=== PATIENT | female | born 1965 | race Caucasian/White ===

== ENCOUNTER 2017-11-03 15:29 | Emergency (ER) | payer BC, SELFPAY ==
[2017-11-03 15:31] VITALS: BP 158/87; PULSE 72; RESP 18; TEMP 36.5; O2SAT 98; BMI 43.6
--- NOTE | 2017-11-03 16:10 | CT_ITS ---
STUDY: CT BRAIN WITHOUT CONTRAST REASON FOR EXAM: Female, 52 years old. Headache with nonreactive pupils RADIATION DOSAGE (If Supplied By Facility): CTDIvol = ( 60.81 ) mGy, DLP = ( 1067.08 ) mGycm TECHNIQUE: Transaxial CT imaging of the brain was performed without administration of intravenous contrast material. Individualized dose optimization techniques were used for this CT. COMPARISON: None. FINDINGS: Normal soft tissue structures. Normal calvarium. Normal size ventricles and extra-axial spaces for the patient's age. Normal white matter tracts of the cerebral hemispheres. Normal basal ganglia and thalami. Normal brainstem. Normal cerebellum. There is no intracranial hemorrhage. There are no findings of an acute ischemic infarction. Normal visualized paranasal sinuses. CT/Brain/Head without Contrast IMPRESSION: Normal unenhanced CT scan of the brain. If there are continuing concerns, consider MRI. Electronically Signed: Hilda Mendoza MD at 16:54 EDT Tel , Service support ,
[2017-11-03] MEDS: 0.9% Normal Saline 1,000 ML 999 ML IV (16:23)
[2017-11-03 16:39] LABS: Absolute Lymphocyte Count 2.03 X10^3/ul (0.83-4.51); Absolute Neutrophil Count 3.2 X10^3/uL (2.0-7.7); Basophil# 0.01 X10^3/uL; Basophil% 0.2 % (0-1); Eosinophil# 0.22 X10^3/uL; Eosinophils% 3.7 % (0-5); Hemoglobin 14.2 g/dl (12.0-15.0); Lymphocyte # 2.03 X10^3/ul (4.0); Lymphocyte % 34.2 % (19-41); Mean Corpuscular Volume 87.9 fL (81-99); Mean Platelet Vol. 9.3 fl (6.2-12.0); Monocyte# 0.48 X10^3/uL; Monocyte% 8.1 % (0-10); Neutrophil # 3.17 X10^3/uL (2.7-7.7); Neutrophil % 53.5 % (47-70); Platelet Count 233 K/mm3 (150-450); RBC Distribution Width SD 41.6 fl (35.1-43.9); Red Blood Count 4.89 M/mm3 (4.2-5.4); White Blood Count 5.9 K/mm3 (4.4-11.0)
[2017-11-03 16:41] LABS: POSITIVE COUNT NO; POSITIVE DIFFERENTIAL NO; POSITIVE MORPHOLOGY NO
--- NOTE | 2017-11-03 16:46 | ED.DCSUM_ITS ---
- ER Visit Summary Date of Service: 11/03/17 Chief Complaint: Headache History of Present Illness: The patient is a 52 F presents to the emergency department with headache. Patient states she has been having it intermittently for the past 6 weeks. She states she will get a 2-3 times a week. She states in the last half an hour to a couple hours. She describes it as a dull ache. It comes on gradually. She was actually following up with her primary care today and saw her nurse practitioner. There were concerned that her left eye was not reactive and centering. She has no history of aneurysm. There is no family history of aneurysm or polycystic kidney disease. She has not taken anything for the headache. She denies any visual change, photophobia, or vision loss. She denies any trauma. She denies any other systemic symptoms. Physical Examination: Well-appearing patient is in no acute distress. Head is normocephalic, atraumatic. Pupils equal round reactive, extraocular muscles intact. There is no temporal artery tenderness. There is no vesicular rash. Neck supple. Kernig's and Brudzinski's are negative. Heart regular rate and rhythm. Lungs clear, chest nontender. Abdomen soft, nontender, nondistended. Neuro exam displays no focal or lateralizing deficit. 2+ symmetric lower extremity reflexes. No clonus. No ataxia or gait abnormality. Test Results: [] Emergency Department Course and Treatment: The patient's pupil was reactive on examination. She has no extraocular palsy or change in extraocular motion. She has no temporal artery tenderness or vesicular rash. I did obtain a head CT given her symptoms. This is unremarkable. Her labs are unremarkable. She has had no headache while here. At this time, this does seem more like a tension headache. I did describe to the patient that she may need outpatient follow-up including MRI of she has persistent symptoms but I do feel that she is safe for discharge. She has a benign neurologic examination and normal head CT. She has had headache for 6 weeks. She will be discharged home. Treatment Plan: [] Disposition: Discharge Impression: 1. Headache This note was generated with [employer] dictation software. It may contain incorrect words, spelling, and punctuation that were not noted in review of the chart prior to signing ED Disposition - Plan for ED Patient: Disposition: Home or Assisted Living Chief Complaint: Headache Instructions: ED Cephalgia Unspecified Referrals: Julio Sandoval, DO [Primary Care Provider] - 3-5 Days if not improving
[2017-11-03 16:52] LABS: AST(SGOT) 22 U/L (15-37); Alanine Aminotransfer ALT/SGPT 31 U/L (13-56); Alkaline Phosphatase 119 U/L (45-117); Anion Gap 8 (5-15); BUN 16 mg/dL (7-18); BUN/Creat Ratio 22.3 RATIO (10-20); Calcium,Total 9.1 mg/dL (8.5-10.1); Chloride 104 mmol/L (98-107); Creatinine, Serum 0.72 mg/dL (0.55-1.02); EST Glomerular Filtration Rate 91 mL/min (>60); Est Glom Filt Rate - Afr Amer 111 mL/min (>60); Globulin 3.9 g/dL (2.2-4.2); Glucose 122 mg/dL (74-106); Potassium 3.9 mmol/L (3.5-5.1); Protein, Total 7.9 g/dL (6.4-8.2); Sodium Level 140 mmol/L (136-145)
[2017-11-03 17:20] VITALS: BP 100/87; PULSE 71; RESP 20; O2SAT 100
== END 2017-11-03 17:27 | disposition home or self-care (01) ==
LOC: ED 17:10
PROVIDERS: Emergency Provider Emergency Medicine; Family Provider Family Medicine; PCP Family Medicine
DX: R51 Headache (principal); E11.9 Type 2 diabetes mellitus without complications; I10 Essential (primary) hypertension; Z79.84 Long term (current) use of oral hypoglycemic drugs; Z79.899 Other long term (current) drug therapy
CPT/HCPCS: 70450; 80053; 85025; 96360; 99283; J7030

== ENCOUNTER → 2018-02-15 11:23 | Outpatient (CLI) | payer BC, SELFPAY ==
--- NOTE | 2018-02-15 11:29 | RAD_ITS ---
STUDY: X-RAY - LEFT KNEE REASON FOR EXAM: Female, 53 years old. Chronic pain TECHNIQUE: Three view(s) of the knee were obtained. COMPARISON: None. FINDINGS: The distal femur is unremarkable. The proximal tibia is unremarkable. There is mild narrowing of the medial femorotibial compartment. Normal lateral femorotibial compartment. There is mild degenerative arthrosis of the patellofemoral articulation. There is minimal fullness above the patella. The soft tissue structures are unremarkable. RAD/Knee 3 Views IMPRESSION: There are mild degenerative changes in the left knee. There is a small joint effusion. Electronically Signed: Falguni Goodman MD at 20:40 EDT Tel Direct: [phone], Service support ,
== END ==
PROVIDERS: Family Provider Family Medicine; PCP Family Medicine; Visit Provider Nurse Practitioner Family
DX: M25.562 Pain in left knee (principal); G89.29 Other chronic pain
CPT/HCPCS: 73562

== ENCOUNTER → 2018-05-29 16:31 | Outpatient (CLI) | payer BC, SELFPAY ==
[2018-05-29 17:47] LABS: Hemoglobin A1c 6.2 % (4.2-6.3)
[2018-05-29 17:56] LABS: BUN 9 mg/dL (7-18); Creatinine, Serum 0.81 mg/dL (0.55-1.02); Glucose 117 mg/dL (74-106)
[2018-05-29 17:57] LABS: Anion Gap 4 (5-15); BUN/Creat Ratio 11.1 RATIO (10-20); Calcium,Total 9.3 mg/dL (8.5-10.1); Chloride 103 mmol/L (98-107); EST Glomerular Filtration Rate 79 mL/min (>60); Est Glom Filt Rate - Afr Amer 96 mL/min (>60); Potassium 4.1 mmol/L (3.5-5.1); Sodium Level 138 mmol/L (136-145)
== END ==
PROVIDERS: Family Provider Family Medicine; PCP Family Medicine; Referring Provider Family Medicine; Visit Provider Family Medicine
DX: E11.9 Type 2 diabetes mellitus without complications (principal); R25.2 Cramp and spasm
CPT/HCPCS: 36415; 80048; 83036

== ENCOUNTER 2018-07-02 08:27 | Day surgery (SDC) | payer BC, SELFPAY ==
--- NOTE | 2018-07-02 | COLBX_PTH ---
PATIENT: KODI HARDIN LOC: EN U#:[id number] AGE/SX: 53/F ROOM: RE07/02/[address]: Dr. Geni Sánchez MD : 1965 BED: DIS: 07/02/2018 SPEC #: [id number] RECD: 07/02/18 13:46 STATUS: ABHILASH CHAY #: [id number] RUDY: 07/02/18 00:[address]: Geni Sánchez DEPT: SURGICAL PATHOLOGY RECD BY: Yvon Dillard ENTERED: 07/02/18 13:46 SP TYPE: COLON BX OTHR DR: Dr. Julio Sandoval, DO Tissues: Rectum, NOS Procedures: Surgery Specimen Level IV HEADER OPERATION: Colonoscopy PRE-OP DIAGNOSIS: Screening TISSUE SUBMITTED: Rectal polyp MICROSCOPIC DIAGNOSIS Rectal polyp, biopsy: Consistent with fragments of inflammatory polyp. SJ:jeri 07/03/18 MICROSCOPIC DESCRIPTION Slides are reviewed. GROSS DESCRIPTION Received in fixative is one container labeled with the patient's name and designated rectal polyp. The specimen consists of a piece of ayoub-pink polyp measuring 0.3 x 0.3 x 0.2 cm. Also present in the container are a few minute fragments of ayoub soft tissue measuring 0.1 cm in greatest dimension. The specimen is totally submitted in one cassette. / SJ:rg 07/02/18 TC:5 CPT: 41217
[2018-07-02 08:43] VITALS: BP 141/80; PULSE 100; RESP 16; TEMP 37.3; O2SAT 96; BMI 43.8
[2018-07-02 08:56] LABS: Bedside Glucose 160 mg/dL (70-110)
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
[2018-07-02 10:05] VITALS: BP 121/88; BP 141/80; PULSE 90; RESP 16; TEMP 36.9; O2SAT 100
--- NOTE | 2018-07-02 10:05 | OP.ENDO_ITS ---
Patient Name: Tran Cheema Procedure Date: 07/02/2018 9:03 AM Date of : 1965 Age: 53 Procedure: Colonoscopy Indications: Screening for colorectal malignant neoplasm Providers: Geni Sánchez MD Medicines: Monitored Anesthesia Care Patient Profile: Last Colonoscopy: none. The patient's first colonoscopy is today. Complications: No immediate complications. Procedure: Pre-Anesthesia Assessment: - Prior to the procedure, a History and Physical was performed, and patient medications and allergies were reviewed. The patient's tolerance of previous anesthesia was also reviewed. The risks and benefits of the procedure and the sedation options and risks were discussed with the patient. All questions were answered, and informed consent was obtained. Prior Anticoagulants: The patient has taken no previous anticoagulant or antiplatelet agents. ASA Grade Assessment: II - A patient with mild systemic disease. After reviewing the risks and benefits, the patient was deemed in satisfactory condition to undergo the procedure. After I obtained informed consent, the scope was passed under direct vision. Throughout the procedure, the patient's blood pressure, pulse, and oxygen saturations were monitored continuously. The pediatric colonoscope was introduced through the anus and advanced to the cecum, identified by the appendiceal orifice, ileocecal valve and palpation. The colonoscopy was performed without difficulty. The patient tolerated the procedure well. The quality of the bowel preparation was good. Scope In: 9:37:56 AM Scope Withdrawal Time 0 hours 13 minutes 3 seconds Scope Out: 9:59:49 AM Total Procedure Duration Time 0 hours 21 minutes 53 seconds Findings: A less than 5 mm polyp was found in the rectum. The polyp was semi-pedunculated. The polyp was removed with a hot snare. Resection and retrieval were complete. Multiple small and large-mouthed diverticula were found in the entire colon. The retroflexed view of the distal rectum and anal verge was normal and showed no anal or rectal abnormalities. The perianal and digital rectal examinations were normal. Impression: - One less than 5 mm polyp in the rectum, removed with a hot snare. Resected and retrieved. - Diverticulosis in the entire examined colon. - The distal rectum and anal verge are normal on retroflexion view. Recommendation: - Discharge patient to home. - High fiber diet. - Continue present medications. - Await pathology results. - Repeat colonoscopy in 3 - 5 years for surveillance based on pathology results. Procedure Code(s): --- Professional --- 54922, Colonoscopy, flexible; with removal of tumor(s), polyp(s), or other lesion(s) by snare technique Diagnosis Code(s): --- Professional --- Z12.11, Encounter for screening for malignant neoplasm of colon K62.1, Rectal polyp K57.30, Diverticulosis of large intestine without perforation or abscess without bleeding CPT copyright 2017 [employer]. All rights reserved. The codes documented in this report are preliminary and upon permit review assistant review may be revised to meet current compliance requirements. MD Geni Turner MD 07/02/2018 10:05:21 AM This report has been signed electronically. Number of Addenda: 0 Note Initiated On: 07/02/2018 9:03 AM
[2018-07-02 10:10] VITALS: BP 137/95; BP 141/80; PULSE 84; RESP 16; O2SAT 99
[2018-07-02 10:15] VITALS: BP 131/96; BP 141/80; PULSE 86; RESP 16; O2SAT 100
[2018-07-02 10:20] VITALS: BP 136/100; BP 141/80; PULSE 86; RESP 16; TEMP 37.1; O2SAT 99
[2018-07-02 10:42] VITALS: BP 141/80
== END 2018-07-02 10:58 | disposition home or self-care (01) ==
LOC: EN 08:27 → AC 08:28
PROVIDERS: Family Provider Family Medicine; PCP Family Medicine; Referring Provider Surgery; Visit Provider Surgery
PROC: 0DJD8ZZ Inspection of Lower Intestinal Tract, Via Natural or Artificial Opening Endoscopic (ICD-10-PCS; CPT 45378; principal; 2018-07-02 09:25)
DX: Z12.11 Encounter for screening for malignant neoplasm of colon (principal); K62.1 Rectal polyp; K57.30 Diverticulosis of large intestine without perforation or abscess without bleeding; E11.9 Type 2 diabetes mellitus without complications; I10 Essential (primary) hypertension; K21.9 Gastro-esophageal reflux disease without esophagitis; R51 Headache; Z78.0 Asymptomatic menopausal state; Z79.84 Long term (current) use of oral hypoglycemic drugs; Z79.899 Other long term (current) drug therapy
CPT/HCPCS: 45385; 82962; 88305; J7120

== ENCOUNTER 2018-08-13 10:30 | Outpatient (RCR) | payer BC, SELFPAY ==
[2018-07-20 09:09] VITALS: BMI 43.8
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
--- NOTE | 2018-08-16 08:04 | HP.PTDCNRP_ITS ---
HP - Discharge Summary (1) - Patient Information KODI HARDIN was seen in my office for initial evaluation on 08/01/18. The following Plan of Care was established for this patient: Initial Frequency: 2x /Week Initial Duration: 4 Weeks - Anticipated Interventions Patient/Client Instruction: Educate patient on: Benefits of Fitness Program Therapeutic Exercise to Include: Strength training, Endurance training, Balance training, Coordination, Agility training, Body mechanics, Postural training, Flexibilty training, Dynamic Lumbar Stabilization For the Purpose of:: To improve muscle performance and motor function TENS: Yes Cryotherapy (ice pack, ice massage): Yes Thermo therapy (hot pack): Yes Ultrasound (thermal/non thermal): Yes For the Purpose of:: To decrease pain This patient was last seen in our office . Pertinent comments regarding their Physical therapy will appear below: Patient has decided to do therapy in [place] as it is closer to her home. discharge from [facility] at this time. At this point I will be discontinuing this patient from physical therapy. I would be happy to see this patient again in the future if found appropriate by the physician. Thank you! EBONY SchmitzT
--- OUTSIDE RECORDS SUMMARY | 2018-11-02 14:01 | XMS RPT_ITS ---
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 Musc Musculoskeletal: Positive for back pain and other (rt middle toe pain); no neck pain, abnormal walking, joint pain, limited range of motion, numbness or tingling Skin Skin: No redness, dry skin, itching, lesions, wounds or rash Neuro Neurology: No weakness, frequent falls, headache(s), abnormal hearing, abnormal walking, numbness, tingling, abnormal speech, dizziness or memory loss Psych Psychiatric: No change in appetite, No memory loss, No anxiety, No depression, No Thoughts of harming yourself/Others Endo Endocrine: No fatigue, excessive sweating, cold intolerance, increased thirst/drinking, heat intolerance, flushing or increased hunger Aller/Imm Allergy/Immunologic: No wheezing, itchy eyes, hives or seasonal allergy symptoms Kulwinder/Lymp Hematologic/Lymphatic: No easy bleeding, easy bruising or enlarged lymph nodes Exam Const General: cooperative, comfortable, no acute distress Nutritional Appearance: well nourished, overweight Orientation: alert, oriented x3 Limitations: mental status not altered Eyes General: appearance normal, both eyes and all related structures Visual Xie: normal visual xie by confrontation Eyelids: eyelids normal Conjunctivae: conjunctivae normal Pupils: fixed Resp Effort AND Inspection: normal respiratory effort, able to speak in complete sentences, normal respiratory pattern, symmetric chest movement, no audible wheezes, no cough Auscultation: Bilateral: Clear to Auscultation Cardio Palpation: normal PMI Rate: regular rate Heart Sounds: S1 normal, S2 normal, normal S1 and S2, no click, no gallops, no murmurs, no rubs Musc Sacroiliac joints: on the right tender to palpation Other: negative anterior and posterior drawer, good joint stability, some soft tissue swelling present left knee, crepitus present Skin General: no rashes or lesions noted, elasticity normal, turgor normal Lesions: no lesions Rashes: no rashes Nails: discolored, yellow and thickened, other (small hematoma under the right middle toe nail) Neuro General: alert, awake, oriented x3, CN's II-XI intact bilaterally Speech: speech normal Gait: normal gait Motor: muscle tone normal throughout Extrem General: normal to inspection, normal gait, no edema, no pedal edema Psych Appearance: grossly normal Mental Status: mental status grossly normal Affect: normal affect Attitude: cooperative Thought Process: normal Assessment AND Plan Problems 1. Essential hypertension I10 2. Type 2 diabetes mellitus without complication, without long-term current use of insulin E11.9 3. Stress incontinence in female N39.3 4. Sacro-iliac pain M53.3 Plan This patient presented with 3 distant problems the first was stress and urge incontinence and a prescription medicine to [place] was sent in for her. The other was a sore toenail and she has a small subungual hematoma on the right foot middle nail but also marked hypertrophic nails and really needs to see a cat dog or other pet groomer and this was set up. Third problem was a chronic sacroiliac strain seems like a simple muscle strain was no sign of radiculopathy there was no sign of nerve entrapment so she was just sent for physical therapy, because I feel that with weight loss should be enough to handle this problem. Orders Orders: Referrals: Medications New: Coding Level of Care Code Off vis,est,level 4 Diagnoses Essential hypertension I10 Hypertension type: essential hypertension Type 2 diabetes mellitus without complication, without long- term current use of insulin E11.9 Diabetes mellitus terminal gauger insulin use: without terminal gauger use Diabetes mellitus complication status: without complication Stress incontinence in female N39.3 Sacro-iliac pain M53.3 07/11/18 1615 <Electronically signed by Bobby Sandoval DO> Date Bobby Sandoval DO Cosigner Signature: Date (if applicable) CC: OPERATIVE REPORT - Observed: 07/02/2018 Status: F Source: [facility] END[facility]COPY 10:05 [facility] Medical Records Department [address] [place] [address] Operative Report - Endoscopy MR#: [id number] Acct: [id number] Name: TRAN HARDIN Rep #: [id number] : 1965 53 From: Geni Sánchez MD PCP: Bobby Sandoval, DO Status: REG SDC Patient Name: Tran Hardin Procedure Date: 07/02/2018 9:03 AM Date of : 1965 Age: 53 Procedure: Colonoscopy Indications: Screening for colorectal malignant neoplasm Providers: Geni Sánchez MD Medicines: Monitored Anesthesia Care Patient Profile: Last Colonoscopy: none. The patient's first colonoscopy is today. Complications: No immediate complications. Procedure: Pre-Anesthesia Assessment: - Prior to the procedure, a History and Physical was performed, and patient medications and allergies were reviewed. The patient's tolerance of previous anesthesia was also reviewed. The risks and benefits of the procedure and the sedation options and risks were discussed with the patient. All questions were answered, and informed consent was obtained. Prior Anticoagulants: The patient has taken no previous anticoagulant or antiplatelet agents. ASA Grade Assessment: II - A patient with mild systemic disease. After reviewing the risks and benefits, the patient was deemed in satisfactory condition to undergo the procedure. After I obtained informed consent, the scope was passed under direct vision. Throughout the procedure, the patient's blood pressure, pulse, and oxygen saturations were monitored continuously. The pediatric colonoscope was introduced through the anus and advanced to the cecum, identified by the appendiceal orifice, ileocecal valve and palpation. The colonoscopy was performed without difficulty. The patient tolerated the procedure well. The quality of the bowel preparation was good. Scope In: 9:37:56 AM Scope Withdrawal Time 0 hours 13 minutes 3 seconds Scope Out: 9:59:49 AM Total Procedure Duration Time 0 hours 21 minutes 53 seconds Findings: A less than 5 mm polyp was found in the rectum. The polyp was semi-pedunculated. The polyp was removed with a hot snare. Resection and retrieval were complete. Multiple small and large-mouthed diverticula were found in the entire colon. The retroflexed view of the distal rectum and anal verge was normal and showed no anal or rectal abnormalities. The perianal and digital rectal examinations were normal. Impression: - One less than 5 mm polyp in the rectum, removed with a hot snare. Resected and retrieved. - Diverticulosis in the entire examined colon. - The distal rectum and anal verge are normal on retroflexion view. Recommendation: - Discharge patient to home. - High fiber diet. - Continue present medications. - Await pathology results. - Repeat colonoscopy in 3 - 5 years for surveillance based on pathology results. Procedure Code(s): --- Professional --- 09180, Colonoscopy, flexible; with removal of tumor(s), polyp(s), or other lesion(s) by snare technique Diagnosis Code(s): --- Professional --- Z12.11, Encounter for screening for malignant neoplasm of colon K62.1, Rectal polyp K57.30, Diverticulosis of large intestine without perforation or abscess without bleeding CPT copyright 2017 [employer]. All rights reserved. The codes documented in this report are preliminary and upon water purifier review may be revised to meet current compliance requirements. MD Geni Turner MD 07/02/2018 10:05:21 AM This report has been signed electronically. Number of Addenda: 0 Note Initiated On: 07/02/2018 9:03 AM 07/02/18 1005 Date Geni Sánchez MD Cosigner Signature: Date (if indicated) CC: Bobby Sandoval DO; Geni Sánchez MD Date Dictated: 07/02/18902 Date Transcribed: Eye Surgeon: JUAN Signed HISTORY AND PHYSICAL Observed: 07/02/2018 Status: F Source: [facility] EXAM 9:09 AM [facility] REPOSITORY [facility] Medical Records Department [address] [place] [address] History and Physical 07/02/18 0859 MR#: [id number] Acct: [id number] Name: TRAN HARDIN Rep #: [id number] : 1965 53 From: Geni Sánchez MD PCP: Bobby Sandoval, DO Status: REG SDC Y Location: [place] [address] History of Present Illness Date of Admission: 07/02/18 The patient is a 53 year old F presents for screening colonoscopy. Patient states she has bowel movements daily denies any blood or abdominal pain or nausea or vomiting. Patient states she has never had a previous scope. Denies any family history of colon cancer Past Medical/Surgical History - Planned Operation Planned Operative Procedure/s: COLONOSCOPY Date of Operative Procedure: 07/02/18 Permit Signed: Yes S.O.S: No Is This Patient Having a Total Joint: No - Previous Hospitalizations/Surgeries HX Hospitalizations: No HX of Surgeries: RIGHT KNEE SCOPE X3. D AND C 02/27. L KNEE 06/07/18 FRIEDA Any Problems With Anesthesia: No You/Your Family Experience Fever (Hyperthermia) With Anes: No Cholinesterase deficiency: No - Cardiovascular Hx Chest Pain within Last 2 months: No Hx of Irregular Heartbeat and/or Afib: No Hx Heart Attack: No Hx Congestive Heart Failure: No Hx Rheumatic Fever: No Hx Hypertension: Yes - CONTROLLED WITH MED Hx Internal Defibrillator: No Hx Pacemaker: No Hx Cardiac Catheterization: No Hx Cardiac Surgery/Stents/Etc.: No Hx Stress Test: No HX Edema: No Hx Pain in Legs when Walking/Leg Cramps: No - Respiratory Chronic Cough: No HX of Shortness of Breath: No Hoarseness: No Hx Chronic Obstructive Pulmonary Disease (COPD): No Hx Asthma: No Hx Emphysema: No Hx Sleep Apnea: No Hx Oxygen Use at Home: No Hx Respiratory Tract Infection/Cold (presently): Yes Do You Snore Loudly (louder than talking or can be heard): No Do You Often Feel Tired/ Fatigued/ Sleepy Dring Daytime?: No Has Anyone Observed You Stop Breathing During Sleep?: No Result (for STOP score): Negative Hx Smoking: No Smoking Status: Never smoker - Gastrointestinal Hx Gastroesophageal Reflux: Yes Controlled With Meds: No Hx Gastrointestinal Disorders: No Hx Gastrointestinal Bleed: No Hx Ulcer: No Hx Hiatal Hernia: No Difficulty Chewing/Swallowing: No Recent Onset of Swallowing Problems: No Special diet followed at home: Yes - DIABETIC Hx Unplanned Weight Loss of 20#: No HX Unplanned Weight Gain of 20#: No - Neurological Hx Seizures: No HX Syncope/Blackout Spells/Unconsciousness: Yes - 4 YRS AGO BLACK OUTS D/T NECK ISSUES Hx CVA/Stroke: No Hx Transient Ischemic Attacks (TIA): No Hx Multiple Sclerosis: No Hx Parkinson's Disease: No Hx Head/Neck Injury: No Hx Headaches: No Hx Back Injury/Pain: Yes Recent Onset of Speech Difficulty: No Restless Legs: No Does patient have nerve stimulator: No - Blood Disorder Hx Leukemia: No Bleeding Tendencies: No Hx Deep Vein Thrombosis: No Hx High Cholesterol: No Blood Transmitted Disease: No Hx Hepatitis: No Hx Cirrhosis: No Hx Anemia: No Hx Blood Disorders: No - Reproduction Is Patient Lactating: No Hx Hysterectomy: No Hx Tubal Ligation: No Are You Post Menopause: Yes - Genitourinary Hx Renal Disease: No - Musculoskeletal Hx Arthritis: Yes Hx Rheumatoid Arthritis: No Hx Gout: No Recent Onset of an Orthopedic Problem: No - Endocrine Hx Diabetes: Yes Insulin: No Thyroid Disease: No Hx Steroid Therapy: No - Psycho/Social Hx Substance Use: No Hx Alcohol Use: No Hx Anxiety: No Hx Depression: No Mental Illness: No Hx Dementia: No - Miscellaneous Hx Cancer: No Recent Exposure to Contagious Disease: No Active MRSA: No Hx of C-Diff: No Any Loose Teeth: No Allergies empagliflozin [From Jardiance] Adverse Reaction (Verified 06/29/18 13:41) Other - Discharge Is Pt Admitted From a Half-Way, or a Long-Term: No Who Could Help: After D/C, Where Do you Plan to Go: Return Home - Physical Exam General: Alert, Oriented x3, Cooperative, No apparent distress HEENT: Atraumatic Lungs: Normal air movement Cardiovascular: Regular rate Abdomen: Soft, Non Tender - Peritoneal signs, Non-Distended, Obese Extremities: No clubbing, No cyanosis, No edema Neurological: Cranial nerves II-XII grossly intact Psych/Mental Status: Normal Affect Vital Signs Temp Pulse Resp BP Pulse Ox 99.1 F 100 16 141/80 H 96 07/02/18 08:43 07/02/18 08:43 07/02/18 08:43 07/02/18 08:43 07/02/18 08:43 Oxygen Delivery Method Room Air Weight: 288 lb 5.834 oz Body Mass Index (BMI) 43.8 POC Glucose POC Glucose 160 H Assessment/Plan All Active Problems (Last Reviewed 02/15/18 @ 10:30 by Marisa Shepherd) Frequent headaches (Acute) 53-year-old female for screening for colon cancer Surgery Risks - Colonoscopy I discussed with the patient the risks of the procedure: Yes Risks Include but are not Limited To: Risks include but are not limited to: Bleeding, perforation requiring further surgery, inability to complete colonoscopy requiring barium enema. Patient and her no further questions at this time. 07/02/18 09 <Electronically signed by Geni Sánchez MD> Date Geni Sánchez MD Cosigner Signature: Date (if applicable) CC: Bobby Sandoval DO; Geni Sánchez MD Signed BEDSIDE GLUCOSE Collected: 07/02/2018 Status: F Source: [facility] 8:50 AM [facility] REPOSITORY TYPE CODE TESTS RESULT OUT OF REFERENCE UNITS RANGE LAB L501.080 70-110 mg/dL High BEDSIDE GLU 160 Result Comment: MANAGEMENT OF PATIENT CARE PER NURSING PROTOCOL Performed By: #### L501.080 #### [facility] Point of Care [address] [place] [address] COLON BIOPSY (CHOOSE Observed: 07/02/2018 Status: F Source: [facility]) 12:00 AM [facility] REPOSITORY Patient: TRAN HARDIN : 1965 (53/F) Acct Num: [id number] Phys: Geni Sánchez MD Unit Num: [id number] Loc: EN Specimen: [id number] Received: 07/02/18 - 1346 Spec Type: COLON BX TISSUES 1 TISSUES: Rectum, NOS GROSS DESCRIPTION Received in fixative is one container labeled with the patient's name and designated rectal polyp. The specimen consists of a piece of ayoub-pink polyp measuring 0.3 x 0.3 x 0.2 cm. Also present in the container are a few minute fragments of ayoub soft tissue measuring 0.1 cm in greatest dimension. The specimen is totally submitted in one cassette. / SJ:jeri 07/02/18 TC:5 CPT: 34146 HEADER OPERATION: Colonoscopy PRE-OP DIAGNOSIS: Screening TISSUE SUBMITTED: Rectal polyp MICROSCOPIC DESCRIPTION Slides are reviewed. MICROSCOPIC DIAGNOSIS Rectal polyp, biopsy: Consistent with fragments of inflammatory polyp. SJ:jeri 07/03/18 Signed Samuel Pelletier 07/03/18 <signature on file> Performed By: #### PCOLBX #### [facility] [address] [place], [address] GLUCOSE,BEDSIDE Collected: 06/07/2018 Status: F Source: [facility] 8:37 AM SYSTEM REPOSITORY TYPE CODE TESTS RESULT OUT OF RANGE REFERENCE UNITS LAB BGLU 70-100 mg/dL High 161 Glucose,Beds ceci Result Comment: Test performed by glucose meter. Results may be 10%-15% lower than serum/plasma values. (CLIA ID [id number]) Performed By: #### BGLU #### [facility] [facility] [address] [place] [address] OP NOTE Observed: 06/07/2018 Status: F Source: [facility] 8:27 AM SYSTEM REPOSITORY DICT# [id number] OP NOTE Observed: 06/07/2018 Status: F Source: [facility] 8:24 AM SYSTEM REPOSITORY PATIENT: TRAN HARDIN ADMISSION DATE: 06/07/2018 SURGERY DATE: 06/07/2018 DATE OF : 1965 AGE: 53 ADMITTING PHYSICIAN: Brandon Garcia MD ATTENDING PHYSICIAN: Brandon Garcia MD DICTATING PHYSICIAN: Brandon Garcia MD OPERATIVE RECORD PROCEDURE: ARTHROSCOPY, LEFT KNEE WITH MEDIAL AND LATERAL MENISCECTOMY. PREOPERATIVE DIAGNOSIS: Medial meniscal tear, left knee. POSTOPERATIVE DIAGNOSIS: Medial and lateral meniscal tear with degenerative joint disease, left knee. ANESTHESIA: General. LABEL DRIER: Brie Butzer, ST. ESTIMATED BLOOD LOSS: Less than 10 mL. BLOOD GIVEN: None. FLUIDS: Crystalloids. OPERATIVE INDICATIONS: This is a 53-year-old female with mechanical symptoms in her left knee. She has mild to moderate DJD. MRI scan confirmed a medial meniscal tear. She is admitted for arthroscopy. OPERATIVE FINDINGS: Consists the above history and physical exam. She had grade 2 chondromalacia of all 3 compartments of the knee. No formal chondroplasties were needed. She had a complex tear of the medial meniscus with a vertical split through the posterior horn. She had a flap tear based posteriorly and posterior third. We resected the posterior third of the meniscus back to a stable base and smoothed with a shaver. She had a small lateral meniscal tear that we resected as well. She tolerated the procedure well and was taken to the recovery room in good condition. DESCRIPTION OF PROCEDURE: The patient was taken to the operative suite where a general anesthetic was induced satisfactorily. Exam under anesthesia showed that she had ligamentously stable and good range of motion. We then placed a tourniquet high in her thigh and then prepped and draped the left leg in a sterile fashion in a leg todd. Right leg was padded well. We did a diagnostic arthroscopy using a superolateral outflow and anterolateral and anteromedial working portal. We evaluated the suprapatellar pouch. She had moderate synovitis. Patellofemoral joint showed some grade 2 chondromalacia, but no chondral flaps. Medial and lateral gutters were intact. We looked in the medial compartment. She had again some grade 2 changes of the medial compartment, but no chondral flaps. She had a complex tear of the medial meniscus in the posterior 3rd. It had a vertical split in the posterior root of the meniscus. She had a flap tear based posteriorly in the posterior third. We resected all this back to a stable base and smoothed it with the shaver and ArthroCare. The meniscus was stable to probing when we finished. We lightly touched the medial femoral condyle to remove some of the grade 2 changes, but no formal chondroplasty was done. We looked in the intercondylar notch and found intact ACL. We looked in the lateral compartment and found a small tear of the free edge of lateral meniscus in the middle 3rd. I resected this back to a stable base and smoothed it with a shaver. She had some scuffing of the anterior horn, but no full-thickness tear. This was debrided with a shaver and ArthroCare, but was stable. She had a small chondral lesion with early grade 2 changes on the lateral compartment, but again no loose chondral flaps. We then thoroughly irrigated the knee and removed the fluid. We injected Marcaine and the closed the portal with 4-0 Prolene. Compressive gauze dressing was applied. The patient tolerated the procedure well and was taken to the recovery room in good condition. cc: Brandon Garcia M.D. Brandon Garcia MD DOD:06/07/2018 08:24 A DLF/frandy DOT:06/07/2018 09:35 A Job Number: [id number] Document Number: [id number] cc: Brandon Garcia MD [address] [facility] [address] GLUCOSE,BEDSIDE Collected: 06/07/2018 Status: F Source: [facility] 6:31 AM SYSTEM REPOSITORY TYPE CODE TESTS RESULT OUT OF RANGE REFERENCE UNITS LAB BGLU 70-100 mg/dL High 147 Glucose,Beds ceci Result Comment: Test performed by glucose meter. Results may be 10%-15% lower than serum/plasma values. (CLIA ID [id number]) Performed By: #### BGLU #### [facility] [facility] [address] [place] [address] INTERNAL MEDICINE Observed: 05/29/2018 Status: F Source: [facility] OFFICE VISIT 5:31 PM [facility] REPOSITORY [facility] [address] [place] [address] [place] [address] OFFICE VISIT Date of Service: 05/29/18 MR#: [id number] Acct: [id number] Name: TRAN HARDIN Rep #: [id number] : 1965 Provider: Bobby Sandoval DO Age/Sex: 53/F Location: [facility] Status: Signed Intake Vital Signs05/29/18 Height 5 ft 8 in Intake Visit Reasons: 6 mo fu Chief Complaint: Left knee pain Is patient in pain?: Yes (left knee) Allergies empagliflozin [From Jardiance] Adverse Reaction (Verified 02/15/18 10:30) Other Medications Diclofenac [Voltaren] 75 mg PO PRN PRN 02/21/17 [History Confirmed 02/15/18] blood sugar diagnostic strips See Dose Instructions .ROUTE .MEDSUPPLY #100 ea 01/02/18 [Rx Confirmed 02/15/18] metformin ER 500 mg tablet,extended release 24 hr 500 mg PO QDAY #90 tab 02/28/18 [Rx] lisinopril 10 mg tablet 10 mg PO 1600 #90 tab 04/20/18 [Rx] Post menopausal: Yes PFSH Medical History Hypertension (Chronic) Frequent headaches (Acute) Type 2 diabetes mellitus (Chronic) Surgical History History of D AND C (Acute) History of right knee surgery (Acute) Family History Sister Cancer cervical, ovarian Diabetes Mother Asthma Father Alcoholism Social History Smoking Status: Never smoker alcohol intake: never substance use type: does not use what type of physical activity do you participate in: none HPI HPI Chief Complaint: Left knee pain Details: TRAN HARDIN, is a 53 F who presents to the office today for follow up on her elevated blood glucose. ROS Const Constitutional: No weight change, body ache, chills, fatigue, sleep problems, fever(s), change in appetite, snoring, weakness, frequent falls, headache(s) or excessive sweating Eyes Eyes: No change in vision, eye pain, light sensitivity or blurry vision ENT ENT: No headache(s), abnormal hearing, ear pain, tinnitus, nasal congestion, sore throat or neck pain Resp Respiratory: No snoring, cough, shortness of breath or wheezing Cardio Cardiology: No excessive sweating, chest pain at rest, chest pain with exertion, shortness of breath, dyspnea on exertion, palpitations, orthopnea or lightheadedness Gastro GI: No abdominal pain, change in bowel habits, constipation, diarrhea, vomiting, nausea/dyspepsia or cramping Genitourinary-Female: No burning urination, painful urination, urinary incontinence, urinary frequency, abnormal vaginal bleeding, pelvic pain or other Musc Musculoskeletal: No neck pain, abnormal walking, joint pain, back pain, limited range of motion, numbness, tingling or muscle weakness Skin Skin: No redness, dry skin, itching, lesions, wounds or rash Neuro Neurology: No weakness, frequent falls, headache(s), abnormal hearing, abnormal walking, numbness, tingling, abnormal speech, dizziness or memory loss Psych Psychiatric: No change in appetite, No memory loss, No anxiety, No depression, No Thoughts of harming yourself/Others Endo Endocrine: No fatigue, excessive sweating, cold intolerance, increased thirst/drinking, heat intolerance, flushing or increased hunger Aller/Imm Allergy/Immunologic: No wheezing, itchy eyes, hives or seasonal allergy symptoms Kulwinder/Lymp Hematologic/Lymphatic: No easy bleeding, easy bruising or enlarged lymph nodes Exam Const General: cooperative, comfortable, no acute distress Nutritional Appearance: average body habitus, well nourished Orientation: alert, oriented x3 Limitations: mental status not altered Eyes General: appearance normal, both eyes and all related structures Visual Xie: normal visual xie by confrontation Eyelids: eyelids normal Conjunctivae: conjunctivae normal Pupils: fixed Resp Effort AND Inspection: normal respiratory effort, able to speak in complete sentences, normal respiratory pattern, symmetric chest movement, no audible wheezes, no cough Auscultation: Bilateral: Clear to Auscultation Cardio Palpation: normal PMI Rate: regular rate Heart Sounds: S1 normal, S2 normal, normal S1 and S2, no click, no gallops, no murmurs, no rubs Musc Musculoskeletal: Yes joint tenderness (left knee); no muscle weakness Other: negative anterior and posterior drawer, good joint stability, some soft tissue swelling present left knee, crepitus present Skin General: no rashes or lesions noted, elasticity normal, turgor normal Lesions: no lesions Rashes: no rashes Neuro General: alert, awake, oriented x3, CN's II-XI intact bilaterally Speech: speech normal Gait: normal gait Motor: muscle tone normal throughout Extrem General: normal to inspection, normal gait, no edema, no pedal edema Psych Appearance: grossly normal Mental Status: mental status grossly normal Affect: normal affect Attitude: cooperative Thought Process: normal Assessment AND Plan Problems 1. Hypertension I10 2. Frequent headaches R51 3. Type 2 diabetes mellitus E11.9 4. 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 History of torn meniscus of left knee Z87.828 Plan This patient was seen on a routine 6-month checkup to recheck her blood sugar as it is been minimally elevated in the past. She is to have a left medial meniscectomy next week because of a torn meniscus. Physical examination is unchanged she has not lost significant weight, however she does complain of a lot of muscle cramps. I got a Cam profile and hemoglobin A1c, hopefully we can find a cause for her muscle cramping. I suspect her sugar is moderately well controlled and will probably follow her up in 6 months but will await the results of the blood test before we schedule that. 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, [address] BASIC METABOLIC Collected: 05/29/2018 Status: F Source: REASNOR PROFILE (BMP) 4:35 PM [facility] REPOSITORY TYPE CODE TESTS RESULT OUT OF RANGE REFERENCE UNITS LAB L501.0100 74-106 mg/dL High GLU 117 Result Comment: Fasting Glucose result from 100 to 125 mg/dL suggests IMPAIRED HOMEOSTASIS per A.D.A. criteria. Please note revised GLUCOSE reference range effective 2017. LAB L501.1000 7-18 mg/dL Normal BUN 9 LAB L501.1100 0.55-1.02 mg/dL Normal CREAT,SERUM 0.81 Result Comment: The validity of the calculated GFR AND GFRAA in patients over 70 years has not been determined. Clinical correlation is essential. LAB L501.1110 >60 mL/min Normal EST GFR 79 Result Comment: Non- GFR Calc LAB L501.1115 >60 mL/min Normal EST GFR - AA 96 Result Comment: GFR Calc LAB L501.1300 10-20 RATIO Normal BUN/CRE 11.1 LAB L501.2200 8.5-10.1 mg/dL CA Normal 9.3 LAB L501.5300 136-145 mmol/L NA Normal 138 LAB L501.5600 3.5-5.1 mmol/L K Normal 4.1 LAB L501.5900 98-107 mmol/L CL Normal 103 LAB L501.6100 21.0-32.0 mmol/L Normal CO2 31.0 LAB L501.6200 5-15 Low GAP 4 Performed By: #### L501.9985, L500.2500 #### [facility] [address] [place], [place], [id number] HEMOGRAM Collected: 05/18/2018 Status: F Source: InRadio 10:46 AM SYSTEM REPOSITORY TYPE CODE TESTS RESULT OUT OF RANGE REFERENCE UNITS LAB IWBC 3.6-10.7 10*3/uL WBC Normal 6.7 LAB RBC 3.80-5.20 10*6/uL RBC Normal 4.81 LAB HGB 11.7-16.0 g/dL Normal Hemoglobin 14.3 LAB HCT 35.0-47.0 % Normal Hematocrit 41.5 LAB MCV 79.0-98.0 fL MCV Normal 86.3 LAB MCH 26.0-34.0 pg MCH Normal 29.7 LAB MCHC 32.0-36.0 % MCHC Normal 34.5 LAB RDW 11.5-14.5 % RDW Normal 13.5 LAB PLT 140-440 10*3/uL Platelet Normal 257 LAB MPV 7.4-10.4 fL MPV Normal 7.4 Performed By: #### HEMOG, CMP3 #### [facility] [address] [place] [address] COMP METABOLIC PANEL Collected: 05/18/2018 Status: F Source: InRadio 10:46 AM SYSTEM REPOSITORY TYPE CODE TESTS RESULT OUT OF RANGE REFERENCE UNITS LAB NA3 137-145 mmol/L Sodium Normal 139 LAB K3 3.5-5.1 mmol/L Normal Potassium 4.4 LAB CL3 98-107 mmol/L Chloride Normal 100 LAB CO23 22-30 mmol/L Carbon Normal Dioxide 29 LAB ANIN3 NA Anion Gap 11 LAB GLUC3 70-100 mg/dL High Glucose 134 LAB BUN3 7-20 mg/dL High Urea Nitrogen 21 LAB CRET3 0.52-1.25 mg/dL Normal Creatinine 0.85 LAB GF3BR >60 mL/min eGFR > 60.0 LAB GF3WR >60 mL/min eGFR OTHER > 60.0 Result Comment: Source- MDRD equation with creatinine calibration to IDMS(NKDEP) eGFR not recommended for drug dose adjustment LAB CA3 8.4-10.4 mg/dL Calcium Normal 10.0 LAB ALB3 3.5-5.0 g/dL Albumin, Serum Normal 4.7 LAB TP3 6.3-8.2 g/dL Total Protein Normal 7.5 LAB BILT3 0.2-1.3 mg/dL Normal Bilirubin,Total 0.8 LAB ALKP3 38-126 U/L Alkaline Normal Phosphatase 94 LAB ALT3 13-69 U/L ALT (SGPT) Normal 53 LAB AST3 15-46 U/L AST (SGOT) Normal 28 Performed By: #### HEMOG, CMP3 #### [facility] [address] [place] [address] CR KNEE STANDING Observed: 04/04/2018 Status: F Source: [email or web address] 6:01 PM SYSTEM REPOSITORY Patient Name: TRAN HARDIN Diagnostic Radiology Exam Date/Time 04/04/2018 15:15:15 EDT Exam CR Knee Standing AP Bilateral Ordering Physician MD GARCIA DONALD L. Accession Number [id number] CPT4 Codes 47886 () Reason For Exam pain Report FRONTAL WEIGHT-BEARING VIEW OF BOTH KNEES History: Knee pain Findings: Frontal weight-bearing view of both knees is limited. Other routine views are not available. There is right tibiofemoral joint space narrowing more so laterally with corresponding marginal spurs and probably mild chondrocalcinosis. There is also mild narrowing of the left medial tibiofemoral joint space. To the extent visualized, there is no acute fracture, dislocation, or periosteal reaction. IMPRESSION: Right and lesser left knee joint osteoarthritis. Report Dictated on Final Dictating Physician: MD TRAVIS AHMAD Signed Date and Time: 04/04/2018 6:04 pm Signed by: MD TRAVIS AHMAD Transcribed Date and Time: 04/04/2018 6:05 MRI LOW EXT JOINT W/O Observed: 03/30/2018 Status: F Source: In[employer] CONTRAST LEFT 12:23 PM SYSTEM REPOSITORY Patient Name: TRAN HARDIN MRI Exam Date/Time 03/30/2018 11:59:55 EDT Exam MRI Low Ext Joint w/o Contrast Left Ordering Physician MD YOGESH, BRANDON Parker Accession Number [id number] CPT4 Codes 71488 () Reason For Exam pain Report Exam Type: MRI Low Ext Joint w/o Contrast Left Exam Date and Time: 03/30/2018 11:59 AM EDT Demographics: Gender: Female; Age: 53 years Indication: Left knee pain; Comparison: None available TECHNIQUE: MRI of the left knee was performed on using a standard non-contrast protocol in three planes (axial, sagittal, and coronal). FINDINGS: JOINT SPACE: Moderate joint effusion. No intra-articular bodies. Small, partially ruptured Matos's cyst. MEDIAL COMPARTMENT: Medial meniscus: Complex tear of the posterior horn involving the posterior root attachment. Moderate extrusion. Degenerative signal within the remaining body and posterior horn. Medial compartment cartilage: Intermediate grade partial thickness cartilage loss along the weightbearing aspects of the compartment. Tiny marginal osteophytes. LATERAL COMPARTMENT: Lateral meniscus: Extensive degenerative signal within the body and posterior horn without signal extending to an articular surface to suggest MR evidence of tear. Lateral compartment cartilage: Diffuse low-grade partial-thickness cartilage loss with regions of high-grade partial-thickness cartilage loss and fissuring of the posterior weightbearing lateral femoral condyle. Tiny marginal osteophytes. PATELLOFEMORAL COMPARTMENT: Patellofemoral compartment cartilage: Diffuse low-grade partial-thickness cartilage loss with regions of high-grade to full-thickness fissuring along the lateral and medial patellar facets as well as lateral trochlea. Tiny marginal osteophytes. Patellofemoral tracking: Mild lateral patellar tilt and translation. No patella billie. Normal tibial tubercle-trochlear groove (TT-TG) distance. No edema in superolateral Hoffa's fat pad. EXTENSOR MECHANISM: Distal quadriceps tendon: No tendinosis or tear. Patella tendon: No tendinosis or tear. CRUCIATE LIGAMENTS: Anterior cruciate ligament (ACL): Intact. Posterior cruciate ligament (PCL): Intact. COLLATERAL LIGAMENTS AND POSTEROLATERAL CORNER: Medial collateral ligament (MCL): Intact. Edema about the MCL is in keeping with the medial compartment pathology or ruptured Matos's cyst. Lateral collateral ligament (LCL) complex: Intact. Posterolateral corner structures: Intact. OSSEOUS STRUCTURES: Alignment is anatomic. No acute fracture or bone bruise. No suspicious osseous lesions or marrow signal alteration. SOFT TISSUES: No subcutaneous edema. No soft tissue mass. Normal neurovascular bundle. IMPRESSION: 1. Complex tear of the posterior horn involving the posterior root attachment. Degenerative signal within the remaining body and posterior horn. 2. Extensive degenerative signal within the body and posterior horn of the lateral meniscus without signal extending to an articular surface to suggest MR evidence of tear. 3. Mild tricompartmental osteoarthritis. Report Dictated on Final Dictating Physician: MD HUIZAR NEIL Signed Date and Time: 03/30/2018 12:41 pm Signed by: MD HUIZAR NEIL Transcribed Date and Time: 03/30/2018 12:42 INTERNAL MEDICINE Observed: 02/15/2018 Status: F Source: REASNOR OFFICE VISIT 11:52 AM [facility] [address] [place] [address] [place] [address] OFFICE VISIT Date of Service: 02/15/18 MR#: [id number] Acct: [id number] Name: TRAN HARDIN Rep #: [id number] : 1965 Provider: Faustino Moran NP Age/Sex: 53/F Location: [facility] Status: Signed Intake Vital Signs02/15/18 Height 5 ft 8 in 02/15/18 Weight: 294 lb 02/15/18 Body Mass Index (BMI) 44.6 02/15/18 Blood Pressure 128/82 Intake Visit Reasons: severe knee pain Chief Complaint: Left severe knee pain Is patient in pain?: Yes (Left Knee pain - Has gone up to a 10) Pain scale (1-10): 3 Allergies empagliflozin [From Jardiance] Adverse Reaction (Verified 02/15/18 10:30) Other Medications Diclofenac [Voltaren] 75 mg PO PRN PRN 02/21/17 [History Confirmed 02/15/18] Lisinopril [Prinivil] 10 mg PO 1600 02/21/17 [History Confirmed 02/15/18] Metformin HCl 500 mg PO 0500 02/21/17 [History Confirmed 02/15/18] blood sugar diagnostic strips See Dose Instructions .ROUTE .MEDSUPPLY #100 ea 01/02/18 [Rx Confirmed 02/15/18] PFSH Medical History Hypertension (Chronic) Frequent headaches (Acute) Type 2 diabetes mellitus (Chronic) Surgical History History of D AND C (Acute) History of right knee surgery (Acute) Family History Sister Cancer cervical, ovarian Diabetes Mother Asthma Father Alcoholism Social History Smoking Status: Never smoker alcohol intake: never substance use type: does not use what type of physical activity do you participate in: none HPI HPI Chief Complaint: Left severe knee pain Details: TRAN HARDIN, is a 53 F who presents to the office today for for complaints of left knee pain. The patient has a past medical history of hypertension, diabetes, osteoarthritis and frequent headaches. The patient states that of December this year she began having worsened left knee pain. The pain has been on and off since December and she describes the pain as aching, 3-10/10 pain with grinding sensation and swelling times. The pain is made worse by movement and stairs and is relieved at rest. Ice and NSAIDs provide mild relief of the pain. Patient states that a few years ago she was told she has arthritis in her right knee. Patient denies any giving out or popping of the knee and is requesting an orthopedic evaluation as well. She does have a history of receiving corticosteroid injections in the right knee as well. the patient otherwise denies any fever, chills, nausea, vomiting, shortness of breath, chest pain or pressure, palpitations, orthopnea, lower extremity edema, syncope or presyncopal episodes. ROS Const Constitutional: No chills, fatigue, fever(s), frequent falls, malaise, weakness, sleep problems or change in appetite Eyes Eyes: No blurry vision, change in vision, double vision, discharge or visual disturbances ENT ENT: No abnormal hearing, ear pain, ear pressure, tinnitus or dizziness/vertigo Resp Respiratory: No cough, shortness of breath or wheezing Cardio Cardiology: No chest pain at rest, chest pain with exertion, shortness of breath, dyspnea on exertion, generalized swelling, irregular heart rhythm, lightheadedness, orthopnea, fast heart rate or palpitations Gastro GI: No abdominal pain, change in bowel habits, constipation, diarrhea, nausea/dyspepsia or vomiting Genitourinary-Female: No difficulty urinating, burning urination, painful urination, urinary incontinence, urinary frequency, urinary urgency, urinary hesitancy, urinary retention, Frequent nighttime urination/ nocturia, sexual problems, genital lesions, abnormal vaginal bleeding, pelvic pain, vaginal dryness, vaginal odor or Vaginal Itching Musc Musculoskeletal: Positive for joint pain (Left severe knee pain - since 12/13/17) and joint swelling (Left knee); no back pain, limited range of motion, muscle weakness, numbness or tingling Skin Skin: No change in skin color, itching, rash or wounds Breast Breast: No breast lump or breast pain Neuro Neurology: No frequent falls, weakness, abnormal hearing, numbness, tingling, unsteady gait/balance, dizziness, loss of vision, memory loss or visual disturbances Psych Psychiatric: No memory loss, No anxiety, No change in appetite, No depression, No Thoughts of harming yourself/Others Endo Endocrine: No fatigue, heat intolerance, increased thirst/drinking, increased hunger or increased urination Aller/Imm Allergy/Immunologic: No wheezing, itchy eyes or seasonal allergy symptoms Kulwinder/Lymp Hematologic/Lymphatic: No easy bleeding, easy bruising or enlarged lymph nodes Exam Const General: cooperative, comfortable, no acute distress Nutritional Appearance: average body habitus, well nourished Orientation: alert, oriented x3 Limitations: mental status not altered Eyes General: appearance normal, both eyes and all related structures Visual Xie: normal visual xie by confrontation Eyelids: eyelids normal Conjunctivae: conjunctivae normal Pupils: fixed on the left Resp Effort AND Inspection: normal respiratory effort, able to speak in complete sentences, normal respiratory pattern, symmetric chest movement, no audible wheezes, no cough Auscultation: Bilateral: Clear to Auscultation Cardio Palpation: normal PMI Rate: regular rate Heart Sounds: S1 normal, S2 normal, normal S1 and S2, no click, no gallops, no murmurs, no rubs Musc Musculoskeletal: Yes joint tenderness (left knee); no muscle weakness Other: negative anterior and posterior drawer, good joint stability, some soft tissue swelling present left knee, crepitus present Skin General: no rashes or lesions noted, elasticity normal, turgor normal Lesions: no lesions Rashes: no rashes Neuro General: alert, awake, oriented x3, CN's II-XI intact bilaterally Speech: speech normal Gait: normal gait Motor: muscle tone normal throughout Extrem General: normal to inspection, normal gait, no edema, no pedal edema Psych Appearance: grossly normal Mental Status: mental status grossly normal Affect: normal affect Attitude: cooperative Thought Process: normal Assessment AND Plan Problems 1. Left knee pain M25.562 2. Osteoarthritis M19.90 3. Obesity E66.9 Plan Will order x-ray of the left knee to rule out acute process. Patient referred for physical therapy. Patient also referred to orthopedic of her choice. Patient encouraged to use Osteo Bi-Flex. Patient also encouraged to continue using ice and NSAIDs for the pain. Discussed with patient benefits of weight loss. Discussed red leg symptoms that require urgent medical attention. This note was generated with [employer] dictation software. It may contain incorrect words, spelling, and punctuation that were not noted in checking the note before signing. Orders Orders: Referrals: Coding Level of Care Code Off vis,est,level 3 Diagnoses Left knee pain M25.562 Osteoarthritis M19.90 Obesity E66.9 02/15/18 1152 <Electronically signed by Faustino MCKAY> Date Faustino MCKAY Cosigner Signature: Date (if applicable) CC: KNEE 3 VIEWS Observed: 02/15/2018 Status: F Source: SERGIO 11:29 AM [facility] REPOSITORY [facility] Services [address] [place] [address] Knee 3 Views MR#: [id number] Acct: [id number] Name: TRAN HARDIN Rep #: [id number] : 1965 F 53 From: Falguni Goodman MD PCP: Bobby Sandoval DO Status: REG CLI Study: Knee 3 Views Date of Exam: 02/15/18 Exam# [id number] Ordering Dr: Faustino Moran PRINCIPAL TECHNICAL ARCHITECT-C STUDY: X-RAY - LEFT KNEE REASON FOR EXAM: Female, 53 years old. Chronic pain TECHNIQUE: Three view(s) of the knee were obtained. COMPARISON: None. FINDINGS: The distal femur is unremarkable. The proximal tibia is unremarkable. There is mild narrowing of the medial femorotibial compartment. Normal lateral femorotibial compartment. There is mild degenerative arthrosis of the patellofemoral articulation. There is minimal fullness above the patella. The soft tissue structures are unremarkable. RAD/Knee 3 Views IMPRESSION: There are mild degenerative changes in the left knee. There is a small joint effusion. Electronically Signed: Falguni Goodman MD at 20:40 EDT Tel Direct: [phone], Service support , CC: Bobby Sandoval DO; Faustino Moran NP Eye Surgeon: Signed INTERNAL MEDICINE Observed: 12/07/2017 Status: F Source: SERGIO OFFICE VISIT 9:13 AM [facility] REPOSITORY [facility] [address] [place] [address] [place] [address] OFFICE VISIT Date of Service: 12/06/17 MR#: [id number] Acct: [id number] Name: TRAN HARDIN Rep #: [id number] : 1965 Provider: Bobby Sandoval DO Age/Sex: 52/F Location: [facility] Status: Signed Intake Vital Signs12/06/17 Height 5 ft 8 in 12/06/17 Weight: 289 lb 12/06/17 Body Mass Index (BMI) 43.9 12/06/17 Blood Pressure 121/81 Intake Visit Reasons: 1 MO F/U Chief Complaint: headaches, right eye twitching Is patient in pain?: Yes (low back) Pain scale (1-10): 5 Allergies empagliflozin [From Jardiance] Adverse Reaction (Verified 12/06/17 15:18) Other Medications Diclofenac [Voltaren] 75 mg PO PRN PRN 02/21/17 [History Confirmed 12/06/17] Lisinopril [Prinivil] 10 mg PO 1600 02/21/17 [History Confirmed 12/06/17] Metformin HCl 500 mg PO 0500 02/21/17 [History Confirmed 12/06/17] PFSH Medical History Hypertension (Chronic) Frequent headaches (Acute) Type 2 diabetes mellitus (Chronic) Surgical History History of D AND C (Acute) History of right knee surgery (Acute) Family History Sister Cancer cervical, ovarian Diabetes Mother Asthma Father Alcoholism Social History Smoking Status: Never smoker alcohol intake: never substance use type: does not use what type of physical activity do you participate in: none HPI HPI Chief Complaint: headaches, right eye twitching Details: TRAN HARDIN, is a 52 F who presents to the office today for a recheck on the left fixed pupil, her headaches are much improved. ROS Const Constitutional: Positive for headache(s); no chills, fatigue, fever(s), frequent falls, malaise, weakness, sleep problems or change in appetite Eyes Eyes: No blurry vision, change in vision, double vision, discharge or visual disturbances ENT ENT: Positive for headache(s); no abnormal hearing, ear pain, ear pressure, tinnitus or dizziness/vertigo Resp Respiratory: No cough, shortness of breath or wheezing Cardio Cardiology: Positive for other ([place] heart pressure last for a few seconds. Happened x3); no chest pain at rest, chest pain with exertion, shortness of breath, dyspnea on exertion, generalized swelling, irregular heart rhythm, lightheadedness, orthopnea, fast heart rate or palpitations Gastro GI: No abdominal pain, change in bowel habits, constipation, diarrhea, nausea/dyspepsia or vomiting Genitourinary-Female: No difficulty urinating, burning urination, painful urination, urinary incontinence, urinary frequency, urinary urgency, urinary hesitancy, urinary retention, Frequent nighttime urination/ nocturia, sexual problems, genital lesions, abnormal vaginal bleeding, pelvic pain, vaginal dryness, vaginal odor or Vaginal Itching Musc Musculoskeletal: No joint pain, back pain, joint swelling, limited range of motion, muscle weakness, numbness or tingling Skin Skin: Positive for lesions; no change in skin color, itching, rash or wounds Breast Breast: No breast lump or breast pain Neuro Neurology: Positive for headache(s); no frequent falls, weakness, abnormal hearing, numbness, tingling, unsteady gait/balance, dizziness, loss of vision, memory loss or visual disturbances Psych Psychiatric: No memory loss, No anxiety, No change in appetite, No depression, No Thoughts of harming yourself/Others Endo Endocrine: No fatigue, heat intolerance, increased thirst/drinking, increased hunger or increased urination Aller/Imm Allergy/Immunologic: No wheezing, itchy eyes or seasonal allergy symptoms Kulwinder/Lymp Hematologic/Lymphatic: No easy bleeding, easy bruising or enlarged lymph nodes Exam Const General: healthy appearing Nutritional Appearance: obese morbidly obese Orientation: oriented x3 Eyes Pupils: fixed on the left Direct ophthalmoscopy: decreased light reflex on the left Resp Effort AND Inspection: normal respiratory effort Auscultation: Bilateral: Clear to Auscultation Musc Musculoskeletal: No muscle weakness Thoracic/Lumbar Spine: lumbar spinal tenderness at L5, tilt present Sacroiliac joints: bilaterally tender to palpation Skin Lesions: lesion noted (benign keratosis on the left side.) Neuro General: no focal motor deficits, normal light touch, pain and propioception Cranial Nerves: CN's II-XI intact bilaterally Assessment AND Plan Problems 1. 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 Hypertension I10 3. Frequent headaches R51 4. Type 2 diabetes mellitus E11.9 Plan This patient will be referred to ophthalmology to evaluate her left eye. Her headaches were resolved at this visit. In the back pain that she described was minor and I discussed stretching exercises to alleviate that discomfort. 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 Hypertension I10 Frequent headaches R51 Type 2 diabetes mellitus E11.9 12/07/17 0913 <Electronically signed by Bobby Sandoval DO> Date Bobby Sandoval DO Cosigner Signature: Date (if applicable) CC: EMERGENCY DEPARTMENT Observed: 11/03/2017 Status: F Source: REASNOR SUMMARY 7:15 PM [facility] REPOSITORY [facility] Medical Records Department [address] [place] [address] Emergency Department Summary 11/03/17 1645 MR#: [id number] Acct: [id number] Name: TRAN HARDIN Rep #: [id number] : 1965 52 From: Ibrahima Phillips MD PCP: Bobby Sandoval DO Status: DEP ER - ER Visit Summary Date of Service: 11/03/17 Chief Complaint: Headache History of Present Illness: The patient is a 52 F presents to the emergency department with headache. Patient states she has been having it intermittently for the past 6 weeks. She states she will get a 2-3 times a week. She states in the last half an hour to a couple hours. She describes it as a dull ache. It comes on gradually. She was actually following up with her primary care today and saw her nurse practitioner. There were concerned that her left eye was not reactive and centering. She has no history of aneurysm. There is no family history of aneurysm or polycystic kidney disease. She has not taken anything for the headache. She denies any visual change, photophobia, or vision loss. She denies any trauma. She denies any other systemic symptoms. Physical Examination: Well-appearing patient is in no acute distress. Head is normocephalic, atraumatic. Pupils equal round reactive, extraocular muscles intact. There is no temporal artery tenderness. There is no vesicular rash. Neck supple. Kernig's and Brudzinski's are negative. Heart regular rate and rhythm. Lungs clear, chest nontender. Abdomen soft, nontender, nondistended. Neuro exam displays no focal or lateralizing deficit. 2+ symmetric lower extremity reflexes. No clonus. No ataxia or gait abnormality. Test Results: [] Emergency Department Course and Treatment: The patient's pupil was reactive on examination. She has no extraocular palsy or change in extraocular motion. She has no temporal artery tenderness or vesicular rash. I did obtain a head CT given her symptoms. This is unremarkable. Her labs are unremarkable. She has had no headache while here. At this time, this does seem more like a tension headache. I did describe to the patient that she may need outpatient follow-up including MRI of she has persistent symptoms but I do feel that she is safe for discharge. She has a benign neurologic examination and normal head CT. She has had headache for 6 weeks. She will be discharged home. Treatment Plan: [] Disposition: Discharge Impression: 1. Headache This note was generated with [employer] dictation software. It may contain incorrect words, spelling, and punctuation that were not noted in review of the chart prior to signing ED Disposition - Plan for ED Patient: Disposition: Home or Assisted Living Chief Complaint: Headache Instructions: ED Cephalgia Unspecified Referrals: Bobby Sandoval, DO [Primary Care Provider] - 3-5 Days if not improving What to do if you have Problems For any increased pain, shortness of breath, bleeding, nausea or vomiting, chest pain, or any unexpected problems, contact your Primary Care Provider. Call [facility] ([phone]) or report to the closest Emergency Room. Call 911 if necessary. 11/03/17 1245 <Electronically signed by Ibrahima Phillips MD> Date Ibrahima Phillips MD Cosigner Signature (If Indicated): Date CC: Bobby Sandoval DO CBC W/DIFF, AUTOMATED Collected: 11/03/2017 Status: F Source: SERGIO 4:20 PM [facility] REPOSITORY TYPE CODE TESTS RESULT OUT OF RANGE REFERENCE UNITS LAB L100.1000 4.4-11.0 K/mm3 Normal WBC 5.9 LAB L100.1200 4.2-5.4 M/mm3 Normal RBC 4.89 LAB L100.1300 12.0-15.0 g/dl Normal HGB 14.2 LAB L100.1400 37-47 % Normal HCT 43.0 LAB L100.1500 81-99 fL Normal MCV 87.9 LAB L100.1600 27.0-32.0 pg Normal MCH 29.0 LAB L100.1700 32-36 g/gl Normal MCHC 33.0 LAB L100.1810 11.6-14.6 % Normal RDW CV 13.0 LAB L100.1820 35.1-43.9 fl Normal RDW SD 41.6 LAB L100.1900 150-450 K/mm3 Normal PLT 233 LAB L100.2000 6.2-12.0 fl Normal MPV 9.3 LAB L100.2100 47-70 % Normal NEUT% 53.5 LAB L100.2200 19-41 % Normal LY% 34.2 LAB L100.2300 0-10 % Normal MONO% 8.1 LAB L100.2400 0-5 % Normal EO% 3.7 LAB L100.2500 0-1 % Normal BASO% 0.2 LAB L100.2550 0.0-0.9 % Normal IM GRAN % 0.300 Result Comment: IG% - Immature Granulocytes (promyelocytes, myelocytes and metamyelocytes) > 1% indicates that a LEFT SHIFT is Present. LAB L100.2620 2.0-7.7 X10 3/uL Normal Absolute Neut 3.2 LAB L100.2720 0.83-4.51 X10 3/ul Normal Absolute Lymph 2.03 Performed By: #### L100.0100 #### [facility] [address] [place], [address] COMPREHENSIVE METABOLIC Collected: 11/03/2017 Status: F Source: SERGIO GARCIA 4:20 PM [facility] REPOSITORY TYPE CODE TESTS RESULT OUT OF RANGE REFERENCE UNITS LAB L501.0100 74-106 mg/dL High GLU 122 Result Comment: Fasting Glucose result from 100 to 125 mg/dL suggests IMPAIRED HOMEOSTASIS per A.D.A. criteria. Please note revised GLUCOSE reference range effective 2017. LAB L501.1000 7-18 mg/dL Normal BUN 16 LAB L501.1100 0.55-1.02 mg/dL Normal CREAT,SERUM 0.72 Result Comment: The validity of the calculated GFR AND GFRAA in patients over 70 years has not been determined. Clinical correlation is essential. LAB L501.1110 >60 mL/min Normal EST GFR 91 Result Comment: Non- GFR Calc LAB L501.1115 >60 mL/min Normal EST GFR - AA 111 Result Comment: GFR Calc LAB L501.1255 ml/min Normal Estimated CRCL 94.30 LAB L501.1300 10-20 RATIO High BUN/CRE 22.3 LAB L501.1500 6.4-8. g/dL Normal 2 T PROT 7.9 LAB L501.1800 3.2-5. g/dL Normal 0 ALB 4.0 LAB L501.1950 2.2-4. g/dL Normal 2 GLOB 3.9 LAB L501.2000 0.9-2. RATIO Normal 4 A/G 1.0 LAB L501.2200 8.5-10 mg/dL Normal .1 CA 9.1 LAB L501.4100 15-37 U/L Normal AST 22 LAB L501.4305 45-117 U/L High ALK P 119 LAB L501.4405 13-56 U/L Normal ALT 31 Result Comment: Please note revised ALT reference range effective 2017. LAB L501.4600 0.20-1.00 mg/dL Normal T BILI 0.60 LAB L501.5300 136-145 mmol/L Normal NA 140 LAB L501.5600 3.5-5.1 mmol/L Normal K 3.9 LAB L501.5900 98-107 mmol/L Normal CL 104 LAB L501.6100 21.0-32.0 mmol/L Normal CO2 28.0 LAB L501.6200 5-15 Normal GAP 8 Performed By: #### L500.4050 #### [facility] [address] [place], [address] BRAIN/HEAD WITHOUT Observed: 11/03/2017 Status: F Source: REASNOR CONTRAST 4:11 PM [facility] REPOSITORY [facility] Imaging Services [address] [place] [address] Brain/Head without Contrast MR#: [id number] Acct: [id number] Name: TRAN HARDIN Rep #: [id number] : 1965 F 52 From: Hilda Mendoza MD PCP: Bobby Sandoval DO Status: PRE ER Study: Brain/Head without Contrast Date of Exam: 11/03/17 Exam# [id number] Ordering Dr: Ibrahima Phillips MD STUDY: CT BRAIN WITHOUT CONTRAST REASON FOR EXAM: Female, 52 years old. Headache with nonreactive pupils RADIATION DOSAGE (If Supplied By Facility): CTDIvol = ( 60.81 ) mGy, DLP = ( 1067.08 ) mGycm TECHNIQUE: Transaxial CT imaging of the brain was performed without administration of intravenous contrast material. Individualized dose optimization techniques were used for this CT. COMPARISON: None. FINDINGS: Normal soft tissue structures. Normal calvarium. Normal size ventricles and extra-axial spaces for the patient's age. Normal white matter tracts of the cerebral hemispheres. Normal basal ganglia and thalami. Normal brainstem. Normal cerebellum. There is no intracranial hemorrhage. There are no findings of an acute ischemic infarction. Normal visualized paranasal sinuses. CT/Brain/Head without Contrast IMPRESSION: Normal unenhanced CT scan of the brain. If there are continuing concerns, consider MRI. Electronically Signed: Hilda Mendoza MD at 16:54 EDT Tel , Service support , CC: Bobby Sandoval DO; Ibrahima Phillips MD Eye Surgeon: Signed INTERNAL MEDICINE Observed: 11/03/2017 Status: F Source: SERGIO OFFICE VISIT 3:07 PM [facility] [address] [place] [address] OFFICE VISIT Date of Service: 11/03/17 MR#: [id number] Acct: [id number] Name: TRAN HARDIN Rep #: [id number] : 1965 Provider: Faustino Moran NP Age/Sex: 52/F Location: [facility] Status: Signed Intake Vital Signs11/03/17 Height 5 ft 9 in 11/03/17 Weight: 287 lb 11/03/17 Body Mass Index (BMI) 42.3 11/03/17 Blood Pressure 144/82 11/03/17 Blood Pressure Location Lt radial Intake Visit Reasons: headache, right eye twitching. Chief Complaint: headaches, right eye twitching Is patient in pain?: Yes (headache) Allergies No Known Allergies Allergy (Verified 02/21/17 09:07) Medications Diclofenac [Voltaren] 75 mg PO PRN PRN 02/21/17 [History Confirmed 02/21/17] Lisinopril [Prinivil] 10 mg PO 1600 02/21/17 [History Confirmed 02/21/17] Metformin HCl 500 mg PO 0500 02/21/17 [History Confirmed 02/21/17] PFSH Medical History Hypertension (Chronic) Frequent headaches (Acute) Type 2 diabetes mellitus (Chronic) Surgical History History of D AND C (Acute) History of right knee surgery (Acute) Family History Sister Cancer cervical, ovarian Diabetes Mother Asthma Father Alcoholism Social History Smoking Status: Never smoker alcohol intake: never substance use type: does not use what type of physical activity do you participate in: none HPI HPI Chief Complaint: headaches, right eye twitching Details: TRAN HARDIN, is a 52 F who presents to the office today for an acute visit of new onset headaches 1.5 months. She has a past medical history which is significant for hypertension and type 2 diabetes mellitus. The patient states that her headaches have been going on intermittently for the past month and a half. She denies ever having headaches like this prior in the past. She states that it is throbbing headache that occurs 2-3 times per week and can sometimes last up to half a day. She has tried Tylenol and Aleve which has provided some mild relief. She does also notice that her right eye has been twitching at times and this is concerning her as well. She denies any visual changes or denies this being the worst headache of her life. She denies any other neurologic deficits and states that she had a recent eye exam which was normal. The patient otherwise denies any fever, chills, nausea, vomiting, shortness of breath, chest pain or pressure, palpitations, orthopnea, lower extremity edema, syncope or presyncopal episodes. ROS Const Constitutional: Positive for headache(s); no weight change, body ache, chills, fatigue, sleep problems, fever(s), change in appetite, snoring, weakness, frequent falls or excessive sweating Eyes Eyes: No change in vision, eye pain, light sensitivity or blurry vision ENT ENT: Positive for headache(s); no abnormal hearing, ear pain, tinnitus, nasal congestion, sore throat or neck pain Resp Respiratory: No snoring, cough, shortness of breath or wheezing Cardio Cardiology: No excessive sweating, chest pain at rest, chest pain with exertion, shortness of breath, dyspnea on exertion, palpitations, orthopnea or lightheadedness Gastro GI: No abdominal pain, change in bowel habits, constipation, diarrhea, vomiting, nausea/dyspepsia or cramping Musc Musculoskeletal: Positive for joint pain, back pain and other (knee pain, arthritis); no neck pain, abnormal walking, limited range of motion, numbness or tingling Skin Skin: No redness, dry skin, itching, lesions, wounds or rash Neuro Neurology: Positive for headache(s); no weakness, frequent falls, abnormal hearing, abnormal walking, numbness, tingling, abnormal speech, dizziness or memory loss Psych Psychiatric: No change in appetite, No memory loss, No anxiety, No depression, No Thoughts of harming yourself/Others Endo Endocrine: No fatigue, excessive sweating, cold intolerance, increased thirst/drinking, heat intolerance, flushing or increased hunger Aller/Imm Allergy/Immunologic: No wheezing, itchy eyes, hives or seasonal allergy symptoms Kulwinder/Lymp Hematologic/Lymphatic: No easy bleeding, easy bruising or enlarged lymph nodes Exam Const General: cooperative, comfortable, no acute distress Nutritional Appearance: average body habitus, well nourished Orientation: alert, oriented x3 Limitations: mental status not altered [facility] Head: normal to inspection Ears: hearing grossly normal bilaterally Nose: external nose normal Eyes Alignment and Position: position normal, alignment normal Pupils: fixed (Left pupil fixed and nonreactive to light 4 mm) on the left, not reactive on the left, pupil size on the left 4 and on the right 3 Resp Effort AND Inspection: normal respiratory effort, able to speak in complete sentences, normal respiratory pattern, symmetric chest movement, no audible wheezes, no cough Auscultation: Bilateral: Clear to Auscultation Cardio Palpation: normal PMI Rate: regular rate Heart Sounds: S1 normal, S2 normal, normal S1 and S2, no click, no gallops, no murmurs, no rubs Skin General: no rashes or lesions noted, elasticity normal, turgor normal Lesions: no lesions Rashes: no rashes Neuro General: alert, awake, oriented x3, CN's II-XI intact bilaterally Speech: speech normal Gait: normal gait Motor: muscle tone normal throughout Psych Appearance: grossly normal Mental Status: mental status grossly normal Affect: normal affect Attitude: cooperative Thought Process: normal Assessment AND Plan 1. 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 Discussed with her that her other neurologic findings were normal, however given her fixed nonreactive pupil of the left eye, would like her urgently evaluated. Patient is receptive to this. Did discuss that I had like her to follow-up with our office for an ER follow-up. Did call report over to Dr. Bell at [facility] emergency department. Discussed patient plan of care at Dr. Sandoval as well and he agrees 2. Frequent headaches R51 Plan Plan as above. 3. HTN (hypertension) I10 Plan Her blood pressure stable at today's office visit. No changes to her current medication regimen. Did discuss with her taking a log of her blood pressures to see if they are related to her headaches. Patient will bring this log to her about her routine follow-up appointment. 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 Frequent headaches R51 HTN (hypertension) I10 11/03/17 1507 <Electronically signed by Faustino MCKAY> Date Faustino MCKAY Cosigner Signature: Date (if applicable) CC: ALLERGIES ALLERGIES DATE TYPE / CODE NAME / CODE REACTION SEVERITY SOURCE 06/29/2018 Drug empagliflozin Other Unknown [facility] Allergy/4160 /[id number](R Hospital 45795(SNOMED XNORM) Repository CT) 02/21/2017 Drug No Known Unknown [facility] Allergy/4160 Allergies/F00 Hospital 67812(SNOMED 6059817(RXNOR Repository CT) M) ENCOUNTERS ENCOUNTERS ADMIT/DISCHARGE ACCOUNT NUMBER ADMITTING ENCOUNTER LOCATION SOURCE CLASS 09/03/2018 [id number] Ambulatory [facility] ding:OPBI Repository 08/13/2018/08/13/20 [id number] Ambulatory [address] ding:PT Repository 08/07/2018/08/07/20 [id number] Emergency BBuilding:RICHY Mosher [address] [place] [address] Repository 07/20/2018/07/20/20 [id number] Ambulatory BMSBuilding: Sergio 18 [facility] Repository 07/11/2018/07/11/20 [id number] Ambulatory BMSBuilding: [place] 18 [facility] Repository 07/02/2018 [id number] Ambulatory BMSBuilding: Sergio BMS.CF.[facility] Repository 07/02/2018/07/02/20 [id number] Ambulatory [address] ding:ENRoom: Repository AC12 06/07/2018 [id number] [facility] System [id number]: Repository [id number] 05/30/2018/05/30/20 [id number] Ambulatory BMSBuilding: Sergio 18 BMS.[facility] Repository 05/29/2018 [id number] Ambulatory [facility] ding:MTLAB Repository 05/29/2018/05/29/20 [id number] Ambulatory BMSBuilding: [place] 18 BMS.[facility] Repository 05/18/2018 [id number] Ambulatory [facility] Repository 04/04/2018 [id number] Ambulatory [facility] Repository 03/30/2018 [id number] Ambulatory [facility] Repository 02/15/2018 [id number] Ambulatory [facility] ding:MTRAD Repository 02/15/2018/02/16/20 [id number] Ambulatory BMSBuilding: [place] 18 BMS.[facility] Repository 01/02/2018 [id number] Ambulatory BMSBuilding: [place] BMS.[facility] Repository 01/02/2018 [id number] Ambulatory BMSBuilding: [place] BMS.[facility] Repository 12/11/2017 [id number] Ambulatory BMSBuilding: Sergio BMS.[facility] Repository 12/06/2017/12/07/19 [id number] Ambulatory BMSBuilding: [place] 18 BMS.[facility] Repository 11/03/2017/11/04/19 [id number] Emergency [address] ding:ED Repository 11/03/2017/11/04/19 [id number] Ambulatory BMSBuilding: [place] 18 BMS.[facility] Repository PAYERS PAYERS ENCOUNTER GUARANTOR PAYER SUBSCRIBER SOURCE 09/03/2018 TRAN Lui Primary TRAN [place] [id number] [facility] y Number: [id number] [id number] Repository [address]Roz: (361) isac Date:3400-28-61AC [phone] () [address] [address]XF: 09/03/2018 Secondary NOT GIVENUNK [place] Insurance:SELF PAY [facility] Number: Effective Repository Date:2018-07-13 08/13/2018 TRAN J Primary TRAN J [place] [id number] Insurance:ANTHEMPolic POWERSDOB: Community ROSALIND y Number: [id number], [place] [id number] Repository 6[address]Jyt: (016) isac Date:1311-52-80UU [phone] () [address] [address]QW: 08/13/2018 Secondary NOT GIVENUNK [place] Insurance:SELF PAY [facility] Number: Effective Repository Date:2018-07-25 08/07/2018 TRAN J Primary TRAN J [facility] POWERSDOB: Insurance:ANTHEM BLUE POWERSDOB: [facility] [id number] Repository ORSALIND Number: [address] [place], [place] [id number] [place], [place] [address]Wne: (330) isac Date:2018-08-07 22263Ofk: [id number] [phone] ()Tel: (170) Name:ARON ADORNO () () 207308GqapskdCANDELARIA Guillermo 000-0000 (WP) 787[address]SJ: 07/20/2018 TRAN J Primary TRAN J [place] [id number] Insurance:ANTHEMPolic POWERSDOB: [facility] ROSALIND y Number: [id number], [place] [id number] Repository [address]Tre: (330) isac Date:9704-10-34GE [phone] () [address] [address]SG: 07/20/2018 Secondary NOT GIVENUNK [place] Insurance:SELF PAY [facility] Number: Effective Repository Date:2018-07-20 07/11/2018 TRAN J Primary TRAN J [place] [id number] Insurance:ANTHEMPolic POWERSDOB: Community ROSALIND y Number: [id number], [place] [id number] Repository [address]Aya: (422) isac Date:3802-02-06GW [phone] () [address] [place] [address]LD: 07/11/2018 Secondary NOT GIVENUNK [place] Insurance:SELF PAY [facility] Number: Effective Repository Date:2018-07-11 07/02/2018 TRAN J Primary TRAN J [place] [id number] Insurance:ANTHEMPolic [facility]SDOB[facility] y Number: [id number] [id number] Repository [address]Yzf: (417) isac Date:3192-67-48DJ [phone] () [address], [place] [address]AE: 07/02/2018 Secondary NOT GIVENUNK [place] Insurance:SELF PAY [facility] Number: Effective Repository Date:2018-07-02 07/02/2018 TRAN J Primary TRAN J [place] [id number] Insurance:ANTHEMPolic POWERSDOB: [facility] ROSALIND y Number: [id number], [place] [id number] Repository [address]Rky: (330) isac Date:3310-65-92PR [phone] () [address], [place] [address]SH: 07/02/2018 Secondary NOT GIVENUNK [place] Insurance:SELF PAY [facility] Number: Effective Repository Date:2018-05-30 06/07/2018 Tran Primary [facility] PowersDOB: Insurance:[place] PowersDOB: System [employer] [id number] Repository [facility] Number: [place], [place] Effective Date: [address]Fhm: () 05/30/2018 TRAN J Primary TRAN J [place] [id number] Insurance:ANTHEMPolic POWERSDOB: Community ROSALIND y Number: [id number], [place] [id number] Repository [address]Jas: (896) isac Date:3556-22-91NX [phone] () [address] [place] [address]SX: 05/30/2018 Secondary NOT GIVENUNK [place] Insurance:SELF PAY [facility] Number: Effective Repository Date:2018-05-30 05/29/2018 TRAN J Primary TRAN J [place] [id number] Insurance:ANTHEMPolic POWERSDOB: [facility] y Number: [id number] [place], [place] [id number] Repository 230[address]Bae: (326) isac Date:3638-22-07UZ [phone] () [address] [place] [address] 15801TZ: 05/29/2018 Secondary NOT GIVENUNK [place] Insurance:SELF PAY [facility] Number: Effective Repository Date:2018-05-29 05/29/2018 TRAN J Primary TRAN J [place] [id number] Insurance:ANTHEMPolic POWERSDOB: [facility] y Number: [id number], [place] [id number] Repository [address]Wkt: (330) isac Date:2067-48-31DE [phone] () [address] [place] [address] 123[address]FG: 05/29/2018 Secondary NOT GIVENUNK [place] Insurance:SELF PAY [facility] Number: Effective Repository Date:2018-05-29 05/18/2018 Tran Primary [facility] PowersDOB: Insurance:[place] PowersDOB: System [employer] [id number] Repository Rosalind [facility] Number: [place], [place] Effective Date: [address]99[address]Kvg: () 04/04/2018 [facility] PowersDOB: Insurance:[place] PowersDOB: System Cross [place] [id number] Repository [facility] Number: [facility] [place] Effective Date: [address]Glj: () 03/30/2018 [facility]an [facility] PowersDOB: Insurance:[place] PowersDOB: System Cross [place] [id number] Repository [facility] Number: [place], [place] Effective Date: [address]Dka: () 02/15/2018 TRAN J Primary TRAN J [place] [id number] Insurance:ANTHEMPolic POWERSDOB: [facility] y Number: [id number], [place] [id number] Repository [address]Zjz: (819) isac Date:0327-79-29CB [phone] () [address] [place] [address] 23717XT: 02/15/2018 Secondary NOT GIVENUNK [place] Insurance:SELF PAY [facility] Number: Effective Repository Date:2018-02-15 02/15/2018 TRAN J Primary TRAN J [place] [id number] Insurance:ANTHEMPolic POWERSDOB: [facility] y Number: [id number], [place] [id number] Repository [address]Fwd: (437) isac Date:7171-22-80JC [phone] () [address], [place] [address]JB: 02/15/2018 Secondary NOT GIVENUNK [place] Insurance:SELF PAY [facility] Number: Effective Repository Date:2018-02-15 01/02/2018 TRAN J Primary TRAN J [place] [id number] Insurance:ANTHEMPolic POWERSDOB: [facility] y Number: [id number], [place] [id number] Repository [address]Osq: isac Date:8397-97-04CS [phone]~330 [address]RRGPXSBCAN[address]AR[address] GUILLERMO () [address]SW: 01/02/2018 Secondary NOT GIVENUNK [place] Insurance:SELF PAY [facility] Number: Effective Repository Date:2018-01-02 01/02/2018 TRAN J Primary TRAN J [place] [id number] Insurance:ANTHEMPolic POWERSDOB: Community ROSALIND y Number: [id number], [place] [id number] Repository [address]Gnf: isac Date:1652-32-65LX [phone]~330 [address]QCDEOHCCANDELARIA GUILLERMO () [address]RI: 01/02/2018 Secondary NOT GIVENUNK [place] Insurance:SELF PAY [facility] Number: Effective Repository Date:2018-01-02 12/11/2017 TRAN J Primary TRAN J [place] [id number] Insurance:ANTHEMPolic POWERSDOB: Community ROSALIND y Number: [id number], [place] [id number] Repository [address]Klo: isac Date:0988-43-32EX [phone]~330 [address]CXGMZITCANDELARIA GUILLERMO () [address]LF: 12/11/2017 Secondary NOT GIVENUNK [place] Insurance:SELF PAY [facility] Number: Effective Repository Date:2017-12-11 12/06/2017 TRAN J Primary TRAN J [place] [id number] Insurance:ANTHEMPolic POWERSDOB: Community ROSALIND y Number: [id number], [place] [id number] Repository 16[address]Yle: siac Date:6817-45-82TO [phone]~330 [address]IGTYMXH, [place] -3 () [address]RE: 12/06/2017 Secondary NOT GIVENUNK [place] Insurance:SELF PAY [facility] Number: Effective Repository Date:2017-12-06 11/03/2017 TRAN J Primary TRAN J [place] [id number] Insurance:ANTHEMPolic POWERSDOB: Community ROSALIND y Number: [id number], [place] [id number] Repository [address]Nag: isac Date:7159-55-39NI [phone]~330 [address]ENCIMPI, [place] -3 () 118[address]DX: 11/03/2017 Secondary NOT GIVENUNK [place] Insurance:SELF PAY [facility] Number: Effective Repository Date:2017-11-03 11/03/2017 Serge Primary TRAN J [place] [id number] Insurance:ANTHEMPolic POWERSDOB: Community Rosalind y Number: [id number], [place] [id number] Repository [address]Lqp: 330 isac Date:0532-68-30JW [phone] () [address]WJDTNPB, [place] [address]LO: 11/03/2017 Secondary NOT GIVENUNK [place] Insurance:[employer] [facility] Number: Effective Repository Date:2017-11-03
== END 2018-08-13 19:00 | disposition home or self-care (01) ==
LOC: PT 10:30
PROVIDERS: Family Provider Family Medicine; PCP Family Medicine; Referring Provider Family Medicine; Visit Provider Family Medicine
DX: M53.3 Sacrococcygeal disorders, not elsewhere classified (principal)
CPT/HCPCS: 97110; 97162

== ENCOUNTER → 2018-09-03 06:58 | Outpatient (CLI) | payer BC, SELFPAY ==
[2018-07-11 15:03] VITALS: BMI 43.8
[2018-07-20 09:09] VITALS: BMI 43.8
--- NOTE | 2018-09-03 07:01 | BI_ITS ---
MAMMOGRAPHY - BILATERAL SCREENING REASON FOR EXAM: Female, 53 years old. Routine annual screening examination. PERTINENT HISTORY: Grandmother with breast cancer. Aunt with breast cancer. TECHNIQUE: Digital bilateral breast mago (3D mammographic acquisition) in the CC and MLO projections. 2-D mediolateral oblique (MLO) and craniocaudad (CC) views of both breasts were obtained. CAD: Full Field Digital Mammography with Computer Added Detection was performed. COMPARISON: Comparison is made with prior outside examination of July 14, 2017. FINDINGS: Breast Composition: There are scattered areas of fibroglandular density. There are no dominant masses or suspicious calcifications. No other significant abnormalities are identified. There has been no significant change since the prior study. BI/SCREENING MAMM (CAD), BILAT IMPRESSION: Stable bilateral screening mammogram. Yearly follow-up mammogram recommended. (A) ASSESSMENT CATEGORY: BIRADS Category 1: Negative. A letter regarding these results will be sent to the patient by the facility within 30 days. Approximately 10% of breast cancers are not detected by mammography. A normal mammogram should not delay biopsy of a clinically suspicious abnormality. [id number] Electronically Signed: Cyril Kent MD at 9:33 EST Tel [phone], Service support ,
--- OUTSIDE RECORDS SUMMARY | 2018-11-05 14:32 | XMS RPT_ITS ---
:1965 Author Organization [facility] Support Name Relationship Address Phone [employer] Unavailable [address] + [place] [address] SERGE HARDIN Unavailable [address] + [place] [address] [employer] Unavailable [address] + [place] [address] MARIBETH HARDINONY Unavailable [address] + [place] [address] PLOUGH, TOYIN Unavailable Unavailable + PLOUGH, TOYIN Unavailable Unavailable + PLOUGH, TOYIN Unavailable Unavailable + [employer] Unavailable [address] + [place] [address] MARIBETH HARDINONY Unavailable [address] + [place] [address] [employer] Unavailable [address] + [place] [address] MARIBETH HARDINONY Unavailable [address] + [place] [address] [employer] Unavailable [address] + [place] [address] MARIBETH HARDINONY Unavailable [address] + [place] [address] [employer] Unavailable [address] + [place] [address] MARIBETH HARDINONY Unavailable [address] + [place] [address] Plough, Toyin Unavailable Unavailable + [employer] Unavailable [address] + [place] [address] HARDIN, SERGE Unavailable [address] + [place] [address] [employer] Unavailable [address] + [place] [address] HARDIN, SERGE Unavailable [address] + [place] [address] [employer] Unavailable [address] + [place] [address] HARDIN, SERGE Unavailable [address] + [place] [address] Plough, Toyin Unavailable Unavailable + Plough, Toyin Unavailable Unavailable + Plough, Toyin Unavailable Unavailable + [employer] Unavailable [address] + [place] [address] WILFRED SERGE Unavailable [address] + [place] [address] [employer] Unavailable [address] + [place] [address] HARDIN, SERGE Unavailable [address] + [place] [address] [employer] Unavailable [address] + [place] [address] WILFRED SERGE Unavailable [address] + [place] [address] [employer] Unavailable [address] + [place] [address] HARDIN, SERGE Unavailable [address] + [place] [address] [employer] Unavailable [address] + [place] [address] HARDIN, SERGE Unavailable [address] + [place] [address] [employer] Unavailable [address] + [place] [address] WILFRED SERGE Unavailable [address] + [place] [address] [employer] Unavailable [address] + [place] [address] MARIBETH HARDINONY Unavailable [address] + [place] [address] [employer] Unavailable [address] + [place] [address] SERGE HARDIN Unavailable [address] + [place] [address] Care Team Providers Name Role Phone Brandon [...] Brown, Bobby Primary Care Unavailable Faustino Moran TE[employer] Attending Unavailable Brown, Bobby Referring Unavailable Brown, Bobby Primary Care Unavailable Brown, Bobby Primary Care Unavailable Ibrahima Phillips Attending Unavailable Brown, Bobby Attending Unavailable Brown, Bobby Referring Unavailable Brown, Bobby Primary Care Unavailable Luanne Calderon Attending Unavailable Marisa Shepherd Attending Unavailable Marisa Shepherd Attending Unavailable Faustino Mroan TE[employer] Attending Unavailable Brown, Bobby Referring Unavailable Brown, Bobby Primary Care Unavailable Faustino Moran TE[employer] Attending Unavailable Faustino Moran [employer] Referring Unavailable Brown, Bobby Primary Care Unavailable [...] Unavailable Brown, Bobby Referring Unavailable Faustino Moran [employer] Attending Unavailable Brown, Bobby Referring Unavailable PROBLEMS [...] 07/11/2018 Unknown M53.3 - Bobby Sandoval Active [facility] Community disorders, not Hospital elsewhere classified Repository / M53.3(ICD-10) 06/07/2018 Admitting Derang of post horn Brandon Garcia MOGL Diagnosis of medial mensc d/t System old tear/inj, l knee Repository / M23.222(ICD-10) 06/07/2018 Admitting Unilateral primary Brandon Garcia MOGL Diagnosis osteoarthritis, left System knee / Repository M17.12(ICD-10) 06/07/2018 Admitting Derangement of lat Brandon Garcia MOGL Diagnosis mensc due to old System tear/inj, left knee Repository / M23.262(ICD-10) 06/07/2018 Admitting Chondromalacia, left Brandon Garcia MOGL Diagnosis knee / System M94.262(ICD-10) Repository 06/07/2018 Admitting Other synovitis and Brandon Garcia MOGL Diagnosis tenosynovitis, left System lower leg / Repository M65.862(ICD-10) 06/07/2018 Admitting Morbid (severe) Brandon Garcia MOGL Diagnosis obesity due to System excess calories / Repository E66.01(ICD-10) 06/07/2018 Admitting Body mass index Brandon Garcia MOGL Diagnosis (BMI) 40.0-44.9, System adult / Repository Z68.41(ICD-10) 06/07/2018 Admitting Type 2 diabetes Brandon Garcia MOGL Diagnosis mellitus without System complications / Repository E11.9(ICD-10) 06/07/2018 Admitting Essential (primary) Brandon Garcia MOGL Diagnosis hypertension / System I10(ICD-10) Repository 06/07/2018 Admitting Insomnia, Brandon Garcia MOGL Diagnosis unspecified / System G47.00(ICD-10) Repository 06/07/2018 Admitting Gastro-esophageal Brandon Garcia MOGL Diagnosis reflux disease System without esophagitis Repository / K21.9(ICD-10) 06/07/2018 Admitting oil heaterman (current) Brandon Garcia MOGL Diagnosis use of oral System hypoglycemic drugs / Repository Z79.84(ICD-10) 05/29/2018 Unknown R25.2 - Cramp and Bobby Sandoval Active [facility] spasm / Community R25.2(ICD-10) Hospital Repository 05/29/2018 Unknown Z12.11 - Encounter Bobby Sandoval Active [facility] for screening for [facility] malignant neoplasm [facility] / Repository Z12.11(ICD-10) 05/18/2018 Admitting Encounter for other Brandon Garcia MOGL Diagnosis preprocedural System examination / Repository Z01.818(ICD-10) 05/18/2018 Admitting Oth tear of medial Brandon Garcia MOGL Diagnosis meniscus, current System injury, left knee, Repository init / S83.242A(ICD-10) 05/18/2018 Admitting Sleep apnea, Brandon Garcia MOGL Diagnosis unspecified / System G47.30(ICD-10) Repository 04/04/2018 Admitting Unsp tear of unsp Brandon Garcia MOGL Diagnosis meniscus, current System injury, left knee, Repository subs / S83.207D(ICD-10) 02/16/2018 Unknown M25.562 - Pain in Moran, Faustino Active [facility] left knee / [employer] Community M25.562(ICD-10) Hospital Repository 02/16/2018 Unknown G89.29 - Other Moran, Faustino Active [facility] chronic pain / [employer] Community G89.29(ICD-10) Hospital Repository 02/15/2018 Unknown M19.90 - Unspecified Moran, Faustino Active [facility] osteoarthritis, [employer] Community unspecified site / Hospital M19.90(ICD-10) Repository 11/03/2017 Unknown R29.818 - Other Moran, Faustino Active [facility] symptoms and signs [employer] Community involving the Hospital nervous system / Repository R29.818(ICD-10) 11/03/2017 Unknown R51 - Headache / Moran, Faustino Active [facility] R51(ICD-10) [employer] [employer] Community Hospital Repository PROCEDURES PROCEDURES No Procedure Records FoundRESULTS RESULTS SCREENING MAMM (CAD), Observed: 09/03/2018 Status: F Source: [place] DOSS 7:01 AM [facility] REPOSIT[facility] Imaging Services [address] [place] [address] SCREENING MAMM (CAD), BILAT MR#: [id number] Acct: [id number] Name: TRAN HARDIN Rep #: [id number] : 1965 F 53 From: Cyril Kent MD PCP: Bobby Sandoval, DO Status: REG CLI Study: SCREENING MAMM (CAD), BILAT Date of Exam: 09/03/18 Exam# [id number] Ordering Dr: Bobby Sandoval DO MAMMOGRAPHY - [...] delay biopsy of a clinically suspicious abnormality. [id number] Electronically Signed: Cyril Kent MD at 9:33 EST Tel [phone], Service support , CC: Bobby Sandoval DO Office Mail Clerk: Signed INITAL EVALUATION (1) Observed: 08/01/2018 Status: F Source: [place] - PT 11:25 AM [facility] REPOSITORY [facility] [address] [place] [address] Fax REHABILITATION SERVICES INITIAL EVALUATION MR#: [id number] Acct: [id number] Name: TRAN HARDIN Rep #: [id number] : 1965 53 From: Roxann Callejas DPT Referring Dr.: Bobby Sandoval DO Status: REG RCR Insurance: [employer] SELF PAY INSURANCE Patient's Visit Information TRAN [...] to be FAXED BACK to us at [phone] for Medicare purposes. For Medicare only, by signing this I certify the plan of care. Please let me know if there are questions or concerns regarding this plan of care. Physician Signature: Date: <Electronically signed by Roxann Callejas DPT> 08/01/18 1125 CC: Bobby Sandoval DO ELR Signed INTERNAL MEDICINE Observed: 07/20/2018 Status: F Source: SER[place]IO OFFICE VISIT 3:22 PM [facility] [address] [place] [address] [place] [address] OFFICE VISIT Date of Service: 07/20/18 MR#: [id number] Acct: [id number] Name: TRAN HARDIN Rep #: [id number] : 1965 Provider: Faustino Moran NP Age/Sex: 53/F Location: [facility] [place] Status: Signed Intake Vital Signs07/20/18 Body Mass [...] awake at night. She has been taking uzux-ruh-evsittt cough drops and Mucinex with mild relief. [...] oriented x3 Limitations: mental status not altered [facility] Head: normal to inspection Ears: hearing [...] the medication This note was generated with Resource Guruation software. It may contain incorrect words, spelling, [...] F Source: SER[place]IO OFFICE VISIT 4:15 PM [facility] [place] [address] OFFICE VISIT Date of Service: 07/11/18 MR#: [id number] Acct: [id number] Name: URIAH HARDINKala Lui Rep #: [id number] : 1965 Provider: Bobby Sandoval DO Age/Sex: 53/F Location: [facility] Status: Signed Intake Vital Signs07/11/18 Body [...] urge incontinence and a prescription medicine to Rinku was sent in for her. The other was a sore toenail and she has a small subungual hematoma on the right foot middle nail but also marked hypertrophic nails and really needs to see a um nurse and this was set up. Third problem [...] current use of insulin E11.9 Diabetes mellitus oil heaterman insulin use: without oil heaterman use Diabetes mellitus complication status: without complication Stress incontinence in female N39.3 Sacro-iliac pain M53.3 07/11/18 1615 <Electronically signed by Bobby Sandoval DO> Date Bobby Sandoval DO Cosigner Signature: Date (if applicable) CC: OPERATIVE REPORT - Observed: 07/02/2018 Status: F Source: [facility] ENDOSCOPY 10:05 [facility] Medical Records Department [address] [place] [address] Operative Report - Endoscopy MR#: [id number] Acct: [id number] Name: TRAN HARDIN Rep #: [id number] : 1965 53 From: Geni Sánchez MD PCP: Bobby Sandoval, DO Status: REG SDC Patient Name: Tran Hardin Procedure Date: 07/02/2018 9:03 AM Date of : 1965 Age: 53 Procedure: Colonoscopy Indications: Screening for colorectal malignant neoplasm Providers: Geni áSnchez MD Medicines: Monitored Anesthesia Care Patient Profile: [...] pathology results. Procedure Code(s): --- Professional --- 46875, Colonoscopy, flexible; with removal of tumor(s), polyp(s), or other lesion(s) by snare technique Diagnosis Code(s): --- Professional --- Z12.11, Encounter for screening for malignant neoplasm of colon K62.1, Rectal polyp K57.30, Diverticulosis of large intestine without perforation or abscess without bleeding CPT copyright 2017 [employer]. All rights reserved. The codes documented in this report are preliminary and upon neonatologist review may be revised to meet current compliance requirements. MD Geni Turner MD 07/02/2018 10:05:21 AM This report has been signed electronically. Number of Addenda: 0 Note Initiated On: 07/02/2018 9:03 AM 07/02/18 1005 Date Geni Sánchez MD Cosigner Signature: Date (if indicated) CC: Bobby Sandoval DO; Geni Sánchez MD Date Dictated: 07/02/18902 Date Transcribed: Office Mail Clerk: JUAN Signed HISTORY AND PHYSICAL Observed: 07/02/2018 Status: F Source: [place] EXAM 9:09 AM [facility] RE[facility]ITORY [facility] Medical Records Department [address] [place] [address] History and Physical 07/02/18 0859 MR#: [id number] Acct: [id number] Name: TRAN HARDIN Rep #: [id number] : 1965 53 From: Geni Sánchez MD PCP: Bobby Sandoval, DO Status: REG SDC Y Location: [place] [address] History of Present Illness Date of Admission: [...] - Discharge Is Pt Admitted From a Senior Living, or a Care Home: No Who Could Help: After D/C, Where [...] BEDSIDE GLUCOSE Collected: 07/02/2018 Status: F Source: [place] 8:50 AM [facility] REPOSITORY TYPE CODE TESTS RESULT OUT OF REFERENCE UNITS RANGE LAB L501.080 70-110 mg/dL High BEDSIDE GLU 160 Result Comment: MANAGEMENT OF PATIENT CARE PER NURSING PROTOCOL Performed By: #### L501.080 #### [facility] Point of Care [address] [place] [address] COLON BIOPSY (CHOOSE Observed: 07/02/2018 Status: F Source: [facility]) 12:00 AM [facility] REPOSITORY Patient: TRAN HARDIN : 1965 (53/F) Acct Num: [id number] Phys: Geni Sánchez MD Unit Num: [id number] Loc: EN Specimen: [id number] Received: 07/02/18 - 1346 Spec Type: COLON [...] one cassette. / SJ:jeri 07/02/18 TC:5 CPT: 91782 HEADER OPERATION: Colonoscopy PRE-OP DIAGNOSIS: Screening TISSUE SUBMITTED: Rectal polyp MICROSCOPIC DESCRIPTION Slides are reviewed. MICROSCOPIC DIAGNOSIS Rectal polyp, biopsy: Consistent with fragments of inflammatory polyp. SJ:jeri 07/03/18 Signed Samuel Pelletier 07/03/18 <signature on file> Performed By: #### PCOLBX #### [facility] [address] [facility] [place], [address] GLUCOSE,BEDSIDE Collected: 06/07/2018 Status: F Source: [place] 8:37 AM SYSTEM REPOSITORY TYPE CODE TESTS RESULT OUT OF RANGE REFERENCE UNITS LAB BGLU 70-100 mg/dL High 161 Glucose,Beds ceci Result Comment: Test performed by glucose meter. Results may be 10%-15% lower than serum/plasma values. (CLIA ID [id number]) Performed By: #### BGLU #### [employer] [facility] [address] [place] [address] OP NOTE Observed: 06/07/2018 Status: F Source: [place] 8:27 AM SYSTEM REPOSITORY DICT# [id number] OP NOTE Observed: 06/07/2018 Status: F Source: [place] 8:24 AM SYSTEM REPOSITORY PATIENT: TRAN HARDIN [...] degenerative joint disease, left knee. ANESTHESIA: General. SKETCH MAKER: Brie Butzer, ST. ESTIMATED BLOOD LOSS: Less [...] A DLF/frandy DOT:06/07/2018 09:35 A Job Number: [id number] Document Number: [id number] cc: Brandon Garcia MD [address] [facility] [address] GLUCOSE,BEDSIDE Collected: 06/07/2018 Status: F Source: [place] 6:31 AM SYSTEM REPOSITORY TYPE CODE TESTS RESULT OUT OF RANGE REFERENCE UNITS LAB BGLU 70-100 mg/dL High 147 Glucose,Beds ceci Result Comment: Test performed by glucose meter. Results may be 10%-15% lower than serum/plasma values. (CLIA ID [id number]) Performed By: #### BGLU #### [facility] [address] [place] [address] INTERNAL MEDICINE Observed: 05/29/2018 Status: F Source: [place] OFFICE VISIT 5:31 PM [facility] RE[facility]IT[facility] [address] [place] [address] OFFICE VISIT Date of Service: 05/29/18 MR#: [id number] Acct: [id number] Name: TRAN HARDIN Rep #: [id number] : 1965 Provider: Bobby Sandoval DO Age/Sex: 53/F Location: [facility] [place] Status: Signed Intake Vital Signs05/29/18 Height 5 [...] HEMOGLOBIN A1C Collected: 05/29/2018 Status: F Source: [place] 4:35 PM [facility] REPOS[facility] TYPE CODE TESTS RESULT OUT OF RANGE REFERENCE UNITS LAB L501.9985 4.2-6.3 % Normal HGB A1C 6.2 Performed By: #### L501.9985, L500.2500 #### [facility] [address] [place], [address] BASIC METABOLIC Collected: 05/29/2018 Status: F Source: [place] PROFILE (BMP) 4:35 PM [facility] 4 Performed By: #### L501.9985, L500.2500 #### [facility] [address] [place], [place], [address] HEMOGRAM Collected: 05/18/2018 Status: F Source: [facility] 10:46 AM SYSTEM REPOSITORY TYPE CODE TESTS [...] 7.4 Performed By: #### HEMOG, CMP3 #### [employer] [address] [place] [address] COMP METABOLIC PANEL Collected: 05/18/2018 Status: F Source: [facility] 10:46 AM SYSTEM REPOSITORY TYPE CODE TESTS [...] 28 Performed By: #### HEMOG, CMP3 #### [employer] [address] [place] [address] CR KNEE STANDING Observed: 04/04/2018 Status: F Source: [facility] 6:01 PM SYSTEM REPOSITORY Patient Name: TRAN HARDIN Diagnostic Radiology Exam Date/Time 04/04/2018 15:15:15 EDT Exam CR Knee Standing AP Bilateral Ordering Physician MD GARCIA DONALD L. Accession Number [id number] CPT4 Codes 66079 () Reason For Exam pain Report FRONTAL [...] JOINT W/O Observed: 03/30/2018 Status: F Source: [facility] CONTRAST LEFT 12:23 PM SYSTEM REPOSITORY Patient Name: TRAN HARDIN MRI Exam Date/Time 03/30/2018 11:59:55 EDT Exam MRI Low Ext Joint w/o Contrast Left Ordering Physician MD YOGESH, BRANDON Parker Accession Number [id number] CPT4 Codes 69089 () Reason For Exam pain Report Exam [...] INTERNAL MEDICINE Observed: 02/15/2018 Status: F Source: [place] OFFICE VISIT 11:52 AM [facility] [address] [place] [address] [place] [address] OFFICE VISIT Date of Service: 02/15/18 MR#: [id number] Acct: [id number] Name: TRAN HARDIN Rep #: [id number] : 1965 Provider: Faustino Moran NP Age/Sex: 53/F Location: [facility] [place] Status: Signed Intake Vital Signs02/15/18 Height 5 [...] medical attention. This note was generated with [employer] dictation software. It may contain incorrect words, [...] AM [facility] RE[facility]IT[facility] Imaging Services [address] [place] [address] Knee 3 Views MR#: [id number] Acct: [id number] Name: TRAN HARDIN Rep #: [id number] : 1965 F 53 From: Falguni Goodman MD PCP: Bobby Sandoval DO Status: REG CLI Study: Knee 3 Views Date of Exam: 02/15/18 Exam# [id number] Ordering Dr: Faustino Moran TE[employer]ER [employer] STUDY: X-RAY - LEFT KNEE REASON FOR [...] Goodman MD at 20:40 EDT Tel Direct: [phone], Service support , CC: Bobby Sandoval DO; Faustino Moran NP Office Mail Clerk: Signed INTERNAL MEDICINE Observed: 12/07/2017 Status: F Source: [place] OFFICE VISIT 9:13 AM [facility] RE[facility] [address] [place] [address] OFFICE VISIT Date of Service: 12/06/17 MR#: [id number] Acct: [id number] Name: TRAN HARDIN Rep #: [id number] : 1965 Provider: Bobby Sandoval DO Age/Sex: 52/F Location: [facility] [place] Status: Signed Intake Vital Signs12/06/17 Height 5 [...] or wheezing Cardio Cardiology: Positive for other ([place] heart pressure last for a few seconds. [...] EMERGENCY DEPARTMENT Observed: 11/03/2017 Status: F Source: [place] SUMMARY 7:15 PM [facility] REPOSIT[facility] Medical Records Department [address] [place] [address] Emergency Department Summary 11/03/17 1645 MR#: [id number] Acct: [id number] Name: TRAN HARDIN Rep #: [id number] : 1965 52 From: Ibrahima Phillips MD [...] 1. Headache This note was generated with [employer] dictation software. It may contain incorrect words, [...] your Primary Care Provider. Call [facility] ([phone]) or report to the closest Emergency Room. Call 911 if necessary. 11/03/17 1985 <Electronically signed by Ibrahima Phillips MD> Date [...] Lymph 2.03 Performed By: #### L100.0100 #### [facility] [address] [place], [address] COMPREHENSIVE METABOLIC Collected: 11/03/2017 Status: F Source: [...] GAP 8 Performed By: #### L500.4050 #### [facility] [address] [place], [address] BRAIN/HEAD WITHOUT Observed: 11/03/2017 Status: F Source: [place] CONTRAST 4:11 PM [facility] Imaging Services [address] [place] [address] Brain/Head without Contrast MR#: [id number] Acct: [id number] Name: TRAN HARDIN Rep #: [id number] : 1965 F 52 From: Hilda Mendoza MD PCP: Bobby Sandoval DO Status: PRE ER Study: Brain/Head without Contrast Date of Exam: 11/03/17 Exam# [id number] Ordering Dr: Ibrahima Phillips MD STUDY: CT [...] CC: Bobby Sandoval DO; Ibrahima Phillips MD Office Mail Clerk: Signed INTERNAL MEDICINE Observed: 11/03/2017 Status: F Source: [place] OFFICE VISIT 3:07 PM [facility] [address] [place] [address] OFFICE VISIT Date of Service: 11/03/17 MR#: [id number] Acct: [id number] Name: TRAN HARDIN Rep #: [id number] : 1965 Provider: Faustino Moran NP Age/Sex: 52/F Location: [facility] [place] Status: Signed Intake Vital Signs11/03/17 Height 5 [...] oriented x3 Limitations: mental status not altered [facility] Head: normal to inspection Ears: hearing [...] call report over to Dr. Bell at [facility] emergency department. Discussed patient plan of care [...] SEVERITY SOURCE 06/29/2018 Drug empagliflozin Other Unknown [facility] Allergy/4160 /[id number](R Hospital 16672(SNOMED XNORM) Repository CT) 02/21/2017 Drug No Known Unknown [facility] Allergy/4160 Allergies/F00 Hospital 91385(SNOMED 1802151(RXNOR Repository CT) M) ENCOUNTERS ENCOUNTERS ADMIT/DISCHARGE ACCOUNT NUMBER ADMITTING ENCOUNTER LOCATION SOURCE CLASS 09/03/2018 [id number] Ambulatory General acute hospital ding:OPBI Repository 08/13/2018/08/13/20 [id number] Ambulatory [address] ding:PT Repository 08/07/2018/08/07/20 [id number] Emergency BBuilding:RICHY Mosher [address] [place] [address] Repository 07/20/2018/07/20/20 [id number] Ambulatory BMSBuilding: [place] [facility] Repository 07/11/2018/07/11/20 [id number] Ambulatory BMSBuilding: [facility] Repository 07/02/2018 [id number] Ambulatory BMSBuilding: [place] BMS.[facility] Repository 07/02/2018/07/02/20 [id number] Ambulatory [address] ding:ENRoom: Repository AC12 06/07/2018 [id number] Ambulatory BuildinA [facility] RECRoom: System [id number]: Repository [id number] 05/30/2018/05/30/20 [id number] Ambulatory BMSBuilding: [place] 18 [facility]MS.[facility] Repository 05/29/2018 [id number] Ambulatory General acute hospital ding:MTLAB Repository 05/29/2018/05/29/20 [id number] Ambulatory BMSBuilding: [place] 18 BMS.[facility] Repository 05/18/2018 [id number] Ambulatory [facility] Repository 04/04/2018 [id number] Ambulatory [facility] Repository 03/30/2018 [id number] Ambulatory [facility] Repository 02/15/2018 [id number] Ambulatory General acute hospital ding:MTRAD Repository 02/15/2018/02/16/20 [id number] Ambulatory BMSBuilding: [place] 18 BMS.[facility] Repository 01/02/2018 [id number] Ambulatory BMSBuilding: [place] BMS.[facility] Repository 01/02/2018 [id number] Ambulatory BMSBuilding: [place] BMS.[facility] Repository 12/11/2017 [id number] Ambulatory BMSBuilding: [place] BMS.[facility] Repository 12/06/2017/12/07/19 [id number] Ambulatory BMSBuilding: [place] 18 BMS.[facility] Repository 11/03/2017/11/04/19 [id number] Emergency [address] ding:ED Repository 11/03/2017/11/04/19 [id number] Ambulatory BMSBuilding: [place] 18 BMS.[facility] Repository PAYERS PAYERS ENCOUNTER GUARANTOR PAYER SUBSCRIBER SOURCE 09/03/2018 TRAN Lui Primary TRAN [place] [id number] Insurance:[employer] hospital POWERSDOB: [facility] y Number: [id number], [place] [id number] Repository [address]Gai: (151) isac Date:6330-22-88PX [phone] () [address] [address]TI: 09/03/2018 Secondary NOT GIVENUNK Rudd Insurance:SELF PAY [facility] Number: Effective Repository Date:2018-07-13 08/13/2018 TRAN J Primary TRAN J Rudd [id number] Insurance:ANTHEMPolic POWERSDOB: Community ROSALIND y Number: [id number], [place] [id number] Repository [address]Clj: (426) isac Date:4373-40-34CP [phone] () [address] [address]GM: 08/13/2018 Secondary NOT GIVENUNK Rudd Insurance:SELF PAY [facility] Number: Effective Repository Date:2018-07-25 08/07/2018 TRAN J Primary TRAN J [facility] POWERSDOB: Insurance:ANTHEM BLUE POWERSDOB: [facility] [id number] Repository ROSALIND Number: [address] [place], [place] [id number] [place], [place] [address]Ira: (330) isac Date:2018-08-07 26215Wbi: [id number] [phone] ()Tel: ([phone]) Name:ARON ADORNO () () [id number] Guillermo [phone] (WP) 74899HG: 07/20/2018 TRAN J Primary TRAN J Sergio [id number] Insurance:ANTHEMPolic POWERSDOB: [facility] ROSALIND y Number: [id number], [place] [id number] Repository [address]Qmn: (330) isac Date:2229-41-52QX [phone] () [address] [address]HT: 07/20/2018 Secondary NOT GIVENUNK Rudd Insurance:SELF PAY [facility] Number: Effective Repository Date:2018-07-20 07/11/2018 TRAN J Primary TRAN J Sergio [id number] Insurance:ANTHEMPolic POWERSDOB: Community ROSALIND y Number: [id number], [place] [id number] Repository [address]Dkp: (485) isac Date:7609-40-88QD [phone] () [address] [place] [address]99[address]KV: 07/11/2018 Secondary NOT GIVENUNK Sergio Insurance:SELF PAY [facility] Number: Effective Repository Date:2018-07-11 07/02/2018 TRAN J Primary TRAN J Rudd [id number] Insurance:ANTHEMPolic [facility] Number: [id number], [place] [id number] Repository [address]Rtx: (437) isac Date:3481-57-59JU [phone] () [address]ZZY[address], [place] [address]RE: 07/02/2018 Secondary NOT GIVENUNK Sergio Insurance:SELF PAY [facility] Number: Effective Repository Date:2018-07-02 07/02/2018 TRAN J Primary TRAN J Rudd [id number] Insurance:ANTHEMPolic POWERSDOB: [facility] ROSALIND y Number: [id number], [place] [id number] Repository [address]Wub: (330) isac Date:1030-19-81SR [phone] () [address]VTYKIQV, [place] [address]WQ: 07/02/2018 Secondary NOT GIVENUNK Sergio Insurance:SELF PAY [facility] Number: Effective Repository Date:2018-05-30 06/07/2018 Tran Primary Rtan [facility] PowersDOB: Insurance:Clio Blue PowersDOB: System Cross [employer] [id number] Repository [facility] Number: [place], [place] Effective Date: [address]Kai: () 05/30/2018 TRAN J Primary TRAN J Rudd [id number] Insurance:ANTHEMPolic POWERSDOB: Community ROSALIND y Number: [id number], [place] [id number] Repository [address]Jhy: (207) isac Date:4624-02-57UR [phone] () [address] [place] [address] 916[address]AB: 05/30/2018 Secondary NOT GIVENUNK Sergio Insurance:SELF PAY [facility] Number: Effective Repository Date:2018-05-30 05/29/2018 TRAN J Primary TRAN J Rudd [id number] Insurance:ANTHEMPolic [facility] Number: [id number] [place] [id number] Repository [address]Jwz: (716) isac Date:4642-94-75RF [phone] () [address] [place] [address] 999[address]HI: 05/29/2018 Secondary NOT GIVENUNK Rudd Insurance:SELF PAY [facility] Number: Effective Repository Date:2018-05-29 05/29/2018 TRAN J Primary TRAN J Rudd [id number] Insurance:ANTHEMPolic [facility] Number: [id number], [place] [id number] Repository [address]Olm: (330) isac Date:8214-91-57ZG [phone] () [address] [place] [address] 35894HA: 05/29/2018 Secondary NOT GIVENUNK Sergio Insurance:SELF PAY [facility] Number: Effective Repository Date:2018-05-29 05/18/2018 Tran Primary Tran [facility] PowersDOB: Insurance:Clio Blue PowersDOB: System [employer] [id number] Repository Rosalind [facility] Number: [place], [place] Effective Date: [address]Zjs: () 04/04/2018 [facility] Powers[facility] Insurance:Clio Blue PowersDOB: System [place] [id number] Repository [facility] Number: [facility] [place] Effective Date: [address]Aql: () 03/30/2018 [facility] PowersDOB: Insurance:Clio Blue PowersDOB: System [place] [id number] Repository [facility] Number: [place], [place] Effective Date: [address]Viy: () 02/15/2018 TRAN J Primary TRAN J Rudd [id number] Insurance:ANTHEMPolic [facility]OB[facility] Number: [id number], [place] [id number] Repository [address]Aky: (622) isac Date:6864-57-03RB [phone] () [address] [place] [address] 12754LO: 02/15/2018 Secondary NOT GIVENUNK Rudd Insurance:SELF PAY [facility] Number: Effective Repository Date:2018-02-15 02/15/2018 TRAN J Primary TRAN J Rudd [id number] Insurance:ANTHEMPolic [facility]OB[facility] Number: [id number], [place] [id number] Repository [address]Rbp: (328) isac Date:6279-81-02XW [phone] () [address]THWTQBK, [place] [address]HD: 02/15/2018 Secondary NOT GIVENUNK Rudd Insurance:SELF PAY [facility] Number: Effective Repository Date:2018-02-15 01/02/2018 TRAN J Primary TRAN J Sergio [id number] Insurance:ANTHEMPolic [facility]OB[facility] Number: [id number], [place] [id number] Repository [address]Tcq: isac Date:6173-54-81FG [phone]~330 [address]GAYXFTJCANDELAR[address] GUILLERMO () [address]PO: 01/02/2018 Secondary NOT GIVENUNK Sergio Insurance:SELF PAY [facility] Number: Effective Repository Date:2018-01-02 01/02/2018 TRAN J Primary TRAN J Sergio [id number] Insurance:ANTHEMPolic POWERSDOB: Community ROSALIND y Number: [id number], [place] [id number] Repository [address]Ydk: isac Date:3700-70-04DE [phone]~330 [address]ASRHGEYCANDELAR[address] GUILLERMO () [address]JW: 01/02/2018 Secondary NOT GIVENUNK Rudd Insurance:SELF PAY [facility] Number: Effective Repository Date:2018-01-02 12/11/2017 TRAN J Primary TRAN J Rudd [id number] Insurance:ANTHEMPolic POWERSDOB: Community ROSALIND y Number: [id number], [place] [id number] Repository [address]Bwi: isac Date:4144-10-00QV [phone]~330 [address]TLAGXRACANDELARIA GUILLERMO () [address]SW: 12/11/2017 Secondary NOT GIVENUNK Rudd Insurance:SELF PAY [facility] Number: Effective Repository Date:2017-12-11 12/06/2017 TRAN J Primary TRAN J Rudd [id number] Insurance:ANTHEMPolic POWERSDOB: Community ROSALIND y Number: [id number], [place] [id number] Repository [address]Szj: isac Date:5563-43-46FX [phone]~330 [address]FQXKAXU, [place] -3 () [address]JT: 12/06/2017 Secondary NOT GIVENUNK Rudd Insurance:SELF PAY [facility] Number: Effective Repository Date:2017-12-06 11/03/2017 TRAN J Primary TRAN J Sergio [id number] Insurance:ANTHEMPolic POWERSDOB: Community ROSALIND y Number: [id number], [place] [id number] Repository [address]58[address]Kdx: isac Date:7400-54-21XA [phone]~330 [address]LQEELBS, [place] -3 () [address]GI: 11/03/2017 Secondary NOT GIVENUNK Rudd Insurance:SELF PAY [facility] Number: Effective Repository Date:2017-11-03 11/03/2017 Serge Primary TRAN J Sergio [id number] Insurance:ANTHEMPolic POWERSDOB: Community Rosalind y Number: [id number], [place] [id number] Repository [address]Rnn: 330 isac Date:8223-78-71IF [phone] () [address]DSYZIFZ, [place] [address]FJ: 11/03/2017 Secondary NOT GIVENUNK Rudd Insurance:SELF PAY [facility] Number: Effective Repository Date:2017-11-03
== END ==
PROVIDERS: Family Provider Family Medicine; PCP Family Medicine; Referring Provider Family Medicine; Visit Provider Family Medicine
DX: Z12.31 Encounter for screening mammogram for malignant neoplasm of breast (principal); Z80.3 Family history of malignant neoplasm of breast
CPT/HCPCS: 77063; 77067

== ENCOUNTER → 2019-06-21 09:45 | Outpatient (CLI) | payer BC, SELFPAY ==
[2019-06-20 15:23] VITALS: BMI 43.8
[2019-06-21 13:20] LABS: ALB/GLOB Ratio 1.1 RATIO (0.9-2.4); AST(SGOT) 26 U/L (15-37); Alanine Aminotransfer ALT/SGPT 39 U/L (13-56); Alkaline Phosphatase 104 U/L (45-117); Anion Gap 10 (5-15); BUN 18 mg/dL (7-18); BUN/Creat Ratio 20.1 RATIO (10-20); Calcium,Total 9.6 mg/dL (8.5-10.1); Chloride 101 mmol/L (98-107); EST Glomerular Filtration Rate 70 mL/min (>60); Est Glom Filt Rate - Afr Amer 85 mL/min (>60); Globulin 3.8 g/dL (2.2-4.2); Glucose 135 mg/dL (74-106); Potassium 4.1 mmol/L (3.5-5.1); Protein, Total 7.8 g/dL (6.4-8.2); Sodium Level 140 mmol/L (136-145)
== END ==
PROVIDERS: Family Provider Family Medicine; PCP Family Medicine; Visit Provider Family Medicine
DX: I10 Essential (primary) hypertension (principal)
CPT/HCPCS: 36415; 80053

== ENCOUNTER → 2020-03-13 12:07 | Outpatient (CLI) | payer BC, SELFPAY ==
[2019-06-20 15:23] VITALS: BMI 43.8
--- NOTE | 2020-03-13 12:07 | BI_ITS ---
MAMMOGRAPHY - BILATERAL SCREENING REASON FOR EXAM: Female, 55 years old. Routine annual screening examination. PERTINENT HISTORY: Grandmother with breast cancer. Aunt with breast cancer. TECHNIQUE: Digital bilateral breast [place] (3D mammographic acquisition) in the CC and MLO projections. 2-D mediolateral oblique (MLO) and craniocaudad (CC) views of both breasts were obtained. CAD: Full Field Digital Mammography with Computer Added Detection was performed. COMPARISON: Comparison is made with prior examination dated 09/03/2018. FINDINGS: Breast Composition: The breasts are almost entirely fatty. There are no dominant masses or suspicious calcifications. No other significant abnormalities are identified. There has been no significant change since the prior study. BI/SCREEN MAMM (CAD) W/OR[place] BILAT IMPRESSION: Stable bilateral screening mammogram. Yearly follow-up mammogram recommended. (A) ASSESSMENT CATEGORY: BIRADS Category 1: Negative. A letter regarding these results will be sent to the patient by the facility within 30 days. Approximately 10% of breast cancers are not detected by mammography. A normal mammogram should not delay biopsy of a clinically suspicious abnormality. [id number] Electronically Signed: Cyril Kent, at 13:18 EDT , Service support ,
== END ==
PROVIDERS: PCP Family Medicine; Referring Provider Family Medicine; Visit Provider Family Medicine
DX: Z12.31 Encounter for screening mammogram for malignant neoplasm of breast (principal); Z80.3 Family history of malignant neoplasm of breast
CPT/HCPCS: 77063; 77067

== ENCOUNTER → 2021-04-21 14:36 | Outpatient (CLI) | payer BC, SELFPAY ==
--- NOTE | 2021-04-21 16:10 | RAD_ITS ---
STUDY: X-RAY - LUMBAR SPINE REASON FOR EXAM: Female, 56 years old. LOW BACK PAIN TECHNIQUE: AP, lateral, and coned-down lateral radiographic view(s) of the lumbar spine were obtained. COMPARISON: None FINDINGS: Normal lumbar lordosis. There is no substantial scoliosis. Grade 1 anterolisthesis of L5 on S1. Normal vertebral bodies and endplates. There is multi-level degenerative disc disease with multi-level disc space narrowing. There is no demonstrated spondylolysis of the pars interarticulares. Numerous gallbladder calculi. RAD/Lumbar Spine 2 or 3 Views IMPRESSION: Multilevel degenerative change including grade 1 anterolisthesis at L5-S1. Incidentally noted cholelithiasis. Electronically Signed: James Crabtree MD at 3:35 EDT Tel , Service support ,
[2021-04-21 17:01] LABS: AST(SGOT) 38 U/L (15-37); Alanine Aminotransfer ALT/SGPT 75 U/L (13-56); Albumin, Serum 3.9 g/dL (3.2-5.0); Alkaline Phosphatase 93 U/L (45-117); Anion Gap 7 (5-15); BUN 10 mg/dL (7-18); BUN/Creat Ratio 14.6 RATIO (10-20); Calcium,Total 9.8 mg/dL (8.5-10.1); Chloride 105 mmol/L (98-107); Creatinine, Serum 0.69 mg/dL (0.55-1.02); EST Glomerular Filtration Rate 95 mL/min (>60); Est Glom Filt Rate - Afr Amer 115 mL/min (>60); Glucose 118 mg/dL (74-106); Potassium 4.1 mmol/L (3.5-5.1); Protein, Total 7.9 g/dL (6.4-8.2); Sodium Level 138 mmol/L (136-145); Thyroid Stim Hormone (TSH) 1.27 uIU/mL (0.358-3.74)
== END ==
PROVIDERS: PCP Family Medicine; Referring Provider Family Medicine; Visit Provider Family Medicine
DX: I10 Essential (primary) hypertension (principal); E11.9 Type 2 diabetes mellitus without complications; M54.5 Low back pain; R07.9 Chest pain, unspecified; G89.29 Other chronic pain
CPT/HCPCS: 36415; 72100; 80053; 84443; 93005

== ENCOUNTER → 2021-05-13 14:18 | Outpatient (CLI) | payer BC, SELFPAY ==
[2021-05-13 15:05] LABS: ALB/GLOB Ratio 0.9 RATIO (0.9-2.4); AST(SGOT) 45 U/L (15-37); Alanine Aminotransfer ALT/SGPT 92 U/L (13-56); Albumin, Serum 3.6 g/dL (3.2-5.0); Alkaline Phosphatase 109 U/L (45-117); Anion Gap 9 (5-15); BUN 15 mg/dL (7-18); BUN/Creat Ratio 18.2 RATIO (10-20); Calcium,Total 9.1 mg/dL (8.5-10.1); Chloride 103 mmol/L (98-107); Creatinine, Serum 0.83 mg/dL (0.55-1.02); EST Glomerular Filtration Rate 77 mL/min (>60); Est Glom Filt Rate - Afr Amer 93 mL/min (>60); Glucose 167 mg/dL (74-106); Potassium 4.2 mmol/L (3.5-5.1); Protein, Total 7.6 g/dL (6.4-8.2); Sodium Level 138 mmol/L (136-145)
== END ==
PROVIDERS: PCP Family Medicine; Referring Provider Surgery; Visit Provider Surgery
DX: K80.20 Calculus of gallbladder without cholecystitis without obstruction (principal); R74.8 Abnormal levels of other serum enzymes
CPT/HCPCS: 36415; 80053

== ENCOUNTER → 2021-05-20 06:50 | Outpatient (CLI) | payer BC, SELFPAY ==
--- NOTE | 2021-05-20 08:58 | US_ITS ---
STUDY: ABDOMINAL ULTRASOUND - RIGHT UPPER QUADRANT REASON FOR VISIT: Female, 56 years old right upper quadrant pain, elevated LFTs TECHNIQUE: Ultrasound evaluation of the right upper quadrant was performed with real-time and static chan-scale imaging. TECHNICAL QUALITY: Limited. Examination limited due to obesity. COMPARISON: None. FINDINGS: Liver: The liver measures 21.6 cm. There is increased echogenicity consistent with fatty infiltration. The bile ducts are within normal limits. There is hepatic color flow. The direction of portal flow is hepatopetal. There is no demonstrated solid mass lesion, there are 2 simple cysts. Larger measures 1.9 cm.. Gallbladder: Normal distended gallbladder. The gallbladder wall measures 2 mm. There is a negative sonographic Wattesr''s sign. There is no pericholecystic fluid. There are multiple echogenic structures within the gallbladder, consistent with multiple gallstones. Common Bile Duct (C.B.D.): The common bile duct measures 5 mm. Pancreas: Visualized pancreas is sonographically normal Right Kidney: Normal size of the right kidney. The right kidney measures 11.3 x 5.1 x 4.9 cm. Normal renal cortex. The right cortex measures 1.6 cm. There is no demonstrated renal mass or cyst. There is no right hydronephrosis. US/Gallbladder IMPRESSION: Hepatomegaly with diffuse fatty infiltration, no discrete lesion. There are 2 simple cysts, no follow-up needed. Cholelithiasis, no sonographic evidence of acute cholecystitis Electronically Signed: Mitchell Dyer MD at 11:35 EDT , Service support ,
--- NOTE | 2021-05-21 15:14 | STRESSREP_ITS ---
Stress Test Report Date: 05/20/2021 Procedure: Pharmacologic stress nuclear imaging study Indications: Abnormal EKG Consent: Per the patient Procedure: The patient underwent pharmacologic (Regadenoson) evaluation with a peak heart rate of 108 beats per minute (65%predicted maximal heart rate) and a peak blood pressure of 130/74 mmHg. The baseline ECG demonstrated normal sinus rhythm, poor R wave progression in the anterior leads. EKG during lexiscan infusion revealed no significant ischemic changes. EKG post infusion revealed no significant ischemic changes. [There were no cardiac dysrhythmias pretest, during pharmacologic infusion, or recovery]. [There was no complaint of chest discomfort during pharmacologic infusion or recovery]. The examination was discontinued secondary to completion of protocol. Impression: 1. Lexiscan stress test test is negative for Lexiscan infusion induced EKG changes of ischemia. 2. Lexiscan stress test test is negative for Lexiscan infusion induced chest pain. 3. Results of the nuclear portion of the test is as below Myocardial perfusion imaging study: Technique: The patient was injected with 14.9 millicuries of technetium 99m Cardiolite and subsequently rest SPECT Cardiolite nuclear imaging was obtained in the horizontal long, vertical long, and short axis views. The patient underwent pharmacologic [Regadenoson 0.4mg] evaluation. Please see above for details. The patient was injected with 44.4 millicuries of technetium 99m Cardiolite and subsequently stress SPECT Cardiolite nuclear imaging was obtained in the horizontal long, vertical long, and short axis views. A gated Cardiolite study at peak stress was obtained. Interpretation: Rest and stress SPECT Cardiolite nuclear imaging status post realignment, normalization, and attenuation correction demonstrate no evidence of significant ischemia or infarction. Gated images reveal no significant regional wall motion abnormalities. The reported LVEF is greater than 70%. Impression: 1. There is no evidence of significant ischemia or infarction. 2. Estimated ejection fraction is greater than 70%. This note was generated with [employer] software. It may contain incorrect words, spelling, and punctuation that were not noted in checking the note before signing.
== END ==
PROVIDERS: PCP Family Medicine; Referring Provider Surgery; Visit Provider Surgery
DX: K80.20 Calculus of gallbladder without cholecystitis without obstruction (principal); R10.11 Right upper quadrant pain; R94.31 Abnormal electrocardiogram [ECG] [EKG]
CPT/HCPCS: 76705; 78452; 93017; A9500; A4216; J2785

== ENCOUNTER 2021-10-11 07:47 | Outpatient (CLI) | payer BC, SELFPAY ==
--- NOTE | 2021-10-11 07:58 | ECHOD_ITS ---
Reason For Study: CHEST PAIN Procedure This was a 2D Doppler, Color Flow transthoracic echocardiogram. Exam performed in department. Left Ventricle Normal LV size. Left ventricular systolic function is normal. The estimated ejection fraction is 60 %. Normal diastology for age. No regional wall motion abnormalities noted. Right Ventricle Normal RV size. Normal systolic function. Atria Normal left atrium. Normal right atrium. Mitral Valve Normal mitral valve. Mild (1+) mitral valve insufficiency. Tricuspid Valve Normal tricuspid valve. Mild (1+) tricuspid valve insufficiency. Pulmonary artery systolic pressure is 34 mmHg. Aortic Valve Trisinus/trileaflet aortic valve. Pulmonic Valve Normal pulmonic valve. Great Vessels Normal aortic root. The pulmonary artery is normal size. Normal inferior vena cava. Pericardium/Pleural No pericardial effusion. MMode/2D Measurements & Calculations LVIDd: 4.3 cm IVSd: 0.97 cm Ao root diam: 2.9 cm LVIDs: 2.9 cm LVPWd: 1.00 cm RVDd: 3.1 cm FS: 33.1 % LAV(MOD-bp): 61.9 ml LVAd ap4: 32.3 cm2 SV(MOD-sp4): 74.1 ml LAV(MOD-bp) Indexed: 26.4 ml/m2 LVLd ap4: 7.9 cm LAV(MOD-sp2): 60.9 ml EDV(MOD-sp4): 109.0 ml LAV(MOD-sp4): 56.9 ml EDV(sp4-el): 112.5 ml LVAs ap4: 16.7 cm2 LVLs ap4: 6.6 cm ESV(MOD-sp4): 35.0 ml ESV(sp4-el): 36.0 ml EF(MOD-sp4): 67.9 % EF(sp4-el): 68.0 % SV(sp4-el): 76.5 ml LA A4 area: 20.1 cm2 LA dimension(2D): 3.6 cm RA A4 area: 15.4 cm2 Time Measurements MV dec time: 0.20 sec Doppler Measurements & Calculations MV E max noel: 95.3 cm/sec Lat Peak E' Noel: 10.9 cm/sec Med Peak E' Noel: 12.4 cm/sec MV A max noel: 83.4 cm/sec E/E' lat: 8.8 E/E' med: 7.7 MV E/A: 1.1 Ao V2 max: 181.7 cm/sec LV V1 max: 127.3 cm/sec PA V2 max: 105.9 cm/sec Ao max P.2 mmHg LV V1 max P.5 mmHg TR max noel: 273.9 cm/sec TR max P.0 mmHg ECHO/Echo Complete Interpretation Summary Normal LV size. Left ventricular systolic function is normal. The estimated ejection fraction is 60 %. Normal diastology for age. Mild (1+) mitral valve insufficiency. Pulmonary artery systolic pressure is 34 mmHg. Ordering Physician: Gamal Song Referring Physician: BOBBY STINSON Performed By: Kim Randhawa RDCS
== END 2021-10-11 23:59 | disposition home or self-care (01) ==
PROVIDERS: PCP Family Medicine; Referring Provider Internal Medicine Cardiovascular Disease; Visit Provider Internal Medicine Cardiovascular Disease
DX: R07.2 Precordial pain (principal); I10 Essential (primary) hypertension
CPT/HCPCS: 93306

== ENCOUNTER 2021-11-25 14:22 | Outpatient (CLI) | payer BC, SELFPAY ==
[2021-11-25 14:24] LABS: Mucous, Urine 0 SEEN /hpf (<or=2+); Red Blood Cells-Urine 0 SEEN /hpf (0-5); White Blood Cells 0 SEEN /hpf (0-5)
[2021-11-25 15:03] LABS: Color, Urine Yellow (Yellow); Glucose, Dipstick Normal (Normal); Ketone-Dipstick Negative (Negative); Leukocyte Esterase-Dipstick Negative /ul (Negative); Nitrite-Dipstick Negative (Negative); Occult Blood-Urine 10 /ul (Negative); Protein-Dipstick 15 mg/dl (Negative); Urine Bilirubin Dipstick Negative (Negative); Urine Clarity Sl. Cloudy (Clear); Urine Urobilinogen Normal (Normal)
[2021-11-25 15:13] LABS: Bacteria RARE /hpf (None Seen); Squamous Epithelial Cells - UA 0-5 SEEN /hpf (5-10)
== END 2021-11-25 23:59 | disposition home or self-care (01) ==
LOC: LABSPEC 14:23
PROVIDERS: PCP Family Medicine; Referring Provider Family Medicine; Visit Provider Family Medicine
DX: M54.50 Low back pain, unspecified (principal); G89.29 Other chronic pain
CPT/HCPCS: 81001

== ENCOUNTER → 2022-02-04 | Outpatient (CLI) | payer BC, SELFPAY ==
[2022-02-04 09:26] LABS: Erythrocyte Sedimentation Rate 13 mm/hr (0-30)
[2022-02-04 09:28] LABS: Absolute Lymphocyte Count 2.02 X10^3/uL (0.83-4.51); Absolute Neutrophil Count 4.4 X10^3/uL (2.0-7.7); Basophil# 0.03 X10^3/uL; Basophil% 0.4 % (0-1); Eosinophil# 0.17 X10^3/uL; Eosinophils% 2.4 % (0-5); Lymphocyte # 2.02 X10^3/ul (0.83-4.51); Lymphocyte % 28.3 % (19-41); Mean Corp Hgb Conc 34.1 g/dL (32-36); Mean Corpuscular Hgb 30.1 pg (27.0-32.0); Mean Corpuscular Volume 88.2 fL (81-99); Mean Platelet Vol. 8.9 fl (6.2-12.0); Monocyte# 0.53 X10^3/uL; Monocyte% 7.4 % (0-10); NRBC Flagged by Analyzer 0 % (0-5); Neutrophil # 4.35 X10^3/uL (2.7-7.7); Neutrophil % 60.8 % (47-70); Platelet Count 258 K/mm3 (150-450); RBC Distribution Width CV 12.7 % (11.6-14.6); RBC Distribution Width SD 40.9 fl (35.1-43.9); Red Blood Count 4.65 M/mm3 (4.2-5.4); White Blood Count 7.2 K/mm3 (4.4-11.0)
[2022-02-04 09:32] LABS: International Normalized Ratio 1.1; Prothrombin Time (Protime)PT. 13.7 SECONDS (11.7-14.9)
[2022-02-04 09:54] LABS: ALB/GLOB Ratio 1.1 RATIO (0.9-2.4); AST(SGOT) 39 U/L (15-37); Alanine Aminotransfer ALT/SGPT 72 U/L (13-56); Alkaline Phosphatase 96 U/L (45-117); Anion Gap 6 (5-15); BUN 18 mg/dL (7-18); BUN/Creat Ratio 22.6 RATIO (10-20); CRP 7.21 mg/L (0.0-3.0); Calcium,Total 9.8 mg/dL (8.5-10.1); Chloride 101 mmol/L (98-107); EST Glomerular Filtration Rate 80 mL/min (>60); Est Glom Filt Rate - Afr Amer 97 mL/min (>60); Globulin 3.8 g/dL (2.2-4.2); Glucose 162 mg/dL (74-106); LDH 214 U/L (84-246); Potassium 3.7 mmol/L (3.5-5.1); Protein, Total 7.8 g/dL (6.4-8.2); Sodium Level 136 mmol/L (136-145)
[2022-02-07 16:08] LABS: Endomysial Antibody IgA Negative (Negative)
[2022-02-07 17:24] LABS: Immunoglobulin A 223 mg/dL (87-352); t-Transglutaminase IgA <2 U/mL (0-3)
[2022-02-10 22:06] LABS: Cytoplasmic Ab (C-ANCA) <1:20 titer (Neg:<1:20); HEPATITIS B SURFACE AG Negative (Negative); Hep C Antibodies <0.1 s/co ratio (0.0-0.9); Hepatitis A IgM Antibody Negative (Negative); Hepatitis B Core AB IgM Negative (Negative); Immunoglobulin A 223 mg/dL (87-352); Immunoglobulin E 355 IU/mL (6-495); Immunoglobulin G 1113 mg/dL (586-1602)
[2022-02-11 10:08] LABS: Immunoglobulin M 46 mg/dL (26-217); Perinuclear Ab (P-ANCA) <1:20 titer (Neg:<1:20)
== END | disposition home or self-care (01) ==
LOC: LAB 08:55
PROVIDERS: PCP Family Medicine; Referring Provider Internal Medicine Gastroenterology; Visit Provider Internal Medicine Gastroenterology
DX: K76.0 Fatty (change of) liver, not elsewhere classified (principal); K21.9 Gastro-esophageal reflux disease without esophagitis
CPT/HCPCS: 36415; 80053; 80074; 82784; 82785; 83516; 83615; 85025; 85610; 85652; 86140; 86255; 86256

== ENCOUNTER → 2022-03-02 | Outpatient (CLI) | payer BC, SELFPAY ==
--- NOTE | 2022-03-02 07:25 | US_ITS ---
STUDY: ABDOMINAL ULTRASOUND - ELASTOGRAPHY REASON FOR VISIT: Female, 57 years old. Hepatomegaly and fatty infiltration of the liver. TECHNIQUE: Liver stiffness measurements were obtained on a [employer] RS 85 ultrasound machine using a CA 1-7 probe following the SRU guidelines. 3 measurements were obtained using a 2-D-SWE method. TheIQR/M was 14% suggesting a quality data set. TECHNICAL QUALITY: Adequate. COMPARISON: Comparison is made with prior study done earlier today. FINDINGS: Liver: Fatty infiltration of the liver. Median liver stiffness measured 13.5 kPa. US/Elastography Parenchyma/Organ IMPRESSION: Liver stiffness measures 13.5 kPa compatible with F3-F4 (Moderate to severe liver fibrosis) Metavir score. Electronically Signed: Cyril Kent MD at 10:11 EDT ,
--- NOTE | 2022-03-02 07:32 | US_ITS ---
STUDY: ABDOMINAL ULTRASOUND - RIGHT UPPER QUADRANT REASON FOR VISIT: Female, 57 years old FATTY LIVER TECHNIQUE: Ultrasound evaluation of the right upper quadrant was performed with real-time and static chan-scale imaging. TECHNICAL QUALITY: Adequate. COMPARISON: Comparison is made with prior sonogram dated 05/20/2021. FINDINGS: Liver: The liver is enlarged and measures 18.9 cm. There is increased echogenicity consistent with fatty infiltration. The bile ducts are within normal limits. There is hepatic color flow. The direction of portal flow is hepatopetal. 2 cysts are seen in the left lobe of the liver. One cyst is seen in the right lobe. The cyst in the right lobe measures 3 cm x 3.1 cm by 2.8 cm. Gallbladder: Normal distended gallbladder. The gallbladder wall measures 3 mm. There is a negative sonographic Watters''s sign. There is no pericholecystic fluid. There are multiple echogenic structures within the gallbladder, consistent with multiple gallstones. Common Bile Duct (C.B.D.): The common bile duct measures 5 mm. Pancreas: Normal size of the head, body and tail of the pancreas. There is normal echogenicity of the pancreas. There is no demonstrated pancreatic mass or cyst. Right Kidney: Normal size of the right kidney. The right kidney measures 11 cm x 5 cm x 4 cm. Normal renal cortex. The right cortex measures 1.7 cm. There is no demonstrated renal mass or cyst. There is no right hydronephrosis. US/Abdomen Limited IMPRESSION: Hepatomegaly and diffuse fatty infiltration of the liver. Stable hepatic cysts. Multiple gallstones. Electronically Signed: Cyril Kent MD at 9:54 EDT ,
== END | disposition home or self-care (01) ==
LOC: US 07:22
PROVIDERS: PCP Family Medicine; Visit Provider Internal Medicine Gastroenterology
DX: K76.0 Fatty (change of) liver, not elsewhere classified (principal); K21.9 Gastro-esophageal reflux disease without esophagitis
CPT/HCPCS: 76705; 76981

== ENCOUNTER 2022-04-26 10:54 | Day surgery (SDC) | payer BC, SELFPAY ==
[2022-04-26] VITALS (7 sets, daily range): BP systolic 86–116; BP diastolic 56–78; PULSE 84–100; RESP 16–18; TEMP 36.6–36.9; O2SAT 96–100; BMI 45.6
[2022-04-26] MEDS: Lactated Ringers 1,000 ML 15 ML IV (11:34)
--- NOTE | 2022-04-26 12:00 | EGD_PTH ---
[id number] LOC: [facility] U#:[id number] AGE/SX: 57/F ROOM: RE04/26/[address]: Dr. Mian Hooper DO : 1965 BED: DIS: 04/26/2022 SPEC #: [id number] RECD: 04/26/22 15:24 STATUS: ABHILASH CHAY #: [id number] RUDY: 04/26/22 12:[address]: Mian Hooper DEPT: SURGICAL PATHOLOGY RECD BY: Adali Emery ENTERED: 04/27/22 08:19 SP TYPE: EGD BIOPSY TAD DR: Dr. Julio Sandoval DO Tissues: A - Gastric mucous membrane B - Esophagus, NOS Procedures: Surgery Specimen Level IV HEADER OPERATION: EGD ([facility]), biopsy PRE-OP DIAGNOSIS: GERD, fatty liver TISSUE SUBMITTED: A ? Gastric body biopsy, B ? Distal esophagus biopsy MICROSCOPIC DIAGNOSIS A. Gastric body, biopsy: Mild gastritis. See microscopic description and comment. B. 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 Chronic inflammation. See comment. SJ:jeri 04/28/2022 COMMENT A. The results of immunohistochemistry for Helicobacter pylori will be reported separately ([id number]). B. Alcian blue/PAS stain with matched control is used in the evaluation of the specimen. MICROSCOPIC DESCRIPTION Slides are reviewed. A. The specimen shows fragments of gastric mucosa with chronic inflammatory cell infiltrates in the lamina propria consisting of lymphocytes and plasma cells, consistent with mild chronic gastritis. GROSS DESCRIPTION A - Received in fixative is one container labeled with the patient's name and designated gastric body biopsy. The specimen consists of two irregular fragments of light ayoub soft tissue that in aggregate measure 0.8 x 0.4 x 0.1 cm. The specimen is totally submitted in one cassette. B - Received in fixative is one container labeled with the patient's name and designated distal esophagus biopsy. The specimen consists of multiple irregular fragments of light ayoub soft tissue that in aggregate measure 0.8 x 0.8 x 0.1 cm. The specimen is totally submitted in one cassette. / MIRA:jeri 04/27/2022 TC:3 CPT: 26614 x2, 51792
--- NOTE | 2022-04-26 12:00 | IMM_PTH ---
PATIENT: KODI HARDIN LOC: EN U#:[id number] AGE/SX: 57/F ROOM: RE04/26/[address]: Dr. Mian Hooper DO : 1965 BED: DIS: 04/26/2022 SPEC #: [id number] RECD: 04/27/22 09:36 STATUS: ABHILASH RELoraine #: [id number] RUDY: 04/26/22 12:[address]: Mian Hooper DEPT: IMMUNOHISTOCHEMISTRY RECD BY: Rupal Lamb ENTERED: 04/27/22 09:36 SP TYPE: IMMUNO OTHR DR: Dr. Julio Sandoval, Tissues: A - Stomach, NOS Procedures: H Pylori (initial) PHYSICIAN & INSTITUTION [place] [address] SPECIMEN INFORMATION: Tissue Source: A ? Gastric body biopsy Clinical Info: GERD, fatty liver Specimen Number: [id number] CPT code: 81744 METHODOLOGY: Deparaffinized sections of prefer/formalin-fixed tissue or PAP/DQ stained slides are incubated with monoclonal/polyclonal antibodies/oligonucleotide probes. Localization is made via biotin free immunoperoxidase method. Appropriate controls are performed and reacted as expected. Results on target cell population are indicated in the following table: RESULTS: ANTIBODY / CLONE RESULT Block A H Pylori (polyclonal) negative These tests were developed and their performance characteristics determined by [facility]. They may not have been cleared or approved by the U.S. Food and Drug Administration. The FDA has determined that such clearance or approval is not necessary. The above immunohistochemical/dualISH markers are ordered and reviewed by the Pathologist. INTERPRETATION: A. Gastric body, biopsy: Negative for Helicobacter pylori organisms. SJ:jeri 04/28/2022
[2022-04-26 12:30] LABS: Bedside Glucose 174 mg/dL (74-106)
--- NOTE | 2022-04-26 12:37 | PCM.HP.BLA ---
History and Physical Date of Admission: 04/26/22 TRAN HARDIN, is a 57 F who presents to the office today for?Initial consult. Tran established with this clinic 02.04.22 with referral from PCP for evaluation of GERD. She is using heartburn relief QD and this is effective in managing daily symptoms. About once a month she will have chest pain, burning without nausea or dysphagia; relief with belching and deep breathing. Triggers include salmon. PCP did cardiac workup to include echocardiogram, EKG and stress test with all normal results. Surgery consulted previously for gallstones as seen on Xray which was prompted by back pain. US performed with no signs of acute cholecystitis; with this and her being asymptomatic, surgery was not pursued. Fatty liver is a new diagnosis for her. She is diabetic with A1c 4.14.22 7.3; when she saw her PCP at this time it was noted she was not being compliant with her diet. Weight was 287 with BMI 46.3. AST 45/ALT 92/Alk phos WNL. PMH DMII; HTN. FH mother H.Pylori, gastric ulcer, Hilliard?s esophagus, CKD stage 4. Colonoscopy 07.02.[address] Jose Sánchez finding one inflammatory polyp. US RUQ 10.7.21 liver measurement 21.6cm with fatty infiltration and two simple cysts; normal distended gallbladder without Watters?s sign with gallstones. Remaining exam without acute/chronic comment. Exam Const General: cooperative and healthy appearing Nutritional Appearance: overweight Orientation: oriented x3 HENMT Head: normal to inspection Ears: hearing grossly normal bilaterally Eyes General: appearance normal, both eyes and all related structures Neck Neck: normal visual inspection and no lymphadenopathy Neck mass: No Thyroid: thyroid normal Resp Effort & Inspection: normal respiratory effort Auscultation: Bilateral: Clear to Auscultation Cardio Rate: regular rate Rhythm: regular rhythm Musc Thoracic/Lumbar Spine: straight leg raise negative bilaterally and lumbar spinal tenderness at L5 Skin General: no rashes or lesions noted Neuro Cranial Nerves: CN's II-XI intact bilaterally Cognition: normal cognition Speech: speech normal Extrem General: normal to inspection Psych Appearance: grossly normal Affect: normal affect Speech and Movement: speech and movement normal Thought Process: normal Judgment: judgment good Quality Reporting Tobacco Screening ([facility] 138) Smoking Status: Never smoker Assessment and Plan Assessment and Plan (1) GERD (gastroesophageal reflux disease): ?Status:?Acute ?Qualifiers: ?Esophagitis presence:?esophagitis presence not specified? Qualified Code(s):?K21.9 - Gastro-esophageal reflux disease without esophagitis ?Plan: She does take a local antiacid on a intermittent basis.? She is taking PPI or an H2 receptor dayana.? It sounds as if her chest pain is secondary to Erosive esophagitis, hiatal hernia, esophageal spasm, less likely achalasia.? She will undergo an upper endoscopy to evaluate upper GI tract.? At this time she does not want to start any empiric acid suppression until she undergoes was going on endoscopically. (2) Fatty liver: ?Status:?Acute ?Plan: I calculated her FIB-4 score she was a depth F0 to F1.? However this was a calculation losing her previous platelet count.? We will get an official FibroScan along with labs to see if she has any chronic liver disease that would contribute to her liver being centimeters.? We also discussed weight loss recommendations and she does not want to do anything formally at this time as she is done with a very sick relative. ? ? ? Orders: Orders Comprehensive Metabolic Profil Today K21.9 - Gastro-esophageal reflux disease without esophagitis, K76.0 - Fatty (change of) liver, not elsewhere classified ? CRP Today K21.9 - Gastro-esophageal reflux disease without esophagitis, K76.0 - Fatty (change of) liver, not elsewhere classified ? LDH Today K21.9 - Gastro-esophageal reflux disease without esophagitis, K76.0 - Fatty (change of) liver, not elsewhere classified ? Prothrombin Time w/INR Today K21.9 - Gastro-esophageal reflux disease without esophagitis, K76.0 - Fatty (change of) liver, not elsewhere classified ? CBC W/Diff, Automated Today K21.9 - Gastro-esophageal reflux disease without esophagitis, K76.0 - Fatty (change of) liver, not elsewhere classified ? Erythrocyte Sed Rate Today K21.9 - Gastro-esophageal reflux disease without esophagitis, K76.0 - Fatty (change of) liver, not elsewhere classified ? Hepatitis Panel Acute Today K21.9 - Gastro-esophageal reflux disease without esophagitis, K76.0 - Fatty (change of) liver, not elsewhere classified ? ANCA Today K21.9 - Gastro-esophageal reflux disease without esophagitis, K76.0 - Fatty (change of) liver, not elsewhere classified ? Celiac Disease Profile Today K21.9 - Gastro-esophageal reflux disease without esophagitis, K76.0 - Fatty (change of) liver, not elsewhere classified ? Immunoglobulin A Today K21.9 - Gastro-esophageal reflux disease without esophagitis, K76.0 - Fatty (change of) liver, not elsewhere classified ? Immunoglobulin E Today K21.9 - Gastro-esophageal reflux disease without esophagitis, K76.0 - Fatty (change of) liver, not elsewhere classified ? Immunoglobulin G Today K21.9 - Gastro-esophageal reflux disease without esophagitis, K76.0 - Fatty (change of) liver, not elsewhere classified ? Immunoglobulin M Today K21.9 - Gastro-esophageal reflux disease without esophagitis, K76.0 - Fatty (change of) liver, not elsewhere classified ? Elastography Parenchyma/Organ Today K21.9 - Gastro-esophageal reflux disease without esophagitis, K76.0 - Fatty (change of) liver, not elsewhere classified ? I have re-examined the patient. There are no clinical changes since date of exam.
--- NOTE | 2022-04-26 12:43 | OP.EGD_ITS ---
Patient Name: Tran Cheema Procedure Date: 04/26/2022 12:05 PM Date of : 1965 Age: 57 Procedure: Upper GI endoscopy Indications: Heartburn, Suspected esophageal reflux, Failure to respond to medical treatment Providers: Mian Hooper DO Medicines: Monitored Anesthesia Care Patient Profile: This is a 57 year old female. Refer to note in patient chart for documentation of history and physical. Patient has symptoms of chronic dyspepsia and chronic nausea. Complications: No immediate complications. Procedure: Pre-Anesthesia Assessment: - Prior to the procedure, a History and Physical was performed, and patient medications and allergies were reviewed. The risks and benefits of the procedure and the sedation options and risks were discussed with the patient. All questions were answered and informed consent was obtained. Patient identification and proposed procedure were verified by the physician in the pre-procedure area. Mental Status Examination: alert and oriented. Airway Examination: normal oropharyngeal airway and neck mobility. Respiratory Examination: clear to auscultation. CV Examination: normal. Prophylactic Antibiotics: The patient does not require prophylactic antibiotics. Prior Anticoagulants: The patient has taken no previous anticoagulant or antiplatelet agents. ASA Grade Assessment: II - A patient with mild systemic disease. After reviewing the risks and benefits, the patient was deemed in satisfactory condition to undergo the procedure. The anesthesia plan was to use monitored anesthesia care (MAC). Immediately prior to administration of medications, the patient was re-assessed for adequacy to receive sedatives. The heart rate, respiratory rate, oxygen saturations, blood pressure, adequacy of pulmonary ventilation, and response to care were monitored throughout the procedure. The physical status of the patient was re-assessed after the procedure. After obtaining informed consent, the endoscope was passed under direct vision. Throughout the procedure, the patient's blood pressure, pulse, and oxygen saturations were monitored continuously. The gastroscope was introduced through the mouth, and advanced to the second part of duodenum. The upper GI endoscopy was accomplished without difficulty. The patient tolerated the procedure well. Scope In: 12:22:45 PM Scope Out: 12:29:08 PM Total Procedure Duration Time 0 hours 6 minutes 23 seconds Findings: LA Grade C (one or more mucosal breaks continuous between tops of 2 or more mucosal folds, less than 75% circumference) esophagitis with bleeding was found 40 cm from the incisors. Biopsies were taken with a cold forceps for histology. Verification of patient identification for the specimen was done. Estimated blood loss was minimal. A medium-sized hiatal hernia was present. Localized moderate inflammation characterized by erosions and erythema was found in the gastric body. Biopsies were taken with a cold forceps for histology. Verification of patient identification for the specimen was done. Estimated blood loss was minimal. No gross lesions were noted in the first portion of the duodenum. Impression: - LA Grade C reflux esophagitis. Biopsied. - Medium-sized hiatal hernia. - Chronic gastritis. Biopsied. - No gross lesions in the first portion of the duodenum. Recommendation: - Written discharge instructions were provided to the patient. - The signs and symptoms of potential delayed complications were discussed with the patient. - Patient has a contact number available for emergencies. - Return to normal activities tomorrow. - Resume previous diet. - Continue present medications. - Await pathology results. - Repeat upper endoscopy in 1 year for surveillance based on pathology results. - Use Protonix (pantoprazole) 40 mg PO BID for 4 weeks. Procedure Code(s): --- Professional --- 07028, Esophagogastroduodenoscopy, flexible, transoral; with biopsy, single or multiple CPT copyright 2017 [employer]. All rights reserved. The codes documented in this report are preliminary and upon remote inpatient coder review may be revised to meet current compliance requirements. Mian Hooper DO 04/26/2022 12:43:07 PM This report has been signed electronically. Number of Addenda: 0 Note Initiated On: 04/26/2022 12:05 PM
--- NOTE | 2022-04-26 12:44 | OP.CCLET_ITS ---
04/26/2022 Julio Sandoval Re : Upper GI endoscopy procedure for Tran Cheema Dear Dr. Sandoval This procedure was performed on Tuesday, April 26, 2022. My impressions and recommendations are as follows: Impressions : - LA Grade C reflux esophagitis. Biopsied. - Medium-sized hiatal hernia. - Chronic gastritis. Biopsied. - No gross lesions in the first portion of the duodenum. Recommendations : - Written discharge instructions were provided to the patient. - The signs and symptoms of potential delayed complications were discussed with the patient. - Patient has a contact number available for emergencies. - Return to normal activities tomorrow. - Resume previous diet. - Continue present medications. - Await pathology results. - Repeat upper endoscopy in 1 year for surveillance based on pathology results. - Use Protonix (pantoprazole) 40 mg PO BID for 4 weeks. My findings are described in the full procedure note, which is enclosed. If I can be of further assistance, please feel free to contact me at . Sincerely, Mian Hooper, 04/26/2022 12:43:07 PM This report has been signed electronically.
== END 2022-04-26 13:58 | disposition home or self-care (01) ==
LOC: EN 10:59 → AC 13:32
PROVIDERS: PCP Family Medicine; Referring Provider Family Medicine; Visit Provider Internal Medicine Gastroenterology
PROC: 0DJ08ZZ Inspection of Upper Intestinal Tract, Via Natural or Artificial Opening Endoscopic (ICD-10-PCS; CPT 43235; principal; 2022-04-26 11:55)
DX: K21.01 Gastro-esophageal reflux disease with esophagitis, with bleeding (principal); Z68.42 Body mass index [BMI] 45.0-49.9, adult; E11.9 Type 2 diabetes mellitus without complications; I10 Essential (primary) hypertension; K22.70 Barrett's esophagus without dysplasia; K44.9 Diaphragmatic hernia without obstruction or gangrene; K76.0 Fatty (change of) liver, not elsewhere classified; K29.50 Unspecified chronic gastritis without bleeding; E66.9 Obesity, unspecified; Z79.899 Other long term (current) drug therapy
CPT/HCPCS: 43239; 82962; 88305; 88342; J7120; J2405

== ENCOUNTER → 2022-07-05 | Outpatient (CLI) | payer BC, SELFPAY ==
[2022-07-05 17:00] LABS: ALB/GLOB Ratio 1.1 RATIO (0.9-2.4); AST(SGOT) 31 U/L (15-37); Alanine Aminotransfer ALT/SGPT 55 U/L (13-56); Albumin, Serum 4.1 g/dL (3.2-5.0); Alkaline Phosphatase 104 U/L (45-117); Anion Gap 9 (5-15); BUN 11 mg/dL (7-18); BUN/Creat Ratio 14.6 RATIO (10-20); Calcium,Total 9.9 mg/dL (8.5-10.1); Chloride 102 mmol/L (98-107); Creatinine, Serum 0.75 mg/dL (0.55-1.02); EST Glomerular Filtration Rate 85 mL/min (>60); Est Glom Filt Rate - Afr Amer 103 mL/min (>60); Globulin 3.8 g/dL (2.2-4.2); Glucose 132 mg/dL (74-106); Potassium 4.3 mmol/L (3.5-5.1); Protein, Total 7.9 g/dL (6.4-8.2); Sodium Level 140 mmol/L (136-145)
== END | disposition home or self-care (01) ==
LOC: BIMLAB 14:46
PROVIDERS: PCP Family Medicine; Referring Provider Family Medicine; Visit Provider Family Medicine
DX: I10 Essential (primary) hypertension (principal)
CPT/HCPCS: 36415; 80053

== ENCOUNTER → 2022-07-19 | Outpatient (CLI) | payer BC, SELFPAY | END | disposition home or self-care (01) | LOC: LABSPEC 14:37 | PROVIDERS: PCP Family Medicine; Referring Provider Physician Assistant; Visit Provider Physician Assistant | DX: R05.9 Cough, unspecified (principal) | CPT/HCPCS: 87635; U0003; U0005 ==

== ENCOUNTER → 2022-07-28 | Outpatient (CLI) | payer BC, SELFPAY ==
[2022-07-28 18:18] LABS: ALB/GLOB Ratio 0.9 RATIO (0.9-2.4); AST(SGOT) 33 U/L (15-37); Alanine Aminotransfer ALT/SGPT 55 U/L (13-56); Albumin, Serum 3.6 g/dL (3.2-5.0); Alkaline Phosphatase 90 U/L (45-117); Anion Gap 5 (5-15); BUN 10 mg/dL (7-18); BUN/Creat Ratio 13.8 RATIO (10-20); Calcium,Total 9.2 mg/dL (8.5-10.1); Chloride 103 mmol/L (98-107); Cholesterol 145 mg/dL (200); Creatinine, Serum 0.73 mg/dL (0.55-1.02); EST Glomerular Filtration Rate 88 mL/min (>60); Est Glom Filt Rate - Afr Amer 107 mL/min (>60); Globulin 3.8 g/dL (2.2-4.2); Glucose 188 mg/dL (74-106); High Density Lipoprotein 40 mg/dL; Potassium 3.9 mmol/L (3.5-5.1); Protein, Total 7.4 g/dL (6.4-8.2); Sodium Level 136 mmol/L (136-145); Triglycerides 131 mg/dL; Very Low Density Lipoprotein 26 mg/dL (5-40)
== END | disposition home or self-care (01) ==
LOC: LAB 16:35
PROVIDERS: PCP Family Medicine; Visit Provider Internal Medicine Gastroenterology
DX: K76.0 Fatty (change of) liver, not elsewhere classified (principal)
CPT/HCPCS: 36415; 80053; 80061

== ENCOUNTER → 2022-08-11 | Outpatient (CLI) | payer BC, SELFPAY ==
--- NOTE | 2022-08-11 14:09 | VDLE_ITS ---
Reason For Study: pain RIGHT GSV is normal. CFV is compressible, spontaneous, phasic, competent and demonstrates normal augmentation. FV is compressible, spontaneous, phasic, competent and demonstrates normal augmentation. POP V is compressible, spontaneous, phasic, competent and demonstrates normal augmentation. T/P Trunk is compressible. PTV is compressible. RT PerV is compressible. Procedure This is a venous duplex using B-mode, color flow and spectral Doppler. Exam performed in department. The exam was abbreviated due to the COVID 19 protocol. The exam was diagnostic. A preliminary report was called and/or faxed to Faustino Zaldivar nurse. VL/Venous Duplex US, Unilateral Interpretation Summary Deep veins of the right lower extremity are patent and compressible segmentally . There is no evidence of right lower extremity deep vein thrombosis. The right great sapheno us vein appears patent and compressible segmentally. Ordering Physician: Faustino Moran Performed By: Jose Concepcion RVT
--- NOTE | 2022-08-11 14:20 | RAD_ITS ---
STUDY: X-RAY - RIGHT KNEE REASON FOR EXAM: Female, 57 years old. Pain and swelling beginning yesterday. History of 2 prior knee surgeries. No known injury. TECHNIQUE: 3 view(s) of the knee. COMPARISON: None. FINDINGS: Normal visualized distal femur. Normal visualized proximal tibia and fibula. Normal proximal tibiofibular articulation. There is no acute fracture, dislocation or destructive osseous pathology. There is mild degenerative arthrosis of the medial femorotibial compartment. There is moderate degenerative arthrosis of the lateral femorotibial compartment with moderate joint space narrowing. There is severe degenerative arthrosis of the patellofemoral articulation. There is no demonstrated joint effusion. The soft tissue structures are unremarkable. RAD/Knee 3 Views IMPRESSION: Arthrosis of the right knee without fracture or dislocation. Electronically Signed: Surinder Gallardo DO at 22:36 EST ,
== END | disposition home or self-care (01) ==
LOC: CVS 14:07
PROVIDERS: PCP Family Medicine; Referring Provider Nurse Practitioner Family; Visit Provider Nurse Practitioner Family
DX: M17.11 Unilateral primary osteoarthritis, right knee (principal); M25.561 Pain in right knee; M79.89 Other specified soft tissue disorders
CPT/HCPCS: 73562; 93971

== ENCOUNTER → 2022-09-05 | Outpatient (CLI) | payer BC, SELFPAY ==
--- NOTE | 2022-09-05 14:25 | US_ITS ---
STUDY: ABDOMINAL ULTRASOUND - ELASTOGRAPHY REASON FOR VISIT: Female, 57 years old. Nonalcoholic steatohepatitis. TECHNIQUE: Liver stiffness measurements were obtained on a uGift RS 85 ultrasound machine using a CA 1-7 probe following the SRU guidelines. 3 measurements were obtained using a 2-D-SWE method. TheIQR/M was 23% suggesting a quality data set. TECHNICAL QUALITY: Adequate. COMPARISON: Comparison is made with prior study done earlier in the day. Comparison is also made with prior study dated 03/02/2022. FINDINGS: Liver: Hepatomegaly and fatty infiltration of the liver. Median liver stiffness measured 10 kPa. US/Elastography Parenchyma/Organ IMPRESSION: Liver stiffness measures 10 kPa compatible with F2-F3 (Mild to moderate liver fibrosis) Metavir score. Electronically Signed: Cyril Kent MD at 12:10 EST ,
--- NOTE | 2022-09-05 14:38 | US_ITS ---
STUDY: ABDOMINAL ULTRASOUND - RIGHT UPPER QUADRANT REASON FOR VISIT: Female, 57 years old HESS TECHNIQUE: Ultrasound evaluation of the right upper quadrant was performed with real-time and static chan-scale imaging. TECHNICAL QUALITY: Adequate. COMPARISON: Comparison is made with prior examination of 03/02/2022. FINDINGS: Liver: The liver is enlarged and measures 23.8 cm. There is increased echogenicity consistent with fatty infiltration. The bile ducts are within normal limits. There is hepatic color flow. The direction of portal flow is hepatopetal. Stable appearance of the hepatic cysts in the right and left lobe of the liver. Gallbladder: Normal distended gallbladder. The gallbladder wall measures 1.6 mm. There is a negative sonographic Watters''s sign. There is no pericholecystic fluid. There are no gallstones. Common Bile Duct (C.B.D.): The common bile duct measures 2.9 mm. Pancreas: Normal size of the head, body and tail of the pancreas. There is increased echogenicity of the pancreas. There is no demonstrated pancreatic mass or cyst. Right Kidney: Normal size of the right kidney. The right kidney measures 10.8 cm x 6.1 cm x 4.5 cm. Normal renal cortex. The right cortex measures 1.3 cm. There is no demonstrated renal mass or cyst. There is no right hydronephrosis. US/Abdomen Limited IMPRESSION: Hepatomegaly and diffuse fatty infiltration of the liver Stable hepatic cysts. Electronically Signed: Cyril Kent MD at 12:08 EST ,
== END | disposition home or self-care (01) ==
PROVIDERS: PCP Family Medicine; Referring Provider Internal Medicine Gastroenterology; Visit Provider Internal Medicine Gastroenterology
DX: K75.81 Nonalcoholic steatohepatitis (NASH) (principal)
CPT/HCPCS: 76705; 76981

== ENCOUNTER → 2023-06-05 | Outpatient (CLI) | payer OTHER, SELFPAY ==
--- NOTE | 2023-06-05 10:00 | US_ITS ---
STUDY: ABDOMINAL ULTRASOUND - RIGHT UPPER QUADRANT; ELASTOGRAPHY REASON FOR VISIT: Female, 58 years old. Fenestration of the liver. TECHNIQUE: Ultrasound evaluation of the right upper quadrant was performed with real-time and static chan-scale imaging. Point quantification shear wave elastography was performed ([employer]). TECHNICAL QUALITY: Adequate. COMPARISON: Comparison is made with prior study dated September 05, 2022. FINDINGS: Liver: The liver is enlarged and measures 21.1 cm. There is increased echogenicity consistent with fatty infiltration. The bile ducts are within normal limits. There is hepatic color flow. The direction of portal flow is hepatopetal. Stable appearance of hepatic cysts within the right and left lobe of the liver. Median liver stiffness measured 8.5 kPa. Gallbladder: Normal distended gallbladder. The gallbladder wall measures 1.6 mm. There is a negative sonographic Watters''s sign. There is no pericholecystic fluid. There are multiple echogenic structures within the gallbladder, consistent with multiple gallstones. Common Bile Duct (C.B.D.): The common bile duct measures 3.1 mm. Pancreas: There is increased echogenicity of the pancreas. There is no demonstrated pancreatic mass or cyst. Right Kidney: Normal size of the right kidney. The right kidney measures 10.1 cm x 5.7 cm x 4.7 cm. Normal renal cortex. The right cortex measures 1 cm. There is no demonstrated renal mass or cyst. There is no right hydronephrosis. US/ABD Limited w/ Elastography IMPRESSION: 1. Liver stiffness measures 8.5 kPa compatible with F2-F3 (Mild to moderate liver fibrosis) Metavir score. Electronically Signed: Cyril Kent MD at 14:30 EDT ,
[2023-06-05 12:27] LABS: Absolute Lymphocyte Count 1.97 X10^3/uL (0.83-4.51); Absolute Neutrophil Count 3.9 X10^3/uL (2.0-7.7); Basophil# 0.04 X10^3/uL; Basophil% 0.6 % (0-1); Hematocrit 44.4 % (37-47); Hemoglobin 14.3 g/dL (12.0-15.0); Lymphocyte # 1.97 X10^3/ul (0.83-4.51); Lymphocyte % 29.4 % (19-41); Mean Corp Hgb Conc 32.2 g/dL (32-36); Mean Corpuscular Hgb 28.7 pg (27.0-32.0); Mean Platelet Vol. 9.1 fl (6.2-12.0); Monocyte# 0.53 X10^3/uL; Monocyte% 7.9 % (0-10); NRBC Flagged by Analyzer 0 % (0-5); Neutrophil # 3.91 X10^3/uL (2.7-7.7); Neutrophil % 58.5 % (47-70); Platelet Count 265 K/mm3 (150-450); RBC Distribution Width CV 12.7 % (11.6-14.6); RBC Distribution Width SD 41.3 fl (35.1-43.9); Red Blood Count 4.99 M/mm3 (4.2-5.4); White Blood Count 6.7 K/mm3 (4.4-11.0)
[2023-06-05 13:04] LABS: AST(SGOT) 21 U/L (15-37); Alanine Aminotransfer ALT/SGPT 37 U/L (13-56); Albumin, Serum 3.8 g/dL (3.2-5.0); Alkaline Phosphatase 102 U/L (45-117); Anion Gap 6 (5-15); BUN 11 mg/dL (7-18); BUN/Creat Ratio 13.8 RATIO (10-20); Calcium,Total 9.5 mg/dL (8.5-10.1); Chloride 105 mmol/L (98-107); EST Glomerular Filtration Rate 79 mL/min (>60); Est Glom Filt Rate - Afr Amer 96 mL/min (>60); Glucose 131 mg/dL (74-106); Protein, Total 7.8 g/dL (6.4-8.2); Sodium Level 140 mmol/L (136-145)
== END | disposition home or self-care (01) ==
PROVIDERS: PCP Family Medicine; Referring Provider Internal Medicine Gastroenterology; Visit Provider Internal Medicine Gastroenterology
DX: K76.0 Fatty (change of) liver, not elsewhere classified (principal)
CPT/HCPCS: 36415; 76705; 76981; 80053; 85025

== ENCOUNTER 2023-06-08 05:56 | Day surgery (SDC) | payer OTHER, SELFPAY ==
[2023-05-31 13:25] LABS: ALB/GLOB Ratio 0.9 RATIO (0.9-2.4); AST(SGOT) 15 U/L (15-37); Alanine Aminotransfer ALT/SGPT 37 U/L (13-56); Albumin, Serum 3.6 g/dL (3.2-5.0); Alkaline Phosphatase 94 U/L (45-117); Anion Gap 6 (5-15); BUN 12 mg/dL (7-18); BUN/Creat Ratio 16.2 RATIO (10-20); Calcium,Total 9.2 mg/dL (8.5-10.1); Chloride 107 mmol/L (98-107); Creatinine, Serum 0.74 mg/dL (0.55-1.02); EST Glomerular Filtration Rate 86 mL/min (>60); Est Glom Filt Rate - Afr Amer 104 mL/min (>60); Globulin 3.8 g/dL (2.2-4.2); Glucose 147 mg/dL (74-106); Protein, Total 7.4 g/dL (6.4-8.2); Sodium Level 140 mmol/L (136-145)
[2023-06-06 12:17] LABS: Hemoglobin A1c 7.4 % (3.8-5.6)
[2023-06-08] VITALS (8 sets, daily range): BP systolic 106–137; BP diastolic 49–85; PULSE 81–93; RESP 12–18; TEMP 36.1–36.5; O2SAT 97–100; BMI 47.3
--- NOTE | 2023-06-08 | BLA_PTH ---
PATIENT: KODI HARDIN LOC: [facility] [place] U#:[id number] AGE/SX: 58/F ROOM: RE06/08/[address]: Dr. America Gilmore MD : 1965 BED: DIS: 06/08/2023 SPEC #: [id number] RECD: 06/08/23 12:44 STATUS: ABHILASH CHAY #: [id number] RUDY: 06/08/23 00:[address]: America Gilmore DEPT: SURGICAL PATHOLOGY RECD BY: Yvon Dillard ENTERED: 06/08/23 12:45 SP TYPE: BLADDER BX OTHR DR: Dr. Julio Sandoval DO Tissues: Urinary bladder, NOS Procedures: Surgery Specimen Level IV HEADER OPERATION: Cysto, bladder biopsy, fulguration PRE-OP DIAGNOSIS: Erythematous bladder mucosa, urge incontinence, nocturia TISSUE SUBMITTED: Bladder biopsy MICROSCOPIC DIAGNOSIS Bladder, biopsy: Fragments of urothelial mucosa with mild urothelial hyperplasia and mild chronic inflammation. Negative for malignancy. See comment. MIRA:jeri 06/09/2023 COMMENT Detrusor muscle is not present in the specimen. Clinical correlation and appropriate follow up are necessary. MICROSCOPIC DESCRIPTION Slides are reviewed. GROSS DESCRIPTION Received in fixative is one container labeled with the patient's name and designated bladder biopsy. The specimen consists of two irregular fragments of ayoub soft tissue that in aggregate measure 0.4 x 0.2 x 0.1 cm. The specimen is totally submitted in one cassette. / MIRA:jeri 06/08/2023 TC:3 CPT: 11442
[2023-06-08] MEDS: Lactated Ringers 1,000 ML 15 ML IV (06:57)
[2023-06-08 07:20] LABS: Bedside Glucose 144 mg/dL (74-106)
[2023-06-08] MEDS: Cefazolin 3 GM in 0.9% Normal Saline (100mL Bag) 100 ML IV (07:41)
--- NOTE | 2023-06-08 07:43 | DCINST_ITS ---
Discharge Instructions Diet Discharge Diet: No restrictions Activity Discharge Activity: Return to Normal Activity Dressing / Incision Call your doctor if you observe: Fever of 101 or Higher, Inability to urinate and Inability to have a bowel movement Follow Up Care Please Follow Up With: America Gilmore MD When: the office will call for follow up appt. Test Results: Test results from this visit will be discussed in further detail at your follow- up appointment, if applicable. Discharge Plan Admission Attending Provider: America Gilmore Primary Care Provider: Julio Sandoval Discharge Orders/Prescriptions Prescriptions: New oxycodone-acetaminophen [Percocet] 5-325 mg tablet 1 tab PO Q8H PRN (Reason: pain) 2 Days Qty: 6 0RF cephalexin [cephalexin] 500 mg capsule 500 mg PO Q12 3 Days Qty: 6 0RF Continued glucosamine HCl 750 mg tablet 750 mg tablet 750 mg PO BID omega-3 fatty acids 1,250 mg capsule 1,250 mg capsule 1,250 mg PO DAILY multivitamin capsule 1 cap PO DAILY fesoterodine 4 mg tablet extended release 24 hr 4 mg PO DAILY Patient Comments: TAKE 1 TABLET BY MOUTH EVERY DAY thiamine HCl (vitamin B1) 500 mg Tablet 1,000 mg PO DAILY nystatin 100,000 unit/gram cream 1 applic topical DAILY PRN (Reason: SKIN) pantoprazole 40 mg tablet,delayed release (DR/EC) 40 mg PO DAILY lisinopril 10 mg tablet 10 mg PO DAILY (DME) blood sugar diagnostic Strip See Dose Instructions .ROUTE .MEDSUPPLY Qty: 100 1RF Dose Instruction: As directed Rx Instructions: one touch ultra check glucose daily for type 2 DM ursodiol 250 mg tablet 250 mg PO BID Qty: 90 11RF (DME) OneTouch Ultra Test Strip See Rx Instructions .Route Qty: 100 3RF Rx Instructions: As directed to check glucose daily for type 2 DM simvastatin 10 mg tablet 10 mg PO QHS Qty: 30 11RF semaglutide 0.25 mg or 0.5 mg (2 mg/3 mL) pen injector 0.5 mg subcut QWEEK Qty: 3 2RF Referrals / Follow Up: Julio Sandoval, [Primary Care Provider] - Disposition Disposition (needs filled in before D/C Order can be placed): Home, Self Care
--- NOTE | 2023-06-08 08:06 | OP.PCM_ITS ---
Report of Operation Date of Procedure: 06/08/23 Pre-Operative Diagnosis: Bladder lesion Post-Operative Diagnosis: Same Surgery/Procedure Performed:: Cystoscopy, bladder biopsy with fulguration Surgeon: America Gilmore Type of Anesthesia: MAC Specimen's removed: Bladder biopsy x2 Description of Procedure: The patient is a 58-year-old female who had a cystoscopy in the office and a small lesion on the area of the trigone was identified consistent with a possible squamous metaplasia. The decision was made to take the patient to the operating room for biopsy and fulguration. Informed consent was obtained. The patient was taken to the operating room and placed on the operating room table. Anesthesia monitored the head, neck, airway, IV access and vital signs thro ughout the case. Once anesthesia was appropriate ministered, the patient was placed into dorsolithotomy position and was prepped and draped in usual sterile fashion. The cystoscope was inserted through the urethra under direct visualization into the urinary bladder which was visualized in its entirety revealing just the lesion seen in the office and nothing else. There were no tumors, ulcerations or areas of erythema or concern. The inflamed tissue was removed in its entirety with 2 biopsy bites and the area was fulgurated for hemostatic control. The patient's bladder was then emptied and the case was terminated. She was awakened and taken to the recovery room in good condition. There were no complications during this procedure. Complications None Admit VTE Documentation VTE Present on Admission: Yes VTE Mechan Device Prophylaxis: SCD's VTE Pharm Prophylaxis ordered?: No Reason prophylaxis not ordered:: Treatment Not Indicated
== END 2023-06-08 09:15 | disposition home or self-care (01) ==
LOC: SDC 05:56 → AC 05:57
PROVIDERS: Anesthesiology; PCP Family Medicine; Referring Provider Urology; Visit Provider Urology
PROC: 0TBB8ZX Excision of Bladder, Via Natural or Artificial Opening Endoscopic, Diagnostic (ICD-10-PCS; CPT 52204; principal; 2023-06-08 07:20)
DX: N30.20 Other chronic cystitis without hematuria (principal); Z68.42 Body mass index [BMI] 45.0-49.9, adult; E11.9 Type 2 diabetes mellitus without complications; I10 Essential (primary) hypertension; N39.41 Urge incontinence; R35.1 Nocturia; Z79.899 Other long term (current) drug therapy; Z79.85 Long-term (current) use of injectable non-insulin antidiabetic drugs; N32.89 Other specified disorders of bladder; E66.9 Obesity, unspecified
CPT/HCPCS: 52204; 00910; 36415; 80053; 82962; 83036; 88305; 93005; J7120; J2405

== ENCOUNTER 2023-08-03 08:13 | Day surgery (SDC) | payer OTHER, SELFPAY ==
[2023-08-03] MEDS: Lactated Ringers 1,000 ML 15 ML IV (08:50)
[2023-08-03 08:51] VITALS: BP 137/73; PULSE 87; RESP 18; TEMP 37.2; O2SAT 99; BMI 45.1
[2023-08-03 09:13] LABS: Bedside Glucose 151 mg/dL (74-106)
--- NOTE | 2023-08-03 09:13 | HP.PCM_ITS ---
History and Physical Date of Admission: 08/03/23 hip pain, poorly controlled diabetes Details: KODI HARDIN, is a 58 F who presents to the office today for follow up. PMH DMII; HTN.? FH mother H.Pylori, gastric ulcer, Hilliard?s esophagus, CKD stage 4.? Prior workup:?Colonoscopy 07.02.[address] Jose Sánchez?finding one inflammatory polyp.?US RUQ 05.20.21?liver measurement 21.6cm with fatty infiltration and two simple cysts; normal distended gallbladder without Watters?s sign with gallstones. Remaining exam without acute/chronic comment.? ? WSA consult 05.21.21 for gallstones seen on Xray which was performed for back pain. Notes US with cholelithiasis without acute cholecystitis. Asymptomatic; no intervention at this time. ? ? PCP OV for CP and burning. Cardiac workup to include echocardiogram, EKG and stress test with all normal results. Refer to GI for GERD evaluation.? ? *BGI established 02.04.22. She is using heartburn relief QD with effectiveness. Once a month she will have CP/burning without nausea or dysphagia; relief with belching and deep breathing. Triggers include salmon. ? Fatty liver is a new diagnosis for her. She is diabetic with A1c 4.14.22 7.3; when she saw her PCP at this time it was noted she was not being compliant with her diet. Weight was 287 with BMI 46.3. AST 45/ALT 92/Alk phos WNL.? Biochemical?CMP, LDH, coagulation, CBC, ESR, hepatitis, ANCA, celiac profile, GAME without additional pertinent abnormalities.? CRP H7.21; AST H39/ ALT H72/ alk phos WNL?US RUQ and elastography 03.02.22?liver measurement 18.9cm with fatty infiltration and two cysts each lobe with kPa 13.5 F4.?EGD 04.26.22?LA Grade C reflux esophagitis; medium hiatal hernia; chronic gastritis.? OV 05.10.22 with start of PPI BID she had one episode of reflux. Start?Ursodiol and vitamin E? Biochemical ?CMP, lipids without pertinent abnormality. A1c 6.9? OV 08.09.22 feels she is doing well in regard to reflux;?PPI 40mg QD continues.? Ursodiol/vit E/simvastatin?continue without adverse effect. Did lose some weight with diet/portion control but holiday season was difficult. A1c dropped from 7.2 to 6.9.?US and elastography 09.06.22?hepatic measurement 23.8cm with fatty infiltration, stiffness measures 10kPa F2; increased echogenicity of pancreas.? OV 12.06.22 feels she is doing well at this time. Continues with?ursodiol/Vit E/simvastatin/protonix. She has a weight goal of 215lbs by 05.28.23; to achieve this she plans on starting weightwatchers which was helpful to her previously. ? OV 06.07.23 Pt stable since last visit. Has started Ozempic end of March and reports increase in heartburn. Stable on Ursodiol and Vitamin E. ROS Const Constitutional: Positive for headache(s); No fatigue ENT ENT: Positive for headache(s); No difficulty swallowing Gastro GI: Positive for heartburn; No abdominal pain, belching, bloating, change in bowel habits, change in stool character, coffee ground emesis, constipation, cramping, diarrhea, difficulty swallowing, feeling full early, excessive flatus, incontinent of stools, Vomiting blood/hematemesis, Blood in stool, loose stools, Black,tarry stools, nausea/dyspepsia, pain with swallowing, vomiting or other Musc Musculoskeletal: Positive for joint pain, back pain and Arthritis Skin Skin: No yellowing of the eye or itchy eyes Neuro Neurology: Positive for headache(s) Psych Psychiatric: No anxiety and No depression Endo Endocrine: No fatigue Aller/Imm Allergy/Immunologic: No itchy eyes Kulwinder/Lymp Hematologic/Lymphatic: No easy bleeding or easy bruising Exam Const General: cooperative, no acute distress and ill appearing acutely Nutritional Appearance: average body habitus and obese morbidly obese Orientation: alert, awake and oriented x3 HENMT Head: normocephalic Ears: hearing grossly normal bilaterally Nose: external nose normal Face and sinus: normal facial exam Mouth: oral mucosae normal Throat: posterior oropharynx normal Eyes General: appearance normal, both eyes and all related structures Neck Neck: normal visual inspection Resp Effort & Inspection: normal respiratory effort and able to speak in complete sentences Auscultation: Bilateral: Clear to Auscultation Cardio Palpation: normal PMI Rate: regular rate Rhythm: regular rhythm GI Inspection: normal to inspection Musc Musculoskeletal: Yes joint tenderness (Mild right hip pain.) Skin General: no rashes or lesions noted Rashes: rashes noted (intertriginous yeast rash under her breasts.) Neuro General: patient alert, patient awake and patient oriented x3 Extrem General: full ROM Psych Appearance: grossly normal Affect: normal affect Quality Reporting Tobacco Screening ([facility] 138) Smoking Status: Never smoker Assessment and Plan Assessment and Plan (1) Fatty liver: Status: Chronic Plan: Her ultrasound of the liver showed that she has a 19 cm liver with an Metavir score of 13.5 which is F3 to F4.? I will put her on ursodiol 250 or 300 mg twice a day.? We will check her LFTs, liver enzymes and cholesterol profile to see if we need to add a statin.? I think it would be a good idea for her to be on a statin at baseline if she can tolerate the side effects of due to diabetes and her elevated CRP.? We also discussed weight loss and better eating habits.? She says that she cannot exercise at this time secondary to her back issues that she is experiencing at this time.? We provided specific caloric intake and other ways in order to help her reduce inflammation and scarring in the liver along with her type 2 diabetes.? I gave her documentation and which showed specific examples of what we recommend. She has not lost any weight but her liver size is decreased to 17 cm and her Medicare score has decreased from 13.5-10-8.4 which is F2. She has been instituting coffee, taking a statin that we put her on along with lactulose and vitamin E. His symptoms this is having a very good therapeutic effect on the inflammation in her liver. She said that she would start back on weight watchers as she did very well with that previously. We will continue current management in a.m. and her weight loss journey to decrease the amount of inflammation and scarring that she has in her liver. (2) Obesity: Status: Chronic Qualifiers: Obesity type: unspecified obesity type Obesity classification: unspecified obesity classification Serious obesity comorbidity presence: without serious comorbidity Qualified Code(s): E66.9 - Obesity, unspecified Plan: She will continue to follow a card controlled diet. She is also on Ozempic. Her hemoglobin A1c has gone down from 8.1-7.2. She is having a very good therapeutic effect from it without much side effect of nausea, vomiting or constipation. (3) GERD (gastroesophageal reflux disease): Status: Chronic Qualifiers: Esophagitis presence: esophagitis presence not specified Qualified Code(s): K21.9 - Gastro-esophageal reflux disease without esophagitis Comment: CONTROLLED WITH MED Plan: She is only having 1 episode reflux esophagitis symptoms.? On pantoprazole..? She is making lifestyle changes and regarding eating at night and not laying down within an hour after eating.? I think a lot of her symptoms come from a hiatal hernia.? I am not recommending surgery at this time as she is just going on medicines for reflux disease and it seems like it is working at this time.? The goal for her would be to be on pantoprazole 40 mg twice a day for 8 weeks and then transition to 40 mg once a day.? The risk and benefits of chronic PPI therapy were discussed with her and I think that the benefits far outweigh the risks because she does have short segment Hilliard's esophagus. (4) she will need to have repeat colonoscopy because of her history of polyps. She was explained alternatives, risk, benefits including understanding bleeding, infection, sepsis, perforation, need for emergent urgent . She will have an ASA of 3.
--- NOTE | 2023-08-03 09:15 | COLBX_PTH ---
PATIENT: KODI HARDIN LOC: EN U#:[id number] AGE/SX: 58/F ROOM: RE08/03/[address]: Dr. Mian Hooper DO : 1965 BED: DIS: 08/03/2023 SPEC #: [id number] RECD: 08/03/23 11:03 STATUS: ABHILASH CHAY #: [id number] RUDY: 08/03/23 09:[address]: Mian Hooper DEPT: SURGICAL PATHOLOGY RECD BY: Elizabeth Dinh ENTERED: 08/03/23 12:03 SP TYPE: COLON BX OTHR DR: Dr. Julio Sandoval, Tissues: Rectum, NOS Procedures: Surgery Specimen Level IV HEADER OPERATION: Colonoscopy - open access with polypectomy and clip PRE-OP DIAGNOSIS: History of polyps TISSUE SUBMITTED: Rectal polyp MICROSCOPIC DIAGNOSIS Rectal polyp, polypectomy: A fragment of mucoid tissue mixed with neutrophils and rare macrophages. See comment. SJ:jeri 08/04/2023 COMMENT Colonic tissue is not identified in the specimen. Correlation with clinical, endoscopic findings and appropriate follow up are necessary. Case has been reviewed in consultation with Dr. Dunn who concurs with the above diagnosis. IDC:AM MICROSCOPIC DESCRIPTION Slides are reviewed. GROSS DESCRIPTION Received in fixative is one container labeled with the patient's name and designated rectal polyp. The specimen consists of a ayoub soft tissue measuring 0.5 x 0.5 x 0.1 cm. The specimen is totally submitted in one cassette. / MIRA:jeri 08/03/2023 TC:5 CPT: 32187
[2023-08-03 09:56] VITALS: BP 137/73; BP 87/73; PULSE 81; RESP 16; TEMP 36.4; O2SAT 64
--- NOTE | 2023-08-03 09:59 | OP.CCLET_ITS ---
08/03/2023 Julio Sandoval Re : Colonoscopy procedure for Tran Cheema Dear Dr. Sandoval This procedure was performed on July. My impressions and recommendations are as follows: Impressions : - Diverticulosis in the recto-sigmoid colon, in the sigmoid colon, in the descending colon and in the proximal descending colon. - One 9 mm polyp in the cecum, removed using injection-lift and a hot snare. Resected and retrieved. Clips were placed. 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 Recommendations : - Repeat colonoscopy in 5 years for surveillance. - Continue present medications. My findings are described in the full procedure note, which is enclosed. If I can be of further assistance, please feel free to contact me at . Sincerely, Mian Friend, 08/03/2023 9:59:15 AM This report has been signed electronically.
--- NOTE | 2023-08-03 09:59 | OP.COLON_ITS ---
Patient Name: Tran Cheema Procedure Date: 08/03/2023 9:26 AM Date of : 1965 Age: 58 Procedure: Colonoscopy Indications: High risk colon cancer surveillance: Personal history of colonic polyps Providers: Mian Hooper DO Referring MD: Julio Sandoval Medicines: Monitored Anesthesia Care Patient Profile: This is a 58 year old female. Refer to note in patient chart for documentation of history and physical. Last Colonoscopy: several years ago. Complications: No immediate complications. Procedure: Pre-Anesthesia Assessment: - Prior to the procedure, a History and Physical was performed, and patient medications and allergies were reviewed. The patient is competent. The risks and benefits of the procedure and the sedation options and risks were discussed with the patient. All questions were answered and informed consent was obtained. Patient identification and proposed procedure were verified by the physician in the pre-procedure area. Mental Status Examination: alert and oriented. Respiratory Examination: clear to auscultation. CV Examination: normal. Prophylactic Antibiotics: The patient does not require prophylactic antibiotics. Prior Anticoagulants: The patient has taken no anticoagulant or antiplatelet agents. ASA Grade Assessment: III - A patient with severe systemic disease. After reviewing the risks and benefits, the patient was deemed in satisfactory condition to undergo the procedure. The anesthesia plan was to use monitored anesthesia care (MAC). Immediately prior to administration of medications, the patient was re-assessed for adequacy to receive sedatives. The heart rate, respiratory rate, oxygen saturations, blood pressure, adequacy of pulmonary ventilation, and response to care were monitored throughout the procedure. The physical status of the patient was re-assessed after the procedure. After I obtained informed consent, the scope was passed under direct vision. Throughout the procedure, the patient's blood pressure, pulse, and oxygen saturations were monitored continuously. The Colonoscope was introduced through the anus and advanced to the cecum, identified by appendiceal orifice and ileocecal valve. The colonoscopy was performed without difficulty. The patient tolerated the procedure well. The quality of the bowel preparation was adequate. The ileocecal valve, appendiceal orifice, and rectum were photographed. Scope In: 9:26:58 AM Scope Withdrawal Time 0 hours 19 minutes 22 seconds Scope Out: 9:51:47 AM Total Procedure Duration Time 0 hours 24 minutes 49 seconds Findings: The perianal and digital rectal examinations were normal. Multiple small and large-mouthed diverticula were found in the recto-sigmoid colon, sigmoid colon, descending colon and proximal descending colon. A 9 mm polyp was found in the cecum. The polyp was sessile. The polyp was removed with a saline injection-lift technique using a hot snare. Resection and retrieval were complete. Verification of patient identification for the specimen was done. Estimated blood loss was minimal. To prevent bleeding post-intervention, two hemostatic clips were successfully placed. Clip ultrasound technol: [employer]. There was no bleeding at the end of the procedure. Impression: - Diverticulosis in the recto-sigmoid colon, in the sigmoid colon, in the descending colon and in the proximal descending colon. - One 9 mm polyp in the cecum, removed using injection-lift and a hot snare. Resected and retrieved. Clips were placed. Clip ultrasound technol: [employer]. Recommendation: - Repeat colonoscopy in 5 years for surveillance. - Continue present medications. Procedure Code(s): --- Professional --- 00933, Colonoscopy, flexible; with removal of tumor(s), polyp(s), or other lesion(s) by snare technique [id number], Colonoscopy, flexible; with directed submucosal injection(s), any substance CPT copyright 2021 [employer]. All rights reserved. The codes documented in this report are preliminary and upon rougher helper review may be revised to meet current compliance requirements. Mian Hooper DO 08/03/2023 9:59:15 AM This report has been signed electronically. Number of Addenda: 0 Note Initiated On: 08/03/2023 9:26 AM
[2023-08-03 10:00] VITALS: BP 110/62; BP 137/73; PULSE 86; RESP 16; O2SAT 96
[2023-08-03 10:05] VITALS: BP 106/60; BP 137/73; PULSE 84; RESP 16; O2SAT 96
[2023-08-03 10:10] VITALS: BP 121/62; BP 137/73; PULSE 79; RESP 16; TEMP 36.4; O2SAT 98
[2023-08-03 10:30] VITALS: BP 137/73
== END 2023-08-03 10:43 | disposition home or self-care (01) ==
LOC: EN 08:14 → AC 08:15
PROVIDERS: PCP Family Medicine; Referring Provider Family Medicine; Visit Provider Internal Medicine Gastroenterology
PROC: 0DJD8ZZ Inspection of Lower Intestinal Tract, Via Natural or Artificial Opening Endoscopic (ICD-10-PCS; CPT 45378; principal; 2023-08-03 09:10)
DX: Z12.11 Encounter for screening for malignant neoplasm of colon (principal); E11.9 Type 2 diabetes mellitus without complications; K57.30 Diverticulosis of large intestine without perforation or abscess without bleeding; Z86.010 Personal history of colon polyps; K76.0 Fatty (change of) liver, not elsewhere classified; K63.5 Polyp of colon; E66.9 Obesity, unspecified; Z79.899 Other long term (current) drug therapy
CPT/HCPCS: 45385; 45381; 82962; 88305; J7120; J2405

== ENCOUNTER 2024-01-25 12:52 | Emergency (ER) | payer OTHER, SELFPAY ==
[2024-01-25 12:53] VITALS: BP 139/84; PULSE 93; RESP 22; TEMP 36; O2SAT 96; BMI 44.5
[2024-01-25 14:53] VITALS: BP 122/71; PULSE 72; RESP 13; TEMP 36.6; O2SAT 97
--- NOTE | 2024-01-25 14:54 | EKG12_ITS ---
Test Reason : Blood Pressure : / mmHG Vent. Rate : 081 BPM Atrial Rate : 081 BPM P-R Int : 148 ms QRS Dur : 088 ms QT Int : 380 ms P-R-T Axes : 055 -43 029 degrees QTc Int : 441 ms Normal sinus rhythm Left axis deviation Abnormal ECG Confirmed by XIMENA LUNDBERG, CAROL ([id number]), film and video editor JOHANA MEJÍA ([id number]) on 01/29/2024 11:29:11 AM Referred By: Confirmed By:CAROL BUENO MD
--- NOTE | 2024-01-25 15:03 | EX.ED.DYSGE1 ---
HPI <WOODY Lincoln - Last Filed: 01/25/24 17:12> History of Present Illness Chief Complaint: Chest Other Narrative Narrative: Patient is a 58-year-old female with history of obesity, hypertension, hyperlipidemia, GERD who presents to the emergency department with left sided rib pain. Patient states that she had a mechanical fall 4 days ago, where she tripped over a tent spike, landing on her frontal part of her body. Denies any head or neck injury. Patient did have some left-sided rib pain. Last evening while at work the pain is getting worse, she felt nauseous, and lightheaded, she is here for evaluation. She denies any other injury. Denies any shortness of breath. PFSH <WOODY Lincoln - Last Filed: 01/25/24 17:12> [facility] Medical History Hx of colonic polyp Lesion of bladder Wears glasses Diabetes Back pain Frequent headaches Blackout History of hiatal hernia Fatty liver Shortness of breath on exertion History of pain when walking Swelling of right lower extremity Right knee pain Post-menopausal Arthritis Non-smoker Leg cramps History of stress test History of echocardiogram Cardiology follow-up encounter Obesity Essential hypertension GERD (gastroesophageal reflux disease) Cholelithiasis Frequent headaches Type 2 diabetes mellitus Home Medications ?Medication ?Instructions ?Recorded ?Last Taken ?Type omega-3 fatty acids 1,250 mg 1,250 mg PO DAILY 06/20/19 Unknown History capsule multivitamin 1 cap PO DAILY 03/17/20 Unknown History blood sugar diagnostic #100 ea 10/27/21 Unknown Rx thiamine HCl (vitamin B1) 500 mg 1,000 mg PO DAILY 04/21/22 Unknown History tablet fesoterodine 4 mg tablet,extended 4 mg PO DAILY 04/12/23 Unknown History release 24 hr blood sugar diagnostic (OneTouch #100 ea 04/19/23 Unknown Rx Ultra Test strips) nystatin 100,000 unit/gram topical 1 applic topical DAILY PRN SKIN 06/06/23 Unknown History cream simvastatin 10 mg tablet 10 mg PO QHS #30 tabs 06/06/23 Unknown Rx lisinopril 10 mg tablet 10 mg PO DAILY #90 tabs 06/27/23 Unknown Rx ursodiol 250 mg tablet 250 mg PO BID #90 tabs 09/12/23 Unknown Rx metformin 500 mg tablet 500 mg PO BID 90 days #180 tabs 11/27/23 Unknown Rx pantoprazole 40 mg tablet,delayed 40 mg PO DAILY #90 TABLETS 12/08/23 Unknown Rx release fluconazole 200 mg tablet 200 mg PO DAILY #2 tabs 12/26/23 Unknown Rx (Diflucan) semaglutide 1 mg/dose (4 mg/3 mL) 1 mg (0.75 mL) subcut QWEEK #3 mL 12/26/23 Unknown Rx subcutaneous pen injector naproxen 500 mg tablet (Naprosyn) 500 mg PO BID PRN pain #20 tabs 01/25/24 Unknown Rx Allergy/AdvReac Type Severity Reaction Status Date / Time empagliflozin (From Allergy Mild rash Verified 12/26/23 14:30 Jardiance) Family History Sister Cancer cervical, ovarian Diabetes Mother Asthma Diabetes Kidney disease Father Alcoholism Surgical History Hx of colonoscopy History of esophagogastroduodenoscopy (EGD) History of wisdom tooth extraction History of arthroscopy of left knee History of right knee surgery History of D&C Social History Smoking Status: Never smoker alcohol intake: never substance use type: does not use what type of physical activity do you participate in: none ROS <WOODY Lincoln - Last Filed: 01/25/24 17:12> ROS ED ROS Narrative Constitutional: Negative for fever, chills, weight loss, weakness Eyes: Negative for vision loss, vision change, double vision ENT: Negative for any sore throat, ear pain, congestion Cardiovascular: Negative for any chest pain, tightness, palpitations Respiratory: Negative for any cough, sputum production, hemoptysis, dyspnea, dyspnea on exertion, orthopnea Gastrointestinal: Negative for any abdominal pain, nausea, vomiting, diarrhea, constipation, blood in stool, blood in vomit : Negative for any urinary frequency, dysuria, retention, blood in urine Muscle skeletal: Negative for any neck pain, back pain. Positive for left-sided rib pain Neurological: Negative for any headache, syncope, dizziness Skin: Negative for any rashes, itching, abrasions, lacerations Psychiatric: Negative for any depression, anxiety, stress, suicidal ideation, homicidal ideation Hematologic: Negative for any excessive bruising, easy bleeding EXAM <WOODY Lincoln - Last Filed: 01/25/24 17:12> Physical Exam Narrative Exam Narrative: Vital signs reviewed. HEET: Head normocephalic atraumatic, TMs clear bilaterally. Posterior pharynx is clear, moist mucous membranes. Nares clear bilaterally. Neck: Supple with no lymphadenopathy or tenderness. No signs of meningismus. Cardiac: Regular rate and rhythm no murmurs gallops or rubs, equal peripheral pulses bilaterally. Respiratory: Lungs clear to auscultation bilaterally. Positive for left-sided lateral and anterior chest wall tenderness. Mostly along the rib. Abdomen: Soft, nontender, nondistended. No abdominal bruit or pulsatile masses. No hepatosplenomegaly Extremities: No peripheral edema, no signs of gross trauma or deformity. Active full range of motion of all extremities. Neuro: Cranial nerves II through XII intact, no focal neurological deficits. Skin: Clean dry and intact with no rash, purpura, petechiae, vesicles or pustules. Backs/flank: No CVA tenderness, no midline spinal tenderness, no deformity. Psych: Normal mood and affect. No SI, HI or acute psychosis. Const Vital Signs: 01/25/24 12:53 01/25/24 14:40 01/25/24 14:53 Temperature 96.8 F L 97.8 F Temperature Source Temporal Temporal Pulse Rate 93 72 Respiratory Rate 22 H 13 Respiratory Effort Normal Blood Pressure 139/84 H 122/71 H Blood Pressure Mean 102 88 Pulse Ox 96 97 Oxygen Delivery Method Room Air 01/25/24 16:00 Temperature Temperature Source Pulse Rate 71 Respiratory Rate 13 Respiratory Effort Blood Pressure 121/76 H Blood Pressure Mean 91 Pulse Ox 98 Oxygen Delivery Method Room Air Positive well nourished and well developed General Appearance ED: well developed <Dr. Miles Hannah MD - Last Filed: 01/25/24 15:25> Physical Exam Const Vital Signs: 01/25/24 12:53 01/25/24 14:40 01/25/24 14:53 Temperature 96.8 F L 97.8 F Temperature Source Temporal Temporal Pulse Rate 93 72 Respiratory Rate 22 H 13 Respiratory Effort Normal Blood Pressure 139/84 H 122/71 H Blood Pressure Mean 102 88 Pulse Ox 96 97 Oxygen Delivery Method Room Air 01/25/24 16:00 Temperature Temperature Source Pulse Rate 71 Respiratory Rate 13 Respiratory Effort Blood Pressure 121/76 H Blood Pressure Mean 91 Pulse Ox 98 Oxygen Delivery Method Room Air [facility] <James SegoviaWOODY - Last Filed: 01/25/24 17:12> [facility] Lab Data Labs: Laboratory Results - last 24 hr 01/25/24 15:45 WBC 6.6 RBC 4.85 Hgb 14.2 Hct 43.3 MCV 89.3 MCH 29.3 MCHC 32.8 RDW Std Deviation 41.2 RDW Coeff of Reece 12.6 Plt Count 241 MPV 8.9 Immature Gran % (Auto) 0.300 Neut % (Auto) 61.2 Lymph % (Auto) 28.4 [place] % (Auto) 7.4 Eos % (Auto) 2.4 Baso % (Auto) 0.3 Absolute Neuts (auto) 4.0 Absolute Lymphs (auto) 1.88 Nucleated RBC % 0 Sodium 138 Potassium 3.8 Chloride 102 Carbon Dioxide 32.0 Anion Gap 4 L BUN 13 Creatinine 0.70 Estim Creat Clear Calc 125.49 Est GFR (MDRD) Af Amer 111 Est GFR (MDRD) Non-Af 92 BUN/Creatinine Ratio 18.6 Glucose 102 Calcium 9.8 Troponin I High Sens 4 Radiography Diagnostic Testing: Clinical Impression(s) from Imaging Studies Ribs w/Chest X-Ray 01/25/24 16:18 IMPRESSION: RIBS: Normal x-ray examination of the ribs. CHEST: No acute cardiopulmonary pathology.. Electronically Signed: Gee Hamilton MD at 17:02 EDT Reading Location ID and State: [facility] / [place] Tel , Service support , EKG Normal sinus rhythm, rate of 81 bpm: Attestation: I personally reviewed and interpreted this EKG as follows: Comments: 81 bpm, [place] 148 ms, QRS duration [address] elevation, no acute infarct noted. Treatment and Re-Evaluation :: Differential diagnosis includes however is not limited to: Rib fracture, community-acquired pneumonia, ACS, NM Patient appears to be in no distress, patient's vital signs are stable. Patient presents to the emergency department with left-sided chest wall pain, left rib pain. Patient's physical examination assisted with more of a muscle skeletal chest wall pain patient's pain is much worse with palpation, movement, rotation. Patient will receive an EKG, as well as a left-sided rib series and PA chest. All radiologic examinations were read, reviewed by the emergency department attending. From these reads, a plan of care will be put in place. Patient's CBC was unremarkable, BMP was unremarkable, troponin was negative. Chest x-ray left rib series was negative for any acute fracture, EKG was unremarkable. At this time, I do believe the patient is suffering from more of a chest wall contusion. She will continue to ice, perform gentle stretching. She was [id number] ibuprofen, Tylenol. She is agreeable to the plan. All questions were answered, she was given return precautions. Stable for discharge <Dr. Miles Hannah MD - Last Filed: 01/25/24 15:25> [facility] Narrative Medical decision making narrative: I have personally performed a face to face assessment of the patient and have reviewed the LEANNE Note. I performed a substantive portion of the visit including all aspects of the following. My baxter findings include: History is 58-year-old female history of diabetes tripped and [place] Said she fell flat forward. Since that time she has had left lower chest wall rib cage pain. Worse with movement. No prior cardiac history. No exertional chest pain. No history of DVT or PE risk factors. Exam is [well-appearing 58-year-old female. Vital signs are stable afebrile. Pulse ox 97% on room air no hypoxia. H EENT exam unremarkable atraumatic. Neck nontender. Lungs clear to auscultation bilaterally. Heart regular rhythm rate about 70 no murmur. Chest wall reproducible pain along the left lower rib cage. There is no ecchymosis or bruising. No subcu air or crepitance. Is isolated to 1 area linearly on the left lower side. Right chest wall and sternum are nontender. Back nontender. Abdomen is soft and nontender. There is no abdominal pain. No bruising to the abdomen. Pelvic girdle intact. Moving all 4 extremities. 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 Equal symmetrical radial pulses. Dorsi plantarflexion intact. Neurologically she is awake and alert no focal motor deficits. She has reproducible left lower rib cage pain and pain with movement of her torso. I do think this is musculoskeletal in etiology.] Medical Decision Making [58-year-old status post fall left lower rib cage contusion versus fracture. Patient is concerned this could be some other etiology or doing some screening labs and an EKG that was unremarkable.] Other additions or changes: [None] History & Record Review Discussion w/independent historian: Patient Additional record(s) reviewed:: Prior inpatient record, Prior outpatient record, Prior ED visit and Prior labs Lab Data Attestation: I reviewed the patient's lab results. Labs: Laboratory Results - last 24 hr 01/25/24 15:45 WBC 6.6 RBC 4.85 Hgb 14.2 Hct 43.3 MCV 89.3 MCH 29.3 MCHC 32.8 RDW Std Deviation 41.2 RDW Coeff of Reece 12.6 Plt Count 241 MPV 8.9 Immature Gran % (Auto) 0.300 Neut % (Auto) 61.2 Lymph % (Auto) 28.4 [place] % (Auto) 7.4 Eos % (Auto) 2.4 Baso % (Auto) 0.3 Absolute Neuts (auto) 4.0 Absolute Lymphs (auto) 1.88 Nucleated RBC % 0 Sodium 138 Potassium 3.8 Chloride 102 Carbon Dioxide 32.0 Anion Gap 4 L BUN 13 Creatinine 0.70 Estim Creat Clear Calc 125.49 Est GFR (MDRD) Af Amer 111 Est GFR (MDRD) Non-Af 92 BUN/Creatinine Ratio 18.6 Glucose 102 Calcium 9.8 Troponin I High Sens 4 Radiography Chest X-Ray - ED: 2 View and Read by ED Physician Diagnostic Testing: Clinical Impression(s) from Imaging Studies Ribs w/Chest X-Ray 01/25/24 16:18 IMPRESSION: RIBS: Normal x-ray examination of the ribs. CHEST: No acute cardiopulmonary pathology.. Electronically Signed: Gee Hamilton MD at 17:02 EDT , Rhythm Strip Rhythm Strip: Sinus Rhythm Rate: 81 Ectopy: None EKG Initial EKG: Attestation: I personally reviewed and interpreted this EKG as follows: Interpretation: Sinus Rhythm and No Acute Injury Pattern Comments: Normal sinus rhythm rate 81 no acute signs of NM or ischemia. Discharge Plan Triage Chief Complaint: Chest Other ED Midlevel Provider: James Segovia ED Provider: Miles Hannah Dx/Rx/DC Orders Clinical Impression: Fall, Contusion of left chest wall, History of diabetes mellitus Instructions: ED Chest Wall Contusion, ED Bruise, Rib Prescriptions: New naproxen [Naprosyn] 500 mg tablet 500 mg PO BID PRN (Reason: pain) Qty: 20 0RF No Action omega-3 fatty acids 1,250 mg capsule 1,250 mg PO DAILY multivitamin Capsule 1 cap PO DAILY fesoterodine 4 mg tablet extended release 24 hr 4 mg PO DAILY Patient Comments: TAKE 1 TABLET BY MOUTH EVERY DAY metformin 500 mg tablet 500 mg PO BID 90 Days Qty: 180 1RF semaglutide 1 mg/dose (4 mg/3 mL) pen injector 1 mg subcut QWEEK Qty: 3 1RF fluconazole [Diflucan] 200 mg tablet 200 mg PO DAILY Qty: 2 2RF Rx Instructions: Take and repeat in three days thiamine HCl (vitamin B1) 500 mg Tablet 1,000 mg PO DAILY nystatin 100,000 unit/gram cream 1 applic topical DAILY PRN (Reason: SKIN) (DME) blood sugar diagnostic Strip See Dose Instructions .ROUTE .MEDSUPPLY Qty: 100 1RF Dose Instruction: As directed Rx Instructions: one touch ultra check glucose daily for type 2 DM (DME) OneTouch Ultra Test Strip See Rx Instructions .Route Qty: 100 3RF Rx Instructions: As directed to check glucose daily for type 2 DM simvastatin 10 mg tablet 10 mg PO QHS Qty: 30 11RF lisinopril 10 mg tablet 10 mg PO DAILY Qty: 90 2RF ursodiol 250 mg tablet 250 mg PO BID Qty: 90 11RF pantoprazole 40 mg tablet,delayed release (DR/EC) 40 mg PO DAILY Qty: 90 1RF Primary Care Provider: Julio Sandoval Referrals: NOT,DEFINED [Non-Staff] - Activity Restrictions/Additional Instructions: Please perform gentle stretching, ice and heat. Return for any worsening symptoms. Print Language: Faroese Disposition Disposition: Home, Self Care
[2024-01-25 16:00] VITALS: BP 121/76; PULSE 71; RESP 13; O2SAT 98
[2024-01-25 16:12] LABS: Absolute Lymphocyte Count 1.88 X10^3/uL (0.83-4.51); Basophil# 0.02 X10^3/uL; Basophil% 0.3 % (0-1); Eosinophil# 0.16 X10^3/uL; Eosinophils% 2.4 % (0-5); Hematocrit 43.3 % (37-47); Hemoglobin 14.2 g/dL (12.0-15.0); Lymphocyte # 1.88 X10^3/ul (0.83-4.51); Lymphocyte % 28.4 % (19-41); Mean Corp Hgb Conc 32.8 g/dL (32-36); Mean Corpuscular Hgb 29.3 pg (27.0-32.0); Mean Corpuscular Volume 89.3 fL (81-99); Mean Platelet Vol. 8.9 fl (6.2-12.0); Monocyte# 0.49 X10^3/uL; Monocyte% 7.4 % (0-10); NRBC Flagged by Analyzer 0 % (0-5); Neutrophil # 4.04 X10^3/uL (2.7-7.7); Neutrophil % 61.2 % (47-70); Platelet Count 241 K/mm3 (150-450); RBC Distribution Width CV 12.6 % (11.6-14.6); RBC Distribution Width SD 41.2 fl (35.1-43.9); Red Blood Count 4.85 M/mm3 (4.2-5.4); White Blood Count 6.6 K/mm3 (4.4-11.0)
--- NOTE | 2024-01-25 16:18 | RAD_ITS ---
STUDY: X-RAY - UNILATERAL RIBS ( LEFT ) WITH CHEST REASON FOR EXAM: Female, 58 years old. rib pain TECHNIQUE - RIBS: 4 view(s) of the ribs. TECHNIQUE - CHEST: AP portable COMPARISON: None. FINDINGS - RIBS: Normal visualized ribs without a demonstrated fracture. FINDINGS - CHEST: The lungs are clear and expanded. There is no demonstrated pleural abnormality. Normal size heart. Normal mediastinum and fabiola. Normal visualized pulmonary arteries. Normal visualized aortic arch and descending thoracic aorta. Dorsal spine demonstrates mild degenerative change. Normal visualized ribs, clavicles, and shoulders. There is no demonstrated abnormality of the visualized soft tissue structures of the upper abdomen. RAD/Ribs Uni Min 3V w/PA Chest IMPRESSION: RIBS: Normal x-ray examination of the ribs. CHEST: No acute cardiopulmonary pathology.. Electronically Signed: Gee Hamilton MD at 17:02 EDT ,
[2024-01-25 16:27] LABS: Anion Gap 4 (5-15); BUN 13 mg/dL (7-18); BUN/Creat Ratio 18.6 RATIO (10-20); Calcium,Total 9.8 mg/dL (8.5-10.1); Chloride 102 mmol/L (98-107); EST Glomerular Filtration Rate 92 mL/min (>60); Est Glom Filt Rate - Afr Amer 111 mL/min (>60); Estimated Creatinine Clearance 125.49 ml/min; Glucose 102 mg/dL (74-106); Potassium 3.8 mmol/L (3.5-5.1); Sodium Level 138 mmol/L (136-145); Troponin-I HS 4 pg/mL (3.0-54.0)
[2024-01-25 17:15] VITALS: BP 121/76; PULSE 77; RESP 15; TEMP 35.7; O2SAT 97
== END 2024-01-25 17:20 | disposition home or self-care (01) ==
PROVIDERS: Nurse Practitioner; Emergency Provider Emergency Medicine; PCP Family Medicine; Visit Provider Emergency Medicine
DX: S20.212A Contusion of left front wall of thorax, initial encounter (principal); E11.9 Type 2 diabetes mellitus without complications; E78.5 Hyperlipidemia, unspecified; I10 Essential (primary) hypertension; W18.09XA Striking against other object with subsequent fall, initial encounter; E66.9 Obesity, unspecified; K21.9 Gastro-esophageal reflux disease without esophagitis; Z79.84 Long term (current) use of oral hypoglycemic drugs; Z79.85 Long-term (current) use of injectable non-insulin antidiabetic drugs; Z79.1 Long term (current) use of non-steroidal anti-inflammatories (NSAID); Z79.899 Other long term (current) drug therapy
CPT/HCPCS: 71101; 80048; 84484; 85025; 93005; 99283; A4216

== ENCOUNTER → 2024-04-05 | Outpatient (CLI) | payer OTHER, SELFPAY ==
--- NOTE | 2024-04-05 09:30 | US_ITS ---
STUDY: ABDOMINAL ULTRASOUND - RIGHT UPPER QUADRANT; ELASTOGRAPHY REASON FOR VISIT: Female, 59 years old. TECHNIQUE: Ultrasound evaluation of the right upper quadrant was performed with real-time and static chan-scale imaging. Point quantification shear wave elastography was performed ([employer]). TECHNICAL QUALITY: Adequate. COMPARISON: Comparison is made with prior study June 05, 2023. FINDINGS: Liver: The liver is enlarged and measures 20.8 cm. There is increased echogenicity consistent with fatty infiltration. The bile ducts are within normal limits. There is hepatic color flow. The direction of portal flow is hepatopetal. Stable appearance of the hepatic cysts in the right and left lobes of the liver. The largest cyst measures 3.4 cm x 2.5 cm x 3 cm in the right lobe. Median liver stiffness measured 9.9 kPa. Gallbladder: Normal distended gallbladder. The gallbladder wall measures 2.2 mm. There is a negative sonographic Watters''s sign. There is no pericholecystic fluid. There are multiple echogenic structures within the gallbladder, consistent with multiple gallstones. Common Bile Duct (C.B.D.): The common bile duct measures 5.3 mm. Pancreas: There is normal echogenicity of the visualized pancreas. There is no demonstrated pancreatic mass or cyst. Right Kidney: Normal size of the right kidney. The right kidney measures 11.2 cm x 4.7 cm x 4.8 cm. Normal renal cortex. The right cortex measures 1.0 cm. There is no demonstrated renal mass or cyst. There is no right hydronephrosis. US/ABD Limited w/ Elastography IMPRESSION: 1. Liver stiffness measures 9.9 kPa compatible with F2-F3 (Mild to moderate liver fibrosis) Metavir score. 2. Hepatomegaly. Multiple gallstones. Electronically Signed: Cyril Kent MD at 10:31 EDT ,
== END | disposition home or self-care (01) ==
LOC: US 09:27
PROVIDERS: PCP Family Medicine; Referring Provider Internal Medicine; Visit Provider Internal Medicine
DX: K76.0 Fatty (change of) liver, not elsewhere classified (principal)
CPT/HCPCS: 76705; 76981

== ENCOUNTER → 2024-04-26 | Outpatient (CLI) | payer OTHER, SELFPAY ==
[2024-04-26 14:03] LABS: Absolute Neutrophil Count 3.8 X10^3/uL (2.0-7.7); Basophil# 0.04 X10^3/uL; Basophil% 0.6 % (0-1); Eosinophil# 0.18 X10^3/uL; Eosinophils% 2.8 % (0-5); Hematocrit 40.9 % (37-47); Hemoglobin 13.2 g/dL (12.0-15.0); Lymphocyte % 29.5 % (19-41); Mean Corp Hgb Conc 32.3 g/dL (32-36); Mean Corpuscular Hgb 28.7 pg (27.0-32.0); Mean Corpuscular Volume 88.9 fL (81-99); Mean Platelet Vol. 9.1 fl (6.2-12.0); Monocyte# 0.52 X10^3/uL; Monocyte% 8.1 % (0-10); NRBC Flagged by Analyzer 0 % (0-5); Neutrophil # 3.76 X10^3/uL (2.7-7.7); Neutrophil % 58.5 % (47-70); Platelet Count 274 K/mm3 (150-450); RBC Distribution Width CV 12.6 % (11.6-14.6); RBC Distribution Width SD 41.3 fl (35.1-43.9); White Blood Count 6.4 K/mm3 (4.4-11.0)
[2024-04-26 14:15] LABS: International Normalized Ratio 1.1; Prothrombin Time (Protime)PT. 14.6 SECONDS (11.7-14.9)
[2024-04-26 14:44] LABS: ALB/GLOB Ratio 1.2 RATIO (0.9-2.4); AST(SGOT) 22 U/L (15-37); Alanine Aminotransfer ALT/SGPT 28 U/L (13-56); Albumin, Serum 3.8 g/dL (3.2-5.0); Alkaline Phosphatase 80 U/L (45-117); Anion Gap 6 (5-15); BUN 12 mg/dL (7-18); BUN/Creat Ratio 15.9 RATIO (10-20); CRP 3.55 mg/L (0.0-3.0); Calcium,Total 9.6 mg/dL (8.5-10.1); Chloride 105 mmol/L (98-107); Cholesterol 103 mg/dL (200); Creatinine, Serum 0.75 mg/dL (0.55-1.02); EST Glomerular Filtration Rate 84 mL/min (>60); Est Glom Filt Rate - Afr Amer 102 mL/min (>60); Globulin 3.3 g/dL (2.2-4.2); Glucose 116 mg/dL (74-106); Hemoglobin A1c 5.9 % (3.8-5.6); High Density Lipoprotein 44 mg/dL; Protein, Total 7.1 g/dL (6.4-8.2); Sodium Level 137 mmol/L (136-145); T4 Free Direct 1.13 ng/dL (0.76-1.46); Triglycerides 110 mg/dL; Very Low Density Lipoprotein 22 mg/dL (5-40)
[2024-04-26 15:10] LABS: Vitamin D,25 Hydroxy 33.6 ng/mL
[2024-04-28 09:07] LABS: AFP, Tumor Marker < 1.8 ng/mL (0.0-9.2)
== END | disposition home or self-care (01) ==
LOC: LAB 11:14
PROVIDERS: PCP Family Medicine; Referring Provider Internal Medicine; Visit Provider Internal Medicine
DX: K76.0 Fatty (change of) liver, not elsewhere classified (principal); E11.9 Type 2 diabetes mellitus without complications; K21.9 Gastro-esophageal reflux disease without esophagitis; E66.9 Obesity, unspecified
CPT/HCPCS: 36415; 80053; 80061; 82105; 82306; 83036; 84439; 84443; 85025; 85610; 86140

== ENCOUNTER → 2024-11-29 | Outpatient (CLI) | payer BC, SELFPAY ==
--- NOTE | 2024-11-29 15:30 | RAD_ITS ---
PROCEDURE: FINGER(S) MIN 2 VIEWS 11/29/2024 REASON FOR EXAM: MUCOUS CYST OF LEFT LONG FINGER TECHNIQUE: 3 view(s) of the left 3rd digit COMPARISON: None FINDINGS: Bones: No acute fracture. Joints: Normal alignment. Soft tissues: Soft tissues are unremarkable. Other: RAD/Finger(s) Min 2 Views IMPRESSION: NO ACUTE FRACTURE OR DISLOCATION. Reading Location: [facility]
== END | disposition home or self-care (01) ==
LOC: LAB 15:15 → RAD 15:18
PROVIDERS: PCP Family Medicine; Referring Provider Surgery Plastic and Reconstructive Surgery; Visit Provider Surgery Plastic and Reconstructive Surgery
DX: M67.442 Ganglion, left hand (principal)
CPT/HCPCS: 73140

== ENCOUNTER 2024-12-18 12:25 | Day surgery (SDC) | payer BC, SELFPAY ==
--- NOTE | 2024-12-18 | CYST_PTH ---
PATIENT: KODI HARDIN [place] [facility] [id number] AGE/SX: 59/F ROOM: RE12/18/[address]: Dr. Caleb Corley MD : 1965 BED: DIS: 12/18/2024 SPEC #: [id number] RECD: 12/18/24 18:19 STATUS: ABHILASH CARTWRIGHT #: [id number] RUDY: 12/18/24 00:[address]: Caleb Corley DEPT: SURGICAL PATHOLOGY RECD BY: Adali Emery ENTERED: 12/19/24 08:11 SP TYPE: Cyst OTHR DR: Dr. Julio Sandoval, DO Tissues: A - CYST Procedures: Surgery Specimen Level IV HEADER OPERATION: Excision mucous cyst left long finger possible adjacent tissue PRE-OP DIAGNOSIS: Mucous cyst of digit of left hand TISSUE SUBMITTED: A- Mucous cyst of left long finger MICROSCOPIC DIAGNOSIS A. Skin, left long finger, mucous cyst, excision: * Focal myxoid change in the dermis consistent with digital myxoid cyst. MICROSCOPIC DESCRIPTION Slides are reviewed. GROSS DESCRIPTION A. Received in formalin in a container labeled with the patient's name, date of , and mucous cyst left long finger is an unoriented and irregular white-chan skin excision measuring 0.8 x 0.4 cm with a depth up to 0.4 cm. The epidermis is notable for a 0.2 x 0.2 cm chan discolored focus situated 0.1 cm from the peripheral margin. The deep margin is inked green, and it is bisected to reveal a 0.3 x 0.2 x 0.2 cm small possible cyst filled with clear gelatinous material. The cystic area abuts the deep margin. Submitted entirely in A1. [facility] 12-19-2024 CPT:78857
[2024-12-18 12:55] VITALS: BP 129/78; PULSE 90; RESP 16; TEMP 36.1; O2SAT 96; BMI 42.3
[2024-12-18] MEDS: Cephalexin 500 MG Capsule PO (13:01)
--- NOTE | 2024-12-18 15:45 | PCM.HP.STD ---
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 She was referred here by her primary care physician. Patient reports has been there for 3 months and it hurts when it hits things. It is not draining. She has never had any interventions on it. Patient is a non-smoker. She is a type II diabetic with an A1c most recently of 5.9 in November 2024 (earlier this month). Current Encounter (DATE OF SURGERY H&P UPDATE): I saw and examined the patient this morning in pre-operative holding. We discussed risks and benefits of today's surgery and they would like to proceed. NO CHANGE in health history since last seen and evaluated EXCEPT the cyst is larger and skin is thinner, and it is starting to become more tender. Ready to proceed with surgery. [facility] Medical History Hx of colonic polyp Lesion of bladder Wears glasses Diabetes Back pain Frequent headaches Blackout History of hiatal hernia Fatty liver Shortness of breath on exertion History of pain when walking Swelling of right lower extremity Right knee pain Post-menopausal Arthritis Non-smoker Leg cramps History of stress test History of echocardiogram Cardiology follow-up encounter Obesity Essential hypertension GERD (gastroesophageal reflux disease) Cholelithiasis Frequent headaches Type 2 diabetes mellitus Home Medications ?Medication ?Instructions ?Recorded ?Last Taken ?Type multivitamin 1 cap PO DAILY 03/17/20 Unknown History blood sugar diagnostic #100 ea 10/27/21 Unknown Rx fesoterodine 4 mg tablet,extended 4 mg PO DAILY 04/12/23 Unknown History release 24 hr naproxen 500 mg tablet (Naprosyn) 500 mg PO BID PRN pain #20 tabs 01/25/24 Unknown Rx lisinopril 10 mg tablet 10 mg PO DAILY #90 tabs 04/29/24 Unknown Rx blood sugar diagnostic (OneTouch #100 strips 06/27/24 Unknown Rx Ultra Test strips) pantoprazole 40 mg tablet,delayed 40 mg PO DAILY #90 TABLETS 07/09/24 Unknown Rx release cholecalciferol (vitamin D3) 25 25 mcg PO QDAY 10/23/24 Unknown History mcg (1,000 unit) capsule cyanocobalamin (vitamin B-12) 1,000 mcg PO QDAY 10/23/24 Unknown History 1,000 mcg tablet simvastatin 10 mg tablet 10 mg PO QHS 3 months #90 TABLETS 11/05/24 Unknown Rx metformin 500 mg tablet 500 mg PO BID 90 days #180 tabs 11/12/24 Unknown Rx semaglutide 2 mg/dose (8 mg/3 mL) 2 mg (0.75 mL) subcut QWEEK #3 mL 11/12/24 12/10/24 Rx subcutaneous pen injector Allergy/AdvReac Type Severity Reaction Status Date / Time empagliflozin (From Allergy Mild rash Verified 12/18/24 12:54 Jardiance) Family History Sister Cancer cervical, ovarian Diabetes Mother Asthma Diabetes Kidney disease Father Alcoholism Surgical History Hx of colonoscopy History of esophagogastroduodenoscopy (EGD) History of wisdom tooth extraction History of arthroscopy of left knee History of right knee surgery History of D&C Social History Smoking Status: Never smoker alcohol intake: never substance use type: does not use what type of physical activity do you participate in: none Vital Signs Vital Signs Vital Signs: 12/18/24 12:55 12/18/24 12:55 Temperature 97 F L Temperature Source Temporal Pulse Rate 90 Respiratory Rate 16 Respiratory Pattern Normal Blood Pressure 129/78 H Blood Pressure Mean 95 Blood Pressure Source Monitor Blood Pressure Position Semi-Fowlers Blood Pressure Location Left Arm Pulse Ox 96 Oxygen Delivery Method Room Air Weight Weight: 270 lb Body Mass Index (BMI) 42.3 Physical Exam Narrative Cyst has gotten bigger and skin is thinner. I marked it in preoperative holding. Left upper Extremity Inspection: Left long finger with ulnar-sided dorsal DIP joint mucous cyst. Good skin integrity around the cyst but very thin skin overlying the cyst. No collateral ligament instability and no mallet. Palpation: Slight tenderness to palpation Motor: Able to bend and extend all MP, PIP, and DIP joints. Sensory: Intact to light touch on the radial and ulnar borders. Vascular: Finger tips are warm and well perfused with <2 second capillary refill. Assessment & Plan Assessment/Plan (1) Mucous cyst of digit of left hand: PLAN: Plan I talked to the patient extensively about the risks of surgery, including bleeding, infection, joint infection, damage to surrounding structures including mallet finger or collateral ligament instability, poor scaring, surgical site dehiscence and wound formation, need for wound care, need for repeat operations, failure to obtain the desired result (cyst recurrence). The benefits and alternatives of this surgery were also discussed. We talked about inability to close the wound after resection and potential need for local soft tissue rearrangement/adjacent tissue transfer in order to take tension off the wound. We talked about the potential for this flap to have wound healing problems/require debridement and reconstruction. She is excepting the risks. I talked her about an alternative potential option of excision of the cyst with primary closure if possible versus excision of the cyst from a more proximal incision via undermining of the cyst with a curette removing the stalk and the osteophytes and letting the cyst involute on its own, and how this carries the risks of infection as this may leave an opening. All of their questions were answered, and they agreed to proceed with surgery. INTERVAL H&P PLAN, DATE OF SURGERY: Cyst has gotten bigger and skin is thinner. Discussed above noted risks and risks of flap/tissue necrosis/wound healing problems. We will proceed with surgery today.
--- NOTE | 2024-12-18 16:17 | OP.PCM_ITS ---
Problems Associated Problem List Diagnoses (1) Mucous cyst of digit of left hand: Operative Report (Standard) Operative Information Date of Procedure: 12/18/24 Pre-Operative Diagnosis: Left long finger mucous cyst, dorsal DIP joint on the ulnar side Surgery/Procedure Performed: 1) RN Documented Start/Stop Times: Operation Date: 12/18/24 14:00 Case Time Into Pre-Op 12/18/24 12:41 Out of Pre-Op 12/18/24 16:09 Description of surgery: Surgery/Procedure Date: [ ] Incision/Procedure Start Time: [ ] Incision Close/Procedure End Time: [ ] PATIENT: [ ] SURGEON: Caleb Corley MD PRE-OPERATIVE DIAGNOSIS: [ ] POST-OPERATIVE DIAGNOSIS: [ ] PROCEDURE PERFORMED: 1) [ ] OPERATIVE FINDINGS: [ ] INDICATIONS: [] Is a [ ] with history of a mucous cyst on the [] finger. Presents today for excision of the cyst. I talked the patient extensively about the risks of surgery, including bleeding, infection (especially of the DIP joint), damage to surrounding structures (including mallet deformity), surgical site dehiscence and wound formation, need for wound care, need for repeat operations, failure to obtain the desired result (return of the cyst), and the risks of anesthesia. All of their questions were answered, and they agreed to proceed with surgery. OPERATIVE DETAILS: Patient was correctly identified in preoperative holding and the correct mucous cyst and digit were marked with the patient in agreement. They were taken back to the operating room where they are administered [ ] for anesthesia. They were prepped and draped in sterile fashion. All proper timeouts were performed. We began the procedure by excising the cyst circumferentially with a small triangular wedge created adjacent to the cyst so as to give more exposure to the potential underlying osteophyte. The cyst was excised and the joint was examined for osteophytes/spurs. [ ]. The wound was then washed out with copious amounts of normal saline and the specimen sent to pathology. Then turned our attention to designing a curvilinear flap over the dorsum of the middle phalanx. Care was taken to raise the flap using a 15 blade scalpel beneath the subcutaneous plane for full-thickness adipocutanoues advancement flap which was rotated and advanced into position for a total local soft tissue rearrangement of [ ] x [ ] centimeters for closure of the cyst defect. Hemostasis was obtained with bipolar electrocautery. The flap was then sutured into position with 4-0 Monocryl deep dermal sutures followed by 4-0 Monocryl running subcuticular sutures. A Xeroform, Kerlix, and AlumaFoam splint with Coban (DIP joint immobilized in extension, PIP joint free) were then placed for dressing. The [ ] . The patient was awakened and taken to the PACU in stable condition. EBL: Minimal Anesthesia: [ ] ASA: [ ] IVF: [ ] UOP: [ ] Transfusions: [ ] POST-OPERATIVE PLAN: Follow-up in 1 week for exam of the wound. The patient can take the dressing off and 48 hours and change it (Xeroform daily, Kerlix daily, and AlumaFoam and Coban). They were encouraged to move the PIP joint and immobilize DIP joint in extension for 1 week. They are not to use this finger, and they are not to use the hand for lifting.
--- NOTE | 2024-12-18 16:17 | PCM.OPRPT ---
Problems Associated Problem List Diagnoses (1) Mucous cyst of digit of left hand: Operative Report (Standard) Operative Information Date of Procedure: 12/18/24 Pre-Operative Diagnosis: Left long finger mucous cyst, dorsal DIP joint on the ulnar side Post-Operative Diagnosis: Same Surgery/Procedure Performed: 1) Excision left long finger mucous cyst (CPT: 83947) 2) Adjacent tissue transfer, left long finger, 1.5 x 2.5 cm (CPT: 74983) substation electrician: No Type of Anesthesia: Local (10 cc of 50-50 mixture of 1% lidocaine and 0.25% Marcaine plain) RN Documented Start/Stop Times: Operation Date: 12/18/24 14:00 Case Time Into Pre-Op 12/18/24 12:41 Out of Pre-Op 12/18/24 16:09 Procedure Start Time: 16:20 Procedure Stop Time: 17:00 Select all DRAINS/GRAFTS/IMPLANTS that apply: None Estimated Blood Loss: minimal Specimen collected: Yes Description of specimen(s) removed: Left long finger mucous cyst Description of surgery: INDICATIONS: Tran Cheema is a delightful 59-year-old female with history of a mucous cyst on the left long finger. Presents today for excision of the cyst. I talked the patient extensively about the risks of surgery, including bleeding, infection (especially of the DIP joint), damage to surrounding structures (including mallet deformity), surgical site dehiscence and wound formation, need for wound care (rotation flap failure/need for debridement), need for repeat operations, failure to obtain the desired result (return of the cyst), and the risks of anesthesia. All of their questions were answered, and they agreed to proceed with surgery. OPERATIVE DETAILS: Patient was correctly identified in preoperative holding and the correct mucous cyst and digit were marked with the patient in agreement. They were taken back to the operating room where they are administered [=local for anesthesia. They were prepped and draped in sterile fashion. All proper timeouts were performed. A turnicot was applied and care was taken to remove it at the end of the case. We began the procedure by excising the cyst circumferentially with a small triangular wedge created adjacent to the cyst so as to give more exposure to the potential underlying osteophyte. The cyst was excised and the joint was examined for osteophytes/spurs on the radial and ulnar borders of the terminal slip. There were osteophytes, especially in the location of the cyst, which were debrided with a curette. The wound was then washed out with copious amounts of normal saline and the specimen sent to pathology. We then turned our attention to designing an ulnar-sided curvilinear rotation flap over the dorsum of the middle phalanx. Care was taken to raise the flap using a 15 blade scalpel beneath the subcutaneous plane for full-thickness adipocutanoues advancement flap which was rotated and advanced into position for a total local soft tissue rearrangement of 1.5 x 2.5 centimeters for closure of the cyst defect (so as to take tension off of the closure). The turnicot was removed. Hemostasis was obtained with bipolar electrocautery. The flap was then sutured into position with 4-0 Nylon interuppted sutures. There was no tension following advancement and inset of the flap. A Xeroform, Kerlix, and AlumaFoam splint with Coban (DIP joint immobilized in extension, PIP joint free) were then placed for dressing. Patient tolerated the procedure well. The patient was awakened and taken to the PACU in stable condition. POST-OPERATIVE PLAN: Follow-up in 2 days for exam of the wound. 1 week of doxycycline 100 mg twice daily. The patient can take the dressing off and 48 hours and change it (Xeroform daily, Kerlix daily, and AlumaFoam and Coban). They were encouraged to move the PIP joint and immobilize DIP joint in extension for 1 month. They are not to use this finger, and they are not to use the hand for lifting. Surgical Findings: Cyst was consistent with a mucous cyst with joint fluid. There were osteophytes at the base that were excised with a curette Unable to close defect from mucous cyst excision, therefore requiring an advancement flap. Complications Complications: No Admit VTE Documentation VTE Mechan Device Prophylaxis: SCD's
[2024-12-18 16:21] VITALS: BP 153/100; O2SAT 100; O2SAT 99
[2024-12-18] MEDS: Lidocaine 1% (20 ml mdv) 20 ML Vial (16:36)
[2024-12-18] MEDS: Bupivacaine 0.25% 30 ML Vial (16:36)
[2024-12-18 16:57] VITALS: BP 155/87; O2SAT 100
[2024-12-18 17:24] VITALS: BP 129/75; BP 144/68; PULSE 78; RESP 16; TEMP 37; O2SAT 100
== END 2024-12-18 17:34 | disposition home or self-care (01) ==
LOC: SDC 12:26 → AC 12:27
PROVIDERS: PCP Family Medicine; Referring Provider Surgery Plastic and Reconstructive Surgery; Visit Provider Surgery Plastic and Reconstructive Surgery
PROC: (CPT 26055; principal; 2024-12-18 13:50)
DX: M71.342 Other bursal cyst, left hand (principal); E11.9 Type 2 diabetes mellitus without complications; M25.742 Osteophyte, left hand; I10 Essential (primary) hypertension; Z79.84 Long term (current) use of oral hypoglycemic drugs; Z79.85 Long-term (current) use of injectable non-insulin antidiabetic drugs; Z79.899 Other long term (current) drug therapy
CPT/HCPCS: 26160; 14040; 88304; 88305

== ENCOUNTER → 2025-07-21 | Outpatient (CLI) | payer BC, SELFPAY ==
--- NOTE | 2025-07-21 08:03 | US_ITS ---
PROCEDURE: ABD LIMITED W/ ELASTOGRAPHY REASON FOR EXAM: NAFLD COMPARISON: None. TECHNIQUE: Procedure Code: [id number] Modality: US Procedure: ABD LIMITED W/ ELASTOGRAPHY Right upper quadrant abdominal ultrasound. [facility] ElastQ Imaging shear wave elastography for non-invasive assessment of liver tissue stiffness. [employer] EPIQ Elite. FINDINGS: LIVER: Size: Enlarged (hepatomegaly) Length: 20.9 cm Echotexture: Diffusely echogenic suggesting fatty infiltration Contour: Normal Lesions: There is a 1.1 cm x 1.4 cm 1.3 cm cyst in the left lobe. 2 cysts are seen in the right lobe of the liver. The larger 1 measures 3.5 cm 3.3 cm x 3 cm. Elastography: EQI Med: 5.1 kPa EQI Med Noel: 1.3 m/s IQR/Med: 7.4 %* GALLBLADDER: Multiple echogenic gallstones are identified. COMMON BILE DUCT: Normal measuring 5.1 mm . PANCREAS: Normal Visualized portions of the right kidney are unremarkable. No right upper quadrant ascites. US/ABD Limited w/ Elastography IMPRESSION: Hepatomegaly and diffuse fatty infiltration of the liver. NORMAL RIGHT UPPER QUADRANT ULTRASOUND. Multiple gallstones. Reference Values: SRU <1.37 m/s (5.7kPa): No to mild fibrosis 1.37 m/s - 2.2 m/s: Moderate to severe fibrosis >2.2 m/s (15kPa): Significant fibrosis / cirrhosis METAVIR Score F2 or higher: 1.34 m/s (5.7kPa) F3 or higher: 1.55 m/s (7.3kPa) F4: 1.80 m/s (10kPa) * If the IQR/Med is >30%, the variance in the measurements is a large and the a ccuracy of the measurement may be in question. Reading Location: [place] [id number]
--- OUTSIDE RECORDS SUMMARY | 2025-07-21 08:17 | XMS RPT_ITS | CCD ---
Author Organization [facility] Care Team Providers Care Cytogenetics Laboratory Manager Name Role Phone Brandon Garcia Unavailable Unavailable PROVIDER, UNKNOWN Unavailable Unavailable GarciaBrandon Unavailable Unavailable Brandon Garcia Unavailable Unavailable PROVIDER, UNKNOWN Unavailable Unavailable Bobby Stinson Unavailable Unavailable Brandon Garcia Unavailable Unavailable PROVIDER, UNKNOWN Unavailable Unavailable Bobby Stinson Unavailable Unavailable Brandon Garcia Unavailable Unavailable PROVIDER, UNKNOWN Unavailable Unavailable Bobby Stinson Unavailable Unavailable DIMA PEREZ Unavailable Unavailable BOBBY STINSON Unavailable Unavailable Dr. Bobby Stinson Primary Care Provider [phone] Dr. Bobby Stinson Referring Provider [phone] Dr. Gamal Song Attending Provider [phone] Dr. Bobby Stinson Attending Provider Dr. Bobby Stinson Primary Care Provider [phone] Dr. Bobby Stinson Referring Provider [phone] Dr. Mian Hooper Attending Provider [phone] Dr. Bobby Stinson Primary Care Provider Dr. Bobby Stinson Referring Provider [phone] Dr. Mian Hooper Other Provider [phone] Bobby Stinson DO Primary Care Provider Dr. Bobby Stinson Primary Care Provider Dr. Bobby Stinson Referring Provider Dr. Mian Hooper Attending Provider [phone] Dr. Mian Hooper Other Provider [phone] Dr. Bobby Stinson Attending Provider [phone] JESIKA De Guzman Attending Provider Unavailab le Dr. Bobby Stinson Primary Care Provider [phone] Dr. Bobby Stinson Referring Provider [phone] Dr. Mian Hooper Attending Provider Dean FOUNDRY HAND, FOUNDRY HAND-C Osmar Attending Provider [phone] Dr. Bradley Helm Attending Provider Dean FOUNDRY HAND, FOUNDRY HAND-C Osmar Referring Provider [phone] Bobby Stinson DO Primary Care Provider Dr. Bobby Stinson Primary Care Provider [phone] Dr. Bobby Stinson Attending Provider Dr. Bobby Stinson Referring Provider [phone] Dr. Mian Hooper Attending Provider [phone] Dr. Bobby Stinson Primary Care Provider [phone] Dr. Bobby Stinson Attending Provider [phone] Dr. Bobby Stinson Referring Provider Dr. Mian Hooper Attending Provider [phone] Bobbi White Attending Provider Unavailable Dr. Mian Hooper Other Provider Bobby Stinson DO Primary Care Provider ANABELL, NOREEN Referring Unavailable BOBBY STINSON Primary Care Unavailable ANABELL, NOREEN Attending Unavailable ANABELL, NOREEN Referring Unavailable BOBBY STINSON Primary Care Unavailable Dr. Bobby Stinson DO Primary Care Provider Dr. Bobby Stinson DO Referring Provider [phone] Vinay LUNDBERG, Dr. Martinez Attending Provider Dr. Bobby Stinson DO Attending Provider [phone] Dr. Caleb Corley MD Attending Provider Dr. Caleb Corley MD Referring Provider Dr. Caleb Corley MD Other Provider Caleb Corley Referring Unavailable Brown, Bobby R Primary Care Unavailable Siska, Caleb Attending Unavailable Brown, Bobby R Primary Care Unavailable Siska, Caleb Referring Unavailable Siska, Caleb Attending Unavailable Brown, Bobby R Primary Care Unavailable Vinay, Juan Referring Unavailable Vinay, Juan Attending Unavailable Brown, Bobby R Primary Care Unavailable Vinay, Juan Referring Unavailable Vinay, Juan Attending Unavailable Siska, Caleb Consulting Unavailable Brown, Bobby R Primary Care Unavailable Siska, Caleb Referring Unavailable Siska, Caleb Attending Unavailable Brown, Bobby R Primary Care Unavailable Brown, Bobby R Referring Unavailable Siska, Caleb Attending Unavailable Brown, Bobby R Primary Care Unavailable Brown, Bobby R Referring Unavailable Siska, Caleb Attending Unavailable Brown, Bobby R Primary Care Unavailable Brown, Bobby R Referring Unavailable Siska, Caleb Attending Unavailable Brown, Bobby R Primary Care Unavailable Brown, Bobby R Referring Unavailable Siska, Caleb Attending Unavailable Brown, Bobby R Primary Care Unavailable Brown, Bobby R Referring Unavailable Vinay, Juan Attending Unavailable Brown, Bobby R Primary Care Unavailable Brown, Bobby R Referring Unavailable Brown, Bobby R Attending Unavailable Brown, Bobby R Primary Care Unavailable Brown, Bobby R Referring Unavailable Siska, Caleb Attending Unavailable Brown, Bobby R Referring Unavailable Brown, Bobby R Primary Care Unavailable Vinay, Juan Attending Unavailable Brown, Bobby R Referring Unavailable Brown, Bobby R Primary Care Unavailable Brown, Bobby R Attending Unavailable Brown, Bobby R Primary Care Unavailable Brown, Bobby R Referring Unavailable Siska, Caleb Attending Unavailable Allergies Allergy Classification Reported Allergen(s) Allergy Type Date of Onset Reaction(s) Facility (17 sources) empagliflozin; Translations: [EMPAGLIFLOZIN] Drug Allergy 2 Other: See Comments [facility] (1 source) empagliflozin Drug Allergy 5 [facility] Repository Medications Current Medications Medication Drug Class(es) Dates Sig (Normalized) Sig (Original) acetaminophen 325 mg / oxyCODONE hydrochloride 5 mg oral tablet (1 source) Opioid Agonist Start: 06-08-2023 take 1 tablet by mouth every eight hours Oxycodone-Acetami nophen (Percocet) 5-325 mg tablet Active 1 TABLET PO Q8H 6 2 June 08, 2023 Start: 06-08-2023 take 1 tablet by nabila th every eight hours Oxycodone-Acetaminophen (Percocet) 5-325 mg tablet Active 1 TABLET PO Q8H 6 2 June 08, 2023 ascorbic acid 500 mg oral capsule (3 sources) Vitamin C Start: 09-30-2020 Ascorbic Acid (Vitamin C) Active MG PO September 30, 2020 1:00am Blood Sugar Diagnostic (20 sources) Start: 10-27-2021 Blood Sugar Di agnostic Active 0 .ROUTE .MEDSUPPLY 100 October 27, 2021 1:24pm one touch ultra check glucose daily for type 2 DM Start: 10-27-2021 Blood Sugar Di agnostic Active 0 .ROUTE .MEDSUPPLY 100 October 27, 2021 2:24pm one touch ultra check glucose daily for type 2 DM Start: 07-06-2021 End: 10-27-2021 Blood Sugar Diagnostic Disco ntinued 0 .ROUTE .MEDSUPPLY 100 July 06, 2021 4:47pm October 27, 2021 1:24pm one touch ultra check glucose daily for type 2 DM Start: 07-06-2021 End: 10-27-2021 Blood Sugar Diagnostic Disco ntinued 0 .ROUTE .MEDSUPPLY 100 July 06, 2021 5:47pm October 27, 2021 2:24pm one touch ultra check glucose daily for type 2 DM Start: 12-17-2019 End: 07-06-2021 Blood Sugar Diagnostic Disco ntinued 0 .ROUTE .MEDSUPPLY 100 December 17, 2019 2:24pm July 06, 2021 4:48pm one touch ultra check glucose daily for type 2 DM Start: 12-17-2019 End: 07-06-2021 Blood Sugar Diagnostic Disco ntinued 0 .ROUTE .MEDSUPPLY 100 December 17, 2019 3:24pm July 06, 2021 5:48pm one touch ultra check glucose daily for type 2 DM Start: 01-02-2018 End: 12-17-2019 Blood Sugar Diagnostic Disco ntinued 0 .ROUTE .MEDSUPPLY 100 January 02, 2018 2:42pm December 17, 2019 2:24pm one touch ultra check glucose daily for type 2 DM Start: 01-02-2018 End: 12-17-2019 Blood Sugar Diagnostic Disco ntinued 0 .ROUTE .MEDSUPPLY 100 January 02, 2018 3:42pm December 17, 2019 3:24pm one touch ultra check glucose daily for type 2 DM Start: 01-02-2018 End: 01-02-2018 Blood Sugar Diagnostic Disco ntinued 0 .ROUTE .MEDSUPPLY January 02, 2018 1:50pm January 02, 2018 3:43pm As directed Start: 01-02-2018 End: 01-02-2018 Blood Sugar Diagnostic Disco ntinued 0 .ROUTE .MEDSUPPLY January 01, 2018 11:00pm January 02, 2018 2:43pm As directed Start: 01-02-2018 End: 01-02-2018 Blood Sugar Diagnostic Disco ntinued 0 .ROUTE .MEDSUPPLY January 02, 2018 12:00am January 02, 2018 3:43pm As directed cephalexin 500 mg oral capsule (1 source) Cephalosporin Antibacterial Start: 06-08-2023 take 500 mg by mouth every twelve hours Cephalexin Active 500 MG PO EVERY 12 HOURS 6 3 June 08, 2023 12:00am cholecalciferol 0.025 mg oral capsule (8 sources) Vitamin D Start: 10-23-2024 take 1 capsule by mouth once daily Cholecalciferol (Vitamin D3) 25 mcg (1,000 unit) capsule Active 25 ug PO daily October 23, 2024 12:00am Start: 05-14-2024 End: 10-23-2024 take 1 capsule by mouth once daily Cholecalciferol (Vitamin D3) 50 mcg (2,000 unit) capsule Discontinued 50 ug PO daily May 14, 2024 12:00am October 23, 2024 7:40am 24 hr fesoterodine fumarate 4 mg extended release oral tablet (20 sources) Start: 04-12-2023 take 1 tablet by mouth once daily Fesoterodine 4 mg tablet extended release 24 hr Active 4 mg PO DAILY April 12, 2023 12:00am Start: 07-11-2018 End: 11-20-2018 take 1 tablet by mouth once daily Fesoterodine (Toviaz) 8 mg tablet extended release 24 hr Discontinued 8 mg PO DAILY July 11, 2018 1:00am November 20, 2018 3:16pm glucosamine hydrochloride 750 mg oral tablet (17 sources) Start: 06-20-2019 take 1 tablet by mouth twice daily glucosamine HCl 750 mg tablet Active 750 MG PO TWICE A DAY June 20, 2019 1:00am take 1 tablet by mouth twice priscilla ly Glucosamine Sulfate 500 mg tab Take 1 tablet by mouth twice daily. Active Comment on above: Take 1 tablet by nabila twice daily. metFORMIN hydrochloride 500 mg oral tablet (20 sources) Biguanide Start: 11-27-2023 End: 11-12-2024 take 1 tablet by mouth twice daily Metformin 500 mg tablet Active 500 mg PO TWICE A DAY 180 November 12, 2024 2:52pm Start: 02-28-2018 End: 06-20-2019 take 1 tablet by mouth once daily at dinner Metformin 500 mg tablet extended release 24 hr Discontinued 500 mg PO daily March 16, 2019 12:00pm June 20, 2019 4:30pm administer with evening meal Start: 02-20-2018 End: 05-29-2018 take 1 tablet by mouth once Metformin 500 mg tablet Discontinued 500 mg PO ONCE 90 February 20, 2018 1:46pm May 29, 2018 3:29pm Start: 02-21-2017 End: 02-20-2018 Metformin 500 MG tablet Discontinued 500 mg PO 0500 February 21, 2017 12:00am February 20, 2018 1:47pm End: 06-23-2022 take 1 tablet by mouth once daily at breakfast metFORMIN ER (GLUMETZA) 500 mg 24 hr tablet Take 500 mg by mouth daily with breakfast. 0 06/23/2022 Discontinued Comment on above: Take 500 mg by mouth daily with breakfast. multivit-min/iron/folic/lut ein (CENTRUM SILVER WOMEN ORAL) (8 sources) multivit-min/iro n/folic/l utein (CENTRUM SILVER WOMEN ORAL) Take by mouth once daily. Active multivit-min/iro n/folic/lutein (CENTRUM SILVER WOMEN ORAL) Take by mouth once daily. 0 Active Comment on above: Take by mouth once d aily. Multivitamin capsule (4 sources) Start: 03-17-2020 Multivitamin capsule Active 1 NMA PO DAILY March 17, 2020 12:00am Multivitamin preparation (10 sources) Start: 03-17-2020 take 1 capsule by mouth once daily multivitamin Active 1 CAP PO DAILY March 17, 2020 2:00pm Start: 03-17-2020 take 1 capsule by mo [facility] once daily multivitamin Active 1 CAP PO DAILY March 16, 2020 11:00pm Start: 03-17-2020 take 1 capsule by mo uth once daily multivitamin Active 1 CAP PO DAILY March 17, 2020 12:00am naproxen 500 mg oral tablet (4 sources) Nonsteroidal Anti-inflammatory Drug Start: 01-25-2024 take 1 tablet by mouth twice daily as needed for pain Naproxen (Naprosyn) 500 mg tablet Active 500 mg PO TWICE A DAY as needed for pain January 25, 2024 12:00am omega-3 fatty acids 1,250 mg capsule (14 sources) Start: 06-20-2019 take 1 capsule by mouth once daily omega-3 fatty acids 1,250 mg capsule Active 1250 MG PO DAILY June 20, 2019 4:22pm Start: 06-20-2019 End: 05-08-2024 take 1 capsule by mouth once daily [place]-3 Fatty Acids 1,250 mg capsule Discontinued 1250 mg PO DAILY June 20, 2019 1:00am May 08, 2024 8:12am Start: 06-20-2019 take 1 capsule by mo uth once daily omega-3 fatty acids 1,250 mg capsule Active 1250 MG PO DAILY June 20, 2019 12:00am Start: 06-20-2019 take 1 capsule by mo uth once daily omega-3 fatty acids 1,250 mg capsule Active 1250 MG PO DAILY June 20, 2019 1:00am Hanhv-7-AVG-EPA-Fish Oil 1,0 00 mg (120 mg-180 mg) cap (8 sources) take 1 capsule by mouth once daily Prmyw-0-FEH-EPA-Fish Oil 1,000 mg (120 mg-180 mg) cap Take 2 g by mouth once daily. Active take 1 capsule by mouth once priscilla ly [place]buau-3-WRS-EPA-Fish Oil 1,000 mg (120 mg- 180 mg) cap Take 2 g by mouth once daily. 0 Active Comment on above: Take 2 g by mouth on ce daily. oxyCODONE hydrochloride 5 mg oral tablet (4 sources) Opioid Agonist Start: 12-18-2024 take 1 tablet by mouth twice daily as needed for pain Oxycodone 5 mg tablet Active 5 mg PO TWICE A DAY as needed for pain 05 18December 18, 2024 Semaglutide (2 sources) Start: 06-07-2023 Semaglutide Active 0.5 MG SC EVERY WEEK June 07, 2023 8:32am Start: 06-07-2023 Semaglutide Ac tive 0.5 MG SC EVERY WEEK 3 June 07, 2023 9:32am 0.25 mg, 0.5 mg dose 1.5 ml semaglutide 1.34 mg/ml pen injector (2 sources) semaglutide ([facility]) 0.25 mg or 0.5 mg(2 mg/1.5 mL) pen Inject 0.25 mg subcutaneously one time a week. Active Semaglutide 2 mg/dose (8 mg/3 mL) pen injector (4 sources) Start: 5 Semaglutide 2 mg/dose (8 mg/3 mL) pen injector Active 2 mg SC EVERY WEEK 3 November 12, 2024 2:43pm traMADol hydrochloride 50 mg oral tablet (1 source) Opioid Agonist Start: 2 take 50 mg by mouth every twelve hours Tramadol Active 50 MG PO Q12H August 11, 2022 12:00am vitamin b12 1 mg oral tablet (4 sources) Vitamin B12 Start: 5 take 1 tablet by mouth once daily Cyanocobalamin (Vitamin B-12) 1,000 mcg tablet Active 1000 ug PO daily October 23, 2024 12:00am Zinc (3 sources) Start: 1 take 50 mg by mouth once daily Zinc Active 50 MG PO DAILY September 30, 2020 2:58pm Start: 09-30-2020 take 50 mg by mouth once daily Zinc Active 50 MG PO DAILY September 30, 2020 1:00am Completed/Discontinued Medications Medication Drug Class(es) Dates Sig (Normalized) Sig (Original) amoxicillin 875 mg / clavulanate 125 mg oral tablet (6 sources) Penicillin-class Antibacterial Start: 11-11-2022 End: 11-18-2022 Amoxicillin-Pot Clavulanate 875-125 mg tablet Discontinued 1 {tbl} PO TWICE A DAY 14 November 11, 2022 12:00am November 17, 2022 12:00am November 18, 2022 12:04am Start: 11-11-2022 End: 11-18-2022 take 1 tablet by mouth twice daily Amoxicillin-Pot Clavulanate Discontinued 1 TABLET PO TWICE A DAY 14 November 10, 2022 11:00pm November 17, 2022 11:04pm benzonatate 100 mg oral capsule (20 sources) Non-narcotic Antitussive Start: 11-11-2022 End: 11-18-2022 take 1 capsule by mouth three times daily as needed for cough Benzonatate 100 mg capsule Discontinued 100 mg PO THREE TIMES A DAY as needed for cough 20 November 11, 2022 12:00am November 17, 2022 12:00am November 18, 2022 12:04am Start: 07-20-2018 End: 11-20-2018 take 1 capsule by mouth three times daily as needed for cough Benzonatate (Tessalon Perles) 100 mg capsule Discontinued 100 mg PO THREE TIMES A DAY as needed for cough 30 July 20, 2018 1:00am November 20, 2018 3:15pm calcium carbonate 1500 mg oral tablet (4 sources) Start: 05-14-2024 End: 10-23-2024 take 1 tablet by mouth once daily Calcium Carbonate (Calcium 600) 600 mg calcium (1,500 mg) tablet Discontinued 600 mg PO daily May 14, 2024 12:00am October 23, 2024 7:40am codeine phosphate 2 mg/ml / guaiFENesin 20 mg/ml oral solution (14 sources) Opioid Agonist Start: 07-20-2018 End: 06-20-2019 take 5-10 mL by mouth every six hours as needed for cough Codeine-Guaifenesin (Cheratussin Ac) 10-100 mg/5 mL liquid Discontinued 0 PO EVERY 6 HOURS as needed for cough 120 July 20, 2018 1:00am June 20, 2019 4:21pm 5-10 mL PO Q6H PRN Start: 07-20-2018 End: 06-20-2019 take 5-10 mL by mouth every six hours as needed Codeine-Guaifenesin (Cheratussin Ac) 10-100 mg/5 mL liquid Discontinued 0 PO EVERY 6 HOURS 120 July 20, 2018 12:00am June 20, 2019 3:21pm 5-10 mL PO Q6H PRN diclofenac sodium 75 mg delayed release oral tablet (20 sources) Nonsteroidal Anti-inflammatory Drug Start: 02-21-2017 End: 06-23-2022 take 1 tablet by mouth twice daily as needed for pain Diclofenac Sodium 75 mg tablet,delayed release (DR/EC) Discontinued 75 mg PO TWICE A DAY as needed for pain 60 December 06, 2019 1:26pm April 21, 2021 2:16pm Comment on above: Take 75 mg by mouth twice daily. doxycycline hyclate 100 mg oral capsule (4 sources) Tetracycline-class Drug Start: 12-18-2024 End: 12-27-2024 take 1 capsule by mouth twice daily Doxycycline Hyclate 100 mg capsule Discontinued 100 mg PO TWICE A DAY 14 December 18, 2024 12:00am December 27, 2024 9:19am fluconazole 200 mg oral tablet (18 sources) Azole Antifungal Start: 12-26-2023 End: 05-08-2024 take 1 tablet by mouth three times daily Fluconazole (Diflucan) 200 mg tablet Discontinued 200 mg PO DAILY December 26, 2023 12:00am May 08, 2024 8:14am Take and repeat in three days Start: 02-21-2017 End: 11-03-2017 Fluconazole 150 MG tablet Di scontinued 150 mg PO NEEDED as needed for YEAST INFECTION February 21, 2017 12:00am November 03, 2017 2:25pm lisinopril 10 mg oral tablet (20 sources) Angiotensin Converting Enzyme Inhibitor Start: 11-20-2018 End: 01-07-2025 take 1 tablet by mouth once daily Lisinopril 10 mg tablet Discontinued 10 mg PO DAILY April 29, 2024 12:17pm January 07, 2025 8:56am Start: 02-21-2017 End: 08-03-2018 Lisinopril 10 mg tablet Disc ontinued 10 mg PO 1600 April 20, 2018 1:10pm August 03, 2018 4:58pm Comment on above: Take 10 mg by mouth once daily. losartan potassium 50 mg oral tablet (14 sources) Angiotensin 2 Receptor Jamie Start: 8 End: 9 take 1 tablet by mouth once daily Losartan 50 mg tablet Discontinued 50 mg PO DAILY August 03, 2018 1:00am November 20, 2018 3:16pm 24 hr mirabegron 50 mg extended release oral tablet (20 sources) beta3-Adrenergic Agonist Start: 0 End: 3 take 1 tablet by mouth twice daily Mirabegron (Myrbetriq) 50 mg tablet extended release 24 hr Discontinued 50 mg PO TWICE A DAY March 17, 2020 12:00am April 12, 2023 2:12pm Start: 07-17-2018 End: 11-20-2018 take 1 tablet by mouth once daily Mirabegron (Myrbetriq) 50 mg tablet extended release 24 hr Discontinued 50 mg PO DAILY July 17, 2018 1:00am November 20, 2018 3:16pm Comment on above: Take 50 mg by mouth twice daily. nystatin [id number] unt/ml topical cream (16 sources) Polyene Antifungal Start: 04-12-2023 End: 05-08-2024 Nystatin 100,000 unit/gram cream Discontinued 1 NMA TOPICAL DAILY April 30, 2024 8:17am May 08, 2024 7:48am Start: 04-12-2023 End: 06-06-2023 Nystatin Active 1 APPLIC TOP ICAL DAILY June 05, 2023 11:00pm pantoprazole 40 mg delayed release oral tablet (20 sources) Proton Pump Inhibitor Start: 04-26-2022 End: 07-09-2024 take 1 tablet by mouth once daily Pantoprazole 40 mg tablet,delayed release (DR/EC) Discontinued 40 mg PO DAILY December 08, 2023 7:07am July 09, 2024 4:08pm Comment on above: Take 40 mg by mouth once daily. Semaglutide (20 sources) Start: 07-02-2024 End: 11-12-2024 Semaglutide (Ozempic) 1 mg/dose (4 mg/3 mL) pen injector Discontinued 2 mg SC EVERY WEEK 6 July 02, 2024 2:16pm November 12, 2024 2:44pm Start: 07-02-2024 End: 07-02-2024 Semaglutide (Ozempic) 1 mg/d ose (4 mg/3 mL) pen injector Discontinued 2 mg SC EVERY WEEK 3 July 02, 2024 2:15pm July 02, 2024 2:17pm Start: 05-21-2024 End: 07-02-2024 Semaglutide 1 mg/dose (4 mg/ 3 mL) pen injector Discontinued 2 mg SC EVERY WEEK 3 May 21, 2024 8:31am July 02, 2024 2:15pm Start: 04-29-2024 End: 05-21-2024 Semaglutide 1 mg/dose (4 mg/ 3 mL) pen injector Discontinued 1 mg SC EVERY WEEK 3 April 29, 2024 12:18pm May 21, 2024 8:31am Start: 03-04-2024 End: 04-29-2024 Semaglutide 1 mg/dose (4 mg/ 3 mL) pen injector Discontinued 1 mg SC EVERY WEEK 3 March 04, 2024 10:38am April 29, 2024 12:18pm Start: 12-26-2023 End: 03-04-2024 Semaglutide 1 mg/dose (4 mg/ 3 mL) pen injector Discontinued 1 mg SC EVERY WEEK 3 December 26, 2023 2:43pm March 04, 2024 10:38am Start: 04-12-2023 End: 06-07-2023 Semaglutide (Ozempic) 1 mg/d ose (4 mg/3 mL) pen injector Discontinued 1 mg SC EVERY WEEK 3 April 12, 2023 12:00am June 07, 2023 9:33am Start: 04-12-2023 End: 06-07-2023 Semaglutide (Ozempic) 1 mg/d ose (4 mg/3 mL) pen injector Discontinued 1 MG SC EVERY WEEK 3 April 11, 2023 11:00pm June 07, 2023 8:33am Start: 04-12-2023 End: 06-07-2023 Semaglutide (Ozempic) 1 mg/d ose (4 mg/3 mL) pen injector Discontinued 1 MG SC EVERY WEEK 3 April 12, 2023 12:00am June 07, 2023 9:33am Semaglutide (8 sources) Start: 11-29-2023 End: 12-26-2023 Semaglutide 0.25 mg or 0.5 m g (2 mg/3 mL) pen injector Discontinued 0.5 mg SC EVERY WEEK 3 November 29, 2023 4:27pm December 26, 2023 2:48pm Start: 10-26-2023 End: 11-29-2023 Semaglutide 0.25 mg or 0.5 m g (2 mg/3 mL) pen injector Discontinued 0.5 mg SC EVERY WEEK 3 October 26, 2023 4:20pm November 29, 2023 4:28pm Semaglutide 0.25 mg or 0.5 mg (2 mg/3 mL) pen injector (4 sources) Start: 06-07-2023 End: 10-26-2023 Semaglutide 0.25 mg or 0.5 mg (2 mg/3 mL) pen injector Discontinued 0.5 mg SC EVERY WEEK 3 June 07, 2023 9:32am October 26, 2023 4:21pm simvastatin 10 mg oral tablet (20 sources) HMG-CoA Reductase Inhibitor Start: 05-11-2022 End: 01-03-2025 take 1 tablet by mouth at bedtime Simvastatin 10 mg tablet Discontinued 10 mg PO AT BEDTIME January 03, 2025 12:57pm January 03, 2025 1:42pm thiamine 500 mg oral tablet (11 sources) Start: 04-21-2022 End: 10-23-2024 Thiamine Hcl (Vitamin B1) 500 mg Tablet Discontinued 1000 mg PO DAILY April 21, 2022 12:00am October 23, 2024 7:41am ursodiol 250 mg oral tablet (20 sources) Bile Acid Start: 05-11-2022 End: 05-08-2024 take 1 tablet by mouth twice daily Ursodiol 250 mg tablet Discontinued 250 mg PO TWICE A DAY September 12, 2023 7:48am May 08, 2024 8:13am Comment on above: Take 250 mg by mouth twice daily. Problems Problem Classification Problem Date Documented Da te Episodic/Chronic Abdominal pain (14 sources) Right upper quadrant pain; Translations: [Right upper quadrant pain] 09-06-2021 Episodic Biliary tract disease (20 sources) Biliary calculus; Translations: [Calculus of gallbladder without cholecystitis without obstruction] Episodic Diabetes mellitus without complication (20 sources) Type 2 diabetes mellitus without complications; Translations: [Type 2 diabetes mellitus] Onset: 12-26-2016 Chronic E Codes: Fall (4 sources) Fall; Translations: [Unspecified fall, initial encounter] 02-02-2024 Episodic Esophageal disorders (20 sources) Gastro-esophageal reflux disease without esophagitis; Translations: [Gastro-esophageal reflux disease with esophagitis] Onset: 06-07-2018 Chronic Comment on above: CONTROLLED WITH MED Essential hypertension (20 sources) Essential (primary) hypertension; Translations: [Essential hypertension] Onset: 12-26-2016 Chronic Comment on above: Controlled on medica tion Genitourinary symptoms and ill-defined conditions (20 sources) Female stress incontinence; Translations: [Stress incontinence (female) (male)] Onset: 04-09-2021 04-09-2021 Chronic Headache; including migraine (14 sources) Tension-type headache; Translations: [Tension-type headache, unspecified, not intractable] Chronic Headache; including migraine (14 sources) Frequent headache; Translations: [Frequent headaches] 06-17-2021 Episodic Joint disorders and dislocations; trauma-related (4 sources) 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, left knee; Translations: [Derangement of other lateral meniscus due to old tear or injury, left knee] Onset: 06-07-2018 Chronic Joint disorders and dislocations; trauma-related (4 sources) Other tear of medial meniscus, current injury, left knee, initial encounter; Translations: [Unspecified tear of unspecified meniscus, current injury, left knee, subsequent encounter] Onset: 04-04-2018 Episodic Mycoses (4 sources) Candidiasis of skin; Translations: [Candidiasis of skin and nail] 12-26-2023 Episodic Nonspecific chest pain (15 sources) Chest pain; Translations: [Chest pain, unspecified] Episodic Osteoarthritis (2 sources) Unilateral primary osteoarthritis, left knee; Translations: [Unilateral primary osteoarthritis, left knee] Onset: 06-07-2018 Chronic Other aftercare (2 sources) 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; Translations: [[facility] (current) use of oral hypoglycemic drugs] Onset: 06-07-2018 Other bone disease and musculoskeletal deformities (2 sources) Chondromalacia, left knee; Translations: [Chondromalacia, left knee] Onset: 06-07-2018 Episodic Other connective tissue disease (2 sources) Other synovitis and tenosynovitis, left lower leg; Translations: [Other synovitis and tenosynovitis, left lower leg] Onset: 06-07-2018 Episodic Other connective tissue disease (14 sources) Cramp; Translations: [Cramp and spasm] 09-06-2021 Episodic Other connective tissue disease (7 sources) Swelling of right lower limb; Translations: [Other specified soft tissue disorders] 08-11-2022 Episodic Other connective tissue disease (1 source) Other specified soft tissue disorders; Translations: [Swelling of limb] 08-11-2022 Episodic Other connective tissue disease (20 sources) Digital mucous cyst of left hand; Translations: [Ganglion, left hand] 11-29-2024 Episodic Comment on above: Long finger dorsal D IP joint ulnar side Other connective tissue disease (2 sources) Ganglion, left hand; Translations: [Ganglion, left hand] Onset: 12-03-2024 Episodic Other connective tissue disease (1 source) Other bursal cyst, left hand; Translations: [Other bursal cyst, left hand] Onset: 01-21-2025 Episodic Other diseases of bladder and urethra (6 sources) Lesion of bladder; Translations: [Bladder disorder, unspecified] 06-08-2023 Chronic Other eye disorders (14 sources) Finding of size of pupil; Translations: [Unspecified disorder of eye and adnexa] 06-17-2021 Episodic Other liver diseases (17 sources) Steatosis of liver; Translations: [Fatty (change of) liver, not elsewhere classified] Onset: 05-17-2022 06-23-2022 Chronic Other liver diseases (20 sources) Fatty (change of) liver, not elsewhere classified; Translations: [Other chronic nonalcoholic liver disease] Onset: 05-18-2024 Chronic Other lower respiratory disease (6 sources) Cough; Translations: [Cough] 11-11-2022 Episodic Other non-traumatic joint disorders (8 sources) Pain in right knee; Translations: [Right knee pain] 08-11-2022 Episodic Other nutritional; endocrine; and metabolic disorders (2 sources) Body mass index (BMI) 40.0-44.9, adult; Translations: [Body mass index (BMI) 40.0-44.9, adult] Onset: 06-07-2018 Chronic Other nutritional; endocrine; and metabolic disorders (2 sources) Morbid (severe) obesity due to excess calories; Translations: [Morbid (severe) obesity due to excess calories] Onset: 06-07-2018 Chronic Other nutritional; endocrine; and metabolic disorders (16 sources) Obesity; Translations: [Obesity, unspecified] Onset: 06-08-2023 09-06-2021 Chronic Other nutritional; endocrine; and metabolic disorders (7 sources) Obesity, unspecified; Translations: [Obesity, unspecified] Chronic Other nutritional; endocrine; and metabolic disorders (4 sources) H/O: diabetes mellitus; Translations: [Personal history of other endocrine, nutritional and metabolic disease] 02-02-2024 Episodic Other screening for suspected conditions (not mental disorders or infectious disease) (12 sources) Patient encounter status; Translations: [Encounter for screening mammogram for malignant neoplasm of breast] Onset: 08-29-2024 Episodic Other upper respiratory infections (9 sources) Acute upper respiratory infection, unspecified; Translations: [Acute upper respiratory infections of unspecified site] Episodic Otitis media and related conditions (6 sources) Acute right otitis media; Translations: [Otitis media, unspecified, right ear] 11-11-2022 Episodic Prolapse of female genital organs (20 sources) Uterine prolapse; Translations: [Uterovaginal prolapse, unspecified] Onset: 04-09-2021 04-09-2021 Chronic Residual codes; unclassified (2 sources) Insomnia, unspecified; Translations: [Insomnia, unspecified] Onset: 06-07-2018 Episodic Residual codes; unclassified (2 sources) Sleep apnea, unspecified; Translations: [Sleep apnea, unspecified] Onset: 05-18-2018 Spondylosis; intervertebral disc disorders; other back problems (20 sources) Chronic low back pain; Translations: [Chronic low back pain] Episodic Superficial injury; contusion (4 sources) Contusion of left chest wall; Translations: [Contusion of left front wall of thorax, initial encounter] 02-02-2024 Episodic Unclassified (16 sources) Mucous cyst of digit of left hand; Translations: [M67.442 - Ganglion, left hand] Results Test Name Value Interpretation Reference Range Facility Plastic Surgery Visit Report on 01-24-2025 Plastic Surgery Visit Report [facility] Plastic Reconstructive Surgery [address], [address] [place] [address] OFFICE VISIT Date of Service: 01/24/25 MR#: [id number] Acct: [id number] Name: HARDINTRAN J Rep #: [id number] : 1965 Provider: Dr. Caleb Corley MD Age/Sex: 59/F Location: [facility] Status: Signed Intake Vital Signs 3 01/03/25 10:11 01/24/25 08:02 Height 5 ft 7 in 5 ft 7 in BP 135/82 H 109/71 Blood Pressure Location Rt brachial Lt brachial Position Sitting Sitting Respiration 18 18 Pulse 80 87 Temp 99.3 F H 98.2 F Temp Source Temporal Temporal Pulse Oximetry (%) 96 95 Oxygen Delivery Method room air room air Intake Visit Reasons: 2 W FU Chief Complaint: post op mucus cyst left index finger- Is patient in pain?: Yes (08/23-intermittent shooting pain in finger) Allergies empagliflozin (From [employer]) Allergy (Mild, Verified 01/24/25 08:03) rash Medications 3 ???Medication ???Instructions ???Recorded ???Confirmed ???Type multivitamin 1 cap PO DAILY 03/17/20 01/24/25 H istory blood sugar diagnostic #100 ea 10/27/21 01/24/25 Rx fesoterodine 4 mg tablet,extended 4 mg PO DAILY 04/12/23 01/24/25 H istory release 24 hr naproxen 500 mg tablet (Naprosyn) 500 mg PO BID PRN pain #20 tabs 0 01/25/24 01/24/25 Rx blood sugar diagnostic (OneTouch #100 strips 06/27/24 01/24/25 Rx Ultra Test strips) pantoprazole 40 mg tablet,delayed 40 mg PO DAILY #90 TABLETS 01/24/25 Rx release cholecalciferol (vitamin D3) 25 25 mcg PO QDAY 10/23/24 01/24/25 H istory mcg (1,000 unit) capsule cyanocobalamin (vitamin B-12) 1,000 mcg PO QDAY 10/23/24 5 History 1,000 mcg tablet metformin 500 mg tablet 500 mg PO BID 90 days #180 tabs 01/24/25 Rx semaglutide 2 mg/dose (8 mg/3 mL) 2 mg (0.75 mL) subcut QWEEK #3 mL 11/12/24 01/24/25 Rx subcutaneous pen injector oxycodone 5 mg tablet 5 mg PO BID PRN pain 5 days #10 01/24/25 Rx tabs simvastatin 10 mg tablet 10 mg PO QHS 3 months #90 TABLETS 01/03/25 01/24/25 Rx lisinopril 10 mg tablet 10 mg PO DAILY #90 tabs 01/07/25 0 01/24/25 Rx Nurse's Note: pt here post op mucus cyst removal left finger. pt reports pain 1/10 intermittently Subjective Details: The patient is a 59-year-old female presenting with concerns regarding the healing status of a surgical incision on her left long finger. This site, previously incised to remove a cyst, shows no signs of recurrence. The patient reports residual numbness along the incision line, though this does not affect the fingertip. Range of motion remains good, with the distal interphalangeal joint of the left long finger capable of bending to about 60 degrees. A potential referral to an occupational therapist was discussed to further enhance range of motion, but the patient is inclined to manage flexion through normal use amid current personal engagements. Pain is negligible, and the site is healing without complications. Attestation: Documentation on this patient encounter was supported using ambient scribe technology/ voice AI technology. The patient consented to recording for the purpose of documenting the encounter. Provider reviewed content of the generated note prior to signature. Objective Details: - Musculoskeletal: Reports numbness along the incision line on the left long finger. Denies pain. - Neurological: Denies numbness at the fingertip. PHYSICAL EXAM - Musculoskeletal- Left long finger incision line intact, no cystic recurrence; range of motion in the DIP joint approximately 60 degrees. Coding Level of Care Code Global Post Op Diagnoses Mucous cyst of digit of left hand M67.442 [facility] Medical History Hx of colonic polyp Lesion of bladder Wears glasses Diabetes Back pain Frequent headaches Blackout History of hiatal hernia Fatty liver Shortness of breath on exertion History of pain when walking Swelling of right lower extremity Right knee pain Post-menopausal Arthritis Non-smoker Leg cramps History of stress test History of echocardiogram Cardiology follow-up encounter Obesity Essential hypertension GERD (gastroesophageal reflux disease) Cholelithiasis Frequent headaches Type 2 diabetes mellitus Surgical History Hx of colonoscopy History of esophagogastroduodenoscopy (EGD) History of wisdom tooth extraction History of arthroscopy of left knee History of right knee surgery History of D C Family History Sister Cancer cervical, ovarian Diabetes Mother Asthma Diabetes Kidney disease Father Alcoholism Social History (Reviewed 01/10/25 (more content not included)... Normal [facility] Plastic Surgery Visit Report on 01-10-2025 Plastic Surgery Visit Report [facility] Plastic Reconstructive Surgery [address], [address] [place], [place] [address] OFFICE VISIT Date of Service: 01/10/25 MR#: [id number] Acct: [id number] Name: TRAN HARDIN Rep #: [id number] : 1965 Provider: Dr. Caleb Corley MD Age/Sex: 59/F Location: [facility] Status: Signed Intake Vital Signs 3 01/03/25 10:11 01/10/25 08:42 Height 5 ft 7 in BP 135/82 H 131/79 H Blood Pressure Location Rt brachial Lt brachial Position Sitting Sitting Respiration 18 18 Pulse 80 89 Pulse Source Monitor Temp 99.3 F H Temp Source Temporal Pulse Oximetry (%) 96 98 Oxygen Delivery Method room air room air Intake Visit Reasons: 1 W FU Chief Complaint: post op mucus cyst left index finger-suture removal Allergies empagliflozin (From [employer]) Allergy (Mild, Verified 12/27/24 09:19) rash Subjective Details: Doing well overall. No fevers chills or drainage Objective Details: Incision clean dry and intact with sutures in place. Curvilinear rotation flap in place and is healed. Normal range of motion of the PIP and DIP joints. Coding Level of Care Code Global Post Op Diagnoses Mucous cyst of digit of left hand M67.442 [facility] Medical History Hx of colonic polyp Lesion of bladder Wears glasses Diabetes Back pain Frequent headaches Blackout History of hiatal hernia Fatty liver Shortness of breath on exertion History of pain when walking Swelling of right lower extremity Right knee pain Post-menopausal Arthritis Non-smoker Leg cramps History of stress test History of echocardiogram Cardiology follow-up encounter Obesity Essential hypertension GERD (gastroesophageal reflux disease) Cholelithiasis Frequent headaches Type 2 diabetes mellitus Surgical History Hx of colonoscopy History of esophagogastroduodenoscopy (EGD) History of wisdom tooth extraction History of arthroscopy of left knee History of right knee surgery History of D C Family History Sister Cancer cervical, ovarian Diabetes Mother Asthma Diabetes Kidney disease Father Alcoholism Social History Smoking Status: Never smoker alcohol intake: never substance use type: does not use what type of physical activity do you participate in: none Assessment and Plan (No Qualifiers) Assessment and Plan (1) Mucous cyst of digit of left hand: Status: Acute Comment: Long finger dorsal DIP joint ulnar side Plan: Pathology reviewed and consistent with a mucous cyst Her rotation flap has healed Discontinued DIP joint extension splinting (completed 1 mo) Discussed range of motion of PIP joint so as to prevent stiffness. Follow-up in 2 weeks to check on things Patient happy with the plan 01/10/25903 Date Caleb Corley MD [facility] Signature: Date (if applicable) CC: Normal [facility] Plastic Surgery Visit Report on 01-03-2025 Plastic Surgery Visit Report [facility] Plastic Reconstructive Surgery [address], [address] [place] [address] OFFICE VISIT Date of Service: 01/03/25 MR#: [id number] Acct: [id number] Name: TRAN HARDIN Rep #: [id number] : 1965 Provider: Dr. Caleb Corley MD Age/Sex: 59/F Location: [facility] Status: Signed Intake Vital Signs 12/18/24 12:55 12/27/24 09:17 01/03/25 10:11 Height 5 ft 7 in 5 ft 7 in 5 ft 7 in BP 132/81 H 135/82 H Blood Pressure Location Rt brachial Rt brachial Position Sitting Sitting Respiration 18 18 Pulse 98 80 Temp 98.9 F 99.3 F H Temp Source Temporal Temporal Pulse Oximetry (%) 95 96 Oxygen Delivery Method room air room air Intake Visit Reasons: SUTURE REMOVAL Chief Complaint: post op mucus cyst left index finger-suture removal Is patient in pain?: No Allergies empagliflozin (From [employer]) Allergy (Mild, Verified 12/27/24 09:19) rash Medications ???Medication ???Instructions ???Recorded ???Confirmed ???Type multivitamin 1 cap PO DAILY 03/17/20 01/03/25 H istory blood sugar diagnostic #100 ea 10/27/21 01/03/25 Rx fesoterodine 4 mg tablet,extended 4 mg PO DAILY 04/12/23 01/03/25 H istory release 24 hr naproxen 500 mg tablet (Naprosyn) 500 mg PO BID PRN pain #20 tabs 0 01/25/24 01/03/25 Rx lisinopril 10 mg tablet 10 mg PO DAILY #90 tabs 04/29/24 0 01/03/25 Rx blood sugar diagnostic (OneTouch #100 strips 06/27/24 01/03/25 Rx Ultra Test strips) pantoprazole 40 mg tablet,delayed 40 mg PO DAILY #90 TABLETS 01/03/25 Rx release cholecalciferol (vitamin D3) 25 25 mcg PO QDAY 10/23/24 01/03/25 H istory mcg (1,000 unit) capsule cyanocobalamin (vitamin B-12) 1,000 mcg PO QDAY 10/23/24 5 History 1,000 mcg tablet metformin 500 mg tablet 500 mg PO BID 90 days #180 tabs 01/03/25 Rx semaglutide 2 mg/dose (8 mg/3 mL) 2 mg (0.75 mL) subcut QWEEK #3 mL 11/12/24 01/03/25 Rx subcutaneous pen injector oxycodone 5 mg tablet 5 mg PO BID PRN pain 5 days #10 01/03/25 Rx tabs simvastatin 10 mg tablet 10 mg PO QHS 3 months #90 TABLETS 01/03/25 Rx Nurse's Note: pt here post mucous cyst left hand, suture removal Subjective Details: Doing well overall. No fevers chills or drainage Objective Details: Incision clean dry and intact with sutures in place. Sutures removed today. no drainage. Curvilinear rotation flap in place and no signs of necrosis. Flap is nice and healthy Coding Level of Care Code Global Post Op Diagnoses Mucous cyst of digit of left hand M67.442 [facility] Medical History Hx of colonic polyp Lesion of bladder Wears glasses Diabetes Back pain Frequent headaches Blackout History of hiatal hernia Fatty liver Shortness of breath on exertion History of pain when walking Swelling of right lower extremity Right knee pain Post-menopausal Arthritis Non-smoker Leg cramps History of stress test History of echocardiogram Cardiology follow-up encounter Obesity Essential hypertension GERD (gastroesophageal reflux disease) Cholelithiasis Frequent headaches Type 2 diabetes mellitus Surgical History Hx of colonoscopy History of esophagogastroduodenoscopy (EGD) History of wisdom tooth extraction History of arthroscopy of left knee History of right knee surgery History of D C Family History Sister Cancer cervical, ovarian Diabetes Mother Asthma Diabetes Kidney disease Father Alcoholism Social History Smoking Status: Never smoker alcohol intake: never substance use type: does not use what type of physical activity do you participate in: none Assessment and Plan (No Qualifiers) Assessment and Plan (1) Mucous cyst of digit of left hand: Status: Acute Comment: Long finger dorsal DIP joint ulnar side Plan: Pathology reviewed and consistent with a mucous cyst Her rotation flap is warm and viable. Continue DIP joint extension splinting for 1 month (1 more week) Discussed range of motion of PIP joint so as to prevent stiffness. Sutures removed today Follow-up in 1 week for wound check Patient happy with the plan 01/03/251826 Date Caleb Whitten Signature: Date (if applicable) CC: Normal [facility] Plastic Surgery Visit Report on 12-27-2024 Plastic Surgery Visit Report [facility] Plastic Reconstructive Surgery [address], [address] [place] [address] OFFICE VISIT Date of Service: 12/27/24 MR#: [id number] Acct: [id number] Name: TRAN HARDIN Rep #: [id number] : 1965 Provider: Dr. Caleb Corley MD Age/Sex: 59/F Location: [facility] Status: Signed Intake Vital Signs 12/18/24 12:55 12/27/24 09:17 Height 5 ft 7 in 5 ft 7 in BP 132/81 H Blood Pressure Location Rt brachial Position Sitting Respiration 18 Pulse 98 Temp 98.9 F Temp Source Temporal Pulse Oximetry (%) 95 Oxygen Delivery Method room air Intake Visit Reasons: POST OP Chief Complaint: post op mucus cyst left index finger Is patient in pain?: No Allergies empagliflozin (From [employer]) Allergy (Mild, Verified 12/27/24 09:19) rash Medications ???Medication ???Instructions ???Recorded ???Confirmed ???Type multivitamin 1 cap PO DAILY 03/17/20 12/27/24 H istory blood sugar diagnostic #100 ea 10/27/21 12/20/24 Rx fesoterodine 4 mg tablet,extended 4 mg PO DAILY 04/12/23 12/20/24 H istory release 24 hr naproxen 500 mg tablet (Naprosyn) 500 mg PO BID PRN pain #20 tabs 0 01/25/24 12/20/24 Rx lisinopril 10 mg tablet 10 mg PO DAILY #90 tabs 04/29/24 0 12/27/24 Rx blood sugar diagnostic (OneTouch #100 strips 06/27/24 12/20/24 Rx Ultra Test strips) pantoprazole 40 mg tablet,delayed 40 mg PO DAILY #90 TABLETS 12/20/24 Rx release cholecalciferol (vitamin D3) 25 25 mcg PO QDAY 10/23/24 12/27/24 H istory mcg (1,000 unit) capsule cyanocobalamin (vitamin B-12) 1,000 mcg PO QDAY 10/23/24 5 History 1,000 mcg tablet simvastatin 10 mg tablet 10 mg PO QHS 3 months #90 TABLETS 03/25/25 05/09/25 Rx metformin 500 mg tablet 500 mg PO BID 90 days #180 tabs 12/27/24 Rx semaglutide 2 mg/dose (8 mg/3 mL) 2 mg (0.75 mL) subcut QWEEK #3 mL 11/12/24 12/20/24 Rx subcutaneous pen injector oxycodone 5 mg tablet 5 mg PO BID PRN pain 5 days #10 12/20/24 Rx tabs Nurse's Note: pt comes in for post op mucous cyst on left index finger, no issues/ concerns Subjective Details: Doing well 9 days postop. Has been compliant with her splint. No fevers or chills. Minimal drainage Objective Details: Incision clean dry and intact with sutures in place. No drainage. Curvilinear rotation flap in place and no signs of necrosis. Flap is becoming slightly macerated with Xeroform Coding Level of Care Code Global Post Op Diagnoses Mucous cyst of digit of left hand M67.442 [facility] Medical History Hx of colonic polyp Lesion of bladder Wears glasses Diabetes Back pain Frequent headaches Blackout History of hiatal hernia Fatty liver Shortness of breath on exertion History of pain when walking Swelling of right lower extremity Right knee pain Post-menopausal Arthritis Non-smoker Leg cramps History of stress test History of echocardiogram Cardiology follow-up encounter Obesity Essential hypertension GERD (gastroesophageal reflux disease) Cholelithiasis Frequent headaches Type 2 diabetes mellitus Surgical History Hx of colonoscopy History of esophagogastroduodenoscopy (EGD) History of wisdom tooth extraction History of arthroscopy of left knee History of right knee surgery History of D C Family History Sister Cancer cervical, ovarian Diabetes Mother Asthma Diabetes Kidney disease Father Alcoholism Social History Smoking Status: Never smoker alcohol intake: never substance use type: does not use what type of physical activity do you participate in: none Assessment and Plan (No Qualifiers) Assessment and Plan (1) Mucous cyst of digit of left hand: Status: Acute Comment: Long finger dorsal DIP joint ulnar side Plan: Pathology reviewed and consistent with a mucous cyst Her rotation flap is warm and viable. Continue DIP joint extension splinting for 1 month (2 more weeks) Discussed range of motion of PIP joint so as to prevent stiffness. Follow-up in 1 week for suture removal Patient happy with the plan 12/27/24 0959 Date Calbe Corley MD [employer] Signature: Date (if applicable) CC: Normal [facility] Plastic Surgery Visit Report on 12-20-2024 Plastic Surgery Visit Report [facility] Plastic Reconstructive Surgery [address], [address] [place] [address] OFFICE VISIT Date of Service: 12/20/24 MR#: [id number] Acct: [id number] Name: TRAN HARDIN Rep #: [id number] : 1965 Provider: Dr. Caleb Corley MD Age/Sex: 59/F Location: [facility] Status: Signed Intake Vital Signs 12/18/24 12:55 Height 5 ft 7 in Intake Visit Reasons: POST OP Chief Complaint: post op Is patient in pain?: No Allergies empagliflozin (From [employer]ardiance) Allergy (Mild, Verified 12/20/24 10:37) rash Medications ???Medication ???Instructions ???Recorded ???Confirmed ???Type multivitamin 1 cap PO DAILY 03/17/20 12/20/24 H istory blood sugar diagnostic #100 ea 10/27/21 12/20/24 Rx fesoterodine 4 mg tablet,extended 4 mg PO DAILY 04/12/23 12/20/24 H istory release 24 hr naproxen 500 mg tablet (Naprosyn) 500 mg PO BID PRN pain #20 tabs 0 01/25/24 12/20/24 Rx lisinopril 10 mg tablet 10 mg PO DAILY #90 tabs 04/29/24 0 12/20/24 Rx blood sugar diagnostic (OneTouch #100 strips 06/27/24 12/20/24 Rx Ultra Test strips) pantoprazole 40 mg tablet,delayed 40 mg PO DAILY #90 TABLETS 12/20/24 Rx release cholecalciferol (vitamin D3) 25 25 mcg PO QDAY 10/23/24 12/20/24 H istory mcg (1,000 unit) capsule cyanocobalamin (vitamin B-12) 1,000 mcg PO QDAY 10/23/24 5 History 1,000 mcg tablet simvastatin 10 mg tablet 10 mg PO QHS 3 months #90 TABLETS 11/05/24 12/20/24 Rx metformin 500 mg tablet 500 mg PO BID 90 days #180 tabs 12/20/24 Rx semaglutide 2 mg/dose (8 mg/3 mL) 2 mg (0.75 mL) subcut QWEEK #3 mL 11/12/24 12/20/24 Rx subcutaneous pen injector doxycycline hyclate 100 mg capsule 100 mg PO BID 7 days #14 caps 12/20/24 Rx oxycodone 5 mg tablet 5 mg PO BID PRN pain 5 days #10 12/20/24 Rx tabs Subjective Details: Doing well 2 days postop. Has been compliant with her splint. No fevers or chills Objective Details: Incision clean dry and intact with sutures in place. No drainage. Curvilinear rotation flap in place and no signs of necrosis Coding Level of Care Code Global Post Op Diagnoses Mucous cyst of digit of left hand M67.442 [facility] Medical History Hx of colonic polyp Lesion of bladder Wears glasses Diabetes Back pain Frequent headaches Blackout History of hiatal hernia Fatty liver Shortness of breath on exertion History of pain when walking Swelling of right lower extremity Right knee pain Post-menopausal Arthritis Non-smoker Leg cramps History of stress test History of echocardiogram Cardiology follow-up encounter Obesity Essential hypertension GERD (gastroesophageal reflux disease) Cholelithiasis Frequent headaches Type 2 diabetes mellitus Surgical History Hx of colonoscopy History of esophagogastroduodenoscopy (EGD) History of wisdom tooth extraction History of arthroscopy of left knee History of right knee surgery History of D C Family History Sister Cancer cervical, ovarian Diabetes Mother Asthma Diabetes Kidney disease Father Alcoholism Social History Smoking Status: Never smoker alcohol intake: never substance use type: does not use what type of physical activity do you participate in: none Assessment and Plan (No Qualifiers) Assessment and Plan (1) Mucous cyst of digit of left hand: Status: Acute Comment: Long finger dorsal DIP joint ulnar side Plan: No pathology report yet Her rotation flap is warm and viable. Continue DIP joint extension splinting for 1 month. Discussed range of motion of PIP joint so as to prevent stiffness. Follow-up in 1 week for another wound check followed by 2 weeks for suture removal 12/20/241815 Date [facility]: Date (if applicable) CC: Normal [facility] H AND P Exam - Surgicalon H&P Exam - Surgical [facility] Medical Records Department [address] [place] [address] H P Exam - Surgical 12/18/24 1545 MR#: [id number] Acct: [id number] Name: TRAN HARDIN Rep #: [id number] : 1965 59 From: Caleb Corley MD PCP: Dr. 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 She was referred here by her primary care physician. Patient reports has been there for 3 months and it hurts when it hits things. It is not draining. She has never had any interventions on it. Patient is a non-smoker. She is a type II diabetic with an A1c most recently of 5.9 in November 2024 (earlier this month). Current Encounter (DATE OF SURGERY H P UPDATE): I saw and examined the patient this morning in pre- operative holding. We discussed risks and benefits of today's surgery and they would like to proceed. NO CHANGE in health history since last seen and evaluated EXCEPT the cyst is larger and skin is thinner, and it is starting to become more tender. Ready to proceed with surgery. [facility] Medical History Hx of colonic polyp Lesion of bladder Wears glasses Diabetes Back pain Frequent headaches Blackout History of hiatal hernia Fatty liver Shortness of breath on exertion History of pain when walking Swelling of right lower extremity Right knee pain Post-menopausal Arthritis Non-smoker Leg cramps History of stress test History of echocardiogram Cardiology follow-up encounter Obesity Essential hypertension GERD (gastroesophageal reflux disease) Cholelithiasis Frequent headaches Type 2 diabetes mellitus Home Medications ???Medication ???Instructions ???Recorded ???Last Taken ???Type multivitamin 1 cap PO DAILY 03/17/20 Unknown Hi story blood sugar diagnostic #100 ea 10/27/21 Unknown Rx fesoterodine 4 mg tablet,extended 4 mg PO DAILY 04/12/23 Unknown Hi story release 24 hr naproxen 500 mg tablet (Naprosyn) 500 mg PO BID PRN pain #20 tabs 0 01/25/24 Unknown Rx lisinopril 10 mg tablet 10 mg PO DAILY #90 tabs 04/29/24 U nknown Rx blood sugar diagnostic (OneTouch #100 strips 06/27/24 Unknown Rx Ultra Test strips) pantoprazole 40 mg tablet,delayed 40 mg PO DAILY #90 TABLETS Unknown Rx release cholecalciferol (vitamin D3) 25 25 mcg PO QDAY 10/23/24 Unknown Hi story mcg (1,000 unit) capsule cyanocobalamin (vitamin B-12) 1,000 mcg PO QDAY 10/23/24 Unknown History 1,000 mcg tablet simvastatin 10 mg tablet 10 mg PO QHS 3 months #90 TABLETS 11/05/24 Unknown Rx metformin 500 mg tablet 500 mg PO BID 90 days #180 tabs Unknown Rx semaglutide 2 mg/dose (8 mg/3 mL) 2 mg (0.75 mL) subcut QWEEK #3 mL 11/12/24 12/10/24 Rx subcutaneous pen injector Allergy/AdvReac Type Severity Reaction Status Date / Time empagliflozin (From Allergy Mild rash Verified 12/18/24 12:54 Jardiance) Family History Sister Cancer cervical, ovarian Diabetes Mother Asthma Diabetes Kidney disease Father Alcoholism Surgical History Hx of colonoscopy History of esophagogastroduodenoscopy (EGD) History of wisdom tooth extraction History of arthroscopy of left knee History of right knee surgery History of D C Social History Smoking Status: Never smoker alcohol intake: never substance use type: does not use what type of physical activity do you participate in: none Vital Signs Vital Signs Vital Signs: 12/18/24 12:55 12/18/24 12:55 Temperature 97 F L Temperature Source Temporal Pulse Rate 90 Respiratory Rate 16 Respiratory Pattern Normal Blood Pressure 129/78 H Blood Pressure Mean 95 Blood Pressure Source Monitor Blood Pressure Position Semi-Fowlers Blood Pressure Location Left Arm Pulse Ox 96 Oxygen Delivery Method Room Air Weight Weight: 270 lb Body Mass Index (BMI) 42.3 Physical Exam Narrative Cyst has gotten bigger and skin is thinner. I marked it in preoperative holding. Left upper Extremity Inspection: Left long finger with ulnar-sided dorsal DIP joint mucous cyst. Good skin integrity around the cyst but very thin skin overlying the cyst. No collateral ligament instability and no mallet. Palpation: Slight tenderness to palpation Motor: Able to bend and extend all MP, PIP, and DIP joints. Sensory: Intact to light touch on the radial and ulnar borders. Vascular: Finger tips are warm and well perfused (more content not included)... Normal [facility] Operative Reporton 5 Operative Report [facility] Medical Records Department [address] [place] [address] Operative Report 12/18/24 1617 MR#: [id number] Acct: [id number] Name: TRAN HARDIN Rep #: [id number] : 1965 59 From: Caleb Corley MD PCP: Dr. Bobby Stinson, DO Status:REG [facility] [place] Location: [place] [address] Problems Associated Problem List Diagnoses (1) Mucous cyst of digit of left hand: Operative Report (Standard) Operative Information Date of Procedure: 12/18/24 Pre-Operative Diagnosis: Left long finger mucous cyst, dorsal DIP joint on the ulnar side Post-Operative Diagnosis: Same Surgery/Procedure Performed: 1) Excision left long finger mucous cyst (CPT: 23637) 2) Adjacent tissue transfer, left long finger, 1.5 x 2.5 cm (CPT: 80391) tenderizer tender: No Type of Anesthesia: Local (10 cc of 50-50 mixture of 1% lidocaine and 0.25% Marcaine plain) RN Documented Start/Stop Times: Operation Date: 12/18/24 14:00 Case Time Into Pre-Op 12/18/24 12:41 Out of Pre-Op 12/18/24 16:09 Procedure Start Time: 16:20 Procedure Stop Time: 17:00 Select all DRAINS/GRAFTS/IMPLANTS that apply: None Estimated Blood Loss: minimal Specimen collected: Yes Description of specimen(s) removed: Left long finger mucous cyst Description of surgery: INDICATIONS: Tran Hardin is a delightful 59-year-old female with history of a mucous cyst on the left long finger. Presents today for excision of the cyst. I talked the patient extensively about the risks of surgery, including bleeding, infection (especially of the DIP joint), damage to surrounding structures (including mallet deformity), surgical site dehiscence and wound formation, need for wound care (rotation flap failure/need for debridement), need for repeat operations, failure to obtain the desired result (return of the cyst), and the risks of anesthesia. All of their questions were answered, and they agreed to proceed with surgery. OPERATIVE DETAILS: Patient was correctly identified in preoperative holding and the correct mucous cyst and digit were marked with the patient in agreement. They were taken back to the operating room where they are administered [=local for anesthesia. They were prepped and draped in sterile fashion. All proper timeouts were performed. A turnicot was applied and care was taken to remove it at the end of the case. We began the procedure by excising the cyst circumferentially with a small triangular wedge created adjacent to the cyst so as to give more exposure to the potential underlying osteophyte. The cyst was excised and the joint was examined for osteophytes/spurs on the radial and ulnar borders of the terminal slip. There were osteophytes, especially in the location of the cyst, which were debrided with a curette. The wound was then washed out with copious amounts of normal saline and the specimen sent to pathology. We then turned our attention to designing an ulnar-sided curvilinear rotation flap over the dorsum of the middle phalanx. Care was taken to raise the flap using a 15 blade scalpel beneath the subcutaneous plane for full-thickness adipocutanoues advancement flap which was rotated and advanced into position for a total local soft tissue rearrangement of 1.5 x 2.5 centimeters for closure of the cyst defect (so as to take tension off of the closure). The turnicot was removed. Hemostasis was obtained with bipolar electrocautery. The flap was then sutured into position with 4-0 Nylon interuppted sutures. There was no tension following advancement and inset of the flap. A Xeroform, Kerlix, and AlumaFoam splint with Coban (DIP joint immobilized in extension, PIP joint free) were then placed for dressing. Patient tolerated the procedure well. The patient was awakened and taken to the PACU in stable condition. POST-OPERATIVE PLAN: Follow-up in 2 days for exam of the wound. 1 week of doxycycline 100 mg twice daily. The patient can take the dressing off and 48 hours and change it (Xeroform daily, Kerlix daily, and AlumaFoam and Coban). They were encouraged to move the PIP joint and immobilize DIP joint in extension for 1 month. They are not to use this finger, and they are not to use the hand for lifting. Surgical Findings: * Cyst was consistent with a mucous cyst with joint fluid. * There were osteophytes at the base that were excised with a curette * Unable to close defect from mucous cyst excision, therefore requiring an advancement flap. Complications Complications: No Admit VTE Documentation VTE Mechan Device Prophylaxis: SCD's 12/18/24 3531 Cosigner Signature (if applicable): CC: Dr. Bobby Stinson, DO; Dr. Caleb Corley MD Signed [facility] Surgery Specimen Level IIIon 12-18-2024 Surgery Specimen Level III Patient Age/Sex Location Account Attending Physician TRAN HARDIN 59/F [facility] [id number] Dr. Caleb Corley MD Specimen: [id number] Received: 12/18/24 Status: ABHILASH Islas Num: [id number] Spec Type: Cyst Subm Dr: Dr. Caleb Corley MD HEADER OPERATION: Excision mucous cyst left long finger possible adjacent tissue PRE-OP DIAGNOSIS: Mucous cyst of digit of left hand TISSUE SUBMITTED: A- Mucous cyst of left long finger MICROSCOPIC DIAGNOSIS A. Skin, left long finger, mucous cyst, excision: * Focal myxoid change in the dermis consistent with digital myxoid cyst. MICROSCOPIC DESCRIPTION Slides are reviewed. GROSS DESCRIPTION A. Received in formalin in a container labeled with the patient's name, date of , and mucous cyst left long finger is an unoriented and irregular white-chan skin excision measuring 0.8 x 0.4 cm with a depth up to 0.4 cm. The epidermis is notable for a 0.2 x 0.2 cm chan discolored focus situated 0.1 cm from the peripheral margin. The deep margin is inked green, and it is bisected to reveal a 0.3 x 0.2 x 0.2 cm small possible cyst filled with clear gelatinous material. The cystic area abuts the deep margin. Submitted entirely in A1. [facility] 12-19-2024 CPT:73433 Patient Age/Sex Location Account Attending Physician TRAN HARDIN 59/F [facility] [place] [id number] Dr. Caleb Corley MD Signed (signature on file) Dr. Shahana Richards MD 12/25/24 1719 Normal [facility] Comment on above: Performed By: #### L 506.0400, L506.1000, L3300.0700, L100.0100, L300.3900, L501.9985, L500.4050, L500.4100, L501.6710, L501.9520 #### [facility] [address] [place], [address] Finger(s) Min 2 Viewson 11-12 Finger(s) Min 2 Views [facility] Imaging Services [address] [place] [address] Finger(s) Min 2 Views MR#: [id number] Acct: [id number] Name: TRAN HARDIN Rep #: [id number] : 1965 F 59 From: Iraida Ragsdale DO PCP: Dr. Bobby Stinson DO Status: REG CLI Study: Finger(s) Min 2 Views Date of Exam: 11/29/24 Exam# [id number] Ordering Dr: Caleb Corley MD PROCEDURE: FINGER(S) MIN 2 VIEWS 11/29/2024 REASON FOR EXAM: MUCOUS CYST OF LEFT LONG FINGER TECHNIQUE: 3 view(s) of the left 3rd digit COMPARISON: None FINDINGS: Bones: No acute fracture. Joints: Normal alignment. Soft tissues: Soft tissues are unremarkable. Other: RAD/Finger(s) Min 2 Views IMPRESSION: NO ACUTE FRACTURE OR DISLOCATION. Reading Location: [facility] CC: Dr. Bobby Stinson DO; Dr. Caleb Corley MD Special Investigation Unit Investigator: Signed [facility] Plastic Surgery Visit Report on 11-29-2024 Plastic Surgery Visit Report [facility] Plastic Reconstructive Surgery [address], [address] [place] [address] OFFICE VISIT Date of Service: 11/29/24 MR#: [id number] Acct: [id number] Name: TRAN HARDIN Rep #: [id number] : 1965 Provider: Dr. Caleb Corley MD Age/Sex: 59/F Location: [facility] Status: Signed with Addenda ADDENDUM by Dr. Caleb Corley MD on 11/29/24 at 165 Assessment and Plan (No Qualifiers) Assessment and Plan (1) Mucous cyst of digit of left hand: Status: Acute Comment: Long finger dorsal DIP joint ulnar side Plan: We also talked about postoperative protocol with splinting and extension of the DIP joint for 1 month postoperatively as wound heals 11/29/24 1659 Date Caleb Corley MD cc: * Signed Intake Vital Signs 3 11/12/24 14:33 Height 5 ft 6 in Weight: 265 lb 4 oz BMI 42.7 BP 118/58 L Blood Pressure Location Rt brachial Position Sitting Respiration 16 Pulse 81 Pulse Source Monitor Temp 97.3 F L Temp Source Temporal Pulse Oximetry (%) 96 Oxygen Delivery Method room air Intake Visit Reasons: GANGLION CYST L HAND Chief Complaint: lesion on L hand Allergies empagliflozin (From Jardiance) Allergy (Mild, Verified 11/29/24 14:36) rash PFSH Medical History Hx of colonic polyp Lesion of bladder Wears glasses Diabetes Back pain Frequent headaches Blackout History of hiatal hernia Fatty liver Shortness of breath on exertion History of pain when walking Swelling of right lower extremity Right knee pain Post-menopausal Arthritis Non-smoker Leg cramps History of stress test History of echocardiogram Cardiology follow-up encounter Obesity Essential hypertension GERD (gastroesophageal reflux disease) Cholelithiasis Frequent headaches Type 2 diabetes mellitus Surgical History Hx of colonoscopy History of esophagogastroduodenoscopy (EGD) History of wisdom tooth extraction History of arthroscopy of left knee History of right knee surgery History of D C Family History Sister Cancer cervical, ovarian Diabetes Mother Asthma Diabetes Kidney disease Father Alcoholism Social History Smoking Status: Never smoker alcohol intake: never substance use type: does not use what type of physical activity do you participate in: none HPI GANGLION CYST L HAND Details: Tran Hardin is a delightful 59-year-old [id number] 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 She was referred here by her primary care physician. Patient reports has been there for 3 months and it hurts when it hits things. It is not draining. She has never had any interventions on it. Patient is a non-smoker. She is a type II diabetic with an A1c most recently of 5.9 in November 2024 (earlier this month). ROS General General: Yes good health; No fatigue, fever(s) or weight loss HENMT HENMT: No rhinitis, sore throat/mouth sore, nasal congestion, contacts or glaucoma Endo Endocrine: No thyroid disease, polydipsia, heat intolerance, cold intolerance, hepatitis or excessive urine Skin Skin: No Bleeding, bruising, changing moles or suspicious lesion Musc Musculoskeletal: Yes joint pain and back pain; No joint stiffness, muscle weakness, osteoarthritis or Muscle aches/ myalgia Neuro Neurological: No headache(s), No lightheadedness and No numbness Cardio Cardiovascular: No chest pain, pacemaker, fatigue or shortness of breat with exertion Psych Psychiatric: No depression, claustrophobia or anxiety Resp Respiratory: No spitting up, shortness of breath, sleep apnea, asthma, emphysema, TB, Cough or Smoker Gastro Gastrointestinal: No diarrhea, constipation, blood in stool, nausea, vomiting or abdominal bloating Kulwinder Hematologic: No anemia, No bleeding and No abnormal bleeding Genitourinary: No urinary frequency, blood in urine or incontinence Exam Details Left upper Extremity Inspection: Left long finger with ulnar-sided dorsal DIP joint mucous cyst. Good skin integrity around the cyst but very thin skin overlying the cyst. No collateral ligament instability and no mallet. Palpation: Slight tenderness to palpation Motor: Able to bend and extend all MP, PIP, and DIP joints. Sensory: Intact to light touch on the radial and ulnar borders. Vascular: Finger tips are warm and well perfused with <2 second capillary refill. Coding Level of Care Code Off vis,new,level 3 Diagnoses Mucous cyst of digit of l (more content not included)... Normal [facility] Internal Medicine Office Vis iton 11-12-2024 Internal Medicine Office Visit [facility] [address] [place], [place] [address] OFFICE VISIT Date of Service: 11/12/24 MR#: [id number] Acct: [id number] Name: TRAN HARDIN Rep #: [id number] : 1965 Provider: Dr. Bobby Huntley own, DO Age/Sex: 59/F Location: [facility] Status: Signed Intake Vital Signs 05/14/24 14:30 10/23/24 07:36 11/12/24 14:33 Height 5 ft 6 in 5 ft 6 in 5 ft 6 in Weight: 272 lb 2 oz 273 lb 265 lb 4 oz BMI 43.9 44.0 42.7 BP 126/72 H 116/78 118/58 L Blood Pressure Location Lt brachial Lt brachial Rt brachial Position Sitting Sitting Sitting Respiration 16 16 16 Pulse 72 92 81 Pulse Source Monitor Monitor Monitor Temp 98.5 F 97.9 F 97.3 F L Temp Source Temporal Oral Temporal Pulse Oximetry (%) 98 96 96 Oxygen Delivery Method room air room air room air Intake Visit Reasons: 6 M FU Chief Complaint: fu 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 Accompanied by: Self Is patient in pain?: No Allergies empagliflozin (From Jardiance) Allergy (Mild, Verified 11/12/24 14:30) rash Medications ???Medication ???Instructions ???Recorded ???Confirmed ???Type multivitamin 1 cap PO DAILY 03/17/20 11/12/24 H istory blood sugar diagnostic #100 ea 10/27/21 11/12/24 Rx fesoterodine 4 mg tablet,extended 4 mg PO DAILY 04/12/23 11/12/24 H istory release 24 hr naproxen 500 mg tablet (Naprosyn) 500 mg PO BID PRN pain #20 tabs 0 01/25/24 11/12/24 Rx lisinopril 10 mg tablet 10 mg PO DAILY #90 tabs 04/29/24 0 11/12/24 Rx blood sugar diagnostic (OneTouch #100 strips 06/27/24 11/12/24 Rx Ultra Test strips) pantoprazole 40 mg tablet,delayed 40 mg PO DAILY #90 TABLETS 11/12/24 Rx release cholecalciferol (vitamin D3) 25 25 mcg PO QDAY 10/23/24 11/12/24 H istory mcg (1,000 unit) capsule cyanocobalamin (vitamin B-12) 1,000 mcg PO QDAY 10/23/24 5 History 1,000 mcg tablet simvastatin 10 mg tablet 10 mg PO QHS 3 months #90 TABLETS 11/05/24 11/12/24 Rx metformin 500 mg tablet 500 mg PO BID 90 days #180 tabs 11/12/24 Rx semaglutide 2 mg/dose (8 mg/3 mL) 2 mg (0.75 mL) subcut QWEEK #3 mL 11/12/24 11/12/24 Rx subcutaneous pen injector Have you fallen in the past year?: No Nurse's Note: ozempic and metformin need refilled [facility] Medical History Hx of colonic polyp Lesion of bladder Wears glasses Diabetes Back pain Frequent headaches Blackout History of hiatal hernia Fatty liver Shortness of breath on exertion History of pain when walking Swelling of right lower extremity Right knee pain Post-menopausal Arthritis Non-smoker Leg cramps History of stress test History of echocardiogram Cardiology follow-up encounter Obesity Essential hypertension GERD (gastroesophageal reflux disease) Cholelithiasis Frequent headaches Type 2 diabetes mellitus Surgical History Hx of colonoscopy History of esophagogastroduodenoscopy (EGD) History of wisdom tooth extraction History of arthroscopy of left knee History of right knee surgery History of D C Family History Sister Cancer cervical, ovarian Diabetes Mother Asthma Diabetes Kidney disease Father Alcoholism Social History Smoking Status: Never smoker alcohol intake: never substance use type: does not use what type of physical activity do you participate in: none HPI HPI Chief Complaint: fu Details: TRAN HARDIN, is a 59 F who presents to the office today for a follow-up on her diabetes. She is recently seen the english composition instructor who wants her Ozempic moved up to the maximum 2 mg dose. She also has developed a painful bump on her left pointing finger. ROS Const Constitutional: No body ache, excessive sweating, fatigue, fever(s), frequent falls, headache(s), snoring, weakness, weight change, sleep problems or change in appetite Eyes Eyes: No blurry vision, change in vision, eye pain or Light sensitivity ENT ENT: No abnormal hearing, ear or mastoid pain, tinnitus, nasal congestion, headache(s), neck pain or sore throat Resp Respiratory: No cough, shortness of breath, snoring or wheezing Cardio Cardiology: No chest pain at rest, chest pain with exertion, excessive sweating, shortness of breath, dyspnea on exertion, lightheadedness, orthopnea or palpitations Gastro GI: No abdominal pain, change in bowel habits, constipation, cramping, diarrhea, nausea/dyspepsia or vomiting Genitourinary-Female: No burning urination, painful urination, urinary incontinence, urinary frequency, blood in urine, abnormal periods or pelvic pain Musc Musculoskeletal: No abnormal gait, joint (more content not included)... Normal [facility] - Hematology and Cell countsOrdered By: Bobby Stinson on 11-12-2024 HbA1c (Bld) [Mass fraction] 5.9 % 4.2-6.3 [facility] Gastroenterology Visit Repor ton 10-23-2024 Gastroenterology Visit Report [facility] [address] [place] [address] OFFICE VISIT Date of Service: 10/23/24 MR#: [id number] Acct: [id number] Name: TRAN HARDIN Rep #: [id number] : 1965 Provider: Dr. Juan murillo MD Age/Sex: 59/F Location: 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 Accompanied by: Self Is patient in pain?: Yes (low back) Pain scale (1-10): 3 Allergies empagliflozin (From Jardiance) Allergy (Mild, Verified 10/23/24 07:39) rash Medications ???Medication ???Instructions ???Recorded ???Confirmed ???Type multivitamin 1 cap PO DAILY 03/17/20 10/23/24 H istory blood sugar diagnostic #100 ea 10/27/21 05/14/24 Rx fesoterodine 4 mg tablet,extended 4 mg PO DAILY 04/12/23 10/23/24 H istory release 24 hr metformin 500 mg tablet 500 mg PO BID 90 days #180 tabs 10/23/24 Rx naproxen 500 mg tablet (Naprosyn) 500 mg PO BID PRN pain #20 tabs 0 01/25/24 10/23/24 Rx lisinopril 10 mg tablet 10 mg PO DAILY #90 tabs 04/29/24 0 10/23/24 Rx blood sugar diagnostic (OneTouch #100 strips 06/27/24 Rx Ultra Test strips) semaglutide 1 mg/dose (4 mg/3 mL) 2 mg (1.5 mL) subcut QWEEK #6 mL 07/02/24 10/23/24 Rx subcutaneous pen injector (Ozempic) pantoprazole 40 mg tablet,delayed 40 mg PO DAILY #90 TABLETS 10/23/24 Rx release simvastatin 10 mg tablet 10 mg PO QHS #30 tabs 07/25/2408/07 Rx cholecalciferol (vitamin D3) 25 25 mcg PO QDAY 10/23/24 10/23/24 H istory mcg (1,000 unit) capsule cyanocobalamin (vitamin B-12) 1,000 mcg PO QDAY 10/23/24 5 History 1,000 mcg tablet PFSH Medical History Hx of colonic polyp Lesion of bladder Wears glasses Diabetes Back pain Frequent headaches Blackout History of hiatal hernia Fatty liver Shortness of breath on exertion History of pain when walking Swelling of right lower extremity Right knee pain Post-menopausal Arthritis Non-smoker Leg cramps History of stress test History of echocardiogram Cardiology follow-up encounter Obesity Essential hypertension GERD (gastroesophageal reflux disease) Cholelithiasis Frequent headaches Type 2 diabetes mellitus Surgical History Hx of colonoscopy History of esophagogastroduodenoscopy (EGD) History of wisdom tooth extraction History of arthroscopy of left knee History of right knee surgery History of D C Family History Sister Cancer cervical, ovarian Diabetes Mother Asthma Diabetes Kidney disease Father Alcoholism Social History Smoking Status: Never smoker alcohol intake: never substance use type: does not use what type of physical activity do you participate in: none HPI HPI Chief Complaint: 3m f/u Details: TRAN HARDIN, is a 59 F who presents to the office today for 6 month follow-up. Prior workup:?Colonos[place] py 07.02.[address] Jose Sánchez???finding one inflammatory polyp.?US RUQ 10.7.21???liver measurement 21.6cm with fatty infiltration and two simple cysts; normal distended gallbladder without Watters???s sign with gallstones. Remaining exam without acute/chronic comment.? WSA consult 05.21.21 for gallstones seen on Xray which was performed for back pain. Notes US with cholelithiasis without acute cholecystitis. Asymptomatic; no intervention at this time. ? PCP OV for CP and burning. Cardiac workup to include echocardiogram, EKG and stress test with all normal results. Refer to GI for GERD evaluation.? *BGI established 6. She is using heartburn relief QD with effectiveness. Once a month she will have CP/burning without nausea or dysphagia; relief with belching and deep breathing. Triggers include salmon. ??? Fatty liver is a new diagnosis for her. She is diabetic with A1c 4.14.22 7.3; when she saw her PCP at this time it was noted she was not being compliant with her diet. Weight was 287 with BMI 46.3. AST 45/ (more content not included)... Normal [facility] CNOVon 08-29-2024 CNOV Office Visit (OBGYWM ) TRAN HARDIN ([id number]) 1965 F Date Time Provider Department 08/29/24 11:30 AM NOREEN HUNG OBGYWM During your visit today, we recorded the following information about you: Blood pressure Weight Height 124/70 125.5 kg 1.657 m Noreen Hung APRN.YARN HANDLER 08/29/2024 11:39 AM Signed Patient declined spring coilerLashanda Mayfield is a 59 year old who presents for an annual gynecologic exam without complaints. Postmenopausal: Yes since 2014 HRT use: No. Age at Menarche: 12-13 Still get period: No Bleeding between periods: No Sexually active: Yes Contraception: None Contraception frequency: Never HPV vaccine: No Last pap smear: 04/09/2021, negative, HPV-negative History of abnormal pap: No Pt reported none Colposcopy: No. Leep: No. Cone biopsy: No. 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 LMP: 10/25/2016 (Approximate), Postmenopausal Age at Menarche: Age at First : Age at Menopause: Personal Insurance Advisor History Comments: Sexual Activity: Yes; Male Contraception: None PAST MEDICAL HISTORY Diagnosis Date DM type 2 (diabetes mellitus, type 2) (HCC) Fatty liver Gallstones Heartburn HTN (hypertension) Stress incontinence PAST SURGICAL HISTORY Procedure Laterality Date DANDC DIAG AND/OR THERAP, NOT OB N/A 03/2017 [facility] KNEE RIGHT OP SURGERY Right 3 surgeries FAMILY HISTORY Problem Relation Age of Onset Diabetes Mother Kidney Disease Mother other (congestive heart) Mother Cancer Sister uterine Cancer Sister ovarian No Known Problems Brother SOCIAL HISTORY Social History Tobacco Use Smoking status: Never Smokeless tobacco: Never Vaping Use Vaping status: Never Used Substance Use Topics Alcohol use: No Drug use: Never REVIEW OF SYSTEMS Abdomen: No abdominal pain, nausea, vomiting, diarrhea, or constipation. No bloating, early satiety, indigestion, or increased flatulence. Bladder: No dysuria, gross hematuria, urinary frequency, urinary urgency, +incontinence Breast: No breast lumps, nipple d/c, overlying skin changes, redness or skin retraction Allergies and current medication updated:Yes SENSITIVE EXAM: The sensitive examination was discussed with the Patient or Patient's Authorized Studio Artist. As applicable, any other physician, advance practice provider, medical student, or other health professional student that will be observing or involved in the sensitive examination for educational or training purposes was discussed with the Patient or Authorized Studio Artist. 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 (Sensitive examination includes inspection and/or palpation of the breasts, pelvis, prostate and anorectal regions). EXAM: BP 124/70 Ht 5' 5.236 (1.66m) Wt 276 lb 9.6 oz (125.5kg) LMP 10/25/2016 BMI 45.70 kg/(m2). GENERAL: pleasant, female in no apparent distress HEENT: Normocephalic, atraumatic, mucus membranes moist, and no lesions NECK: Supple, full range of motion, no adenopathy, and thyroid normal DERMATOLOGY: Normal, without lesions, non-icteric, and non-hirsute BREAST: soft, non-tender, symmetric, no dominant mass, normal nipple-areolar complex, no lymphadenopathy, and no nipple discharge CHEST: Normal inspiratory effort ABDOMEN: soft, non-tender, and no masses PELVIC: external genitalia normal, normal Bartholin's glands, urethra, Orwell's glands, no vulvar lesions, no cervical lesions, physiologic discharge present, normal appearing perineal body and perianal region, cystocele 3rd degree BIMANUAL: uterus normal size, shape and consistency, no adnexal masses, non-tender, and no cervical motion tenderness RECTOVAGINAL: deferred. NEURO: alert and oriented x3,exam grossly non-focal EXTREMITIES: normal ASSESSMENT/PLAN: 1) Health maintenance: Pap/HPV up to date. Mammogram ordered Mammogram up to date Nutrition, exercise and routine health maintenance exams reviewed. Calcium/Vitamin D supplementation information provided. Colon cancer screening: up to date with screening due in 2027 2) Follow up one year or sooner as needed Noreen Hung APRN.ESSENCE Referring Provider: NOREEN HUNG [[id number]] Allergies As of Date: 08/29/2024 Noted Allergy Reaction EMPAGLIFLOZIN 06/08/2023 14 - Other: See Comments Comments: Pt reported vaginal discharge-yeast Date Reviewed: 08/29/2024 Reviewed by: Noreen Hung APRN.YARN HANDLER - Fully Assessed Reason for Visit: Well Woman [[id number]] Primary Visit Diagnosis:Encounter for gynecological examination (general) (routine) without abnormal findings [Z0 (more content not included)... Normal [facility] LINDSAY SCREENING W TOMOon 08-29 [place] SCREENING [place] * * *Final Report* * * DATE OF EXAM: Aug 29 2024 12:47PM WRW [id number] - L[place]Y SCREENING [place] / PROCEDURE REASON: Encounter for screening mammogram for malignant neoplasm of breast * * * * Physician Interpretation * * * * RESULT: [place] [address] #[id number] - [place]Y SCREENING [place] HISTORY: Patient is 59 years old and is seen for screening and is asymptomatic in both breasts. Patient states no personal history of breast cancer. Patient states no personal history of other cancers. COMPARISON STUDIES: The present examination has been compared to prior imaging studies dated 04/09/2021 (mammogram), 06/24/2022 (mammogram) and 06/26/2023 (mammogram). MAMMOGRAM TECHNIQUE: The study was acquired using full field digital technology and interpreted from soft copy. Digital Breast Tomosynthesis (DBT) images were obtained and used to assist in the interpretation of this examination. MAMMOGRAM FINDINGS: The breasts are almost entirely fatty. No suspicious masses, calcifications or other abnormalities are seen in either breast. There are no significant interval changes. IMPRESSION: There is no mammographic evidence of malignancy in either breast. Routine screening mammogram is recommended. Annual mammogram will be due in 1 year. BI-RADS Category 1: Negative RISK: Based on the Tyrer-Cuzick (TC) risk assessment model, this patient has a 3.9% lifetime risk of developing breast cancer, meaning they are at average risk for developing breast cancer. However, this is only an estimate based on available history provided on the patient's questionnaire. We encourage all patients to talk with their providers about these results, further recommendations for managing breast health, and appropriate supplemental screening options if the patient has dense breast tissue. Interpreting Radiologist: Karolyn Kebede M.D. Electronically signed on: 08/30/2024 Special Investigation Unit Investigator: SANDY Transcribe Date/Time: Aug 29 2024 12:36P Dictated by: KAROLYN KEBEDE MD This examination was interpreted and the report reviewed and electronically signed by: KAROLYN KEBEDE MD on Aug 30 2024 10:14AM EST [id number] Normal [facility] Juni 07-15-2024 ANISH Telephone (OBGYWM) TRAN HARDIN ([id number]) 1965 F Date Time Provider Department 07/15/24 NOREEN HUNG OBVIELKAWDimitri During your visit today, we recorded the following information about you: Bridgette Dei 07/15/2024 1:41 PM Signed Patient called requesting mammo order to be placed Noreen Hung APRN.ESSENCE 07/15/2024 4:12 PM Signed Order filed. Noreen Hung APRN.Ana Guerrero 07/16/2024 10:29 AM Signed LVM for patient to schedule Screening Mammogram. First attempt. Ana Castillo 07/17/2024 9:59 AM Signed Scheduled Patient for Screening Mammogram and Annual visit. Allergies As of Date: 07/15/2024 (No Known Allergies) Date Reviewed: 06/23/2022 Reviewed by: Noreen Hung APRN.YARN HANDLER - Fully Assessed Reason for Visit: Orders [681] Cmt: mammogram Primary Visit Diagnosis:Encounter for screening mammogram for malignant neoplasm of breast [Z12.31] Order(s):[facility] SCREENING [place] [[id number]] Order #: [id number] FUTURE Prescriptions as of 07/17/2024 - ursodiol (DI) 250 mg tablet Take 250 mg by mouth twice daily. - pantoprazole DR (PROTONIX) 40 mg tablet Take 40 mg by mouth once daily. - multivit-min/iron/folic/lut ein (CENTRUM SILVER WOMEN ORAL) Take by mouth once daily. - Sduaz-9-ZNT-EPA-Fish Oil 1,000 mg (120 mg-180 mg) cap Take 2 g by mouth once daily. - Glucosamine Sulfate 500 mg tab Take 1 tablet by mouth twice daily. - mirabegron (MYRBETRIQ) 50 mg Tb24 Take 50 mg by mouth twice daily. - lisinopril (ZESTRIL, PRINIVIL) 10 mg tablet Take 10 mg by mouth once daily. Problem List As Of Date 07/15/2024 Noted Resolved Essential hypertension [I10] 12/26/2016 Controlled type 2 diabetes mellitus without com*12/26/2016 Stress incontinence in female [N39.3] 04/09/2021 Uterine prolapse [N81.4] 04/09/2021 Steatosis of liver [K76.0] 05/17/2022 Encounter Status:Closed by ANA CASTILLO on 07/16/24 Normal [facility] Internal Medicine Office Vis iton 05-14-2024 Internal Medicine Office Visit [facility] [address] [place] [address] [place] [address] OFFICE VISIT Date of Service: 05/14/24 MR#: [id number] Acct: [id number] Name: TRAN HARDIN Rep #: [id number] : 1965 Provider: Dr. Bobby loya DO Age/Sex: 59/F Location: 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 Accompanied by: Self Is patient in pain?: No Allergies empagliflozin (From Jardiance) Allergy (Mild, Verified 05/14/24 14:25) rash Medications ???Medication ???Instructions ???Recorded ???Confirmed ???Type multivitamin 1 cap PO DAILY 03/17/20 05/14/24 History blood sugar diagnostic #100 ea 10/27/21 05/14/24 Rx thiamine HCl (vitamin B1) 500 mg 1,000 mg PO DAILY 04/21/22 05/14/24 History tablet fesoterodine 4 mg tablet,extended 4 mg PO DAILY 04/12/23 05/14/24 History release 24 hr blood sugar diagnostic (OneTouch #100 ea 04/19/23 05/14/24 Rx Ultra Test strips) simvastatin 10 mg tablet 10 mg PO QHS #30 tabs 06/06/23 05/14/24 Rx metformin 500 mg tablet 500 mg PO BID 90 days #180 tabs 11/27/23 05/14/24 Rx pantoprazole 40 mg tablet,delayed 40 mg PO DAILY #90 TABLETS 12/08/23 05/14/24 Rx release naproxen 500 mg tablet (Naprosyn) 500 mg PO BID PRN pain #20 tabs 01/25/24 05/14/24 Rx lisinopril 10 mg tablet 10 mg PO DAILY #90 tabs 04/29/24 05/14/24 Rx semaglutide 1 mg/dose (4 mg/3 mL) 1 mg (0.75 mL) subcut QWEEK #3 mL 04/29/24 05/14/24 Rx subcutaneous pen injector calcium carbonate (Calcium 600) 600 mg PO QDAY 05/14/24 05/14/24 History cholecalciferol (vitamin D3) 50 50 mcg PO QDAY 05/14/24 05/14/24 History mcg (2,000 unit) capsule PFSH Medical History Hx of colonic polyp Lesion of bladder Wears glasses Diabetes Back pain Frequent headaches Blackout History of hiatal hernia Fatty liver Shortness of breath on exertion History of pain when walking Swelling of right lower extremity Right knee pain Post-menopausal Arthritis Non-smoker Leg cramps History of stress test History of echocardiogram Cardiology follow-up encounter Obesity Essential hypertension GERD (gastroesophageal reflux disease) Cholelithiasis Frequent headaches Type 2 diabetes mellitus Surgical History Hx of colonoscopy History of esophagogastroduodenoscopy (EGD) History of wisdom tooth extraction History of arthroscopy of left knee History of right knee surgery History of D C Family History Sister Cancer cervical, ovarian Diabetes Mother Asthma Diabetes Kidney disease Father Alcoholism Social History Smoking Status: Never smoker alcohol intake: never substance use type: does not use what type of physical activity do you participate in: none HPI HPI Chief Complaint: 3m f/u Details: TRAN HARDIN, is a 59 F who presents to the office today for a follow-up on her blood sugars. In general this patient is doing well. She is quite stressed because she is responsible to taking her mother to dialysis 3 times a week which is quite time-consuming and stressful for her. She has lost some weight but not as much as she would like. She does have some fatty infiltration of the liver and the english composition instructor suggested starting a medicine but the medication is too expensive for this patient to afford even at a reduced acosta that her insurance would help with. I told her the Ozempic I think is probably as effective is a new medication and what we really need to do is increase that medication. ROS Const Constitutional: No body ache, chills, excessive sweating, fatigue, fever(s), frequent falls, headache(s), snoring, weakness or change in appetite Eyes Eyes: No blurry vision, change in vision, eye pain or Light sensitivity ENT ENT: No abnormal hearing, ear or mastoid pain, tinnitus, nasal congestion, headache(s), neck pain or sore throat Resp Respiratory: No cough, shortness of breath, snoring or wheezing Cardio Cardiology: No chest pain at rest, chest pain with exertion, excessive sweating, dyspnea on exertion, lightheadedness, orthopnea or palpitations Gastro GI: No abdominal pain, change i (more content not included)... Normal [facility] Gastroenterology Visit Repor ton 05-08-2024 Gastroenterology Visit Report [facility] Gastroenterology [address] [place] [address] OFFICE VISIT Date of Service: 05/08/24 MR#: [id number] Acct: [id number] Name: TRAN HARDIN Rep #: [id number] : 1965 Provider: Dr. Juan murillo MD Age/Sex: 59/F Location: [facility] Status: Signed Intake Vital Signs 08/03/23 08:51 01/25/24 12:53 05/08/24 07:49 Height 5 ft 7 in 5 ft 7 in 5 ft 7 in Weight: 276 lb BMI 43.2 BP 115/77 Blood Pressure Location Lt brachial Position Sitting Respiration 16 Pulse 83 Pulse Source Monitor Temp 97.7 F L Temp Source Temporal Pulse Oximetry (%) 95 Oxygen Delivery Method room air Intake Visit Reasons: 6 M FU Chief Complaint: f/u fatty liver Accompanied by: Mother Is patient in pain?: Yes (low back) Pain scale (1-10): 6 Allergies empagliflozin (From Jardiance) Allergy (Mild, Verified 05/08/24 07:47) rash Medications ???Medication ???Instructions ???Recorded ???Confirmed ???Type multivitamin 1 cap PO DAILY 03/17/20 05/08/24 History blood sugar diagnostic #100 ea 10/27/21 12/26/23 Rx thiamine HCl (vitamin B1) 500 mg 1,000 mg PO DAILY 04/21/22 05/08/24 History tablet fesoterodine 4 mg tablet,extended 4 mg PO DAILY 04/12/23 05/08/24 History release 24 hr blood sugar diagnostic (OneTouch #100 ea 04/19/23 12/26/23 Rx Ultra Test strips) simvastatin 10 mg tablet 10 mg PO QHS #30 tabs 06/06/23 05/08/24 Rx metformin 500 mg tablet 500 mg PO BID 90 days #180 tabs 11/27/23 05/08/24 Rx pantoprazole 40 mg tablet,delayed 40 mg PO DAILY #90 TABLETS 12/08/23 05/08/24 Rx release naproxen 500 mg tablet (Naprosyn) 500 mg PO BID PRN pain #20 tabs 01/25/24 05/08/24 Rx lisinopril 10 mg tablet 10 mg PO DAILY #90 tabs 04/29/24 05/08/24 Rx semaglutide 1 mg/dose (4 mg/3 mL) 1 mg (0.75 mL) subcut QWEEK #3 mL 04/29/24 05/08/24 Rx subcutaneous pen inject[facility] Medical History Hx of colonic polyp Lesion of bladder Wears glasses Diabetes Back pain Frequent headaches Blackout History of hiatal hernia Fatty liver Shortness of breath on exertion History of pain when walking Swelling of right lower extremity Right knee pain Post-menopausal Arthritis Non-smoker Leg cramps History of stress test History of echocardiogram Cardiology follow-up encounter Obesity Essential hypertension GERD (gastroesophageal reflux disease) Cholelithiasis Frequent headaches Type 2 diabetes mellitus Surgical History Hx of colonoscopy History of esophagogastroduodenoscopy (EGD) History of wisdom tooth extraction History of arthroscopy of left knee History of right knee surgery History of D C Family History Sister Cancer cervical, ovarian Diabetes Mother Asthma Diabetes Kidney disease Father Alcoholism Social History Smoking Status: Never smoker alcohol intake: never substance use type: does not use what type of physical activity do you participate in: none HPI HPI Chief Complaint: f/u fatty liver Details: TRAN HARDIN, is a 59 F who presents to the office today for f/u fatty liver Prior workup:?Colonosco py 07.02.[address] Jose Sánchez???finding one inflammatory polyp.?US RUQ 05.20.21???liver measurement 21.6cm with fatty infiltration and two simple cysts; normal distended gallbladder without Watters???s sign with gallstones. Remaining exam without acute/chronic comment.? WSA consult 05.21.21 for gallstones seen on Xray which was performed for back pain. Notes US with cholelithiasis without acute cholecystitis. Asymptomatic; no intervention at this time. ? PCP OV for CP and burning. Cardiac workup to include echocardiogram, EKG and stress test with all normal results. Refer to GI for GERD evaluation.? *BGI established 02.04.22. She is using heartburn relief QD with effectiveness. Once a month she will have CP/burning without nausea or dysphagia; relief with belching and deep breathing. Triggers include salmon. ??? Fatty liver is a new diagnosis for her. She is diabetic with A1c 4.14.22 7.3; when she saw her PCP at this time it was noted she was not being compliant with her diet. Weight was 287 with BMI 46.3. AST 45/ALT 92/Alk phos WNL.??? Biochemical???CMP, LDH, coagulation, CBC, ESR, hepatitis, ANCA, celiac profile, GAME without additional pertinent abnormalities.??? CRP H7.21; AST H39/ ALT H72/ alk phos WNL?US RUQ and elastography 7..22???liver measurement 18.9cm with fat (more content not included)... Normal [facility] AFP, Tumor Markeron 04-28-20 AFP TUMOR OSMAR < 1.8 Normal 0.0-9.2 [facility] Comment on above: Order Comment: N Result Comment: Wander Electrochemiluminescence Immunoassay (ECLIA) Values obtained with different assay methods or kits cannot be used interchangeably. Results cannot be interpreted as absolute evidence of the presence or absence of malignant disease. This test is not interpretable in females. Performed at: [facility] [id number] Physician Practice Consultant: Cruz Davis PhD, Phone: [phone] Performed By: #### L 506.0400, L506.1000, L3300.0700, L100.0100, L300.3900, L501.9985, L500.4050, L500.4100, L501.6710, L501.9520 #### [facility] [address] [place], [address] CBC W/Diff, Automatedon 04-14 Absolute Lymph 1.90 X10 3/uL Normal 0.83-4.51 [facility] Comment on above: Performed By: #### L 506.0400, L506.1000, L3300.0700, L100.0100, L300.3900, L501.9985, L500.4050, L500.4100, L501.6710, L501.9520 #### [facility] [address] [place], [place], [phone] (368) Absolute Neut 3.8 X10 3/uL Normal 2.0-7.7 [facility] Comment on above: Performed By: #### L 506.0400, L506.1000, L3300.0700, L100.0100, L300.3900, L501.9985, L500.4050, L500.4100, L501.6710, L501.9520 #### [facility] [address] [place], [place], [phone] (932) Basophils/100 WBC (Bld) 0.6 % Normal 0-1 [facility] Comment on above: Performed By: #### L 506.0400, L506.1000, L3300.0700, L100.0100, L300.3900, L501.9985, L500.4050, L500.4100, L501.6710, L501.9520 #### [facility] [address] [place], [place], [phone] (882) Eosinophils/100 WBC (Bld) 2.8 % Normal 0-5 [facility] Comment on above: Performed By: #### L 506.0400, L506.1000, L3300.0700, L100.0100, L300.3900, L501.9985, L500.4050, L500.4100, L501.6710, L501.9520 #### [facility] [address] [place], [place], [phone] (723) Erythrocyte distribution width (RBC) [Ratio] 12.6 % Normal 11.6-14.6 [facility] Comment on above: Performed By: #### L 506.0400, L506.1000, L3300.0700, L100.0100, L300.3900, L501.9985, L500.4050, L500.4100, L501.6710, L501.9520 #### [facility] [address] [place], [address] Hematocrit (Bld) [Volume fraction] 40.9 % Normal 37-47 [facility] Comment on above: Performed By: #### L 506.0400, L506.1000, L3300.0700, L100.0100, L300.3900, L501.9985, L500.4050, L500.4100, L501.6710, L501.9520 #### [facility] [address] [place], [address] Hemoglobin (Bld) [Mass/Vol] 13.2 g/dL Normal 12.0-15.0 [facility] Comment on above: Performed By: #### L 506.0400, L506.1000, L3300.0700, L100.0100, L300.3900, L501.9985, L500.4050, L500.4100, L501.6710, L501.9520 #### [facility] [address] [place], [address] IG% 0.500 Normal 0.0-0.9 [facility] Comment on above: Result Comment: IG% - Immature Granulocytes (promyelocytes, myelocytes and metamyelocytes) > 1% indicates that a LEFT SHIFT is Present. Performed By: #### L 506.0400, L506.1000, L3300.0700, L100.0100, L300.3900, L501.9985, L500.4050, L500.4100, L501.6710, L501.9520 #### [facility] [address] [place], [address] Lymphocytes/100 WBC (Bld) 29.5 % Normal 19-41 [facility] Comment on above: Performed By: #### L 506.0400, L506.1000, L3300.0700, L100.0100, L300.3900, L501.9985, L500.4050, L500.4100, L501.6710, L501.9520 #### [facility] [address] [place], [address] MCH (RBC) [Entitic mass] 28.7 pg Normal 27.0-32.0 [facility] Comment on above: Performed By: #### L 506.0400, L506.1000, L3300.0700, L100.0100, L300.3900, L501.9985, L500.4050, L500.4100, L501.6710, L501.9520 #### [facility] [address] [place], [address] MCHC (RBC) [Mass/Vol] 32.3 g/dL Normal 32-36 [facility] Comment on above: Performed By: #### L 506.0400, L506.1000, L3300.0700, L100.0100, L300.3900, L501.9985, L500.4050, L500.4100, L501.6710, L501.9520 #### [facility] [address] [facility] [place], [address] MCV (RBC) [Entitic vol] 88.9 fL Normal 81-99 [facility] Comment on above: Performed By: #### L 506.0400, L506.1000, L3300.0700, L100.0100, L300.3900, L501.9985, L500.4050, L500.4100, L501.6710, L501.9520 #### [facility] [address] [place], [address] Monocytes/100 WBC (Bld) 8.1 % Normal 0-10 [facility] Comment on above: Performed By: #### L 506.0400, L506.1000, L3300.0700, L100.0100, L300.3900, L501.9985, L500.4050, L500.4100, L501.6710, L501.9520 #### [facility] [address] [place], [place], [phone] (605) Neutrophils/100 WBC (Bld) 58.5 % Normal 47-70 [facility] Comment on above: Performed By: #### L 506.0400, L506.1000, L3300.0700, L100.0100, L300.3900, L501.9985, L500.4050, L500.4100, L501.6710, L501.9520 #### [facility] [address] [place], [address] (049) Nucleated RBC (Bld) [#/Vol] 0 10*3/uL Normal 0-5 [facility] Comment on above: Performed By: #### L 506.0400, L506.1000, L3300.0700, L100.0100, L300.3900, L501.9985, L500.4050, L500.4100, L501.6710, L501.9520 #### [facility] [address] [place], [address] (110) Platelet mean volume (Bld) [Entitic vol] 9.1 fL Normal 6.2-12.0 [facility] Comment on above: Performed By: #### L 506.0400, L506.1000, L3300.0700, L100.0100, L300.3900, L501.9985, L500.4050, L500.4100, L501.6710, L501.9520 #### [facility] [address] [place], [address] (467) Platelets (Bld) [#/Vol] 274 10*3/uL Normal 150-450 [facility] Comment on above: Performed By: #### L 506.0400, L506.1000, L3300.0700, L100.0100, L300.3900, L501.9985, L500.4050, L500.4100, L501.6710, L501.9520 #### [facility] [address] [place], [place], [phone] RBC (Bld) [#/Vol] 4.60 10*6/uL Normal 4.2-5.4 [facility] Comment on above: Performed By: #### L 506.0400, L506.1000, L3300.0700, L100.0100, L300.3900, L501.9985, L500.4050, L500.4100, L501.6710, L501.9520 #### [facility] [address] [place], [address] RDW SD 41.3 fl Normal 35.1-43.9 [facility] Comment on above: Performed By: #### L 506.0400, L506.1000, L3300.0700, L100.0100, L300.3900, L501.9985, L500.4050, L500.4100, L501.6710, L501.9520 #### [facility] [address] [place], [place], [phone] WBC (Bld) [#/Vol] 6.4 10*3/uL Normal 4.4-11.0 [facility] Comment on above: Performed By: #### L 506.0400, L506.1000, L3300.0700, L100.0100, L300.3900, L501.9985, L500.4050, L500.4100, L501.6710, L501.9520 #### [facility] [address] [place], [address] CRPon 04-26-2024 C-REACTIVE PROT 3.55 mg/L High 0.0-3.0 [facility] Comment on above: Result Comment: C-Re active Protein (CRP) provides useful information for the diagnosis, therapy and monitoring of inflammatory processes and associated diseases. For the evaluation of Relative Risk for Cardiovascular Disease, a High Sensitivity CRP (HSCRP) should be ordered. Performed By: #### L 506.0400, L506.1000, L3300.0700, L100.0100, L300.3900, L501.9985, L500.4050, L500.4100, L501.6710, L501.9520 #### [facility] [address] [place], [address] Comprehensive Metabolic Prof ilon 04-26-2024 Albumin [Mass/Vol] 3.8 g/dL Normal 3.2-5.0 [facility] Comment on above: Performed By: #### L 506.0400, L506.1000, L3300.0700, L100.0100, L300.3900, L501.9985, L500.4050, L500.4100, L501.6710, L501.9520 #### [facility] [address] [place], [place], [phone] Albumin/Globulin [Mass ratio] 1.2 {ratio} Normal 0.9-2.4 [facility] Comment on above: Performed By: #### L 506.0400, L506.1000, L3300.0700, L100.0100, L300.3900, L501.9985, L500.4050, L500.4100, L501.6710, L501.9520 #### [facility] [address] [place], [place], [phone] ALK P 80 U/L Normal 45-117 [facility] Comment on above: Performed By: #### L 506.0400, L506.1000, L3300.0700, L100.0100, L300.3900, L501.9985, L500.4050, L500.4100, L501.6710, L501.9520 #### [facility] [address] [place], [place], [id number] ALT [Catalytic activity/Vol] 28 U/L Normal 13-56 [facility] Comment on above: Performed By: #### L 506.0400, L506.1000, L3300.0700, L100.0100, L300.3900, L501.9985, L500.4050, L500.4100, L501.6710, L501.9520 #### [facility] [address] [place], [address] AST [Catalytic activity/Vol] 22 U/L Normal 15-37 [facility] Comment on above: Performed By: #### L 506.0400, L506.1000, L3300.0700, L100.0100, L300.3900, L501.9985, L500.4050, L500.4100, L501.6710, L501.9520 #### [facility] [address] [place], [address] Bilirubin [Mass/Vol] 0.70 mg/dL Normal 0.20-1.00 [facility] Comment on above: Result Comment: For patients on eltrombopag therapy, use of Dimension [place] TBIL is not recommended. Performed By: #### L 506.0400, L506.1000, L3300.0700, L100.0100, L300.3900, L501.9985, L500.4050, L500.4100, L501.6710, L501.9520 #### [facility] [address] [place], [address] BUN/CRE 15.9 RATIO Normal 10-20 [facility] Comment on above: Performed By: #### L 506.0400, L506.1000, L3300.0700, L100.0100, L300.3900, L501.9985, L500.4050, L500.4100, L501.6710, L501.9520 #### [facility] [address] [place], [address] CA,Total 9.6 mg/dL Normal 8.5-10.1 [facility] Comment on above: Performed By: #### L 506.0400, L506.1000, L3300.0700, L100.0100, L300.3900, L501.9985, L500.4050, L500.4100, L501.6710, L501.9520 #### [facility] [address] [place], [address] Chloride [Moles/Vol] 105 mmol/L Normal 98-107 [facility] Comment on above: Performed By: #### L 506.0400, L506.1000, L3300.0700, L100.0100, L300.3900, L501.9985, L500.4050, L500.4100, L501.6710, L501.9520 #### [facility] [address] [place], [place], [phone] (523) CO2 [Moles/Vol] 26.0 mmol/L Normal 21.0-32.0 [facility] Comment on above: Performed By: #### L 506.0400, L506.1000, L3300.0700, L100.0100, L300.3900, L501.9985, L500.4050, L500.4100, L501.6710, L501.9520 #### [facility] [address] [place], [address] Creatinine [Mass/Vol] 0.75 mg/dL Normal 0.55-1.02 [facility] Comment on above: Result Comment: The validity of the calculated GFR GFRAA in patients over 70 years has not been determined. Clinical correlation is essential. Performed By: #### L 506.0400, L506.1000, L3300.0700, L100.0100, L300.3900, L501.9985, L500.4050, L500.4100, L501.6710, L501.9520 #### [facility] [address] [place], [address] EST GFR - AA 102 mL/min Normal >60 [facility] Comment on above: Result Comment: Afri can Indian GFR Calc Performed By: #### L 506.0400, L506.1000, L3300.0700, L100.0100, L300.3900, L501.9985, L500.4050, L500.4100, L501.6710, L501.9520 #### [facility] [address] [place], [place], [phone] (565) GAP 6 Normal 5-15 [facility] Comment on above: Performed By: #### L 506.0400, L506.1000, L3300.0700, L100.0100, L300.3900, L501.9985, L500.4050, L500.4100, L501.6710, L501.9520 #### [facility] [address] [place], [place], [id number] GFR/1.73 sq M.predicted among non-blacks MDRD (S/P/Bld) [Vol rate/Area] 84 mL/min/{1.73_m2} Normal >60 [facility] Comment on above: Result Comment: Non- GFR Calc Performed By: #### L 506.0400, L506.1000, L3300.0700, L100.0100, L300.3900, L501.9985, L500.4050, L500.4100, L501.6710, L501.9520 #### [facility] [address] [place], [place], [phone] Globulin (S) [Mass/Vol] 3.3 g/dL Normal 2.2-4.2 [facility] Comment on above: Performed By: #### L 506.0400, L506.1000, L3300.0700, L100.0100, L300.3900, L501.9985, L500.4050, L500.4100, L501.6710, L501.9520 #### [facility] [address] [place], [address] Glucose [Mass/Vol] 116 mg/dL High 74-106 [facility] Comment on above: Result Comment: Fast ing Glucose result from 100 to 125 mg/dL suggests IMPAIRED HOMEOSTASIS per A.D.A. criteria. Performed By: #### L 506.0400, L506.1000, L3300.0700, L100.0100, L300.3900, L501.9985, L500.4050, L500.4100, L501.6710, L501.9520 #### [facility] [address] [place], [address] Potassium [Moles/Vol] 4.0 mmol/L Normal 3.5-5.1 [facility] Comment on above: Performed By: #### L 506.0400, L506.1000, L3300.0700, L100.0100, L300.3900, L501.9985, L500.4050, L500.4100, L501.6710, L501.9520 #### [facility] [address] [place], [address] Sodium [Moles/Vol] 137 mmol/L Normal 136-145 [facility] Comment on above: Performed By: #### L 506.0400, L506.1000, L3300.0700, L100.0100, L300.3900, L501.9985, L500.4050, L500.4100, L501.6710, L501.9520 #### [facility] [address] [place], [address] T PROT 7.1 g/dL Normal 6.4-8.2 [facility] Comment on above: Performed By: #### L 506.0400, L506.1000, L3300.0700, L100.0100, L300.3900, L501.9985, L500.4050, L500.4100, L501.6710, L501.9520 #### [facility] [address] [place], [address] Urea nitrogen [Mass/Vol] 12 mg/dL Normal 7-18 [facility] Comment on above: Performed By: #### L 506.0400, L506.1000, L3300.0700, L100.0100, L300.3900, L501.9985, L500.4050, L500.4100, L501.6710, L501.9520 #### [facility] [address] [place], [address] Hemoglobin A1con 04-26-2024 HbA1c (Bld) [Mass fraction] 5.9 % High 3.8-5.6 [facility] Comment on above: Result Comment: Norm al < 5.7 % Prediabetic 5.7 - 6.4 % Diabetic >or= 6.5 % Please note range changes. Performed By: #### L 506.0400, L506.1000, L3300.0700, L100.0100, L300.3900, L501.9985, L500.4050, L500.4100, L501.6710, L501.9520 #### [facility] [address] [place], [place], [phone] Lipid Profileon 04-26-2024 Cholesterol [Mass/Vol] 103 mg/dL Normal 200 [facility] Comment on above: Result Comment: <200 mg/dL Desirable 200-240 mg/dL Borderline >240 mg/dL High Risk Performed By: #### L 506.0400, L506.1000, L3300.0700, L100.0100, L300.3900, L501.9985, L500.4050, L500.4100, L501.6710, L501.9520 #### [facility] [address] [place], [address] Cholesterol in HDL [Mass/Vol] 44 mg/dL Normal [facility] Comment on above: Result Comment: The drugs N-Acetylcysteine and Metamizole may falsely depress this assay. Reference Range HDL <40 mg/dL Low HDL Cholesterol HDL >or= 60 mg/dL High HDL Cholesterol Performed By: #### L 506.0400, L506.1000, L3300.0700, L100.0100, L300.3900, L501.9985, L500.4050, L500.4100, L501.6710, L501.9520 #### [facility] [address] [place], [address] Cholesterol in LDL [Mass/Vol] 37 mg/dL Normal 0-130 [facility] Comment on above: Performed By: #### L 506.0400, L506.1000, L3300.0700, L100.0100, L300.3900, L501.9985, L500.4050, L500.4100, L501.6710, L501.9520 #### [facility] [address] [place], [address] Cholesterol in VLDL [Mass/Vol] 22 mg/dL Normal 5-40 [facility] Comment on above: Performed By: #### L 506.0400, L506.1000, L3300.0700, L100.0100, L300.3900, L501.9985, L500.4050, L500.4100, L501.6710, L501.9520 #### [facility] [address] [place], [address] Triglyceride [Mass/Vol] 110 mg/dL Normal [facility] Comment on above: Result Comment: The drugs N-Acetylcysteine and Metamizole may falsely depress this assay. Serum Triglycerides Reference Interval Normal <150 mg/dL Borderline high 150 - 199 mg/dL High 200 - 499 mg/dL Very High > or = 500 mg/dL Performed By: #### L 506.0400, L506.1000, L3300.0700, L100.0100, L300.3900, L501.9985, L500.4050, L500.4100, L501.6710, L501.9520 #### [facility] [address] [place], [place], [phone] Prothrombin Time w/INRon INR Coag (PPP) [Relative time] 1.1 {INR} Normal [facility] Comment on above: Performed By: #### L 506.0400, L506.1000, L3300.0700, L100.0100, L300.3900, L501.9985, L500.4050, L500.4100, L501.6710, L501.9520 #### [facility] [address] [place], [place], [id number] PT Coag (PPP) [Time] 14.6 s Normal 11.7-14.9 [facility] Comment on above: Performed By: #### L 506.0400, L506.1000, L3300.0700, L100.0100, L300.3900, L501.9985, L500.4050, L500.4100, L501.6710, L501.9520 #### [facility] [address] [place], [place], [phone] T4 Free Directon 04-26-2024 T4 FREE DIRECT 1.13 ng/dL Normal 0.76-1.46 [facility] Comment on above: Performed By: #### L 506.0400, L506.1000, L3300.0700, L100.0100, L300.3900, L501.9985, L500.4050, L500.4100, L501.6710, L501.9520 #### [facility] [address] [place], [place], [phone] Thyroid Stim Hormone (TSH)on 04-26-2024 TSH 1.040 uIU/mL Normal 0.358-3.74 0 [facility] Comment on above: Performed By: #### L 506.0400, L506.1000, L3300.0700, L100.0100, L300.3900, L501.9985, L500.4050, L500.4100, L501.6710, L501.9520 #### [facility] [address] [place], [address] Vitamin D,25 Hydroxyon 04-26 Vitamin D 25-OH 33.6 ng/mL Normal [facility] Comment on above: Result Comment: Lexie min D 25(OH) Status Range Deficiency <20 ng/mL (50nmol/L) Insufficiency 20 - 30 ng/mL (50 - 75 nmol/L) Sufficiency 30 - 100 ng/mL (75 - 250 nmol/L) Toxicity >100 ng/mL (>250 nmol/L) Performed By: #### L 506.0400, L506.1000, L3300.0700, L100.0100, L300.3900, L501.9985, L500.4050, L500.4100, L501.6710, L501.9520 #### [facility] [address] [place], [place], [address] ABD Limited w/ Elastographyo n 04-05-2024 ABD Limited w/ Elastography [facility] [address] [place], [place] [address] ABD Limited w/ Elastography MR#: [id number] Acct: [id number] Name: TRAN HARDIN Rep #: [id number] : 1965 F 59 From: Cyril carlton MD PCP: Dr. Bobby Stinson, DO Status: REG CLI Study: ABD Limited w/ Elastography Date of Exam: 03/15 11/04 Exam# [id number] Ordering Dr: Juan Mclean MD [id number] STUDY: ABDOMINAL ULTRASOUND - RIGHT UPPER QUADRANT; ELASTOGRAPHY REASON FOR VISIT: Female, 59 years old. TECHNIQUE: Ultrasound evaluation of the right upper quadrant was performed with real-time and static chan-scale imaging. Point quantification shear wave elastography was performed ([employer]). TECHNICAL QUALITY: Adequate. COMPARISON: Comparison is made with prior study June 05, 2023. FINDINGS: Liver: The liver is enlarged and measures 20.8 cm. There is increased echogenicity consistent with fatty infiltration. The bile ducts are within normal limits. There is hepatic color flow. The direction of portal flow is hepatopetal. Stable appearance of the hepatic cysts in the right and left lobes of the liver. The largest cyst measures 3.4 cm x 2.5 cm x 3 cm in the right lobe. Median liver stiffness measured 9.9 kPa. Gallbladder: Normal distended gallbladder. The gallbladder wall measures 2.2 mm. There is a negative sonographic Watters''s sign. There is no pericholecystic fluid. There are multiple echogenic structures within the gallbladder, consistent with multiple gallstones. Common Bile Duct (C.B.D.): The common bile duct measures 5.3 mm. Pancreas: There is normal echogenicity of the visualized pancreas. There is no demonstrated pancreatic mass or cyst. Right Kidney: Normal size of the right kidney. The right kidney measures 11.2 cm x 4.7 cm x 4.8 cm. Normal renal cortex. The right cortex measures 1.0 cm. There is no demonstrated renal mass or cyst. There is no right hydronephrosis. US/ABD Limited w/ Elastography IMPRESSION: 1. Liver stiffness measures 9.9 kPa compatible with F2-F3 (Mild to moderate liver fibrosis) Metavir score. 2. Hepatomegaly. Multiple gallstones. Electronically Signed: Cyril Kent MD at 10:31 EDT , CC: Dr. Bobby Stinson, DO; Dr. Juan Mclean MD Special Investigation Unit Investigator: Signed Normal [facility] Glucose Glucometer (BldC) [M ass/Vol]Ordered By: Mian Hooper on 08-03-2023 Glucose [Mass/Vol] 151 mg/dL 74-106 [facility] Comment on above: MANAGEMENT OF PATIEN T CARE PER NURSING PROTOCOL Glucose Glucometer (BldC) [M ass/Vol]Ordered By: America Gilmore on 06-08-2023 Glucose [Mass/Vol] 144 mg/dL 74-106 [facility] Comment on above: MANAGEMENT OF PATIEN T CARE PER NURSING PROTOCOL Absolute lymphocyte countOrd ered By: Mian Hooper on 06-05-2023 Lymphocytes Auto (Unsp spec) [#/Vol] 1.97 10*3/uL 0.83-4.51 [facility] Basophil percentageOrdered B y: Mian Hooper on 06-05-2023 Basophils/100 WBC (Bld) 0.6 % 0-1 [facility] Bilirubin [Mass/Vol] 0.70 mg/dL 0.20-1.00 [facility] Comment on above: For patients on eltr ombopag therapy, use of Dimension [place] TBIL is not recommended. Chloride [Moles/Vol] 105 mmol/L 98-107 [facility] Eosinophils/100 WBC (Bld) 3.0 % 0-5 [facility] Glucose [Mass/Vol] 131 mg/dL 74-106 [facility] Comment on above: Fasting Glucose resu lt greater than or equal to 126 mg/dL suggests DIABETES MELLITUS per A.D.A. criteria. Neutrophils (Bld) [#/Vol] 3.9 10*3/uL 2.0-7.7 [facility] Neutrophils/100 WBC (Bld) 58.5 % 47-70 [facility] Potassium [Moles/Vol] 4.0 mmol/L 3.5-5.1 [facility] Protein [Mass/Vol] 7.8 g/dL 6.4-8.2 [facility] Sodium [Moles/Vol] 140 mmol/L 136-145 [facility] WBC (Bld) [#/Vol] 6.7 10*3/uL 4.4-11.0 [facility] Blood erythrocytes count (nu mber/volume)Ordered By: Mian Hooper on 06-05-2023 RBC (Bld) [#/Vol] 4.99 10*6/uL 4.2-5.4 [facility] Blood hemoglobin measurement (mass/volume)Ordered By: Mian Hooper on 06-05-2023 Hemoglobin (Bld) [Mass/Vol] 14.3 g/dL 12.0-15.0 [facility] Blood lymphocytes/100 leukoc ytesOrdered By: Mian Hooper on 06-05-2023 Lymphocytes/100 WBC (Bld) 29.4 % 19-41 [facility] Blood monocytes/100 leukocyt esOrdered By: Mian Hooper on 06-05-2023 Monocytes/100 WBC (Bld) 7.9 % 0-10 [facility] Blood platelet mean volumeOr dered By: Mian Hooper on 06-05-2023 Platelet mean volume (Bld) [Entitic vol] 9.1 fL 6.2-12.0 [facility] Determination of erythrocyte mean corpuscular volume (MCV)Ordered By: Mian Hooper on 06-05-2023 MCV (RBC) [Entitic vol] 89.0 fL 81-99 [facility] Hematocrit Auto (Bld) [Volum e fraction]Ordered By: Mianchantal Hooper on 06-05-2023 Hematocrit (Bld) [Volume fraction] 44.4 % 37-47 [facility] - Chemistry and C hemistry - challengeOrdered By: Mian Hooper on 06-05-2023 ALP [Catalytic activity/Vol] 102 U/L 45-117 [facility] ALT [Catalytic activity/Vol] 37 U/L 13-56 [facility] CO2 [Moles/Vol] 29.0 mmol/L 21.0-32.0 [facility] Globulin (S) [Mass/Vol] 4.0 g/dL 2.2-4.2 [facility] Urea nitrogen/Creatinine [Mass ratio] 13.8 mg/mg 10-20 [facility] - Hematology and Cell countsOrdered By: Mian Hooper on 06-05-2023 Erythrocyte distribution width (RBC) [Entitic vol] 41.3 fL 35.1-43.9 [facility] Erythrocyte distribution width (RBC) [Ratio] 12.7 % 11.6-14.6 [facility] Immature granulocytes/100 WBC (Bld) 0.600 % 0.0-0.9 [facility] Comment on above: IG% - Immature Granu locytes (promyelocytes, myelocytes and metamyelocytes) > 1% indicates that a LEFT SHIFT is Present. MCH (RBC) [Entitic mass] 28.7 pg 27.0-32.0 [facility] Nucleated RBC/100 WBC (Bld) [Ratio] 0 % 0-5 [facility] MCHC Auto (RBC) [Mass/Vol]Or dered By: Mian Hooper on 06-05-2023 MCHC (RBC) [Mass/Vol] 32.2 g/dL 32-36 [facility] No Panel InformationOrdered By: Mian Hooper on 06-05-2023 Estimated GFR (MDRD) Amer 96 mL/min >60 [facility] Comment on above: GFR Calc Estimated GFR (MDRD) Non-Af Amer 79 mL/min >60 [facility] Comment on above: Non- GFR Calc Platelets bldOrdered By: Wilmer Hooper on 06-05-2023 Platelets (Bld) [#/Vol] 265 10*3/uL 150-450 [facility] Serum or plasma albumin tyler urement (mass/volume)Ordered By: Mian Hooper on 06-05-2023 Albumin [Mass/Vol] 3.8 g/dL 3.2-5.0 [facility] Serum or plasma albumin/glob ulin mass ratioOrdered By: Mian Hooper on 06-05-2023 Albumin/Globulin [Mass ratio] 1.0 {ratio} 0.9-2.4 [facility] Serum or plasma calcium tyler urement (mass/volume)Ordered By: Mian Hooper on 06-05-2023 Calcium [Mass/Vol] 9.5 mg/dL 8.5-10.1 [facility] Serum or plasma creatinine m easurement (mass/volume)Ordered By: Mian Hooper on 06-05-2023 Creatinine [Mass/Vol] 0.80 mg/dL 0.55-1.02 [facility] Comment on above: The validity of the calculated GFR & GFRAA in patients over 70 years has not been determined. Clinical correlation is essential. Serum or plasma urea nitroge n measurement (mass/volume)Ordered By: Mian Hooper on 06-05-2023 Urea nitrogen [Mass/Vol] 11 mg/dL 02-28 [facility] Thin prep Papanicolaou smear with manual screeningOrdered By: Mian Hooper on 06-05-2023 Thin prep Papanicolaou smear with manual screening 21 U/L 15-37 [facility] Thin prep Papanicolaou smear with manual screening 6 5-15 [facility] Whole blood hemoglobin A1c/t otal hemoglobin ratio (mass fraction)Ordered By: Bradley Espinosa on 06-05-2023 HbA1c (Bld) [Mass fraction] 7.4 % 3.8-5.6 [facility] Comment on above: Normal < 5.7 % Predi abetic 5.7 - 6.4 % Diabetic >or= 6.5 % Please note range changes. Basophil percentageOrdered B y: America Gilmore on 05-31-2023 Bilirubin [Mass/Vol] 0.60 mg/dL 0.20-1.00 [facility] Comment on above: For patients on eltr ombopag therapy, use of Dimension [place] TBIL is not recommended. Chloride [Moles/Vol] 107 mmol/L 98-107 [facility] Glucose [Mass/Vol] 147 mg/dL 74-106 [facility] Comment on above: Fasting Glucose resu lt greater than or equal to 126 mg/dL suggests DIABETES MELLITUS per A.D.A. criteria. Potassium [Moles/Vol] 4.0 mmol/L 3.5-5.1 [facility] Protein [Mass/Vol] 7.4 g/dL 6.4-8.2 [facility] Sodium [Moles/Vol] 140 mmol/L 136-145 [facility] - Chemistry and C hemistry - challengeOrdered By: America Gilmore on 05-31-2023 ALP [Catalytic activity/Vol] 94 U/L 45-117 [facility] ALT [Catalytic activity/Vol] 37 U/L 13-56 [facility] CO2 [Moles/Vol] 27.0 mmol/L 21.0-32.0 [facility] Globulin (S) [Mass/Vol] 3.8 g/dL 2.2-4.2 [facility] Urea nitrogen/Creatinine [Mass ratio] 16.2 mg/mg 06-02 [facility] No Panel InformationOrdered By: America Gilmore on 05-31-2023 Estimated GFR (MDRD) Amer 104 mL/min >60 [facility] Comment on above: GFR Calc Estimated GFR (MDRD) Non-Af Amer 86 mL/min >60 [facility] Comment on above: Non- GFR Calc Serum or plasma albumin tyler urement (mass/volume)Ordered By: America Gilmore on 05-31-2023 Albumin [Mass/Vol] 3.6 g/dL 3.2-5.0 [facility] Serum or plasma albumin/glob ulin mass ratioOrdered By: Americadiony Gilmore on 05-31-2023 Albumin/Globulin [Mass ratio] 0.9 {ratio} 0.9-2.4 [facility] Serum or plasma calcium tyler urement (mass/volume)Ordered By: America Gilmore on 05-31-2023 Calcium [Mass/Vol] 9.2 mg/dL 8.5-10.1 [facility] Serum or plasma creatinine m easurement (mass/volume)Ordered By: America Gilmore on 05-31-2023 Creatinine [Mass/Vol] 0.74 mg/dL 0.55-1.02 [facility] Comment on above: The validity of the calculated GFR & GFRAA in patients over 70 years has not been determined. Clinical correlation is essential. Serum or plasma urea nitroge n measurement (mass/volume)Ordered By: America Gilmore on 05-31-2023 Urea nitrogen [Mass/Vol] 12 mg/dL 02-28 [facility] Thin prep Papanicolaou smear with manual screeningOrdered By: America Gilmore on 05-31-2023 Thin prep Papanicolaou smear with manual screening 15 U/L 15 [facility] Thin prep Papanicolaou smear with manual screening 6 5-15 [facility] - Hematology and Cell countson 04-12-2023 HbA1c (Bld) [Mass fraction] 8.1 % 4.2-6.3 [facility] Basophil percentageOrdered B y: Mian Hooper on 07-28-2022 Bilirubin [Mass/Vol] 0.70 mg/dL 0.20-1.00 [facility] Comment on above: For patients on eltr ombopag therapy, use of Dimension [place] TBIL is not recommended. Chloride [Moles/Vol] 103 mmol/L 98-107 [facility] Cholesterol [Mass/Vol] 145 mg/dL <200 [facility] Comment on above: <200 mg/dL Desirable 200-240 mg/dL Borderline >240 mg/dL High Risk Glucose [Mass/Vol] 188 mg/dL 74-106 [facility] Comment on above: Fasting Glucose resu lt greater than or equal to 126 mg/dL suggests DIABETES MELLITUS per A.D.A. criteria. Potassium [Moles/Vol] 3.9 mmol/L 3.5-5.1 [facility] Protein [Mass/Vol] 7.4 g/dL 6.4-8.2 [facility] Sodium [Moles/Vol] 136 mmol/L 136-145 [facility] Triglyceride [Mass/Vol] 131 mg/dL <199 [facility] Comment on above: The drugs N-Acetylcy steine and Metamizole may falsely depress this assay.Serum Triglycerides Reference Interval Normal <150 mg/dL Borderline high 150 - 199 mg/dL High 200 - 499 mg/dL Very High > or = 500 mg/dL Laboratory - Chemistry and C hemistry - challengeOrdered By: Mian Hooper on 07-28-2022 ALP [Catalytic activity/Vol] 90 U/L 45-117 [facility] ALT [Catalytic activity/Vol] 55 U/L 13-56 [facility] CO2 [Moles/Vol] 28.0 mmol/L 21.0-32.0 [facility] Globulin (S) [Mass/Vol] 3.8 g/dL 2.2-4.2 [facility] Urea nitrogen/Creatinine [Mass ratio] 13.8 mg/mg 10-20 [facility] No Panel InformationOrdered By: Mian Hooper on 07-28-2022 Estimated GFR (MDRD) Amer 107 mL/min >60 [facility] Comment on above: GFR Calc Estimated GFR (MDRD) Non-Af Amer 88 mL/min >60 [facility] Comment on above: Non- GFR Calc Serum or plasma albumin tyler urement (mass/volume)Ordered By: Mian Hooper on 07-28-2022 Albumin [Mass/Vol] 3.6 g/dL 3.2-5.0 [facility] Serum or plasma albumin/glob ulin mass ratioOrdered By: Mian Hooper on 07-28-2022 Albumin/Globulin [Mass ratio] 0.9 {ratio} 0.9-2.4 [facility] Serum or plasma calcium tyler urement (mass/volume)Ordered By: Mian Hooper on 07-28-2022 Calcium [Mass/Vol] 9.2 mg/dL 8.5-10.1 [facility] Serum or plasma cholesterol in HDL measurement (mass/volume)Ordered By: Mian Hooper on 07-28-2022 Cholesterol in HDL [Mass/Vol] 40 mg/dL >40 [facility] Comment on above: The drugs N-Acetylcy steine and Metamizole may falsely depress this assay. Reference Range HDL <40 mg/dL Low HDL Cholesterol HDL >or= 60 mg/dL High HDL Cholesterol Serum or plasma cholesterol in VLDL measurement (mass/volume)Ordered By: Mian Hooper on 07-28-2022 Cholesterol in VLDL [Mass/Vol] 26 mg/dL 5-40 [facility] Serum or plasma creatinine m easurement (mass/volume)Ordered By: Mian Hooper on 07-28-2022 Creatinine [Mass/Vol] 0.73 mg/dL 0.55-1.02 [facility] Comment on above: The validity of the calculated GFR & GFRAA in patients over 70 years has not been determined. Clinical correlation is essential. Serum or plasma low density lipoprotein (LDL) cholesterol measurement (mass/volume)Ordered By: Mian Hooper on 07-28-2022 Cholesterol in LDL [Mass/Vol] 79 mg/dL 0-130 [facility] Serum or plasma urea nitroge n measurement (mass/volume)Ordered By: Mian Hooper on 07-28-2022 Urea nitrogen [Mass/Vol] 10 mg/dL 7-18 [facility] Thin prep Papanicolaou smear with manual screeningOrdered By: Mian Hooper on 07-28-2022 Thin prep Papanicolaou smear with manual screening 33 U/L 15-37 [facility] Thin prep Papanicolaou smear with manual screening 5 5-15 [facility] Laboratory - Microbiology an d Antimicrobial susceptibilityOrdered By: Damaris De Guzman on 07-19-2022 SARS-CoV-2 (COVID-19) RNA ISRAEL+probe Ql (Unsp spec) Not detected Not Detect [facility] Comment on above: Normal Reference Ran ge: Not DetectedMethod:(RT-PCR) real-time reverse transcriptase PCRLuminex REBECCA Instrument*The Food and Drug Administration (FDA) has issued an Emergency Use Authorization (EAU) for the [facility] SARS-CoV-2 Assay for the rapid detection of the virus that causes COVID-19. This test has been validated, but the FDAs independent review of this validation is pending.*Negative results do not preclude infection and should not be used as the sole basis for treatment or patient management. Optimum specimen types and timing for peak viral levels during infections caused by SARS-CoV-2 have not been determined. Collection of multiple specimens from the same patient may be necessary to detect the virus. The possibility of a false negative result should be considered if the patient has clinical presentation or has had recent exposure. Laboratory - Microbiology an d Antimicrobial susceptibilityon 07-19-2022 S. pyogenes Ag IA Ql (Unsp spec) Negative [facility] No Panel Informationon 07-19 Influenza Types A,B Rapid (Clinic) Negative [facility] Basophil percentageOrdered B y: Dr. Stinson on 07-05-2022 Bilirubin [Mass/Vol] 0.80 mg/dL 0.20-1.00 [facility] Comment on above: For patients on eltr ombopag therapy, use of Dimension [place] TBIL is not recommended. Chloride [Moles/Vol] 102 mmol/L 98-107 [facility] Glucose [Mass/Vol] 132 mg/dL 74-106 [facility] Comment on above: Fasting Glucose resu lt greater than or equal to 126 mg/dL suggests DIABETES MELLITUS per A.D.A. criteria. Potassium [Moles/Vol] 4.3 mmol/L 3.5-5.1 [facility] Protein [Mass/Vol] 7.9 g/dL 6.4-8.2 [facility] Sodium [Moles/Vol] 140 mmol/L 136-145 [facility] Laboratory - Chemistry and C hemistry - challengeOrdered By: Dr. Stinson on 07-05-2022 ALP [Catalytic activity/Vol] 104 U/L 45-117 [facility] ALT [Catalytic activity/Vol] 55 U/L 13-56 [facility] CO2 [Moles/Vol] 29.0 mmol/L 21.0-32.0 [facility] Globulin (S) [Mass/Vol] 3.8 g/dL 2.2-4.2 [facility] Urea nitrogen/Creatinine [Mass ratio] 14.6 mg/mg 10-20 [facility] Laboratory - Hematology and Cell countson 07-05-2022 HbA1c (Bld) [Mass fraction] 6.9 % 4.2-6.3 [facility] No Panel InformationOrdered By: Dr. Stinson on 07-05-2022 Estimated GFR (MDRD) Amer 103 mL/min >60 [facility] Comment on above: GFR Calc Estimated GFR (MDRD) Non-Af Amer 85 mL/min >60 [facility] Comment on above: Non- GFR Calc Serum or plasma albumin tyler urement (mass/volume)Ordered By: Dr. Stinson on 07-05-2022 Albumin [Mass/Vol] 4.1 g/dL 3.2-5.0 [facility] Serum or plasma albumin/glob ulin mass ratioOrdered By: Dr. Stinson on 07-05-2022 Albumin/Globulin [Mass ratio] 1.1 {ratio} 0.9-2.4 [facility] Serum or plasma calcium tyler urement (mass/volume)Ordered By: Dr. Stinson on 07-05-2022 Calcium [Mass/Vol] 9.9 mg/dL 8.5-10.1 [facility] Serum or plasma creatinine m easurement (mass/volume)Ordered By: Dr. Stinson on 07-05-2022 Creatinine [Mass/Vol] 0.75 mg/dL 0.55-1.02 [facility] Comment on above: The validity of the calculated GFR & GFRAA in patients over 70 years has not been determined. Clinical correlation is essential. Serum or plasma urea nitroge n measurement (mass/volume)Ordered By: Dr. Stinson on 07-05-2022 Urea nitrogen [Mass/Vol] 11 mg/dL 7-18 [facility] Thin prep Papanicolaou smear with manual screeningOrdered By: Dr. Stinson on 07-05-2022 Thin prep Papanicolaou smear with manual screening 31 U/L 15-37 [facility] Thin prep Papanicolaou smear with manual screening 9 5-15 [facility] LINDSAY SCREENINGon 06-24-2022 [facility] Glucose Glucometer (BldC) [M ass/Vol]on 04-26-2022 Glucose [Mass/Vol] 174 mg/dL 74-106 [facility] Work Phone: Comment on above: MANAGEMENT OF PATIEN T CARE PER NURSING PROTOCOL Absolute lymphocyte counton 02-04-2022 Lymphocytes Auto (Unsp spec) [#/Vol] 2.02 10*3/uL 0.83-4.51 [facility] Work Phone: Atypical perinuclear antineu trophil cytoplasmic antibodies measurementon 02-04-2022 Neutrophil cytoplasmic Ab.perinuclear.atypical IF (S) [Titer] <1:20 titer Neg:<1:20 [facility] Work Phone: Comment on above: The atypical pANCA p attern has been observed in asignificant percentage of patients with ulcerative colitis,primary sclerosing cholangitis and autoimmune hepatitis. Basophil percentageon 2021 Basophils/100 WBC (Bld) 0.4 % 0-1 [facility] Work Phone: Bilirubin [Mass/Vol] 0.80 mg/dL 0.20-1.00 [facility] Work Phone: Comment on above: For patients on eltr ombopag therapy, use of Dimension [place] TBIL is not recommended. Chloride [Moles/Vol] 101 mmol/L 98-107 [facility] Work Phone: Eosinophils/100 WBC (Bld) 2.4 % 0-5 [facility] Work Phone: Glucose [Mass/Vol] 162 mg/dL 74-106 [facility] Work Phone: Comment on above: Fasting Glucose resu lt greater than or equal to 126 mg/dL suggests DIABETES MELLITUS per A.D.A. criteria. Neutrophils (Bld) [#/Vol] 4.4 10*3/uL 2.0-7.7 [facility] Work Phone: Neutrophils/100 WBC (Bld) 60.8 % 47-70 [facility] Work Phone: Potassium [Moles/Vol] 3.7 mmol/L 3.5-5.1 [facility] Work Phone: Protein [Mass/Vol] 7.8 g/dL 6.4-8.2 [facility] Work Phone: Sodium [Moles/Vol] 136 mmol/L 136-145 [facility] Work Phone: WBC (Bld) [#/Vol] 7.2 10*3/uL 4.4-11.0 [facility] Work Phone: Blood erythrocytes count (nu mber/volume)on 02-04-2022 RBC (Bld) [#/Vol] 4.65 10*6/uL 4.2-5.4 [facility] Work Phone: Blood hemoglobin measurement (mass/volume)on 02-04-2022 Hemoglobin (Bld) [Mass/Vol] 14.0 g/dL 12.0-15.0 [facility] Work Phone: Blood lymphocytes/100 leukoc yteson 02-04-2022 Lymphocytes/100 WBC (Bld) 28.3 % 19-41 [facility] Work Phone: Blood monocytes/100 leukocyt eson 02-04-2022 Monocytes/100 WBC (Bld) 7.4 % 0-10 [facility] Work Phone: Blood platelet mean volumeon 02-04-2022 Platelet mean volume (Bld) [Entitic vol] 8.9 fL 6.2-12.0 [facility] Work Phone: Determination of erythrocyte mean corpuscular volume (MCV)on 02-04-2022 MCV (RBC) [Entitic vol] 88.2 fL 81-99 [facility] Work Phone: Erythrocyte sedimentation ra kathryn 02-04-2022 ESR (Bld) [Velocity] 13 mm/h 0-30 [facility] Work Phone: Hematocrit Auto (Bld) [Volum e fraction]on 02-04-2022 Hematocrit (Bld) [Volume fraction] 41.0 % 37-47 [facility] Work Phone: INR in Blood by Coagulation assayon 02-04-2022 INR Coag (Bld) [Relative time] 1.1 {INR} [facility] Work Phone: Laboratory - Chemistry and C hemistry - challengeon 02-04-2022 ALP [Catalytic activity/Vol] 96 U/L 45-117 [facility] Work Phone: ALT [Catalytic activity/Vol] 72 U/L 13-56 [facility] Work Phone: CO2 [Moles/Vol] 29.0 mmol/L 21.0-32.0 [facility] Work Phone: Globulin (S) [Mass/Vol] 3.8 g/dL 2.2-4.2 [facility] Work Phone: Urea nitrogen/Creatinine [Mass ratio] 22.6 mg/mg 10-20 [facility] Work Phone: Laboratory - Coagulationon 0 02-04-2022 PT Coag (PPP) [Time] 13.7 s 11.7-14.9 [facility] Work Phone: Laboratory - Hematology and Cell countson 02-04-2022 Erythrocyte distribution width (RBC) [Entitic vol] 40.9 fL 35.1-43.9 [facility] Work Phone: Erythrocyte distribution width (RBC) [Ratio] 12.7 % 11.6-14.6 [facility] Work Phone: Immature granulocytes/100 WBC (Bld) 0.700 % 0.0-0.9 [facility] Work Phone: Comment on above: IG% - Immature Granu locytes (promyelocytes, myelocytes and metamyelocytes) > 1% indicates that a LEFT SHIFT is Present. MCH (RBC) [Entitic mass] 30.1 pg 27.0-32.0 [facility] Work Phone: Nucleated RBC/100 WBC (Bld) [Ratio] 0 % 0-5 [facility] Work Phone: MCHC Auto (RBC) [Mass/Vol]on 02-04-2022 MCHC (RBC) [Mass/Vol] 34.1 g/dL 32-36 [facility] Work Phone: No Panel Informationon 02-04 Endomysial IgA Antibody Negative Negative [facility] Work Phone: Estimated GFR (MDRD) Amer 97 mL/min >60 [facility] Work Phone: Comment on above: GFR Calc Estimated GFR (MDRD) Non-Af Amer 80 mL/min >60 [facility] Work Phone: Comment on above: Non- GFR Calc Hepatitis A IgM Antibody Negative Negative [facility] Work Phone: Hepatitis B Core IgM Antibody Negative Negative [facility] Work Phone: Hepatitis C Antibody (EIA) <0.1 s/co ratio 0.0-0.9 [facility] Work Phone: Hepatitis C Antibody Comment Comment . [facility] Work Phone: Comment on above: NegativeNot infected with HCV, unless recent infection issuspected or other evidence exists to indicate HCVinfection. Immunoglobulin E 355 IU/mL 6-495 [facility] Work Phone: Platelets bldon 02-04-2022 Platelets (Bld) [#/Vol] 258 10*3/uL 150-450 [facility] Work Phone: Serum IgA measurement (units /volume)on 02-04-2022 IgA Qn (S) 223 mg/dL 87-352 [facility] Work Phone: Comment on above: Performed at: [email or web address] [address] [id number] Director: Cruz Davis PhD, Phone: [phone] Serum classic neutrophil cyt oplasmic antibody assay (units/volume)on 02-04-2022 Neutrophil cytoplasmic Ab.classic Qn (S) <1:20 titer Neg:<1:20 [facility] Work Phone: Serum or plasma C reactive p rotein measurement (mass/volume)on 02-04-2022 CRP [Mass/Vol] 7.21 mg/L 0.0-3.0 [facility] Work Phone: Comment on above: C-Reactive Protein ( CRP) provides useful information for thediagnosis, therapy and monitoring of inflammatory processesand associated diseases. For the evaluation of Relative Riskfor Cardiovascular Disease, a High Sensitivity CRP (HSCRP)should be ordered. Serum or plasma IgA measurem ent (mass/volume)on 02-04-2022 IgA [Mass/Vol] 223 mg/dL 87-352 [facility] Work Phone: Serum or plasma IgG measurem ent (mass/volume)on 02-04-2022 IgG [Mass/Vol] 1113 mg/dL 586-1602 [facility] Work Phone: Serum or plasma IgM measurem ent (mass/volume)on 02-04-2022 IgM [Mass/Vol] 46 mg/dL 26-217 [facility] Work Phone: Comment on above: Performed at: [email or web address] [address] [id number] Director: Cruz Davis PhD, Phone: [phone] at: [facility] [id number] Director: Nettie Lopez MD, Phone: [phone] Serum or plasma albumin tyler urement (mass/volume)on 02-04-2022 Albumin [Mass/Vol] 4.0 g/dL 3.2-5.0 [facility] Work Phone: Serum or plasma albumin/glob ulin mass ratioon 02-04-2022 Albumin/Globulin [Mass ratio] 1.1 {ratio} 0.9-2.4 [facility] Work Phone: Serum or plasma calcium tyler urement (mass/volume)on 02-04-2022 Calcium [Mass/Vol] 9.8 mg/dL 8.5-10.1 [facility] Work Phone: Serum or plasma creatinine m easurement (mass/volume)on 02-04-2022 Creatinine [Mass/Vol] 0.80 mg/dL 0.55-1.02 [facility] Work Phone: Comment on above: The validity of the calculated GFR & GFRAA in patients over 70 years has not been determined. Clinical correlation is essential. Serum or plasma hepatitis B virus surface antigen detection by immunoassayon 02-04-2022 HBV surface Ag IA Ql Negative Negative [facility] Work Phone: Serum or plasma urea nitroge n measurement (mass/volume)on 02-04-2022 Urea nitrogen [Mass/Vol] 18 mg/dL 7-18 [facility] Work Phone: Serum perinuclear neutrophil cytoplasmic antibody titer by immunofluorescenceon 02-04-2022 Neutrophil cytoplasmic Ab.perinuclear IF (S) [Titer] <1:20 titer Neg:<1:20 [facility] Work Phone: Comment on above: The presence of posi tive fluorescence exhibiting P-ANCA orC-ANCA patterns alone is not specific for the diagnosis ofWegener's Granulomatosis (WG) or microscopic polyangiitis.Decisions about treatment should not be based solely onANCA IFA results. The [employer] ANCA Group Consensusrecommends follow up testing of positive sera with both MD-3 and MPO-ANCA enzyme immunoassays. As many as 5% serumsamples are positive only by EIA. Ref. AM J Clin [id number];111:507-513. Serum tissue transglutaminas e IgA antibody assay (units/volume)on 02-04-2022 tTG IgA Qn (S) <2 U/mL 0-3 [facility] Work Phone: Comment on above: Negative 0 - 3 Weak Positive 4 - 10 Positive >10 Tissue Transglutaminase (tTG) has been identified as the endomysial antigen. Studies have demonstr- ated that endomysial IgA antibodies have over 99% specificity for gluten sensitive enteropathy. Thin prep Papanicolaou smear with manual screeningon 02-04-2022 Thin prep Papanicolaou smear with manual screening 39 U/L 15-37 [facility] Work Phone: Thin prep Papanicolaou smear with manual screening 6 5-15 [facility] Work Phone: Thin prep Papanicolaou smear with manual screening 214 U/L 84-246 [facility] Work Phone: Basophil percentageon 2021 Basophil percentage 0 SEEN /hpf 0-5 [facility] Work Phone: Bilirubin Test strip Ql (U)o n 11-25-2021 Bilirubin Ql (U) Negative Negative [facility] Work Phone: Ketones Test strip Ql (U)on 11-25-2021 Ketones Ql (U) Negative Negative [facility] Work Phone: Laboratory - Hematology and Cell countson 11-25-2021 HbA1c (Bld) [Mass fraction] 7.3 % 4.2-6.3 [facility] Work Phone: Mucus LM Ql (Urine sed)on Mucus Ql (Urine sed) 0 SEEN /hpf [facility] Work Phone: Nitrite Test strip Ql (U)on 11-25-2021 Nitrite Ql (U) Negative Negative [facility] Work Phone: Protein Test strip Ql (U)on 11-25-2021 Protein Ql (U) 15 mg/dl Negative [facility] Work Phone: Squamous epithelial cells de tection in urine sediment by light microscopyon 11-25-2021 Epithelial cells.squamous LM Ql (Urine sed) 0-5 SEEN /hpf 5-10 [facility] Work Phone: Urine blood detectionon 11-12 RBC Ql (U) 10 /ul Negative [facility] Work Phone: RBC Ql (U) 0 SEEN /hpf 0-5 [facility] Work Phone: [phone] Urine clarityon 11-25-2021 Clarity (U) Sl. Cloudy Clear [facility] Work Phone: [phone] Urine color determinationon 11-25-2021 Color (U) Yellow Yellow [facility] Work Phone: [phone] Urine glucose detectionon Glucose Ql (U) Normal mg/dl Normal [facility] Work Phone: Urine leukocyte esterase det ection by dipstickon 11-25-2021 Leukocyte esterase Test strip Ql (U) Negative Negative [facility] Work Phone: [phone] Urine pHon 11-25-2021 pH (U) 6.0 [pH] 5.0 - 8.0 [facility] Work Phone: Urine sediment bacteria coun t by microscopy (number/high power field)on 11-25-2021 Bacteria LM.HPF (Urine sed) [#/Area] RARE /hpf None Seen [facility] Work Phone: [phone] Urine specific gravity measu rementon 11-25-2021 Specific gravity (U) [Rel density] 1.020 1.002-1.03 0 [facility] Work Phone: [phone] Urobilinogen Auto test strip Ql (U)on 11-25-2021 Urobilinogen Ql (U) Normal mg/dl Normal [facility] Work Phone: Glucose,Bedsideon 06-07-2018 Glucose mass conc 161 mg/dL High 70-100 [facility] Comment on above: Result Comment: Test performed by glucose meter. Results may be 10%-15% lowerthan serum/plasma values. (CLIA ID [id number]) Performed By: #### B GLU ####[facility] [place] [address] Glucose mass conc 147 mg/dL High 70-100 [facility] Comment on above: Result Comment: Test performed by glucose meter. Results may be 10%-15% lowerthan serum/plasma values. (CLIA ID [id number]) Performed By: #### B GLU ####[facility] [place] [address] Op Noteon 06-07-2018 Op Note DICT# [id number] Normal [facility] Op Note PATIENT: BILLIE HARDIN RECORD #: [id number] DATE: 06/07/2018SURGERY DATE: 06/07/2018ACCOUNT #: [id number] OF : 1965AGE: 53ADMITTING PHYSICIAN: Brandon Garcia MDATTENDING PHYSICIAN: LILIANA RodarteICTATING PHYSICIAN: Brandon Garcia MD OPERATIVE RECORDPROCEDURE: ARTHROSCOPY, LEFT KNEE WITH MEDIAL AND LATERALMENISCECTOMY.PREOPER ATIVE DIAGNOSIS: Medial meniscal tear, left knee.POSTOPERATIVE DIAGNOSIS: Medial and lateral meniscal tear withdegenerative joint disease, left knee.ANESTHESIA: General.SPECIAL WARFARE OPERATOR: ST. MalikESTIMATED BLOOD LOSS: Less than 10 mL.BLOOD GIVEN: None.FLUIDS: Crystalloids.OPERATIVE INDICATIONS: This is a 53-year-old female with mechanicalsymptoms in her left knee. She hasmild to moderate DJD. MRI scan confirmed a medial meniscal tear. Sheis admitted for arthroscopy.OPERATIVE FINDINGS: Consists the above history and physical exam. Shehad grade 2 chondromalacia ofall 3 compartments of the knee. No formal chondroplasties wereneeded. She had a complex tear of themedial meniscus with a vertical split through the posterior horn. Shehad a flap tear basedposteriorly and posterior third. We resected the posterior third ofthe meniscus back to a stable baseand smoothed with a shaver. She had a small lateral meniscal tearthat we resected as well. Shetolerated the procedure well and was taken to the recovery room ingood condition.DESCRIPTION OF PROCEDURE: The patient was taken to the operative suitewhere a general anesthetic wasinduced satisfactorily. Exam under anesthesia showed that she hadligamentously stable and good rangeof motion. We then placed a tourniquet high in her thigh and thenprepped and draped the left leg in asterile fashion in a leg todd. Right leg was padded well.We did a diagnostic arthroscopy using a superolateral outflow andanterolateral and anteromedialworking portal. We evaluated the suprapatellar pouch. She hadmoderate synovitis. Patellofemoraljoint showed some grade 2 chondromalacia, but no chondral flaps.Medial and lateral gutters wereintact.We looked in the medial compartment. She had again some grade 2changes of the medial compartment, butno chondral flaps. She had a complex tear of the medial meniscus inthe posterior 3rd. It had avertical split in the posterior root of the meniscus. She had a flaptear based posteriorly in theposterior third. We resected all this back to a stable base andsmoothed it with the shaver andArthroCare. The meniscus was stable to probing when we finished. Welightly touched the medialfemoral condyle to remove some of the grade 2 changes, but no formalchondroplasty was done.We looked in the intercondylar notch and found intact ACL. We lookedin the lateral compartment andfound a small tear of the free edge of lateral meniscus in the eerdzb1ea. I resected this back to astable base and smoothed it with a shaver. She had some scuffing ofthe anterior horn, but nofull-thickness tear. This was debrided with a shaver and ArthroCare,but was stable. She had a smallchondral lesion with early grade 2 changes on the lateral compartment,but again no loose chondralflaps. We then thoroughly irrigated the knee and removed the fluid.We injected Marcaine and theclosed the portal with 4-0 Prolene. Compressive gauze dressing wasapplied. The patient tolerated theprocedure well and was taken to the recovery room in good condition.cc: Brandon Garcia M.D.Brandon Garcia, MDDOD:06/07/2018 08:24 A ANGELINE/gabrielkDOT:06/07/2018 09:35 AJob Number: [id number] Number: [id number]: Brandon Garcia MD [address] [place] [address] Normal [facility] Comp Metabolic Panelon 05-18 Calcium mass conc 10.0 mg/dL Normal 8.4-10.4 [facility] Comment on above: Performed By: #### H EMOWilfred, CMP3 ####[facility] [address] [place] [address] ALP enzyme act/vol 94 U/L Normal 38-126 [facility] Comment on above: Performed By: #### H EMOG, CMP3 ####[facility] [employer] [place] [address] ALT enzyme act/vol 53 U/L Normal 13-69 [facility] Comment on above: Performed By: #### H EMOWilfred, CMP3 ####[facility] [place] [id number] [place] [address] Anion gap 3 molar conc 11 Normal [facility] Comment on above: Performed By: #### H EMOWilfred CMP3 ####[facility] [employer] [id number] [place] [address] AST enzyme act/vol 28 U/L Normal 15-46 [facility] Comment on above: Performed By: #### H EMOWilfred CMP3 ####[facility] [employer] [address] [place] [address] CO2 molar conc 29 mmol/L Normal 22-30 [facility] Comment on above: Performed By: #### H EMOWilfred, CMP3 ####[facility] [address] [id number] [place] [address] Glucose mass conc 134 mg/dL High 70-100 [facility] Comment on above: Performed By: #### H EMOG, CMP3 ####[facility] [employer] [address] [place] [address] Protein mass conc 7.5 g/dL Normal 6.3-8.2 [facility] Comment on above: Performed By: #### H EMOG, CMP3 ####[facility] [address] [id number] [place] [address] Urea nitrogen mass conc 21 mg/dL High 7-20 [facility] Comment on above: Performed By: #### H EMOWilfred CMP3 ####[place] [address] [place] [address] Bilirubin mass conc 0.8 mg/dL Normal 0.2-1.3 [facility] Comment on above: Performed By: #### Isiah TORRES CMP3 ####[place] [address] [place] [address] Creatinine mass conc 0.85 mg/dL Normal 0.52-1.25 [facility] Comment on above: Performed By: #### Isiah TORRES CMP3 ####[place] [address] [place] [address] GFR/1.73 sq M predicted among blacks MDRD vol rate/area (S/P/Bld) mL/min/{1.73_m2} Normal >60 [facility] Comment on above: Performed By: #### Isiah TORRES CMP3 ####[place] [address] [place] [address] GFR/1.73 sq M predicted among non-blacks MDRD vol rate/area (S/P/Bld) mL/min/{1.73_m2} Normal >60 [facility] Comment on above: Result Comment: Sour ce- MDRD equation with creatinine calibration to IDMS(NKDEP) eGFR not recommended for drug dose adjustment Performed By: #### Isiah TORRES CMP3 ####[facility] [employer] [place] [address] [place] [address] Albumin mass conc 4.7 g/dL Normal 3.5-5.0 [facility] Comment on above: Performed By: #### Isiah TORRES CMP3 ####[place] [address] [place] [address] Chloride molar conc 100 mmol/L Normal 98-107 [facility] Comment on above: Performed By: #### Isiah TORRES CMP3 ####[facility] [employer] [place] [address] [place] [address] Potassium molar conc 4.4 mmol/L Normal 3.5-5.1 [facility] Comment on above: Performed By: #### Isiah TORRES CMP3 ####[place] [address] [place] [address] Sodium molar conc 139 mmol/L Normal 137-145 [facility] Comment on above: Performed By: #### H EMOG, CMP3 ####[facility] [place] [address] [place] [address] Hemogramon 05-18-2018 Erythrocyte distribution width Auto Ratio (RBC) 13.5 % Normal 11.5-14.5 [facility] Comment on above: Performed By: #### H EMOG, CMP3 ####[facility] [address] [place] [address] Hematocrit Auto Volume Fraction (Bld) 41.5 % Normal 35.0-47.0 [facility] Comment on above: Performed By: #### H EMOG, CMP3 ####[facility] [address] [address] [place] [address] Hemoglobin mass conc (Bld) 14.3 g/dL Normal 11.7-16.0 [facility] Comment on above: Performed By: #### H EMOG, CMP3 ####[facility] [address] [id number] [place] [address] MCH Auto Entitic mass (RBC) 29.7 pg Normal 26.0-34.0 [facility] Comment on above: Performed By: #### H EMOG, CMP3 ####[facility] [address] [place] [address] MCHC Auto mass conc (RBC) 34.5 % Normal 32.0-36.0 [facility] Comment on above: Performed By: #### H EMOG, CMP3 ####[facility] [id number] [place] [address] MCV Auto Entitic volume (RBC) 86.3 fL Normal 79.0-98.0 [facility] Comment on above: Performed By: #### H EMOG, CMP3 ####[facility] [address] [place] [address] Platelet mean volume Auto Entitic volume (Bld) 7.4 fL Normal 7.4-10.4 [facility] Comment on above: Performed By: #### H EMOG, CMP3 ####[facility] [id number] [place] [address] Platelets Auto #/vol (Bld) 257 10*3/uL Normal 140-440 [facility] Comment on above: Performed By: #### H EMOG, CMP3 ####[facility] [place] [address] RBC Auto #/vol (Bld) 4.81 10*6/uL Normal 3.80-5.20 [facility] Comment on above: Performed By: #### H EMOG, CMP3 ####[facility] [place] [address] WBC Auto #/vol (Bld) 6.7 10*3/uL Normal 3.6-10.7 [facility] Comment on above: Performed By: #### H EMOG, CMP3 ####[facility] [place] [address] CR Knee Standing Bilateralon 04-04-2018 CR Knee Standing Bilateral Patient Name: TRAN HARDIN Diagnostic Radiology Exam Date/Time 04/04/2018 15:15:15 EDT Exam CR Knee Standing AP Bilateral Ordering Physician MD GARCIA DONALD L. Accession Number [id number] CPT4 Codes 41563 () Reason For Exam pain Report FRONTAL [...] Report Dictated on Final Dictating Physician: MD THADDEUS, HIGINIO Signed Date and Time: 04/04/2018 6:04 pm Signed by: MD TRAVIS AHMAD Transcribed Date and Time: 04/04/2018 6:05 Normal [facility] MRI Low Ext Joint w/o Contra st Lefton 03-30-2018 MRI Low Ext Joint w/o Contrast Left Patient Name: TRAN HARDIN MRI Exam Date/Time 03/30/2018 11:59:55 EDT Exam MRI Low Ext Joint w/o Contrast Left Ordering Physician MD YOGESH, BRANDON DunhamLashanda Accession Number [id number] CPT4 Codes 63823 () Reason For Exam pain Report Exam [...] NEIL Transcribed Date and Time: 03/30/2018 12:42 Normal [facility] Vital Signs Date Time Vital Sign Value Performing Clinician Faci lity 01-24-2025 08:02-0400 Body height 170.[address] Bobby Stinson DO Work Phone: [facility] 01-24-2025 08:02-0400 Body temperature 98.2 [degF] Dr. Bobby Stinson DO Work Phone: [facility] 01-24-2025 08:02-0400 Diastolic blood pressure 71 mm[Hg] Dr. Bobby Stinson DO Work Phone: [facility] 01-24-2025 08:02-0400 Heart rate 87 /min Dr. Bobby Stinson DO Work Phone: [facility] 01-24-2025 08:02-0400 Respiratory rate 18 /min Dr. Bobby Stinson DO Work Phone: [facility] 01-24-2025 08:02-0400 SaO2% (BldA) [Mass fraction] 95 % Dr. Bobby Stinson DO Work Phone: [facility] 01-24-2025 08:02-0400 Systolic blood pressure 109 mm[Hg] Dr. Bobby Stinson DO Work Phone: [facility] 01-10-2025 08:42-0400 Diastolic blood pressure 79 mm[Hg] Dr. Bobby Stinson DO Work Phone: [facility] 01-10-2025 08:42-0400 Heart rate 89 /min Dr. Bobby Stinson DO Work Phone: [facility] 01-10-2025 08:42-0400 Respiratory rate 18 /min Dr. Bobby Stinson DO Work Phone: [facility] 01-10-2025 08:42-0400 SaO2% (BldA) [Mass fraction] 98 % Dr. Bobby Stinson DO Work Phone: [facility] 01-10-2025 08:42-0400 Systolic blood pressure 131 mm[Hg] Dr. Bobby Stinson DO Work Phone: [facility] 01-03-2025 10:11-0400 Body height 170.[address] Bobby Stinson DO Work Phone: [facility] 01-03-2025 10:11-0400 Body temperature 99.3 [degF] Dr. Bobby Stinson DO Work Phone: [facility] 01-03-2025 10:11-0400 Diastolic blood pressure 82 mm[Hg] Dr. Bobby Stinson DO Work Phone: [facility] 01-03-2025 10:11-0400 Heart rate 80 /min Dr. Bobby Stinson DO Work Phone: [facility] 01-03-2025 10:11-0400 Respiratory rate 18 /min Dr. Bobby Stinson DO Work Phone: [facility] 01-03-2025 10:11-0400 SaO2% (BldA) [Mass fraction] 96 % Dr. Bobby Stinson DO Work Phone: [facility] 01-03-2025 10:11-0400 Systolic blood pressure 135 mm[Hg] Dr. Bobby Stinson DO Work Phone: [facility] 12-27-2024 09:17-0400 Body height 170.[address] Bobby Stinson DO Work Phone: [facility] 12-27-2024 09:17-0400 Body temperature 98.9 [degF] Dr. Bobby Stinson DO Work Phone: [facility] 12-27-2024 09:17-0400 Diastolic blood pressure 81 mm[Hg] Dr. Bobby Stinson DO Work Phone: [facility] 12-27-2024 09:17-0400 Heart rate 98 /min Dr. Bobby Stinson DO Work Phone: [facility] 12-27-2024 09:17-0400 Respiratory rate 18 /min Dr. Bobby Stinson DO Work Phone: [facility] 12-27-2024 09:17-0400 SaO2% (BldA) [Mass fraction] 95 % Dr. Bobby Stinson DO Work Phone: [facility] 12-27-2024 09:17-0400 Systolic blood pressure 132 mm[Hg] Dr. Bobby Stinson DO Work Phone: [facility] 12-18-2024 17:24-0400 Body temperature 98.6 [degF] Dr. Bobby Stinson DO Work Phone: [facility] 12-18-2024 17:24-0400 Diastolic blood pressure 68 mm[Hg] Dr. Bobby Stinson DO Work Phone: [facility] 12-18-2024 17:24-0400 Heart rate 78 /min Dr. Bobby Stinson DO Work Phone: [facility] 12-18-2024 17:24-0400 Respiratory rate 16 /min Dr. Bobby Stinson DO Work Phone: [facility] 12-18-2024 17:24-0400 SaO2% (BldA) [Mass fraction] 100 % Dr. Bobby Stinson DO Work Phone: [facility] 12-18-2024 17:24-0400 Systolic blood pressure 144 mm[Hg] Dr. Bobby Stinson DO Work Phone: [facility] 12-18-2024 12:55-0400 Body height 170.[address] Bobby Stinson DO Work Phone: [facility] 12-18-2024 12:55-0400 Body mass index (BMI) [Ratio] 42.3 kg/m2 Dr. Bobby Stinson DO Work Phone: [facility] 12-18-2024 12:55-0400 Body weight 122.[address] Bobby Stinson DO Work Phone: [facility] 11-12-2024 14:33-0400 Body mass index (BMI) [Ratio] 42.7 kg/m2 Dr. Bobby Stinson DO Work Phone: [facility] 11-12-2024 14:33-0400 Body temperature 97.3 [degF] Dr. Bobby Stinson DO Work Phone: [facility] 11-12-2024 14:33-0400 Body weight 120.[address] Bobby Stinson DO Work Phone: [facility] 11-12-2024 14:33-0400 Diastolic blood pressure 58 mm[Hg] Dr. Bobby Stinson DO Work Phone: [facility] 11-12-2024 14:33-0400 Heart rate 81 /min Dr. Bobby Stinson DO Work Phone: [facility] 11-12-2024 14:33-0400 Respiratory rate 16 /min Dr. Bobby Stinson DO Work Phone: [facility] 11-12-2024 14:33-0400 SaO2% (BldA) [Mass fraction] 96 % Dr. Bobby Stinson DO Work Phone: [facility] 11-12-2024 14:33-0400 Systolic blood pressure 118 mm[Hg] Dr. Bobby Stinson DO Work Phone: [facility] 10-23-2024 07:36-0400 Body mass index (BMI) [Ratio] 44 kg/m2 Dr. Bobby Stinson DO Work Phone: [facility] 10-23-2024 07:36-0400 Body temperature 97.9 [degF] Dr. Bobby Stinson DO Work Phone: [facility] 10-23-2024 07:36-0400 Body weight 123.[address] Bobby Stinson DO Work Phone: [facility] 10-23-2024 07:36-0400 Diastolic blood pressure 78 mm[Hg] Dr. Bobby Stinson DO Work Phone: [facility] 10-23-2024 07:36-0400 Heart rate 92 /min Dr. Bobby Stinson DO Work Phone: [facility] 10-23-2024 07:36-0400 Respiratory rate 16 /min Dr. Bobby Stinson DO Work Phone: [facility] 10-23-2024 07:36-0400 SaO2% (BldA) [Mass fraction] 96 % Dr. Bobby Stinson DO Work Phone: [facility] 10-23-2024 07:36-0400 Systolic blood pressure 116 mm[Hg] Dr. Bobby Stinson DO Work Phone: [facility] 08-29-2024 11:03-0500 Body height 165.7 cm Noreen Barton [employer] Work Phone: [facility] 08-29-2024 11:03-0500 Body mass index (BMI) [Ratio] 45.7 kg/m2 Noreen Barton [employer] Work Phone: [facility] 08-29-2024 11:03-0500 Body weight 125.47 kg Noreen Barton [employer] Work Phone: [facility] 08-29-2024 11:03-0500 Diastolic blood pressure 70 mm[Hg] Noreen An[place]ell [employer] Work Phone: [facility] 08-29-2024 11:03-0500 Systolic blood pressure 124 mm[Hg] Noreen Barton [employer] Work Phone: [facility] 08-03-2023 10:10-0500 Body temperature 97.6 [degF] Dr. Bobby Stinson Work Phone: [facility] 08-03-2023 10:10-0500 Diastolic blood pressure 62 mm[Hg] Dr. Bobby Stinson Work Phone: [facility] 08-03-2023 10:10-0500 Heart rate 79 /min Dr. Bobby Stinson Work Phone: [facility] 08-03-2023 10:10-0500 Respiratory rate 16 /min Dr. Bobby Stinson Work Phone: [facility] 08-03-2023 10:10-0500 SaO2% (BldA) [Mass fraction] 98 % Dr. Bobby Stinson Work Phone: [facility] 08-03-2023 10:10-0500 Systolic blood pressure 121 mm[Hg] Dr. Bobby Stinson Work Phone: [facility] 08-03-2023 08:51-0500 Body height 170.[address] Bobby Stinson Work Phone: [facility] 08-03-2023 08:51-0500 Body mass index (BMI) [Ratio] 45.1 kg/m2 Dr. Bobby Stinson Work Phone: [facility] 08-03-2023 08:51-0500 Body weight 130.[address] Bobby Stinson Work Phone: [facility] 07-03-2023 09:58-0500 Body mass index (BMI) [Ratio] 45.1 kg/m2 Dr. Bobby Stinson Work Phone: [facility] 07-03-2023 09:58-0500 Body weight [address] Bobby Stinson Work Phone: [facility] 06-08-2023 08:34-0400 Body temperature 96.9 [degF] Dr. Bobby Stinson Work Phone: [facility] 06-08-2023 08:34-0400 Diastolic blood pressure 78 mm[Hg] Dr. Bobby Stinson Work Phone: [facility] 06-08-2023 08:34-0400 Heart rate 85 /min Dr. Bobby Stinson Work Phone: [facility] 06-08-2023 08:34-0400 Respiratory rate 18 /min Dr. Bobby Stinson Work Phone: [facility] 06-08-2023 08:34-0400 SaO2% (BldA) [Mass fraction] 98 % Dr. Bobby Stinson Work Phone: [facility] 06-08-2023 08:34-0400 Systolic blood pressure 122 mm[Hg] Dr. Bobby Stinson Work Phone: [facility] 06-08-2023 06:43-0400 Body height 165.[address] Bobby Stinson Work Phone: [facility] 06-08-2023 06:43-0400 Body mass index (BMI) [Ratio] 47.3 kg/m2 Dr. Bobby Stinson Work Phone: [facility] 06-08-2023 06:43-0400 Body weight [address] Bobby Stinson Work Phone: [facility] 04-12-2023 14:13-0400 Body mass index (BMI) [Ratio] 48.6 kg/m2 Dr. Bobby Stinson Work Phone: [facility] 04-12-2023 14:13-0400 Body temperature 96.9 [degF] Dr. Bobby Stinson Work Phone: [facility] 04-12-2023 14:13-0400 Body weight 132.[address] Bobby Stinson Work Phone: [facility] 04-12-2023 14:13-0400 Diastolic blood pressure 80 mm[Hg] Dr. Bobby Stinson Work Phone: [facility] 04-12-2023 14:13-0400 Heart rate 83 /min Dr. Bobby Stinson Work Phone: [facility] 04-12-2023 14:13-0400 Respiratory rate 16 /min Dr. Bobby Stinson Work Phone: [facility] 04-12-2023 14:13-0400 SaO2% (BldA) [Mass fraction] 96 % Dr. Bobby Stinson Work Phone: [facility] 04-12-2023 14:13-0400 Systolic blood pressure 122 mm[Hg] Dr. Bobby Stinson Work Phone: [facility] 08-12-2022 11:43-0500 Diastolic blood pressure 80 mm[Hg] Dr. Bobby Stinson Work Phone: [facility] 08-12-2022 11:43-0500 Heart rate 92 /min Dr. Bobby Stinson Work Phone: [facility] 08-12-2022 11:43-0500 Respiratory rate 16 /min Dr. Bobby Stinson Work Phone: [facility] 08-12-2022 11:43-0500 Systolic blood pressure 124 mm[Hg] Dr. Bobby Stinson Work Phone: [facility] 08-11-2022 13:30-0500 Body height 170.[address] Bobby Stinson Work Phone: [facility] 08-11-2022 13:30-0500 Body temperature 98.7 [degF] Dr. Bobby Stinson Work Phone: [facility] 08-11-2022 13:30-0500 Diastolic blood pressure 98 mm[Hg] Dr. Bobby Stinson Work Phone: [facility] 08-11-2022 13:30-0500 Heart rate 105 /min Dr. Bobby Stinson Work Phone: [facility] 08-11-2022 13:30-0500 Respiratory rate 16 /min Dr. Bobby Stinson Work Phone: [facility] 08-11-2022 13:30-0500 SaO2% (BldA) [Mass fraction] 96 % Dr. Bobby Stinson Work Phone: [facility] 08-11-2022 13:30-0500 Systolic blood pressure 152 mm[Hg] Dr. Bobby Stinson Work Phone: [facility] 07-19-2022 14:18-0500 Body height 170.[address] Bobby Stinson Work Phone: [facility] Work Phone: 07-19-2022 14:18-0500 Body mass index (BMI) [Ratio] 43.7 kg/m2 Dr. Bobby Stinson Work Phone: [facility] 07-19-2022 14:18-0500 Body temperature 98.9 [degF] Dr. Bobby Stinson Work Phone: [facility] 07-19-2022 14:18-0500 Body weight 126.[address] Bobby Stinson Work Phone: [facility] 07-19-2022 14:18-0500 Diastolic blood pressure 98 mm[Hg] Dr. Bobby Stinson Work Phone: [facility] 07-19-2022 14:18-0500 Heart rate 100 /min Dr. Bobby Stinson Work Phone: [facility] 07-19-2022 14:18-0500 Respiratory rate 16 /min Dr. Bobby Stinson Work Phone: [facility] 07-19-2022 14:18-0500 SaO2% (BldA) [Mass fraction] 94 % Dr. Bobby Stisnon Work Phone: [facility] 07-19-2022 14:18-0500 Systolic blood pressure 106 mm[Hg] Dr. Bobby Stinson Work Phone: [facility] 07-05-2022 14:12-0500 Body height 170.[address] Bobby Stinson Work Phone: [facility] Work Phone: 07-05-2022 14:12-0500 Body mass index (BMI) [Ratio] 44.1 kg/m2 Dr. Bobby Stinson Work Phone: [facility] 07-05-2022 14:12-0500 Body temperature 97.3 [degF] Dr. Bobby Stinson Work Phone: [facility] 07-05-2022 14:12-0500 Body weight 127.[address] Bobby Stinson Work Phone: [facility] 07-05-2022 14:12-0500 Diastolic blood pressure 78 mm[Hg] Dr. Bobby Stinson Work Phone: [facility] 07-05-2022 14:12-0500 Heart rate 78 /min Dr. Bobby Stinson Work Phone: [facility] 07-05-2022 14:12-0500 Respiratory rate 16 /min Dr. Bobby Stinson Work Phone: [facility] 07-05-2022 14:12-0500 SaO2% (BldA) [Mass fraction] 99 % Dr. Bobby Stinson Work Phone: [facility] 07-05-2022 14:12-0500 Systolic blood pressure 98 mm[Hg] Dr. Bobby Stinson Work Phone: [facility] 06-23-2022 07:50-0500 Body height 165.1 cm Noreen Anabell [employer] Work Phone: [facility] 06-23-2022 07:50-0500 Body weight 130.64 kg Noreen Barton [employer] Work Phone: [facility] 06-23-2022 07:50-0500 Diastolic blood pressure 72 mm[Hg] Noreen Anabell [employer] Work Phone: [facility] 06-23-2022 07:50-0500 Systolic blood pressure 116 mm[Hg] Noreen Anabell [employer] Work Phone: [facility] 04-26-2022 12:55-0400 Body temperature 97.8 [degF] Dr. Bobby Stinson Work Phone: [facility] Work Phone: 04-26-2022 12:55-0400 Diastolic blood pressure 56 mm[Hg] Dr. Bobby Stinson Work Phone: [facility] Work Phone: 04-26-2022 12:55-0400 Heart rate 84 /min Dr. Bobby Stinson Work Phone: [facility] Work Phone: 04-26-2022 12:55-0400 Respiratory rate 16 /min Dr. Bobby Stinson Work Phone: [facility] Work Phone: 04-26-2022 12:55-0400 SaO2% (BldA) [Mass fraction] 98 % Dr. Bobby Stinson Work Phone: [facility] Work Phone: 04-26-2022 12:55-0400 Systolic blood pressure 86 mm[Hg] Dr. Bobby Stinson Work Phone: [facility] Work Phone: 04-26-2022 11:31-0400 Body height 170.[address] Bobby Stinson Work Phone: [facility] Work Phone: 04-26-2022 11:31-0400 Body mass index (BMI) [Ratio] 45.6 kg/m2 Dr. Bobby Stinson Work Phone: [facility] Work Phone: 04-26-2022 11:31-0400 Body weight [address] Bobby Stinson Work Phone: [facility] Work Phone: 11-25-2021 14:12-0400 Body height 167.[address] Bobby Stinson Work Phone: [facility] Work Phone: 11-25-2021 14:12-0400 Body mass index (BMI) [Ratio] 46.3 kg/m2 Dr. Bobby Stinson Work Phone: [facility] Work Phone: 11-25-2021 14:12-0400 Body temperature 97.9 [degF] Dr. Bobby Stinson Work Phone: [facility] Work Phone: 11-25-2021 14:12-0400 Body weight 130.[address] Bobby Stinson Work Phone: [facility] Work Phone: 11-25-2021 14:12-0400 Diastolic blood pressure 86 mm[Hg] Dr. Bobby Stinson Work Phone: [facility] Work Phone: 11-25-2021 14:12-0400 Heart rate 89 /min Dr. Bobby Stinson Work Phone: [facility] Work Phone: 11-25-2021 14:12-0400 Respiratory rate 14 /min Dr. Bobby Stinson Work Phone: [facility] Work Phone: 11-25-2021 14:12-0400 SaO2% (BldA) [Mass fraction] 96 % Dr. Bobby Stinson Work Phone: [facility] Work Phone: 11-25-2021 14:12-0400 Systolic blood pressure 124 mm[Hg] Dr. Bobby Stinson Work Phone: [facility] Work Phone: 11-25-2021 14:12-0400 Body height 167.[address] Bobby Stinson Work Phone: [facility] Work Phone: 11-25-2021 14:12-0400 Body mass index (BMI) [Ratio] 46.3 kg/m2 Dr. Bobby Stinson Work Phone: [facility] Work Phone: 11-25-2021 14:12-0400 Body temperature 97.9 [degF] Dr. Bobby Stinson Work Phone: [facility] Work Phone: 11-25-2021 14:12-0400 Body weight 130.[address] Bobby Stinson Work Phone: [facility] Work Phone: 11-25-2021 14:12-0400 Diastolic blood pressure 86 mm[Hg] Dr. Bobby Stinson Work Phone: [facility] Work Phone: 11-25-2021 14:12-0400 Heart rate 89 /min Dr. Bobby Stinson Work Phone: [facility] Work Phone: 11-25-2021 14:12-0400 Respiratory rate 14 /min Dr. Bobby Stinson Work Phone: [facility] Work Phone: 11-25-2021 14:12-0400 SaO2% (BldA) [Mass fraction] 96 % Dr. Bobby Stinson Work Phone: [facility] Work Phone: 11-25-2021 14:12-0400 Systolic blood pressure 124 mm[Hg] Dr. Bobby Stinson Work Phone: [facility] Work Phone: 09-08-2021 10:44-0500 Body mass index (BMI) [Ratio] 47 kg/m2 Dr. Bobby Stinson Work Phone: [facility] Work Phone: 09-08-2021 10:44-0500 Body weight 131.[address] Bobby Stinson Work Phone: [facility] Work Phone: 09-08-2021 10:44-0500 Diastolic blood pressure 80 mm[Hg] Dr. Bobby Stinson Work Phone: [facility] Work Phone: 09-08-2021 10:44-0500 Heart rate 88 /min Dr. Bobby Stinson Work Phone: [facility] Work Phone: 09-08-2021 10:44-0500 Respiratory rate 16 /min Dr. Bobby Stinson Work Phone: [facility] Work Phone: 09-08-2021 10:44-0500 SaO2% (BldA) [Mass fraction] 96 % Dr. Bobby Stinson Work Phone: [facility] Work Phone: 09-08-2021 10:44-0500 Systolic blood pressure 126 mm[Hg] Dr. Bobby Stinson Work Phone: [facility] Work Phone: Encounters Encounter Date Encounter Type Care Provider Facility Start: 01-24-2025 End: 01-24-[address] Caleb Corley MD -[facility] Work Phone: Start: 01-24-2025 End: 01-24-[address] Bobby Stinson DO Work Phone: [facility] Work Phone: Start: 01-10-2025 End: 01-10-[address] Bobby Stinson DO Work Phone: [facility] Work Phone: Start: 01-10-2025 End: 01-10-[address] Caleb Corley MD -[facility] Work Phone: Start: 01-03-2025 End: 01-03-[address] Caleb Corley MD -[facility] Work Phone: Start: 01-03-2025 End: 01-03-2025 ambulatory Bobby Stinson [facility] [facility] [place] Start: 12-27-2024 End: 12-27-[address] Caleb Corley MD -[facility] Work Phone: Start: 12-27-2024 End: 12-27-[address] Bobby Stinson DO Work Phone: [facility] Work Phone: Start: 12-20-2024 End: 12-20-[address] Caleb Corley MD -[facility] Work Phone: Start: 12-20-2024 End: 12-20-2024 ambulatory Bobby Stinson Facility:[facility] Start: 12-18-2024 ambulatory Caleb Corley Facility:[facility] Start: 12-18-2024 Non-patient / Non-visit Dr. Caleb Corley MD -[facility] Start: 12-18-2024 End: 12-18-2024 Admission to same day surgery center Dr. Caleb Corley MD -[facility] Start: 12-18-2024 End: 12-18-[address] Bobby Stinson DO Work Phone: [facility] Work Phone: Start: 11-29-2024 End: 11-29-[address] Caleb Corley MD -[facility] Work Phone: Start: 11-29-2024 End: 11-29-2024 ambulatory Bobby Stinson Facility:[facility] Start: 11-29-2024 End: 11-29-2024 ambulatory Bobby Stinson Facility:[facility] Start: 11-12-2024 End: 11-12-[address] Bobby De La Cruz DO -[facility] Work Phone: Start: 11-12-2024 End: 11-12-2024 ambulatory Bobby Stinson Facility:[facility] Start: 10-23-2024 End: 10-23-[address] Juan Mclean MD -[facility] Work Phone: Start: 10-23-2024 End: 10-23-2024 ambulatory Bobby Stinson Facility:[facility] Start: 08-29-2024 End: 08-29-2024 Subsequent hospital visit by physician Screen Mammo [facility] Mammogram Comment on above: Encounter for screen ing mammogram for malignant neoplasm of breast [Z12.31] Start: 08-29-2024 End: 08-29-2024 ambulatory NOREEN HUNG Facility:[facility] Start: 08-29-2024 End: 08-29-2024 Patient encounter procedure Noreen Hung APRN.YARN HANDLER Work Phone: OB/Gynecology Comment on above: Encounter for gyneco logical examination (general) (routine) without abnormal findings (Primary Dx); Encounter for screening mammogram for breast cancer Start: 08-29-2024 End: 08-29-2024 Patient encounter status Noreen Hung APRN.YARN HANDLER Work Phone: [facility] Start: 07-15-2024 End: 07-16-2024 Telephone encounter Noreen Hung APRN.YARN HANDLER Work Phone: OB/Gynecology Comment on above: Orders (mammogram) Start: 05-14-2024 End: 05-14-2024 ambulatory Bobby Stinson Facility:[facility] Start: 05-08-2024 End: 05-08-2024 ambulatory Bobby Stinson Facility:[facility] Start: 04-26-2024 End: 04-26-2024 ambulatory Bobby Stinson Facility:[facility] Start: 04-05-2024 End: 04-05-2024 ambulatory Bobby Stinson Facility:[facility] Start: 08-03-2023 Non-patient / Non-visit Dr. Bobby Stinson Work Phone: [facility] Start: 08-03-2023 End: 08-03-2023 Admission to same day surgery center Dr. Bobby Stinson Work Phone: [facility] Work Phone: Start: 08-03-2023 End: 08-03-[address] Bobby Stinson Work Phone: [facility] Work Phone: Start: 07-03-2023 Non-patient / Non-visit Dr. Bobby Stinson Work Phone: [facility] Work Phone: Start: 06-26-2023 Documentation procedure Mammography Coordinator [facility] Start: 06-26-2023 Letter encounter Mammography Coordinator [facility] Department Start: 06-08-2023 End: 06-08-2023 Admission to same day surgery center [facility] Start: 06-08-2023 End: 06-08-[address] Bobby Stinson Work Phone: [facility] Work Phone: Start: 06-07-2023 End: 06-07-[address] Bobby Stinson Work Phone: [facility] Work Phone: Start: 06-05-2023 End: 06-05-[address] Bobby Stinson Work Phone: [facility] Work Phone: Start: 04-12-2023 End: 04-12-[address] Bobby Stinson Work Phone: [facility] Work Phone: Start: 02-22-2023 Telephone encounter Joselyn Russ [address] Comment on above: Orders Start: 09-05-2022 End: 09-05-[address] Bobby Stinson Work Phone: [facility] Work Phone: Start: 09-05-2022 End: 09-05-[address] Bobby Stinson Work Phone: [facility] Start: 08-12-2022 End: 08-12-[address] Bobby Stinson Work Phone: [facility] Start: 08-11-2022 Non-patient / Non-visit Dr. Bobby Stinson Work Phone: [facility] Start: 08-11-2022 End: 08-11-[address] Bobby Stinson Work Phone: [facility] Start: 08-09-2022 End: 08-09-[address] Bobby Stinson Work Phone: [facility] Start: 07-28-2022 End: 07-28-[address] Bobby Stinson Work Phone: [facility] Work Phone: Start: 07-28-2022 End: 07-28-[address] Bobby Stinson Work Phone: [facility]Labor[facility] Start: 07-19-2022 End: 07-19-[address] Bobby Stinson Work Phone: [facility] Work Phone: Start: 07-19-2022 End: 07-19-[address] Bobby Stinson Work Phone: [facility] Start: 07-05-2022 End: 07-05-[address] Bobby Stinson Work Phone: [facility] Work Phone: Start: 07-05-2022 End: 07-05-[address] Bobby Stinson Work Phone: [facility] Start: 06-27-2022 Documentation procedure Mammography Coordinator [facility] Start: 06-27-2022 Letter encounter Mammography Coordinator [facility] Department Start: 06-24-2022 End: 06-24-2022 Subsequent hospital visit by physician Screen Mammo [facility] M[facility]ogram Comment on above: Encounter for screen ing mammogram for breast cancer [Z12.31] Start: 06-23-2022 End: 06-23-2022 Patient encounter procedure Noreen Hung APRN.YARN HANDLER Work Phone: OB/Gynecology Comment on above: Encounter for gyneco logical examination (general) (routine) without abnormal findings (Primary Dx); Encounter for screening mammogram for breast cancer Start: 06-23-2022 End: 06-23-2022 Patient encounter status Noreen Hung DRILLER MULTIPLE SPINDLE.YARN HANDLER Work Phone: OB/Gynecology Start: 05-10-2022 End: 05-10-[address] Bobby Stinson Work Phone: [facility] Start: 04-26-2022 Non-patient / Non-visit Dr. Bobby Stinson Work Phone: [facility] Start: 04-26-2022 End: 04-26-2022 Admission to same day surgery center Dr. Bobby Stinson Work Phone: [facility] Start: 04-26-2022 End: 04-26-[address] Bobby Stinson Work Phone: [facility] Work Phone: Start: 03-02-2022 End: 03-02-[address] Bobby Stinson Work Phone: [facility]Ultrasound, [facility] Start: 02-04-2022 End: 02-04-[address] Bobby Stinson Work Phone: [facility] Start: 11-25-2021 End: 11-25-[address] Bobby Stinson Work Phone: [facility]-Laboratory, Specimen Start: 10-11-2021 Non-patient / Non-visit Dr. Bobby Stinson Work Phone: [facility] Start: 10-11-2021 End: 10-11-[address] Bobby Stinson Work Phone: [facility]Cardiovascular Services Start: 09-08-2021 End: 09-08-[address] Bobby Stinson Work Phone: [facility] Start: 08-07-2018 End: 08-07-2018 Emergency department patient visit DIMA PEREZ Facility:[facility] Start: 06-07-2018 Patient encounter procedure [facility] Start: 05-18-2018 Encounter for other preprocedural examination [facility] Start: 05-18-2018 Patient encounter procedure [facility] Start: 04-04-2018 Patient encounter procedure [facility] Start: 03-30-2018 Patient encounter procedure [facility] Encounter for other preprocedural examination [facility] Procedures Date Procedure Procedure Detail Performing Clinician Start: 12-18-2024 Release of trigger finger Dr. Bobby loya DO Work Phone: Start: 11-29-2024 Plain X-ray of finger Dr. Bobby Stinson DO Work Phone: Start: 08-03-[address] Bobby Stinson Work Phone: Start: 06-08-2023 Cysto,Biopsy,Fulguration,Bladder Tumor (Not Applicable) Dr. Bobby Stinson Work Phone: Start: 06-05-[address] elast[address] of liver Dr[address] Troy Stinson Work Phone: Start: 09-05-[address] Bobby rucker Work Phone: Start: 09-05-[address] Bobby denson Work Phone: Start: 08-11-2022 Radiologic examination of knee Dr. Pollo Stinson Work Phone: Start: 06-24-2022 End: 06-24-2022 Mammography Noreen Hung APRN.ESSENCE Work Phone: Start: 04-26-[address] Bobby rucker Work Phone: Start: 03-02-[address] Bobby rucker Work Phone: Start: 03-02-[address] Bobby denson Work Phone: Start: 04-09-2021 Mammography Noreen Hung DRILLER MULTIPLE SPINDLE.YARN HANDLER Work Phone: Start: 07-02-2018 Colonoscopy Noreen Hung DRILLER MULTIPLE SPINDLE.YARN HANDLER Work Phone: Plan of Treatment Date Care Activity Detail Author Start: 04-09-2026 HPV TESTING HPV TESTING [facility] Start: 04-09-2026 PAP TESTING PAP TESTING [facility] Start: 04-09-2026 Screening for malign ant neoplasm of cervix Cervical Cancer Screening [facility] Start: 08-29-2025 BP Controlled (<130/80) BP Con trolled (<130/80) [facility] Start: 12-18-2024 Patient discharge [facility] Start: 12-18-2024 Adjt tis trns/reargm t f/c/c/m/n/a/g/h/f 10sqcm/< TIS TRNFR F/C/C/M/N/A/G/H/F [facility] Start: 12-18-2024 Exc lesion tdn shth/ jt capsl hand/fngr REMOVE TENDON SHEATH LESION [facility] Start: 11-12-2024 Patient referral [facility] Work Phone: Start: 06-26-2024 Mammography Mammogram Screening [facility] Start: 06-26-2024 Screening for malign ant neoplasm of breast Mammogram Screening [facility] Start: 04-14-2024 Covid-19 Vaccine ( season) Covid-19 Vaccine ( season) [facility] Start: 04-14-2024 Influenza vaccination Influenza Vacc ine (#1) [facility] Start: 08-03-2023 Patient discharge [facility] Start: 06-24-2023 Mammography [facility] Start: 06-23-2023 BP CONTROLLED (<130/80) BP CON TROLLED (<130/80) [facility] Start: 06-16-2023 Shingrix Vaccine (2 of 2) Obando grix Vaccine (2 of 2) [facility] Start: 06-08-2023 Anes transurethral w/urethrocystoscopy nos ANESTH BLADDER SURGERY [facility] Start: 06-08-2023 Cystourethroscopy wi th biopsy CYSTOSCOPY W/BIOPSY(S) [facility] Start: 06-08-2023 Patient discharge [facility] Start: 04-14-2023 Covid-19 Vaccine () Covid-19 Vaccine () [facility] Start: 04-14-2023 Influenza vaccination C [facility] Start: 08-14-2022 DEPRESSION ASSESSMENT DEPRESSION ASS ESSMENT [facility] Start: 04-26-2022 Egd transoral biopsy single/multiple EGD BIOPSY SINGLE/MULTIPLE [facility] Work Phone: Start: 04-26-2022 Patient discharge [facility] Work Phone: Start: 04-14-2022 Influenza vaccination INFLUENZA (#1) [facility] Start: 04-09-2022 Mammography MAMMOGRAM [facility] Start: 02-04-2022 Acute hepatitis 2000 panel - Serum [facility] Work Phone: Start: 02-04-2022 IgA [Mass/volume] in Serum or Plasma [facility] Work Phone: Start: 02-04-2022 IgE [Units/volume] i n Serum or Plasma [facility] Work Phone: Start: 02-04-2022 IgG [Mass/volume] in Serum or Plasma [facility] Work Phone: Start: 02-04-2022 IgM [Mass/volume] in Serum or Plasma [facility] Work Phone: Start: 02-04-2022 [facility] Work Phone: Start: 11-25-2021 Patient referral [facility] Work Phone: Start: 08-27-2021 COVID-19 VACCINE (3 - Booster for Pfizer series) COVID-19 VACCINE (3 - Booster for Pfizer series) [facility] Start: 08-27-2021 COVID-19 VACCINE (3 - Pfizer series) COVID-19 VACCINE (3 - Pfizer series) [facility] Start: 08-14-2021 DEPRESSION ASSESSMENT DEPRESSION ASS ESSMENT [facility] Start: 07-02-2019 Colonoscopy COLONOSCOPY [facility] Start: 07-02-2019 COLORECTAL CANCER SCREENING CO LORECTAL CANCER SCREENING [facility] Start: 07-02-2019 Screening for malign ant neoplasm of colon [facility] Start: 2017 SHINGRIX VACCINE (1 of 2) OBANDO GRIX VACCINE (1 of 2) [facility] Start: 01-31-2012 COLOGUARD (FIT-DNA) COLOGUARD (FIT-D NA) [facility] Start: 01-31-[address] COLONOGRAPHY [facility] Start: 01-31-2012 FECAL OCCULT BLOOD FECAL OCCULT BLOO D [facility] Start: 01-31-2012 Screening for malign ant neoplasm of colon [facility] Start: 01-31-2012 SIGMOIDOSCOPY SIGMOIDOSCOPY [facility] Start: 1986 Hepatitis B Vaccine (1 of 3 - 19+ 3-dose series) Hepatitis B Vaccine (1 of 3 - 19+ 3-dose series) [facility] Start: 1986 Pneumococcal Vaccine : 50+ (1 of 2 - PCV) Pneumococcal Vaccine: 50+ (1 of 2 - PCV) [facility] Start: 1986 Urine microalbumin profile [facility] Start: 1985 ANNUAL PCP TEAM CEMETERY COUNSELOR LEXX DISEASE VISIT ANNUAL PCP TEAM CHRONIC DISEASE VISIT [facility] Start: 1985 Anxiety Screening Anxiety Screening [facility] Start: 1985 BP Controlled (<130/80) BP Con trolled (<130/80) [facility] Start: 1985 Depression Screening Depression Scre ening [facility] Start: 1985 Hepatitis B surface antibody level LDL CHOLESTEROL [facility] Start: 1985 HEPATITIS C SCREENING HEPATITIS C [facility] Start: 1985 Hepatitis C screening Hepatitis C [facility] Start: 1985 HIV SCREENING HIV SCREENING [facility] Start: 1985 HIV screening HIV Screening [facility] Start: 1977 3 comp foot exam completed DIABETIC FOOT EXAM [facility] Start: 1977 Diabetic foot examination Diabetic F oot Exam [facility] Start: 1977 Glaucoma screening Dilated Retinal E xam [facility] Start: 1977 Hepatitis B screening URINE ALBUMIN:CREATININE RATIO [facility] Start: 1977 Hepatitis C antibody , confirmatory test DILATED RETINAL EXAM [facility] Start: 1973 PNEUMOCOCCAL (1 - PCV) PNEUMOCOCCAL (1 - PCV) [facility] Start: 1973 Pneumococcal vaccination [facility] Start: 01-31-1972 Hemoglobin A1c measurement HbA1C [facility] Start: 01-31-1972 Hemoglobin A1c/Hemoglobin.total in Blood HBA1C [facility] Start: 1967 HEPATITIS B (1 of 3 - 3-dose series) HEPATITIS B (1 of 3 - 3-dose series) [facility] Start: 1967 Hepatitis B Vaccine (1 of 3 - 3-dose series) Hepatitis B Vaccine (1 of 3 - 3-dose series) [facility] Colonoscopy [facility] End: 08-14-2025 DBT Breast - bilateral screening [facility] [place] [facility] Routine Encounter for screening mammogram for malignant neoplasm of breast 1 Occurrences starting 07/15/2024 until 08/14/2025 [facility] Work Phone: Comment on above: 1 Occurrences starti ng 07/15/2024 until 08/14/2025 End: 09-28-2025 DBT Breast - bilateral screening [facility] [place] [facility] Routine Encounter for gynecological examination (general) (routine) without abnormal findings Encounter for screening mammogram for breast cancer 1 Occurrences starting 08/29/2024 until 09/28/2025 [facility] Work Phone: Comment on above: 1 Occurrences starti ng 08/29/2024 until 09/28/2025 DBT Breast - bilater al screening [facility] [place] [facility] Routine Encounter for screening mammogram for malignant neoplasm of breast 08/29/2024 12:47 PM EST [facility] Work Phone: Hepatitis A virus Ig M Ab [Presence] in Serum [facility] Work Phone: Hepatitis B core ant ibody measurement, IgM type [facility] Work Phone: Hepatitis B surface antigen measurement [facility] Work Phone: Hepatitis C antibody measurement [facility] Work Phone: IgA [Mass/volume] in Serum or Plasma [facility] Work Phone: IgE [Units/volume] i n Serum or Plasma [facility] Work Phone: IgG [Mass/volume] in Serum or Plasma [facility] Work Phone: IgM [Mass/volume] in Serum or Plasma [facility] Work Phone: End: 03-23-2024 [facility] SCREENING [facility] Radiology Routine Breast screening 1 Occurrences starting 02/22/2023 until 03/23/2024 [facility] Work Phone: Comment on above: 1 Occurrences starti ng 02/22/2023 until 03/23/2024 Neutrophil cytoplasm ic Ab.classic [Units/volume] in Serum [facility] Work Phone: P-ANCA measurement [facility] Work Phone: Patient referral [facility] Work Phone: End: 07-23-2023 Screening mammography bi 2-view breast inc cad [facility] SCREENING Radiology Routine Encounter for screening mammogram for breast cancer 1 Occurrences starting 06/23/2022 until 07/23/2023 [facility] Work Phone: Comment on above: 1 Occurrences starti ng 06/23/2022 until 07/23/2023 Ultrasound elastography [facility] Work Phone: [facility] Immunizations Immunization Date Immunization Notes Care Provider Fa cili 04-21-[address] Bobby Stinson DO Work Phone: [facility] 07-02-2021 Covid (Pfizer) Dr. Bobby rucker DO Work Phone: [facility] 06-11-2021 Covid (Pfizer) Dr. Bobby rucker DO Work Phone: [facility] Payers Date Payer Category Payer Unknown [id number] 2024 Unknown [id number] 2024 Unknown [id number] 2023 Self-pay [id number] 2022 Private Health Insurance [facility] [id number] 2022-Present [phone] [address] [place] [address] PPO [id number] 2022 Private Health Insurance [id number] 2015 Unknown 2013 Unknown [id number] 1967 Unknown [id number] 1967 Unknown [id number] [id number] 1967 Unknown [id number] 2.16.840.1.263286.3.579.2.6 1967 Unknown [id number] [id number] 1967 Unknown [id number] [id number] 27 Unknown [id number] Unknown [facility] [employer] [id number] Unknown [id number] [id number] 62 Unknown [id number] 2.16.840.1.713417.3.579.2.4 62 Unknown [id number] 2.16.840.1.457192.3.579.2.4 62 Unknown [id number] 2.16.840.1.426995.3.579.2.4 62 Unknown [id number] 2.16.840.1.430211.3.579.2.4 62 Unknown [id number] 2.16.840.1.300526.3.579.2.4 62 Unknown [id number] 2.16.840.1.680391.3.579.2.4 62 Unknown [id number] 2.16.840.1.839041.3.579.2.4 62 Unknown [id number] 2.16.840.1.878902.3.579.2.4 62 Unknown [id number] 2.16.840.1.298075.3.579.2.4 62 Unknown [id number] 2.16.840.1.308853.3.579.2.4 62 Unknown [id number] 2.16.840.1.553115.3.579.2.4 62 Unknown [id number] 2.16.840.1.150219.3.579.2.4 62 Unknown [id number] [id number] 62 Unknown [id number] [id number] 62 Social History Date Type Detail Facility Start: 11-25-2021 End: 08-01-2023 Tobacco smoking status ARIS Unknown if ever smoked [facility] Start: 1965 Sex Assigned At Female [facility] Start: 06-23-2022 End: 01-25-2024 Tobacco smoking status ARIS Never smoked tobacco [facility] Work Phone: Start: 06-23-2022 Tobacco use and exposure Smoke less tobacco non-user [facility] Work Phone: Start: 06-23-2022 End: 08-29-2024 Alcohol intake Current non-drinker of alcohol (finding) [facility] Start: 03-09-2020 History SDOH Social Connections Phone 5 [facility] Start: 03-09-2020 History SDOH Social Connections Get Together 2 [facility] Start: 03-09-2020 History SDOH Social Connections Rastafari 1 [facility] Start: 03-09-2020 History SDOH Social Connections Living 3 [facility] Start: 03-09-2020 History SDOH Physica l Activity DPW 7 [facility] Start: 03-09-2020 History SDOH Physica l Activity MPS 9 [facility] Start: 03-09-2020 Education 13 [facility] Start: 1965 Sex Assigned At Not on file [facility] Start: 06-13-2022 End: 06-23-2022 Exposure to SARS-CoV-2 (event) Not sure [facility] Work Phone: Start: 06-23-2022 End: 08-29-2024 History of Social function [facility] Work Phone: Start: 06-23-2022 End: 08-29-2024 Tobacco use panel [facility] Work Phone: Do you belong to any clubs or organizations such as yazdanism groups, unions, fraternal or athletic groups, or school groups? No [facility] Work Phone: Are you now , , , , never or living with a partner? [facility] Work Phone: How hard is it for y ou to pay for the very basics like food, housing, medical care, and heating Not hard at all [facility] Work Phone: Do you feel stress - tense, restless, nervous, or anxious, or unable to sleep at night because your mind is troubled all the time - these days [OSQ] Not at all [facility] Work Phone: (I/We) worried wheth er (my/our) food would run out before (I/we) got money to buy more. Never true [facility] Work Phone: NEGATED: Highlighted row [facility] Medical Equipment Procedure Code Equipment Code Equipment Origin al Text Equipment Identifier Dates Colonoscopy Ligation clip, metallic ()[id number] [facility] Start: 08-03-2023 Blood Sugar Diagnostic (Contour Test Strips) strip Start: 12-11-2017 End: 01-02-2018 Blood Sugar Diagnostic (Contour Test Strips) strip Start: 12-11-2017 End: 01-02-2018 Blood Sugar Diagnostic (Contour Test Strips) strip Start: 12-11-2017 End: 01-02-2018 Blood Sugar Diagnostic (Contour Test Strips) strip Start: 12-11-2017 End: 01-02-2018 Blood Sugar Diagnostic (Contour Test Strips) strip Start: 12-11-2017 End: 01-02-2018 Blood Sugar Diagnostic (Contour Test Strips) strip Start: 12-11-2017 End: 01-02-2018 Blood Sugar Diagnostic (Contour Test Strips) strip Start: 12-11-2017 End: 01-02-2018 Blood Sugar Diagnostic (Contour Test Strips) strip Start: 12-11-2017 End: 01-02-2018 Blood Sugar Diagnostic (Contour Test Strips) strip Start: 12-11-2017 End: 01-02-2018 Blood Sugar Diagnostic (Contour Test Strips) strip Start: 12-11-2017 End: 01-02-2018 Blood Sugar Diagnostic (Contour Test Strips) strip Start: 12-11-2017 End: 01-02-2018 Blood Sugar Diagnostic (Contour Test Strips) strip Start: 12-11-2017 End: 01-02-2018 Blood Sugar Diagnostic (Contour Test Strips) strip Start: 12-11-2017 End: 01-02-2018 Blood Sugar Diagnostic (Contour Test Strips) strip Start: 12-11-2017 End: 01-02-2018 Blood Sugar Diagnostic (Contour Test Strips) strip Start: 12-11-2017 End: 01-02-2018 Blood Sugar Diagnostic (Contour Test Strips) strip Start: 12-11-2017 End: 01-02-2018 Blood Sugar Diagnostic (Onetouch Ultra Test) strip Start: 04-19-2023 Blood Sugar Diagnostic (Contour Test Strips) strip Start: 12-11-2017 End: 01-02-2018 Blood Sugar Diagnostic (Contour Test Strips) strip Start: 12-11-2017 End: 01-02-2018 Blood Sugar Diagnostic (Onetouch Ultra Test) strip Start: 04-14-2023 End: 04-19-2023 Blood Sugar Diagnostic (Onetouch Ultra Test) strip Start: 04-19-2023 Blood Sugar Diagnostic (Contour Test Strips) strip Start: 12-11-2017 End: 01-02-2018 Blood Sugar Diagnostic (Contour Test Strips) strip Start: 12-11-2017 End: 01-02-2018 Blood Sugar Diagnostic (Onetouch Ultra Test) strip Start: 04-14-2023 End: 04-19-2023 Blood Sugar Diagnostic (Onetouch Ultra Test) strip Start: 06-27-2024 Blood Sugar Diagnostic strip Start: 10-27-2021 Blood Sugar Diagnostic (Contour Test Strips) strip Start: 12-11-2017 End: 01-02-2018 Blood Sugar Diagnostic (Contour Test Strips) strip Start: 12-11-2017 End: 01-02-2018 Blood Sugar Diagnostic (Onetouch Ultra Test) strip Start: 04-14-2023 End: 04-19-2023 Blood Sugar Diagnostic (Onetouch Ultra Test) strip Start: 04-19-2023 End: 06-27-2024 Blood Sugar Diagnostic strip Start: 01-02-2018 End: 01-02-2018 Blood Sugar Diagnostic strip Start: 01-02-2018 End: 12-17-2019 Blood Sugar Diagnostic strip Start: 12-17-2019 End: 07-06-2021 Blood Sugar Diagnostic strip Start: 07-06-2021 End: 10-27-2021 Blood Sugar Diagnostic (Onetouch Ultra Test) strip Start: 06-27-2024 Blood Sugar Diagnostic strip Start: 10-27-2021 Blood Sugar Diagnostic (Contour Test Strips) strip Start: 12-11-2017 End: 01-02-2018 Blood Sugar Diagnostic (Contour Test Strips) strip Start: 12-11-2017 End: 01-02-2018 Blood Sugar Diagnostic (Onetouch Ultra Test) strip Start: 04-14-2023 End: 04-19-2023 Blood Sugar Diagnostic (Onetouch Ultra Test) strip Start: 04-19-2023 End: 06-27-2024 Blood Sugar Diagnostic strip Start: 01-02-2018 End: 01-02-2018 Blood Sugar Diagnostic strip Start: 01-02-2018 End: 12-17-2019 Blood Sugar Diagnostic strip Start: 12-17-2019 End: 07-06-2021 Blood Sugar Diagnostic strip Start: 07-06-2021 End: 10-27-2021 Blood Sugar Diagnostic (Onetouch Ultra Test) strip Start: 06-27-2024 Blood Sugar Diagnostic strip Start: 10-27-2021 Blood Sugar Diagnostic (Contour Test Strips) strip Start: 12-11-2017 End: 01-02-2018 Blood Sugar Diagnostic (Contour Test Strips) strip Start: 12-11-2017 End: 01-02-2018 Blood Sugar Diagnostic (Onetouch Ultra Test) strip Start: 04-14-2023 End: 04-19-2023 Blood Sugar Diagnostic (Onetouch Ultra Test) strip Start: 04-19-2023 End: 06-27-2024 Blood Sugar Diagnostic strip Start: 01-02-2018 End: 01-02-2018 Blood Sugar Diagnostic strip Start: 01-02-2018 End: 12-17-2019 Blood Sugar Diagnostic strip Start: 12-17-2019 End: 07-06-2021 Blood Sugar Diagnostic strip Start: 07-06-2021 End: 10-27-2021 Blood Sugar Diagnostic (Onetouch Ultra Test) strip Start: 06-27-2024 Blood Sugar Diagnostic strip Start: 10-27-2021 Blood Sugar Diagnostic (Contour Test Strips) strip Start: 12-11-2017 End: 01-02-2018 Blood Sugar Diagnostic (Contour Test Strips) strip Start: 12-11-2017 End: 01-02-2018 Blood Sugar Diagnostic (Onetouch Ultra Test) strip Start: 04-14-2023 End: 04-19-2023 Blood Sugar Diagnostic (Onetouch Ultra Test) strip Start: 04-19-2023 End: 06-27-2024 Blood Sugar Diagnostic strip Start: 01-02-2018 End: 01-02-2018 Blood Sugar Diagnostic strip Start: 01-02-2018 End: 12-17-2019 Blood Sugar Diagnostic strip Start: 12-17-2019 End: 07-06-2021 Blood Sugar Diagnostic strip Start: 07-06-2021 End: 10-27-2021 Goals Date Patient Goal Desired Activity /State Mental Status Date Assessment Result Facility 12-18-2024 Cognitive function Level Of Cons ciousness Awake;Alert;Appropriate [facility] Work Phone: 08-03-2023 Cognitive function Voice/Name [facility] Work Phone: 06-08-2023 Cognitive function Voice/Name [facility] Work Phone: 04-26-2022 Cognitive function Awake;Alert;Appropriat e [facility] Work Phone: 04-26-2022 Cognitive function Arousable To Voice/Nam e [facility] Work Phone: Clinical Notes 06-23-2022 to 12-18-2024 Note Date & Type Note Facility 12-18-2024 Procedure note [facility] 12-18-2024 History and physi sharon note [facility] 10-23-2024 Evaluation note Diagnosis Onset Date Resolution GERD (gastroesophageal reflux disease) chronic October 23, 2024 7:33am NAFLD (nonalcoholic fatty liver disease) chronic October 23, 2024 7:33am Mucous cyst of digit of left hand acute November 12, 2024 2:26pm NAFLD (nonalcoholic fatty liver disease) chronic November 12, 2024 2:26pm Type 2 diabetes mellitus chronic November 12, 2024 2:26pm Mucous cyst of digit of left hand acute November 29, 2024 2:28pm Mucous cyst of digit of left hand acute December 18, 2024 12 :25pm [facility] Work Phone: 1(791) 183-373103-12-2025 Evaluation note* Diagnosis Onset Date Resolution Status Admit Date GERD (gastroesophageal reflu x disease) chronic October 23, 2024 7:33am NAFLD (nonalcoholic fatty li catherine disease) chronic October 23, 2024 7:33am Mucous cyst of digit of left hand acute November 12, 2024 2:26pm NAFLD (nonalcoholic fatty li catherine disease) chronic November 12, 2024 2:26pm Type 2 diabetes mellitus chronic November 12, 2024 2:26pm Mucous cyst of digit of left hand acute November 29, 2024 2:28pm Mucous cyst of digit of left hand acute December 18, 2024 12 :25pm Mucous cyst of digit of left hand acute December 20, 2024 10 :10am [facility] Work Phone: 1(950) 762-175903-12-2025 Evaluation note* Diagnosis Onset Date Resolution Status Admit Date GERD (gastroesophageal reflu x disease) chronic October 23, 2024 7:33am NAFLD (nonalcoholic fatty li catherine disease) chronic October 23, 2024 7:33am Mucous cyst of digit of left hand acute November 12, 2024 2:26pm NAFLD (nonalcoholic fatty li catherine disease) chronic November 12, 2024 2:26pm Type 2 diabetes mellitus chronic November 12, 2024 2:26pm Mucous cyst of digit of left hand acute November 29, 2024 2:28pm Mucous cyst of digit of left hand acute December 18, 2024 12 :25pm Mucous cyst of digit of left hand acute December 20, 2024 10 :10am Mucous cyst of digit of left hand acute December 27, 2024 9 :09am Mucous cyst of digit of left hand acute January 03, 2025 1 0:03am [employer] [facility] Work Phone: 1(444) 340-458403-12-2025 Evaluation note* Diagnosis Onset Date Resolution Status Admit Date GERD (gastroesophageal reflu x disease) chronic October 23, 2024 7:33am NAFLD (nonalcoholic fatty li catherine disease) chronic October 23, 2024 7:33am Mucous cyst of digit of left hand acute November 12, 2024 2:26pm NAFLD (nonalcoholic fatty li catherine disease) chronic November 12, 2024 2:26pm Type 2 diabetes mellitus chronic November 12, 2024 2:26pm Mucous cyst of digit of left hand acute November 29, 2024 2:28pm Mucous cyst of digit of left hand acute December 18, 2024 12 :25pm Mucous cyst of digit of left hand acute December 20, 2024 10 :10am Mucous cyst of digit of left hand acute December 27, 2024 9 :09am Mucous cyst of digit of left hand acute January 03, 2025 1 0:03am Mucous cyst of digit of left hand acute January 10, 2025 8 :34am [employer] [facility] Work Phone: 1(769) 421-468801-16-2025 History of Present illness Narrative* Jackie Jolly Mammo Tech - 08/29/2024 12:30 PM EST Radiology Service Progress Note PATIENT NAME: Tran Hardin DATE OF SERVICE: August 29, 2024 TIME: 1:00 PM PATIENT IDENTITY VERIFICATION COMPLETED USING TWO (2) IDENTIFIERS: Name and Date of confirmedby patient verbally. FALL SCREENING: Has the patient had 2 falls in the last year or 1 fall with injury or currently using an Ambulatory Assistive Device (Walker, Cane, Wheelchair, Crutches, etc.)? No PATIENT GENDER DATA: Assigned female at . status: : No status:NO. PATIENT RELEVANT IMPLANT DATA REVIEWED: Not Applicable PATIENT PRESENTS WITH AN IMPLANTABLE OR ATTACHED INSTANT POTATO PROCESSOR: No RADIOLOGY DEPARTMENT: Mammography PERIPHERAL IV DATA: Not applicable SIGNED BY: Pau Gagnon August 29, 2024 1:00 PM documented in this encounterGerman Hospital01-16-2025 NoteHNO ID: [id number] Author: JACKIE JOLLY Mammo Tech Service: ? Author Type: Head Of Sales Promotion Type: Progress Notes Filed: 08/29/2024 13:00 Note Text: Radiology Service Progress Note PATIENT NAME: Tran Hardin DATE OF SERVICE: August 29, 2024 TIME: 1:00 PM PATIENT IDENTITY VERIFICATION COMPLETED USING TWO (2) IDENTIFIERS: Name and Date of confirmed by patient verbally. FALL SCREENING: Has the patient had 2 falls in the last year or 1 fall with injury or currently using an Ambulatory Assistive Device (Walker, Cane, Wheelchair, Crutches, etc.)? No PATIENT GENDER DATA: Assigned female at . status: : No status: NO. PATIENT RELEVANT IMPLANT DATA REVIEWED: Not Applicable PATIENT PRESENTS WITH AN IMPLANTABLE OR ATTACHED INSTANT POTATO PROCESSOR: No RADIOLOGY DEPARTMENT: Mammography PERIPHERAL IV DATA: Not applicable SIGNED BY: Pau Gagnon August 29, 2024 1:00 [facility]01-16-2025 History of Present illness Narrative* Noreen Hung APRN.YARN HANDLER - 08/29/2024 10:50 AM EST Patient declined spring coiler. Tran is a 59 year old who presents for an annual gynecologic exam without complaints. Postmenopausal: Yes since 2014 HRT use: No. Age at Menarche: 12-13 Still get period: No Bleeding between periods: No Sexually active: Yes Contraception: None Contraception frequency: Never HPV vaccine: No Last pap smear: 04/09/2021, negative, HPV-negative History of abnormal pap: No Pt reported none Colposcopy: No. Leep: No. Cone biopsy: No. 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 LMP: 10/25/2016 (Approximate), Postmenopausal Age at Menarche: Age at First : Age at Menopause: Personal Insurance Advisor History Comments: Sexual Activity: Yes; Male Contraception: None PAST MEDICAL HISTORY Diagnosis Date DM type 2 (diabetes mellitus, type 2) (HCC) Fatty liver Gallstones Heartburn HTN (hypertension) Stress incontinence PAST SURGICAL HISTORY Procedure Laterality Date D&C DIAG &/OR THERAP, NOT OB N/A 03/2017 [facility] RIGHT OP SURGERY Right 3 surgeries FAMILY HISTORY Problem Relation Age of Onset Diabetes Mother Kidney Disease Mother other (congestive heart) Mother Cancer Sister uterine Cancer Sister ovarian No Known Problems Brother SOCIAL HISTORY Social History Tobacco Use Smoking status: Never Smokeless tobacco: Never Vaping Use Vaping status: Never Used Substance Use Topics Alcohol use: No Drug use: Never REVIEW OF SYSTEMS Abdomen: No abdominal pain, nausea, vomiting, diarrhea, or constipation. No bloating, early satiety, indigestion, or increased flatulence. Bladder: No dysuria, gross hematuria, urinary frequency, urinary urgency, +incontinence Breast: No breast lumps, nipple d/c, overlying skin changes, redness or skin retraction Allergies and current medication updated:Yes SENSITIVE EXAM: The sensitive examination was discussed with the Patient or Patient's Authorized Studio Artist. As applicable, any other physician, advance practice provider, medical student, or other health professional student that will be observing or involved in the sensitive examination for educational or training purposes was discussed with the Patient or Authorized Studio Artist. 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 (Sensitive examination includes inspection and/or palpation of the breasts, pelvis, prostate and anorectal regions). EXAM: BP 124/70 Ht 5' 5.236 (1.66m) Wt 276 lb 9.6 oz (125.5kg) LMP 10/25/2016 BMI 45.70 kg/(m^2). GENERAL: pleasant, female in no apparent distress HEENT: Normocephalic, atraumatic, mucus membranes moist, and no lesions NECK: Supple, full range of motion, no adenopathy, and thyroid normal DERMATOLOGY: Normal, without lesions, non-icteric, and non-hirsute BREAST: soft, non-tender, symmetric, no dominant mass, normal nipple-areolar complex, no lymphadenopathy, and no nipple discharge CHEST: Normal inspiratory effort ABDOMEN: soft, non-tender, and no masses PELVIC: external genitalia normal, normal Bartholin's glands, urethra, Orwell's glands, no vulvar lesions, no cervical lesions, physiologic discharge present, normal appearing perineal body and perianal region, cystocele 3rd degree BIMANUAL: uterus normal size, shape and consistency, no adnexal masses, non- tender, and no cervicalmotion tenderness RECTOVAGINAL: deferred. NEURO: alert and oriented x3,exam grossly non-focal EXTREMITIES: normal ASSESSMENT/PLAN: 1) Health maintenance: Pap/HPV up to date. Mammogram ordered Mammogram up to date Nutrition, exercise and routine health maintenance exams reviewed. Calcium/Vitamin D supplementation information provided. Colon cancer screening: up to date with screening due in 2027 2) Follow up one year or sooner as needed Noreen Hung APRN.ESSENCE documented in this encounterGerman Hospital01-16-2025 NoteHNO ID: [id number] Author: NOREEN HUNG APRN.CNP Service: ? Author Type: Nurse Practitioner Type: Progress Notes Filed: 08/29/2024 11:39 Note Text: Patient declined spring coiler. Tran is a 59 year old who presents for an annual gynecologic exam without complaints. Postmenopausal: Yes since 2015 HRT use: No. Age at Menarche: 12-13 Still get period: No Bleeding between periods: No Sexually active: Yes Contraception: None Contraception frequency: Never HPV vaccine: No Last pap smear: 04/09/2021, negative, HPV-negative History of abnormal pap: No Pt reported none Colposcopy: No. Leep: No. Cone biopsy: No. 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 LMP: 10/25/2016 (Approximate), Postmenopausal Age at Menarche: Age at First : Age at Menopause: Personal Insurance Advisor History Comments: Sexual Activity: Yes; Male Contraception: None PAST MEDICAL HISTORY Diagnosis Date DM type 2 (diabetes mellitus, type 2) (HCC) Fatty liver Gallstones Heartburn HTN (hypertension) Stress incontinence PAST SURGICAL HISTORY Procedure Laterality Date DANDC DIAG AND/OR THERAP, NOT OB N/A 03/2017 [facility] KNEE RIGHT OP SURGERY Right 3 surgeries FAMILY HISTORY Problem Relation Age of Onset Diabetes Mother Kidney Disease Mother other (congestive heart) Mother Cancer Sister uterine Cancer Sister ovarian No Known Problems Brother SOCIAL HISTORY Social History Tobacco Use Smoking status: Never Smokeless tobacco: Never Vaping Use Vaping status: Never Used Substance Use Topics Alcohol use: No Drug use: Never REVIEW OF SYSTEMS Abdomen: No abdominal pain, nausea, vomiting, diarrhea, or constipation. No bloating, early satiety, indigestion, or increased flatulence. Bladder: No dysuria, gross hematuria, urinary frequency, urinary urgency, +incontinence Breast: No breast lumps, nipple d/c, overlying skin changes, redness or skin retraction Allergies and current medication updated:Yes SENSITIVE EXAM: The sensitive examination was discussed with the Patient or Patient's Authorized Studio Artist. As applicable, any other physician, advance practice provider, medical student, or other health professional student that will be observing or involved in the sensitive examination for educational or training purposes was discussed with the Patient or Authorized Studio Artist. 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 (Sensitive examination includes inspection and/or palpation of the breasts, pelvis, prostate and anorectal regions). EXAM: BP 124/70 Ht 5' 5.236 (1.66m) Wt 276 lb 9.6 oz (125.5kg) LMP 10/25/2016 BMI 45.70 kg/(m2). GENERAL: pleasant, female in no apparent distress HEENT: Normocephalic, atraumatic, mucus membranes moist, and no lesions NECK: Supple, full range of motion, no adenopathy, and thyroid normal DERMATOLOGY: Normal, without lesions, non-icteric, and non-hirsute BREAST: soft, non-tender, symmetric, no dominant mass, normal nipple-areolar complex, no lymphadenopathy, and no nipple discharge CHEST: Normal inspiratory effort ABDOMEN: soft, non-tender, and no masses PELVIC: external genitalia normal, normal Bartholin's glands, urethra, Orwell's glands, no vulvar lesions, no cervical lesions, physiologic discharge present, normal appearing perineal body and perianal region, cystocele 3rd degree BIMANUAL: uterus normal size, shape and consistency, no adnexal masses, non-tender, and no cervical motion tenderness RECTOVAGINAL: deferred. NEURO: alert and oriented x3,exam grossly non-focal EXTREMITIES: normal ASSESSMENT/PLAN: 1) Health maintenance: Pap/HPV up to date. Mammogram ordered Mammogram up to date Nutrition, exercise and routine health maintenance exams reviewed. Calcium/Vitamin D supplementation information provided. Colon cancer screening: up to date with screening due in 2027 2) Follow up one year or sooner as needed Noreen Hung [facility]N.[facility] Telephone encounter Note* Telephone Encounter - Ana Castillo - 07/16/2024 10:28 AM EST LVM for patient to schedule Screening Mammogram. [facility] attempt. [facility]12-03-[facility] Miscellaneous Notes* Telephone Encounter - Ana Castillo - 07/16/2024 10:28 AM EST LVM for patient to schedule Screening Mammogram. First attempt. * Telephone Encounter - Noreen Hung APRN.CNP - 07/15/2024 4:11 PM EST Order filed. Noreen Hung APRN.CNP * Telephone Encounter - Clementine De - 07/15/2024 1:39 PM EST Patient called requesting mammo order to be placed documented in this encounterGerman Hospital12-02-2024 Telephone encounter Note * Telephone Encounter - Noreen Hung APRN.CNP - 07/15/2024 4:11 PM EST Order filed. Noreen Hung APRN.CNP [facility]12-02-2024 Telephone encounter Note* Telephone Encounter - Clementine De - 07/15/2024 1:39 PM EST Patient called requesting mammo order to be placed [facility] Work Phone: 1(773) 112-182012-21-2023 Procedure [facility] 08-03-2023 Procedure [facility]11-13-2023 Miscellaneous Notes* Letter - Coordinator, Mammography - 06/26/2023 8:51 PM EST June 27, 2023 PID: [id number] Tran Hardin [address] [place] [address] Dear Ms. Hardin, We are pleased to inform you that the results of your recent breast imaging exam on 06/26/2023 are normal. Early detection of cancer is very important. We also understand recommendations regarding breast cancer screening are controversial. Please discuss with your primary care provider which strategy is best for you and whether a mammogram is right for you. Your imaging studies and report will be [facility] at [facility] as part of your permanent medical record and are available for your continuing care. Thank you for allowing us to help in meeting your health care needs. Sincerely, Dr. Fuller Interpreting Radiologist [facility] (Normal over 40) documented in this encounterGerman Hospital10-26-2023 Procedure [facility]07-12-2023 Miscellaneous Notes* Telephone Encounter - Noreen Hung APRN.CNP - 02/22/2023 10:36 AM EDT Order filed. Noreen Hung APRN.CNP * Telephone Encounter - Joselyn Russ PSS - 02/22/2023 8:12 AM EDT Patient requesting mammogram order to be filed. Please advise documented in this encounterGerman Hospital11-14-2022 Miscellaneous Notes* Letter - Mammography Coordinator - 06/27/2022 4:50 PM EST June 27, 2022 PID: [id number] Tran Hardin [address] [place] [address] Dear Anette, We are pleased to inform you that the results of your recent breast imaging exam on 06/24/2022 are normal. Early detection of cancer is very important. We also understand recommendations regarding breast cancer screening are controversial. Please discuss with your primary care provider which strategy is best for you and whether a mammogram is right for you. Your imaging studies and report will be [facility] file at [facility] as part of your permanent medical record and are available for your continuing care. Thank you for allowing us to help in meeting your health care needs. Sincerely, Dr. Mcdonough Interpreting Radiologist [facility] (Normal over 40) documented in this encounterGerman Hospital11-11-2022 History of Present illness Narrative* Susana Knott RT(R) - 06/24/2022 7:50 AM EST Radiology Service Progress Note PATIENT NAME: Tran Hardin DATE OF SERVICE: June 24, 2022 TIME: 7:44 AM PATIENT IDENTITY VERIFICATION COMPLETED USING TWO (2) IDENTIFIERS: Name and Date of confirmedby patient verbally. FALL SCREENING: Has the patient had 2 falls in the last year or 1 fall with injury or currently using an Ambulatory Assistive Device (Walker, Cane, Wheelchair, Crutches, etc.)? No PATIENT GENDER DATA: Female. status: : No status: NO. PATIENT RELEVANT IMPLANT DATA REVIEWED: Not Applicable RADIOLOGY DEPARTMENT: Mammography PERIPHERAL IV DATA: Not applicable SIGNED BY: RT Eliezer(R) June 24, 2022 7:44 AM documented in this encounterGerman Hospital11-10-2022 History of Present illness Narrative* Noreen Hung APRN.YARN HANDLER - 06/23/2022 7:43 AM EST Center Rep offered: Patient declinesLashanda Mayfield is a 57 year old who presents for an annual gynecologic exam without complaints. Postmenopausal: Yes since 2014 HRT use: No. 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 Insurance Advisor History LMP: 10/25/2016 (Approximate), Postmenopausal Age at Menarche: Age at First : Age at Menopause: Personal Insurance Advisor History Comments: Sexual Activity: Not Currently; No partner data on record Contraception: No contraception data on record PAST MEDICAL HISTORY Diagnosis Date DM type 2 (diabetes mellitus, type 2) (HCC) Gallstones HTN (hypertension) Stress incontinence PAST SURGICAL HISTORY Procedure Laterality Date D&C DIAG &/OR THERAP, NOT OB N/A 03/2017 [facility] RIGHT OP SURGERY Right 3 surgeries FAMILY HISTORY Problem Relation Age of Onset Diabetes Mother Cancer Sister uterine Cancer Sister ovarian SOCIAL HISTORY Social History Tobacco Use Smoking status: Never Smokeless tobacco: Never Vaping Use Vaping Use: Never used Substance Use Topics Alcohol use: No Drug use: Never REVIEW OF SYSTEMS Abdomen: No abdominal pain, nausea, vomiting, diarrhea, or constipation. No bloating, early satiety, indigestion, or increased flatulence. Bladder: No dysuria, gross hematuria, urinary frequency, urinary urgency, or incontinence Breast: No breast lumps, nipple d/c, overlying skin changes, redness or skin retraction Allergies and current medication updated:Yes EXAM: LMP 10/25/2016 GENERAL: pleasant, female in no apparent distress HEENT: Normocephalic, atraumatic, and no lesions NECK: Supple, full range of motion, no adenopathy, and thyroid normal DERMATOLOGY: Normal, without lesions, non-icteric, and non-hirsute BREAST: soft, non-tender, symmetric, no dominant mass, normal nipple-areolar complex, no lymphadenopathy, and no nipple discharge CHEST: Normal inspiratory effort ABDOMEN: soft, non-tender, and no masses PELVIC: external genitalia normal, normal Bartholin's glands, urethra, Orwell's glands, no vulvar lesions, no cervical lesions, physiologic discharge present, normal appearing perineal body and perianal region, cystocele 3rd degree, cervical prolapse 1st degree BIMANUAL: uterus normal size, shape and consistency, no adnexal masses, and non-tender RECTOVAGINAL: deferred. NEURO: alert and oriented x3,exam grossly non-focal EXTREMITIES: normal ASSESSMENT/PLAN: 1) Health maintenance: Pap/HPV up to date. Mammogram ordered Nutrition, exercise and routine health maintenance exams reviewed. Colon cancer screening: done in 2018 repeat in 10 yrs 2) Follow up one year or sooner as needed Noreen Hung APRN.CNP documented in this encounterTyler ClinicDischarge summary Author America Gilmore [facility] June 08, 2023 7:45am Note Date/Time June 08, 2023 7 :43am [facility] Medical Records Department [address] [place] [address] Instructions for Home/Discharge Instructions 06/08/23 0743 MR#: [id number] Acct: [id number] Name: TRAN HARDIN Rep #:[id number] : 1965 58 From: America Murillo PCP: Dr. Bobby Stinson, DO Status:[facility] [place]charge Instructions Diet Discharge Diet: No restrictions Activity Discharge Activity: Return to Normal Activity Dressing / Incision Call your doctor if you observe: Fever of 101 or Higher, Inability to urinate and Inability to have a bowel movement Follow Up Care Please Follow Up With: America Gilmore MD When: the office will call for follow up appt. Test Results: Test results from this visit will be discussed in further detail at your follow- up appointment, if applicable. Discharge Plan Admission Attending Provider: America Gilmore Primary Care Provider: Bobby Stinson Discharge Orders/Prescriptions Prescriptions: New oxycodone-acetaminophen [Percocet] 5-325 mg tablet 1 tab PO Q8H PRN (Reason: pain) 2 Days Qty: 6 0RF cephalexin [cephalexin] 500 mg capsule 500 mg PO Q12 3 Days Qty: 6 0RF Continued glucosamine HCl 750 mg tablet 750 mg tablet 750 mg PO BID omega-3 fatty acids 1,250 mg capsule 1,250 mg capsule 1,250 mg PO DAILY multivitamin capsule 1 cap PO DAILY fesoterodine 4 mg tablet extended release 24 hr 4 mg PO DAILY Patient Comments: TAKE 1 TABLET BY MOUTH EVERY DAY thiamine HCl (vitamin B1) 500 mg Tablet 1,000 mg PO DAILY nystatin 100,000 unit/gram cream 1 applic topical DAILY PRN (Reason: SKIN) pantoprazole 40 mg tablet,delayed release (DR/EC) 40 mg PO DAILY lisinopril 10 mg tablet 10 mg PO DAILY (DME) blood sugar diagnostic Strip See Dose Instructions .ROUTE .MEDSUPPLY Qty: 100 1RF Dose Instruction: As directed Rx Instructions: one touch ultra check glucose daily for type 2 DM ursodiol 250 mg tablet 250 mg PO BID Qty: 90 11RF (DME) OneTouch Ultra Test Strip See Rx Instructions .Route Qty: 100 3RF Rx Instructions: As directed to check glucose daily for type 2 DM simvastatin 10 mg tablet 10 mg PO QHS Qty: 30 11RF semaglutide 0.25 mg or 0.5 mg (2 mg/3 mL) pen injector 0.5 mg subcut QWEEK Qty: 3 2RF Referrals / Follow Up: Bobby Stinson DO [Primary Care Provider] - Disposition Disposition (needs filled in before D/C Order can be placed): Home, Self Care 06/08/23 4500<Electronically signed by America Gilmore MD>America Gilmore MD CC: Dr. Bobby Stinson DO ~ Signed [facility] Work Phone: Evaluation note* Diagnosis Onset Date Resolution Status Chest pain acute Essential hypertension chron ic Reflux esophagitis acute Chronic low back pain chroni c Type 2 diabetes mellitus chr [facility] Work Phone: Evaluation note* Diagnosis Onset Date Resolution Status Reflux esophagitis acute Chronic low back pain chroni c Type 2 diabetes mellitus chr onic Fatty liver acute GERD (gastroesophageal reflux disease) acute [facility] Work Phone: Evaluation note* Diagnosis Onset Date Resolution Status Fatty liver acute GERD (gastroesophageal reflux disease) acute [facility] Work Phone: Evaluation note* Diagnosis Encounter for gynecological examination (general) (routine) without abnormal findings- Primary Encounter for screening mammogram for breast cancer documented in this encounter [facility] note* Diagnosis Onset Date Resolution Status Fatty liver acute GERD (gastroesophageal reflux disease) acute Reflux esophagitis acute Cholelithiasis chronic Reflux esophagitis acute Tension headache acute Cholelithiasis chronic Essential hypertension chron ic Obesity chronic Type 2 diabetes mellitus chr [facility] Work Phone: Evaluation note* Diagnosis Onset Date Resolution Status Fatty liver acute GERD (gastroesophageal reflux disease) acute Reflux esophagitis acute Cholelithiasis chronic Reflux esophagitis acute Tension headache acute Cholelithiasis chronic Essential hypertension chron ic Obesity chronic Type 2 diabetes mellitus chr onic Upper respiratory infection noneactive [facility] Work Phone: Evaluation note* Diagnosis Onset Date Resolution Status Tension headache acute Cholelithiasis chronic Essential hypertension chron ic Obesity chronic Type 2 diabetes mellitus chr onic Upper respiratory infection noneactive Fatty liver chronic GERD (gastroesophageal reflux disease) chronic Obesity chronic Right knee pain acute Swelling of right lower extremity acute [facility] Work Phone: Evaluation note* Diagnosis Breast screening- Primary Breast screening, unspecified documented in this encounter [facility] note* Diagnosis Onset Date Resolution Status Essential hypertension chron ic Fatty liver chronic Type 2 diabetes mellitus chr onic Fatty liver chronic GERD (gastroesophageal reflux disease) chronic Obesity chronic [facility] Work Phone: Evaluation note* Diagnosis [facility] for [facility] for [facility] Encounter for screening mammogram for malignant neoplasm of breast- Primary Other [facility] [place] [facility] Diagnosis Encounter for gynecological examination (general) (routine) without abnormal findings- Primary Encounter for screening mammogram for breast cancer [facility] [place] [facility]* Diagnosis Encounter for screening mammogram for malignant neoplasm of breast Other screening mammogram [facility] Mian Hooper [facility] August 03, 2023 9:14am Note Date/Time August 03, 2023 9:14am [facility] Medical Records Department [address] [place] [address] History & Physical Exam 08/03/23 0913 MR#: [id number] Acct: [id number] Name: TRAN HARDIN Rep #:[id number] : 1965 58 From: Mian Hooper DO PCP: Dr. Bobby Stinson, DO Status:[facility] Location: [place] [address] History and Physical Date of Admission: 08/03/23 hip pain, poorly controlled diabetes Details: TRAN HARDIN, is a 58 F who presents to the office today for follow up. PMH DMII; HTN.? FH mother H.Pylori, gastric ulcer, Hilliard?s esophagus, CKD stage 4.? Prior workup:?Colonoscopy 07.02.[address] Jose Sánchez?finding one inflammatorypolyp.?US RUQ 05.20.21?liver measurement 21.6cm with fatty infiltration and two simple cysts; normal distended gallbladder without Watters?s sign with gallstones. Remaining exam without acute/chronic comment.? ? WSA consult 05.21.21 for gallstones seen on Xray which was performed for back pain. Notes US with cholelithiasis without acute cholecystitis. Asymptomatic; nointervention at this time. ? ? PCP OV for CP and burning. Cardiac workup to include echocardiogram, EKG and stress test with all normal results. Refer to GI for GERD evaluation.? ? *BGI established 02.04.22. She is using heartburn relief QD with effectiveness. Once a month she will have CP/burning without nausea or dysphagia; relief with belching and deep breathing. Triggers include salmon. ? Fatty liver is a new diagnosis for her. She is diabetic with A1c 4.14.22 7.3; when she saw her PCP at this time it was noted she was not being compliant with her diet. Weight was 287 with BMI 46.3. AST 45/ALT 92/Alk phos WNL.? Biochemical?CMP, LDH, coagulation, CBC, ESR, hepatitis, ANCA, celiac profile, GAME without additional pertinent abnormalities.? CRP H7.21; AST H39/ ALT H72/ alk phos WNL?US RUQ and elastography 03.02.22?liver measurement 18.9cm with fatty infiltration and two cysts each lobe with kPa 13.5 F4.?EGD 04.26.22?LA Grade C reflux esophagitis; medium hiatal hernia; chronic gastritis.? OV 05.10.22 with start of PPI BID she had one episode of reflux. Start?Ursodiol and vitamin E? Biochemical ?CMP, lipids without pertinent abnormality. A1c 6.9? OV 08.09.22 feels she is doing well in regard to reflux;?PPI 40mg QD continues.?Ursodiol/vit E/simvastatin?continue without adverse effect. Did lose some weightwith diet/portion control but holiday season was difficult. A1c dropped from 7.2to 6.9.?US and elastography 09.06.22?hepatic measurement 23.8cm with fattyinfiltration, stiffness measures 10kPa F2; increased echogenicity of pancreas.? OV 12.06. feels she is doing well at this time. Continues with?ursodiol/Vit E/simvastatin/protonix. She has a weight goal of 215lbs by 05.28.23; to achieve this she plans on starting weightwatchers which was helpful to her previously. ? OV 06.07.23 Pt stable since last visit. Has started Ozempic end of March and reports increase in heartburn. Stable on Ursodiol and Vitamin E. ROS Const Constitutional: Positive for headache(s); No fatigue ENT ENT: Positive for headache(s); No difficulty swallowing Gastro GI: Positive for heartburn; No abdominal pain, belching, bloating, change in bowel habits, change in stool character, coffee ground emesis, constipation, cramping, diarrhea, difficulty swallowing, feeling full early, excessive flatus, incontinent of stools, Vomiting blood/hematemesis, Blood in stool, loose stools, Black,tarry stools, nausea/dyspepsia, pain with swallowing, vomiting or other Musc Musculoskeletal: Positive for joint pain, back pain and Arthritis Skin Skin: No yellowing of the eye or itchy eyes Neuro Neurology: Positive for headache(s) Psych Psychiatric: No anxiety and No depression Endo Endocrine: No fatigue Aller/Imm Allergy/Immunologic: No itchy eyes Kulwinder/Lymp Hematologic/Lymphatic: No easy bleeding or easy bruising Exam Const General: cooperative, no acute distress and ill appearing acutely Nutritional Appearance: average body habitus and obese morbidly obese Orientation: alert, awake and oriented x3 [facility] Head: normocephalic Ears: hearing grossly normal bilaterally Nose: external nose normal Face and sinus: normal facial exam Mouth: oral mucosae normal Throat: posterior oropharynx normal Eyes General: appearance normal, both eyes and all related structures Neck Neck: normal visual inspection Resp Effort & Inspection: normal respiratory effort and able to speak in complete sentences Auscultation: Bilateral: Clear to Auscultation Cardio Palpation: normal PMI Rate: regular rate Rhythm: regular rhythm GI Inspection: normal to inspection Musc Musculoskeletal: Yes joint tenderness (Mild right hip pain.) Skin General: no rashes or lesions noted Rashes: rashes noted (intertriginous yeast rash under her breasts.) Neuro General: patient alert, patient awake and patient oriented x3 Extrem General: full ROM Psych Appearance: grossly normal Affect: normal affect Quality Reporting Tobacco Screening ([facility] 138) Smoking Status: Never smoker Assessment and Plan Assessment and Plan (1) Fatty liver: Status: Chronic Plan: Her ultrasound of the liver showed that she has a 19 cm liver with an Metavir score of 13.5 which is F3 to F4.? I will put her on ursodiol 250 or 300 mg twicea day.? We will check her LFTs, liver enzymes and cholesterol profile to see if we need to add a statin.? I think it would be a good idea for her to be on a statin at baseline if she can tolerate the side effects of due to diabetes and her elevated CRP.? We also discussed weight loss and better eating habits.? She says that she cannot exercise at this time secondary to her back issues that sheis experiencing at this time.? We provided specific caloric intake and other ways in order to help her reduce inflammation and scarring in the liver along with her type 2 diabetes.? I gave her documentation and which showed specific examples of what we recommend. She has not lost any weight but her liver size is decreased to 17 cm and her Medicare score has decreased from 13.5-10-8.4 which is F2. She has been instituting coffee, taking a statin that we put her on along with lactulose and vitamin E. His symptoms this is having a very good therapeutic effect on the inflammation in her liver. She said that she would start back on weight watchers as she did very well with that previously. We will continue current management in a.m. and her weight loss journey to decrease the amount of inflammation and scarring that she has in her liver. (2) Obesity: Status: Chronic Qualifiers: Obesity type: unspecified obesity type Obesity classification: unspecified obesity classification Serious obesity comorbidity presence: without serious comorbidity Qualified Code(s): E66.9 - Obesity, unspecified Plan: She will continue to follow a card controlled diet. She is also on Ozempic. Her hemoglobin A1c has gone down from 8.1-7.2. She is having a very good therapeutic effect from it without much side effect of nausea, vomiting or constipation. (3) GERD (gastroesophageal reflux disease): Status: Chronic Qualifiers: Esophagitis presence: esophagitis presence not specified Qualified Code(s): K21.9 - Gastro-esophageal reflux disease without esophagitis Comment: CONTROLLED WITH MED Plan: She is only having 1 episode reflux esophagitis symptoms.? On pantoprazole..? She is making lifestyle changes and regarding eating at night and not laying down within an hour after eating.? I think a lot of her symptoms come from a hiatal hernia.? I am not recommending surgery at this time as she is just going on medicines for reflux disease and it seems like it is working at this time.? The goal for her would be to be on pantoprazole 40 mg twice a day for 8 weeks and then transition to 40 mg once a day.? The risk and benefits of chronic PPI therapy were discussed with her and I think that the benefits far outweigh the risks because she does have short segment Hilliard's esophagus. (4) she will need to have repeat colonoscopy because of her history of polyps. She was explained alternatives, risk, benefits including understanding bleeding,infection, sepsis, perforation, need for emergent urgent . She will have an ASA of 3. 08/03/23 0914 <Electronically signed by Mian Hooper DO> Cosigner Signature (if applicable): CC: Dr. Bobby Stinson, DO; Mian Hooper, DO~ Signed [facility] Work Phone: History and physical note Author Caleb Corley [facility] Note Date/Time December 18, 2024 3:49pm [facility] Medical Records Department [address] [place] [address] H&P Exam - Surgical 12/18/24 1545 MR#: [id number] Acct: [id number] Name: TRAN HARDIN Rep #:[id number] : 1965 59 From: Caleb Corley MD PCP: Dr. 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 She was referred here by her primary care physician. Patient reports has been there for 3 months and it hurts when it hits things. It is not draining. She has never had any interventions on it. Patient is a non-smoker. She is a type II diabetic with an A1c most recently of 5.9 in November 2024 (earlier this month). Current Encounter (DATE OF SURGERY H&P UPDATE): I saw and examined the patient this morning in pre-operative holding. We discussed risks and benefits of today's surgery and they would like to proceed. NO CHANGE in health history since last seen and evaluated EXCEPT the cyst is larger and skin is thinner, andit is starting to become more tender. Ready to proceed with surgery. [facility] Medical History Hx of colonic polyp Lesion of bladder Wears glasses Diabetes Back pain Frequent headaches Blackout History of hiatal hernia Fatty liver Shortness of breath on exertion History of pain when walking Swelling of right lower extremity Right knee pain Post-menopausal Arthritis Non-smoker Leg cramps History of stress test History of echocardiogram Cardiology follow-up encounter Obesity Essential hypertension GERD (gastroesophageal reflux disease) Cholelithiasis Frequent headaches Type 2 diabetes mellitus Home Medications ?Medication ?Instructions ?Recorded ?Last Taken ?Type multivitamin 1 cap PO DAILY 03/17/20 Unkn own History blood sugar diagnostic #100 ea 10/27/21 Unknown Rx fesoterodine 4 mg tablet,extended 4 mg PO DAILY Unknown History release 24 hr naproxen 500 mg tablet (Naprosyn) 500 mg PO BID PRN pa in #20 tabs 01/25/24 Unknown Rx lisinopril 10 mg tablet 10 mg PO DAILY #90 tabs 04/14 02/04 Unknown Rx blood sugar diagnostic (OneTouch #100 strips 06/27/24 Unknown Rx Ultra Test strips) pantoprazole 40 mg tablet,delayed 40 mg PO DAILY #90 T ABLETS 07/09/24 Unknown Rx release cholecalciferol (vitamin D3) 25 25 mcg PO QDAY 5 Unknown History mcg (1,000 unit) capsule cyanocobalamin (vitamin B-12) 1,000 mcg PO QDAY Unknown History 1,000 mcg tablet simvastatin 10 mg tablet 10 mg PO QHS 3 months #90 TA BLETS 11/05/24 Unknown Rx metformin 500 mg tablet 500 mg PO BID 90 days #180 t abs 11/12/24 Unknown Rx semaglutide 2 mg/dose (8 mg/3 mL) 2 mg (0.75 mL) subcu t QWEEK #3 mL 11/12/24 12/10/24 Rx subcutaneous pen injector Allergy/AdvReac Type Severity Reaction Status Date / Time empagliflozin (From Allergy Mild rash Verified 12/18/24 12:54 Jardiance) Family History Sister Cancer cervical, ovarian Diabetes Mother Asthma Diabetes Kidney disease Father Alcoholism Surgical History Hx of colonoscopy History of esophagogastroduodenoscopy (EGD) History of wisdom tooth extraction History of arthroscopy of left knee History of right knee surgery History of D&C Social History Smoking Status: Never smoker alcohol intake: never substance use type: does not use what type of physical activity do you participate in: none Vital Signs Vital Signs Vital Signs: 12/18/24 12:55 12/18/24 12:55 Temperature 97 F L Temperature Source Temporal Pulse Rate 90 Respiratory Rate 16 Respiratory Pattern Normal Blood Pressure 129/78 H Blood Pressure Mean 95 Blood Pressure Source Monitor Blood Pressure Position Semi-Fowlers Blood Pressure Location Left Arm Pulse Ox 96 Oxygen Delivery Method Room Air Weight Weight: 270 lb Body Mass Index (BMI) 42.3 Physical Exam Narrative Cyst has gotten bigger and skin is thinner. I marked it in preoperative holding. Left upper Extremity Inspection: Left long finger with ulnar-sided dorsal DIP joint mucous cyst. Good skin integrity around the cyst but very thin skin overlying the cyst. No collateral ligament instability and no mallet. Palpation: Slight tenderness to palpation Motor: Able to bend and extend all MP, PIP, and DIP joints. Sensory: Intact to light touch on the radial and ulnar borders. Vascular: Finger tips are warm and well perfused with <2 second capillary refill. Assessment & Plan Assessment/Plan (1) Mucous cyst of digit of left hand: PLAN: Plan I talked to the patient extensively about the risks of surgery, including bleeding, infection, joint infection, damage to surrounding structures includingmallet finger or collateral ligament instability, poor scaring, surgical site dehiscence and wound formation, need for wound care, need for repeat operations,failure to obtain the desired result (cyst recurrence). The benefits and alternatives of this surgery were also discussed. We talked about inability to close the wound after resection and potential need for local soft tissue rearrangement/adjacent tissue transfer in order to take tension off the wound. We talked about the potential for this flap to have wound healing problems/require debridement and reconstruction. She is exceptingthe risks. I talked her about an alternative potential option of excision of the cyst with primary closure if possible versus excision of the cyst from a more proximal incision via undermining of the cyst with a curette removing the stalk and the osteophytes and letting the cyst involute on its own, and how this carries the risks of infection as this may leave an opening. All of their questions were answered, and they agreed to proceed with surgery. INTERVAL H&P PLAN, DATE OF SURGERY: Cyst has gotten bigger and skin is thinner. Discussed above noted risks and risks of flap/tissue necrosis/wound healing problems. We will proceed with surgery today. 12/18/24 154 <Electronically signed by Caleb Corley MD> Cosigner Signature (if applicable): CC: Dr. Bobby Stinson, DO; Dr. Caleb Corley MD~ Signed [facility]: [facility] Work Phone: Hospital Discharge instructions Additional Instructions Implant Used?: [facility] Work Phone: Reason for referral (narrative)* Diagnostic Procedure Only (Routine) - Pending Review Specialty Diagnoses / Procedures Referred By Dominga kent Referred To Contact [facility] Diagnoses Encounter for screening mammogram for breast cancer Procedures LINDSAY SCREENING SCREENING MAMMOGRAPHY BI 2-VIEW BREAST INC Noreen Barba APRN.YARN HANDLER [address] [place] [address] [facility] [address] [place] [address] Referral ID Status Reason Start Date Expiration Date Visits Requested Visits Authorized [id number] Pending Review Auto-Generat ed Referral 2 07/23/2023 1 1 [facility] for referral (narrative)* Diagnostic Procedure Only (Routine) - Authorized Specialty Diagnoses / Procedures Referred By Dominga kent Referred To Contact [facility] Diagnoses Breast screening Procedures LINDSAY SCREENING SCREENING MAMMOGRAPHY BI 2-VIEW BREAST INC Noreen Barba APRN.CNP [address] [place] [address] [facility] [address] [place] [address] Referral ID Status Reason Start Date Expiration Date Visits Requested Visits Authorized [id number] Authorized Auto-Generat ed Referral 02/22/2023 03/23/2024 1 1 [facility] for referral (narrative)* Diagnostic Procedure Only (Routine) - Closed Specialty Diagnoses / Procedures Referred By Contac t Referred To Contact [facility] Diagnoses Encounter for screening mammogram for breast cancer Procedures LINDSAY SCREENING SCREENING MAMMOGRAPHY BI 2-VIEW BREAST INC CAD Noreen Hung APRN.YARN HAND[employer]ER [address] [place] [address] [facility] [address] [place] [address] Referral ID Status Reason Start Date Expiration Date V isits Requested Visits Authorized [id number] Closed Auto-Generate d Referral 06/23/2022 07/23/2023 1 1 [facility] for referral (narrative)* Diagnostic Procedure Only (Routine) - New Request Specialty Diagnoses / Procedures Referred By Contac t Referred To Contact [facility] Diagnoses Encounter for screening mammogram for malignant neoplasm of breast Procedures LINDSAY SCREENING [place] SCREENING DIGITAL BREAST TOMOSYNTHESIS BI SCREENING MAMMOGRAPHY BI 2-VIEW BREAST INC CAD Noreen Hung APRN.YARN HANDLER [address] [place] [address] [facility] [address] [place] [address] Referral ID Status Reason Start Date Expiration Date Visits Requested Visits Authorized [id number] New Request Auto-Generat ed Referral 07/15/2024 08/14/2025 1 1 [facility] for referral (narrative)* Diagnostic Procedure Only (Routine) - New Request Specialty Diagnoses / Procedures Referred By Contac t Referred To Contact [facility] Diagnoses Encounter for gynecological examination (general) (routine) without abnormal findings Encounter for screening mammogram for breast cancer Procedures LINDSAY SCREENING [place] SCREENING DIGITAL BREAST TOMOSYNTHESIS BI SCREENING MAMMOGRAPHY BI 2-VIEW BREAST INC CAD Noreen Hung APRN.YARN HANDLER [address] [place] [address] [facility] [address] [place] [address] Referral ID Status Reason Start Date Expiration Date Visits Requested Visits Authorized [id number] New Request Auto-Generat ed Referral 08/29/2024 09/28/2025 1 1 [facility] for visit Narrative* Diagnostic Procedure Only (Routine) - Closed Specialty Diagnoses / Procedures Referred By Dominga kent Referred To Contact [facility] Diagnoses Encounter for screening mammogram for breast cancer Procedures LINDSAY SCREENING SCREENING MAMMOGRAPHY BI 2-VIEW BREAST INC CAD Noreen Hung APRN.YARN HANDLER [address] [place] [address] [facility] [address] [place] [id number] Referral ID Status Reason Start Date Expiration Date V isits Requested Visits Authorized [id number] Closed Auto-Generate d Referral 06/23/2022 07/23/2023 1 1 [facility] for visit Narrative* Diagnostic Procedure Only (Routine) - Closed Specialty Diagnoses / Procedures Referred By Dominga kent Referred To Contact [facility] Diagnoses Encounter for screening mammogram for malignant neoplasm of breast Procedures [place] SCREENING [place] SCREENING DIGITAL BREAST TOMOSYNTHESIS BI SCREENING MAMMOGRAPHY BI 2-VIEW BREAST INC CAD Noreen Hung APRN.[employer] [address] [place] [address] [facility] [address] [place] [address] Referral ID Status Reason Start Date Expiration Date V isits Requested Visits Authorized [id number] Closed Auto-Generate d Referral 07/15/2024 08/14/2025 1 1 [facility] Summary Purpose Family History No Family History Records Found Relationship Condition Age at Onset Recorded Date/T brandon sister Malignant neoplasm Unknown Diabetes mellitus Unknown mother Asthma Unknown Kidney disorder Unknown father Alcoholism Unknown Advance Directives No Advanced Directives Records Found Advance Directive Response Recorded Date/ Time Living Will No May 18 12:16pm Power of Retail Client Solutions Analyst No May 18, 2 021 12:16pm Advance Directive Response Recorded Date/ Time Living Will No April 21, 2 022 3:24pm Power of Retail Client Solutions Analyst No April 21, 2022 3:24pm Advance Directive Response Recorded Date/ Time Living Will No April 21, 2 022 2:24pm Power of Retail Client Solutions Analyst No April 21, 2022 2:24pm Advance Directive Response Recorded Date/ Time Living Will No June 06 10:21am Power of Retail Client Solutions Analyst No June 06, 2023 10:21am Advance Directive Response Recorded Date/ Time Living Will No August 01, 023 11:43am Power of Retail Client Solutions Analyst No August 01, 2023 11:43am Advance Directive Response Recorded Date/ Time Living Will No January 25, 2024 2:45pm Do you have a Healthcare Power of Retail Client Solutions Analyst? No January 25, 2024 2:45pm Chief Complaint and Reason for Visit Chief Complaint PRECORDIAL PAIN (YOD ER) CHEST PAIN 6 MO FU Reason for Visit Chest pain Essential hypertension Reflux esophagitis Chronic low back pain Type 2 diabetes mellitus Chief Complaint 6 MO FU GASTRO ESOPHAGEAL REFLUX INT LABS Reason for Visit Reflux esophagitis Chronic low back pain Type 2 diabetes mellitus Fatty liver GERD (gastroesophageal reflux disease) Chief Complaint 6 MO FU GASTRO ESOPHAGEAL REFLUX INT LABS FATTY LIVER, GERD Reason for Visit Reflux esophagitis Chronic low back pain Type 2 diabetes mellitus Fatty liver GERD (gastroesophageal reflux disease) Chief Complaint GASTRO ESOPHAGEAL RE FLUX INT LABS FATTY LIVER, GERD Reason for Visit Fatty liver GERD (gastroesophageal reflux disease) Chief Complaint 2 WK FU CHK UP Reason for Visit Fatty liver GERD (gastroesophageal reflux disease) Reflux esophagitis Cholelithiasis Reflux esophagitis Tension headache Cholelithiasis Essential hypertension Obesity Type 2 diabetes mellitus Chief Complaint 2 WK FU CHK UP COUGH SINCE MONDAY E ORDER Reason for Visit Fatty liver GERD (gastroesophageal reflux disease) Reflux esophagitis Cholelithiasis Reflux esophagitis Tension headache Cholelithiasis Essential hypertension Obesity Type 2 diabetes mellitus Upper respiratory infection Chief Complaint CHK UP COUGH SINCE MONDAY E ORDER 3 MO FU KNEE PAIN PAIN IN RIGHT KNEE bp check HESS Reason for Visit Tension headache Cholelithiasis Essential hypertension Obesity Type 2 diabetes mellitus Upper respiratory infection Fatty liver GERD (gastroesophageal reflux disease) Obesity Right knee pain Swelling of right lower extremity Chief Complaint 4 M FU FATTY LIVER 6 mo fu Cysto, Bladder Biopsy, Fulguration Reason for Visit Essential hypertensi on Fatty liver Type 2 diabetes mellitus Fatty liver GERD (gastroesophageal reflux disease) Obesity Chief Complaint 4 M FU FATTY LIVER 6 mo fu Cysto, Bladder Biopsy, Fulguration Amb Documentation Reason for Visit Essential hypertensi on Fatty liver Type 2 diabetes mellitus Fatty liver GERD (gastroesophageal reflux disease) Obesity Chief Complaint Admit Date 6 M FU October 23, 2024 7:3 3am 6 M FU November 12, 2024 2:26 pm GANGLION CYST L HAND November 29, 2024 2: 28pm E-ORDER November 29, 2024 3:1 3pm Excision mucous cyst left long finger po ssible adj December 18, 2024 12:25pm Excision mucous cyst left long finger po ssible adj December 18, 2024 3:45pm Reason for Visit Admit Date GERD (gastroesophageal reflux disease) [facility] 2024 7:33am NAFLD (nonalcoholic fatty liver disease) October 23, 2024 7:33am Mucous cyst of digit of left hand November 12, 2024 2:26pm NAFLD (nonalcoholic fatty liver disease) November 12, 2024 2:26pm Type 2 diabetes mellitus November 12, 2024 2:26pm Mucous cyst of digit of left hand November 29, 2024 2:28pm Mucous cyst of digit of left hand December 12:25pm Chief Complaint Admit Date 6 M FU October 23, 2024 7:3 3am 6 M FU November 12, 2024 2:26 pm GANGLION CYST L HAND November 29, 2024 2: 28pm E-ORDER November 29, 2024 3:1 3pm Excision mucous cyst left long finger po ssible adj December 18, 2024 12:25pm Excision mucous cyst left long finger po ssible adj December 18, 2024 3:45pm POST OP December 20, 2024 10:10a m POST OP December 27, 2024 9:09a m Reason for Visit Admit Date GERD (gastroesophageal reflux disease) [facility] 2024 7:33am NAFLD (nonalcoholic fatty liver disease) October 23, 2024 7:33am Mucous cyst of digit of left hand November 12, 2024 2:26pm NAFLD (nonalcoholic fatty liver disease) November 12, 2024 2:26pm Type 2 diabetes mellitus November 12, 2024 2:26pm Mucous cyst of digit of left hand November 29, 2024 2:28pm Mucous cyst of digit of left hand December 7t h2024 12:25pm Mucous cyst of digit of left hand December 9t h2024 10:10am Chief Complaint Admit Date 6 M FU October 23, 2024 7:3 3am 6 M FU November 12, 2024 2:26 pm GANGLION CYST L HAND November 29, 2024 2: 28pm E-ORDER November 29, 2024 3:1 3pm Excision mucous cyst left long finger po ssible adj December 18, 2024 12:25pm Excision mucous cyst left long finger po ssible adj December 18, 2024 3:45pm POST OP December 20, 2024 10:10a m POST OP December 27, 2024 9:09a m SUTURE REMOVAL January 03, 2025 10:03 am 1 W FU January 10, 2025 8:34a m Reason for Visit Admit Date GERD (gastroesophageal reflux disease) [facility] 2024 7:33am NAFLD (nonalcoholic fatty liver disease) October 23, 2024 7:33am Mucous cyst of digit of left hand November 12, 2024 2:26pm NAFLD (nonalcoholic fatty liver disease) November 12, 2024 2:26pm Type 2 diabetes mellitus November 12, 2024 2:26pm Mucous cyst of digit of left hand November 29, 2024 2:28pm Mucous cyst of digit of left hand December 7t h2024 12:25pm Mucous cyst of digit of left hand December 9 h2024 10:10am Mucous cyst of digit of left hand December 272024 9:09am Mucous cyst of digit of left hand January 032024 10:03am Chief Complaint Admit Date 6 M FU October 23, 2024 7:3 3am 6 M FU November 12, 2024 2:26 pm GANGLION CYST L HAND November 29, 2024 2: 28pm E-ORDER November 29, 2024 3:1 3pm Excision mucous cyst left long finger po ssible adj December 18, 2024 12:25pm Excision mucous cyst left long finger po ssible adj December 18, 2024 3:45pm POST OP December 20, 2024 10:10a m POST OP December 27, 2024 9:09a m SUTURE REMOVAL January 03, 2025 10:03 am 1 W FU January 10, 2025 8:34a m 2 W FU January 24, 2025 7:57 am Reason for Visit Admit Date GERD (gastroesophageal reflux disease) [facility] 2024 7:33am NAFLD (nonalcoholic fatty liver disease) October 23, 2024 7:33am Mucous cyst of digit of left hand November 12, 2024 2:26pm NAFLD (nonalcoholic fatty liver disease) November 12, 2024 2:26pm Type 2 diabetes mellitus November 12, 2024 2:26pm Mucous cyst of digit of left hand November 29, 2024 2:28pm Mucous cyst of digit of left hand December 7t h2024 12:25pm Mucous cyst of digit of left hand December 9t h, 2024 10:10am Mucous cyst of digit of left hand December 272024 9:09am Mucous cyst of digit of left hand January 032024 10:03am Mucous cyst of digit of left hand January 102024 8:34am Additional Source Comments INFORMATION SOURCE (unrecogn ized section and content) DATE CREATED AUTHOR 07/14/2018 [facility] [employer] DATE CREATED AUTHOR AUTHOR'S ORGANIZ ATION 08/09/2018 [facility] [employer] ([place]) DATE CREATED AUTHOR AUTHOR'S ORGANIZ ATION 09/01/2024 [facility] DATE CREATED AUTHOR AUTHOR'S ORGANIZ ATION 01/27/2025 [facility] Goals (unrecognized section and content) Goals may be documented in a n alternate sectionGoals may be documented in an alternate sectionGoals may be documented in an alternate sectionGoals may be documented in an alternate section Source Comments (unrecognize d section and content) In the event this informatio n is protected by the Federal Confidentiality of Alcohol and Drug Abuse Patient Records regulations: The Federal rules restrict any use of the information to criminally investigate or prosecute any alcohol or drug abuse patient.[facility] the event this information is protected by the Federal Confidentiality of Alcohol and Drug Abuse Patient Records regulations: The Federal rules restrict any use of the information to criminally investigate or prosecute any alcohol or drug abuse patient.[facility] Hospital[facility] the event this information is protected by the Federal Confidentiality of Alcohol and Drug Abuse Patient Records regulations: The Federal rules restrict any use of the information to criminally investigate or prosecute any alcohol or drug abuse patient.[facility] the event this information is protected by the Federal Confidentiality of Alcohol and Drug Abuse Patient Records regulations: The Federal rules restrict any use of the information to criminally investigate or prosecute any alcohol or drug abuse patient.[facility] Hospital[facility] the event this information is protected by the Federal Confidentiality of Alcohol and Drug Abuse Patient Records regulations: The Federal rules restrict any use of the information to criminally investigate or prosecute any alcohol or drug abuse patient.[facility] the event this information is protected by the Federal Confidentiality of Alcohol and Drug Abuse Patient Records regulations: The Federal rules restrict any use of the information to criminally investigate or prosecute any alcohol or drug abuse patient.[facility] Hospital[facility] the event this information is protected by the Federal Confidentiality of Alcohol and Drug Abuse Patient Records regulations: The Federal rules restrict any use of the information to criminally investigate or prosecute any alcohol or drug abuse patient.[facility] Hospital[facility] the event this information is protected by the Federal Confidentiality of Alcohol and Drug Abuse Patient Records regulations: The Federal rules restrict any use of the information to criminally investigate or prosecute any alcohol or drug abuse patient.[facility] Reason for Visit (unrecogniz ed section and content) Reason Comments Well Woman Reason Comments Orders Reason Comments Orders mammogram Care Teams (unrecognized sec tion and content) [employer] Relationship Specialty Start Date End Date Bobby Stinson DO PCP - General Family Medicine 12/19/16 [employer] Relationship Specialty Start Date End Date Bobby Stinson DO PCP - General Family Medicine 12/19/16 Team Status: Active Member Role Status Dates Dr. Bobby Stinson DO Family Provider Active Dr. Bobby Stinson DO Primary Care Provider Active Team Status: Inactive Member Role Status Dates Dr. Bobby Stinson DO Primary Care Provider, Referr ing Provider Active Dr. Mian Hooper , DO Attending Provider Active Team Status: Inactive Member Role Status Dates Dr. Bobby Stinson , DO Primary Care Pr ovider, Attending Provider, Referring Provider Active Team Status: Inactive Member Role Status Dates Dr. Bobby Stinson DO Primary Care Provider, Referr ing Provider Active JESIKA Vela Attending Provider Active Team Status: Inactive Member Role Status Dates Dr. Bobby Stinson , DO Primary Care Provider, Referr ing Provider Active Osmar Moran FOUNDRY HAND, FOUNDRY HAND-C Attending Provider Active Team Status: Active Member Role Status Dates Dr. Bobby Stinson DO Primary Care Provider Active Dr. Bradley Helm MD Attending Provider Active Osmar Moran FOUNDRY HAND, FOUNDRY HAND-C Referring Provider Active Team Status: Inactive Member Role Status Dates Dr. Bobby Stinson DO Primary Care Provider Active JESIKA Vela Attending Provider, Referring Pro vider Active Team Status: Inactive Member Role Status Dates Dr. Bobby Stinson DO Primary Care Provider Active Dr. Mian Hooper , DO Attending Provider Active Team Status: Inactive Member Role Status Dates Dr. Bobby Stinson DO Primary Care Provider Active Dr. Mian Hooper , DO Attending Provider, Referring Provider Active Team Status: Inactive Member Role Status Dates Dr. Bobby Stinson DO Primary Care Provider Active Osmar Moran FOUNDRY HAND, FOUNDRY HAND-C Attending Provider, Referring Prov ider Active [employer] Laboratory Manager Relationship Specialty Start Date End Date Bobby Stinson DO PCP - General Family Medicine 12/19/16 Team Status: Active Member Role Status Dates Dr. Bobby Stinson DO Primary Care Provider Active Dr. Mian Hooper , DO Attending Provider, Referring Provider Active Team Status: Inactive Member Role Status Dates Dr. Bobby Stinson DO Primary Care Provider Active Dr. America Gilmore MD Attending Provider, Referring P rovider Active [employer] Laboratory Manager Relationship Specialty Start Date End Date Bobby Stinson DO PCP - General Family Medicine 12/19/16 [employer] Laboratory Manager Relationship Specialty Start Date End Date Bobby Stinson DO PCP - General Family Medicine 12/19/16 Team Status: Active Member Role Status Dates Dr. Bobby Stinson DO Primary Care Provider Active Bobbi White Attending Provider Active Team Status: Active Member Role Status Dates Dr. Bobby Stinson DO Primary Care Provider, Referr ing Provider Active Dr. Mian Hooper DO Attending Provider, Other Prov ider Active [employer] Laboratory Manager Relationship Specialty Start Date End Date Bobby Stinson DO PCP - General Family Medicine 12/19/16 [employer] Laboratory Manager Relationship Specialty Start Date End Date Bobby Stinson DO PCP - General Family Medicine 12/19/16 [employer] Laboratory Manager Relationship Specialty Start Date End Date Bobby Stinson DO PCP - General Family Medicine 12/19/16 Team Status: Active Member Role Status Dates Dr. Bobby Stinson DO Primary Care Provider Active Team Status: Inactive Member Role Status Dates Dr. Bobby Stinson DO Primary Care Provider Active Start: October 23, 2024 End: October 23, 2024 Dr. Bobby Stinson DO Referring Provider Active Start: October 23, 2024 End: October 23, 2024 Dr. Juan Mclean MD Attending Provider Active Start: October 23, 2024 End: October 23, 2024 Team Status: Inactive Member Role Status Dates Dr. Bobby Stinson DO Primary Care Provider Active Start: November 12, 2024 End: November 12, 2024 Dr. Bobby Stinson DO Attending Provider Active Start: November 12, 2024 End: November 12, 2024 Dr. Bobby Stinson DO Referring Provider Active Start: November 12, 2024 End: November 12, 2024 Team Status: Inactive Member Role Status Dates Dr. Bobby Stinson DO Primary Care Provider Active Start: November 29, 2024 End: November 29, 2024 Dr. Bobby Stinson DO Referring Provider Active Start: November 29, 2024 End: November 29, 2024 Dr. Caleb Corley MD Attending Provider Active Start: November 29, 2024 End: November 29, 2024 Team Status: Inactive Member Role Status Dates Dr. Bobby Stinson DO Primary Care Provider Active Start: November 29, 2024 End: November 29, 2024 Dr. Caleb Corley MD Attending Provider Active Start: November 29, 2024 End: November 29, 2024 Dr. Caleb Corley MD Referring Provider Active Start: November 29, 2024 End: November 29, 2024 Team Status: Inactive Member Role Status Dates Dr. Bobby Stinson DO Primary Care Provider Active Start: December 18, 2024 End: December 18, 2024 Dr. Caleb Corley MD Attending Provider Active Start: December 18, 2024 End: December 18, 2024 Dr. Caleb Corley MD Referring Provider Active Start: December 18, 2024 End: December 18, 2024 Team Status: Active Member Role Status Dates Dr. Bobby Stinson DO Primary Care Provider Active Start: December 18, 2024 Dr. Caleb Corley MD Attending Provider Active Start: December 18, 2024 Dr. aCleb Corley MD Referring Provider Active Start: December 18, 2024 Dr. Caleb Corley MD Other Provider Active Star t: December 18, 2024 Team Status: Inactive Member Role Status Dates Dr. Bobby Stinson DO Primary Care Provider Active Start: December 20, 2024 End: December 20, 2024 Dr. Bobby Stinson DO Referring Provider Active Start: December 20, 2024 End: December 20, 2024 Dr. Caleb Corley MD Attending Provider Active Start: December 20, 2024 End: December 20, 2024 Team Status: Inactive Member Role Status Dates Dr. Bobby Stinson DO Primary Care Provider Active Start: December 27, 2024 End: December 27, 2024 Dr. Bobby Stinson DO Referring Provider Active Start: December 27, 2024 End: December 27, 2024 Dr. Caleb Corley MD Attending Provider Active Start: December 27, 2024 End: December 27, 2024 Team Status: Inactive Member Role Status Dates Dr. Bobby Stinson DO Primary Care Provider Active Start: January 03, 2025 End: January 03, 2025 Dr. Bobby Stinson DO Referring Provider Active Start: January 03, 2025 End: January 03, 2025 Dr. Caleb Corley MD Attending Provider Active Start: January 03, 2025 End: January 03, 2025 Team Status: Inactive Member Role Status Dates Dr. Bobby Stinson DO Primary Care Provider Active Start: January 10, 2025 End: January 10, 2025 Dr. Bobby Stinson DO Referring Provider Active Start: January 10, 2025 End: January 10, 2025 Dr. Caleb Corley MD Attending Provider Active Start: January 10, 2025 End: January 10, 2025 Team Status: Inactive Member Role Status Dates Dr. Bobby Stinson DO Primary Care Provider Active Start: January 24, 2025 End: January 24, 2025 Dr. Bobby Stinson DO Referring Provider Active Start: January 24, 2025 End: January 24, 2025 Dr. Caleb Corley MD Attending Provider Active Start: January 24, 2025 End: January 24, 2025 FOR RECORDS PERTAINING TO PATIENTS WHO ARE OR HAVE BEEN ENROLLED IN A CHEMICAL DEPENDENCY/SUBSTANCEABUSE PROGRAM, SOME INFORMATION MAY BE OMITTED. This clinical summary was aggregated from multiple sources. Caution should be exercised in using it in the provision of clinical care. This summary normalizes information from multiple sources, and as a consequence, information in this document may materially change the coding, format and clinical context of patient data. In addition, data may be omitted in some cases. CLINICAL DECISIONS SHOULD BE BASED ON THE PRIMARY CLINICAL RECORDS. [employer] provides no warranty or guarantee of the accuracy or completeness of information in this document.
== END | disposition home or self-care (01) ==
PROVIDERS: PCP Family Medicine; Referring Provider Internal Medicine; Visit Provider Internal Medicine
DX: K76.0 Fatty (change of) liver, not elsewhere classified (principal)
CPT/HCPCS: 76705; 76981